=== PATIENT | female | born 1990 | race Caucasian/White ===

== ENCOUNTER 2017-01-12 16:31 | Inpatient (IN) | payer OTHER ==
[~2017-01-12] VITALS: Ht 170.2 cm; Wt 68.9 kg
[~2017-01-12 16:31] MED LIST: AMOXICILLIN875 MG PO; IBUPROFEN600 M1 PO; PERCOCET 325 MG1 TA2 PO
--- NOTE | 2017-01-12 16:31 | NUR ---
DIANALeticia AFTER BEING FOUND ON NEIGHBORS PORCH WITH ALTERED MENTAL STATUS. PT AWAKE, INCOHERENT. CLOTHES WET AND DIRTY, SMELLING OF URINE. SHAKING UNCONTROLLABLY. SKIN PALE, COOL TO TOUCH. EMS ADMINISTERED 1 AMP NARCAN, STARTED IV AND IVF BOLUS. NO IMPROVEMENT IN STATUS WITH NARCAN. UPON ARRIVAL PT INCOHERENT, SHAKING, UNABLE TO COOPARATE OR ANSWER QUESTIONS. DR MEYER TO BEDSIDE.
--- NOTE | 2017-01-12 16:40 | ED AMS/SEIZURE/WEAK/DIZZY ---
History of Present Illness General Chief Complaint: Altered Mental Status Stated Complaint: BIBA WITH ALTERED,MENTAL STATUS , OVER DOSE Source: EMS, MOTHER Exam Limitations: clinical condition, confusion Vital Signs & Intake/Output Vital Signs & Intake/Output Vital Signs Date Time Temp Pulse Resp B/P B/P Pulse O2 O2 Flow FiO2 Mean Ox Delivery Rate 01/23 2250 98.6 91 20 122/60 96 Room Air 01/23 2200 98.6 91 20 122/60 01/23 1620 98.1 64 18 142/86 95 Room Air 01/23 1406 98.1 90 20 138/80 95 Room Air 01/23 0637 99.5 69 20 140/84 90 Room Air 01/23 0400 98.5 65 20 140/90 01/23 0000 98.7 60 20 140/90 ED Intake and Output 01/23 0000 10 1200 Intake Total 7600 3440 Output Total 5200 2900 Balance 2400 540 Intake, IV 6400 3200 Intake, Oral 1200 240 Output, Urine 5200 2900 Allergies Coded Allergies: red dye (Mild, RASH 01/21/17) RED DYE N22 -> RASH Reconcile Medications Buprenorphine HCl/Naloxone HCl (Suboxone 2 MG-0.5 MG Sl Film) 2 MG-0.5 MG FILM 1 STR SL DAILY ADDICTION (Reported) Hydroxyzine Pamoate 25 MG CAPSULE 1 CAP PO TID PRN ANXIETY (Reported) Lurasidone HCl (Latuda) 20 MG TABLET 1 TAB PO DAILY . (Reported) Lurasidone HCl (Latuda) 80 MG TABLET 1 TAB PO QPM . (Reported) Mirtazapine 15 MG TABLET 1 TAB PO QPM SLEEP (Reported) Trazodone HCl 100 MG TABLET 1 TAB PO QPM SLEEP (Reported) Triage Nurses Notes Reviewed? yes Onset: Abrupt Duration: hour(s): (FEW) Injury Environment: home Severity: severe Associated Symptoms: FEVER, CONFUSION, MUSCLE RIGIDITY, NYSTAGMUS HPI: This is a 26-year-old female with known history of mental illness on trazodone, Abilify, Wellbutrin, who presents by EMS for chief complaint of altered mental status. According to EMS she was found rolling down a hill and somebody's lawn. Patient was found to be tachycardic in the field. Heart rate was in the 140s sinus. She is awake and alert, active. She is not oriented. Moving all extremities. Appears very disheveled with multiple abrasions on her extremities. Pupils were pinpoint and she was hypoxic to 90s in the field. They gave her dose of IV Narcan with good response. Past History Travel History Traveled to [place] past 21 day No Medical History Any Pertinent Medical History? see below for history Neurological: NONE EENT: NONE Cardiovascular: NONE Respiratory: NONE Gastrointestinal: NONE Hepatic: NONE Renal: NONE Musculoskeletal: NONE Psychiatric: anxiety, depression, substance abuse, ADHD/ADD Endocrine: diabetes Blood Disorders: NONE Cancer(s): NONE Tetanus Vaccine: 11/30/15 Surgical History Surgical History: non-contributory Psychosocial History What is your primary language Cuban ETOH Use: UNOBTAINABLE Family History Hx Contributory? No Review of Systems Review of Systems Constitutional: Reports: see HPI (UNOBTAINABLE). Physical Exam Physical Exam General Appearance: alert, awake, anxious, severe distress, thin Head: NO TRAUMA, DISSHEVELED Eyes: Bilateral: PERRL (2 MM). Neck: normal inspection, supple, full range of motion Respiratory: normal breath sounds Cardiovascular: tachycardia Peripheral Pulses: 2+ radial (R), 2+ radial (L) Neurologic/Psych: awake, alert Core Measures ACS in differential dx? No CVA/TIA Diagnosis: No Severe Sepsis Present: No Septic Shock Present: No Progress Differential Diagnosis: seizure disorder, COCAINE INTOXICATION, NEUROLEPTIC MALIGNANT SYNDROME, RHABDOMYOLYSIS, NAM, POLYSUBSTANCE ABUSE, MENINGITIS, ENCEPHALITIS, CVA Plan of Care: Orders Procedure Date/time Status PHOSPHORUS 01/24 0600 Active MAGNESIUM 01/24 0600 Active CREATINE PHOSPHOKINASE 01/24 0600 Active BASIC ELECTROLYTES PLUS BUN&CR 01/24 06 Active Continuous Observation Monitor 01/23 1154 Active D-DIMER 01/23 0945 Complete MAGNESIUM 01/23 0719 Complete Lab Add-on Test 01/23 UNK Active Current Medications Sig/Aydin Start time Last Medication Dose Stop Time Status Admin Lorazepam 1 MG TID 01/24 1000 AC (Ativan) Sodium Chloride 1,000 ML Q5H 01/23 1300 AC 01/23 (Normal Saline 0.9%) 2029 Lorazepam 1 MG ONE ONE 01/23 1045 CAN (Ativan) 01/23 1046 Acetaminophen 500 MG Q6P PRN 01/21 1215 AC 01/21 (Tylenol) 1359 Oxycodone HCl 5 MG Q6P PRN 01/21 0845 AC 01/23 (Roxicodone) 1952 Melatonin 10 MG AT BEDTIME 01/17 2200 AC 01/22 (Melatonin) 2128 Docusate Sodium 100 MG BID 01/17 1446 AC 01/20 (Colace) 0809 Polyethylene Glycol 17 GM DAILY PRN 01/16 1545 AC 01/16 (Miralax) 170 Senna/Docusate Sodium 2 TAB DAILY PRN 01/16 1545 AC 01/16 (Senokot S) 1708 Laboratory Tests 01/23/17 1115: D-Dimer High Sensitivty 550 H 01/23/17 0719: Anion Gap 5, Estimated GFR > 60, BUN/Creatinine Ratio 6.7 L, Phosphorus 3.9, Magnesium 1.3 L, Creatine Kinase 84274 H RECTAL TEMP 105.6 (BETSY ALBERTS,KENNY) Diagnostic Imaging: Viewed by Me: Radiology Read. Discussed w/RAD: Radiology Read. Radiology Impression: PATIENT: THERESA BUNDY PRESENT AGE: 26 PATIENT ACCOUNT NO: [id number] : 92 LOCATION: [facility] ORDERING PHYSICIAN: KENNY MEYER MD SERVICE DATE: 01/12/17 EXAM TYPE: CAT - CT ABD & PELVIS W/O IV CONTRAS EXAMINATION: CT ABDOMEN AND PELVIS WITHOUT CONTRAST CLINICAL INFORMATION: Renal failure. Altered mental status. Evaluate for acute process. COMPARISON: Abdominal and pelvic ultrasound 10/01/2011 TECHNIQUE: Multidetector volumetric imaging was performed from the superior aspect of the liver through the pubic symphysis. Sagittal and coronal reformatted images were obtained on the technologist's workstation. Evaluation mildly limited secondary to lack of intravenous contrast and artifact secondary to patient's arms. DLP: 312 mGy-cm FINDINGS: Visualized lung bases are well aerated. There is mild dependent atelectasis. The liver demonstrates normal size , contour and attenuation. The pancreas, spleen and adrenal glands are unremarkable. The kidneys are symmetric in size. No nephrolithiasis or hydronephrosis. Normal caliber loops of small and large bowel. Mild stool burden throughout the colon. Normal appendix. The bladder is mildly distended. Gr catheter is within the bladder. Temperature probe within the rectum. Trace free pelvic fluid, likely physiologic. No acute osseous abnormality. IMPRESSION: No evidence for acute abdominal or pelvic pathology on this noncontrast CT. DICTATED BY: MIGUEL ANGEL OVALLE MD DATE/TIME DICTATED:01/12/172017 RESEARCH PROJECT MANAGER:DOUGLAS DATE/TIME TRANSCRIBED:01/12/172017 CONFIDENTIAL, DO NOT COPY WITHOUT APPROPRIATE AUTHORIZATION. <Electronically signed in Other Vendor System> SIGNED BY: MIGUEL ANGEL OVALLE MD 01/12/172030, PATIENT: THERESA BUNDY PRESENT AGE: 26 PATIENT ACCOUNT NO: [id number] : 92 LOCATION: ER ORDERING PHYSICIAN: KENNY MEYER MD SERVICE DATE: 01/12/17 EXAM TYPE: CAT - CT HEAD WO IV CONTRAST EXAMINATION: CT HEAD WITHOUT CONTRAST CLINICAL INFORMATION: AMS, FOUND ON GROUND, UNKNOWN TRAUMA COMPARISON: None TECHNIQUE: Contiguous axial imaging was performed from the skull base to vertex without intravenous administration of contrast. DLP: 533.7 mGy-cm FINDINGS: There is no evidence of acute intracranial hemorrhage or territorial infarction. No abnormal mass effect or midline shift is seen. Perez to white matter differentiation is well preserved. No extra-axial fluid collections are identified. The ventricles are normal in size. There is no abnormal attenuation within the brain parenchyma. The osseous structures and soft tissues are normal. The mastoid air cells and visualized portions of the paranasal sinuses are well aerated. IMPRESSION: No acute intracranial pathology. DICTATED BY: BALTAZAR LEE MD DATE/TIME DICTATED:01/12/172026 RESEARCH PROJECT MANAGER :DOUGLAS DATE/TIME TRANSCRIBED:01/12/172026 CONFIDENTIAL, DO NOT COPY WITHOUT APPROPRIATE AUTHORIZATION. <Electronically signed in Other Vendor System> SIGNED BY: BALTAZAR LEE MD 01/12/172032 CXR Impression: PATIENT: THERESA BUNDY PRESENT AGE: 26 PATIENT ACCOUNT NO: [id number] : 92 LOCATION: [facility] ORDERING PHYSICIAN: KENNY MEYER MD SERVICE DATE: 01/12/17 EXAM TYPE: RAD - XRY-PORTABLE CHEST XRAY EXAMINATION: XR PORTABLE CHEST CLINICAL INFORMATION: 26-year-old female with hypoxia and acute mental status change. COMPARISON: None TECHNIQUE: Portable AP portable supine view of the chest was obtained. FINDINGS: No significant abnormality is noted involving the heart, lungs, mediastinum, bony thorax or soft tissues. 2 punctate calcifications seen to move with the liver and therefore must represent calcified granulomas in the liver. A single surgical clip is present in the right midline of the upper abdomen. IMPRESSION: No pneumonia. DICTATED BY: AILYN CRISTINA MD DATE/TIME DICTATED:01/12/171815 RESEARCH PROJECT MANAGER:DOUGLAS DATE/TIME TRANSCRIBED:01/12/171815 CONFIDENTIAL, DO NOT COPY WITHOUT APPROPRIATE AUTHORIZATION. <Electronically signed in Other Vendor System> SIGNED BY: AILYN CRISTINA MD 01/12/171821 Initial ED EKG: SINUS TACH @ 147 BPM Prior EKG: unchanged Rhythm Strip: sinus tachycardia Departure Departure Time of Disposition: 2051 Disposition: STILL A PATIENT Condition: Stable Clinical Impression Primary Impression: Altered mental status Secondary Impressions: Cocaine abuse, Renal failure, Rhabdomyolysis Referrals: JENNIFER CR DO (PCP/Family) Departure Forms: Customer Survey General Discharge Information Admission Note Spoke With: EDUARDO RUDD MD Documentation of Exam: Documentation of any treatments & extenuating circumstances including Concerns Regarding Discharge (functional status, medication knowledge or non-compliance, living conditions, etc.) that warrant an admission rather than observation: [ICU MONITOR, FLUID RESUSSCITATION, MONITOR I/O, MONITOR TEMP, REPEAT CK, REPEAT RENAL FUNCTIONS, CRISIS EVALUATION WHEN STABLE, MEDICATION EVLUATION POSSIBLE SSRI] Critical Care Note Critical Care Note Critical Care Time: 75-104 min
--- NOTE | 2017-01-12 16:55 | NUR ---
RECTAL TEMP OBTAINED AND FOUND TO BE 105.6. DR MEYER AWARE. SECOND IV LINE STARTED AND PREPARING FOR COOLING BLANKET
--- NOTE | 2017-01-12 17:00 | NUR ---
UPON ARRIVAL TO ED PT BROUGHT TO ROOM 2. COCO ROGERS COGNOS LEAD AND THIS NURSE AT BEDSIDE. PT INCOHERENT, UNABLE TO PROVIDE HISTORY OR COOPERATE. PT TREMULOUS, PULLING ON IV AND GRABBING STAFF. PT PLACED IN TWO POINT RESTRAINTS PER ORDER DR MEYER.
--- NOTE | 2017-01-12 17:01 | NUR ---
PT UNDRESSED. CLOTHES SOILED WITH DIRT AND URINE. EKG DONE. LABS DRAWN. CRAMER CATHETER PLACED. PT MEDICATED WITH ATIVAN WITH LITTLE EFFECT.
[2017-01-12 17:07] LABS: ABSOLUTE BASOPHIL COUNT 0 /CUMM (0.0-0.2); ABSOLUTE EOSINOPHIL COUNT 0 /CUMM (0.0-0.7); ABSOLUTE GRANULOCYTE CT 16.6 /CUMM (1.4-6.5); ABSOLUTE LYMPH COUNT 4.6 /CUMM (1.2-3.4); ABSOLUTE MONOCYTE COUNT 1.1 /CUMM (0.10-0.60); BASOPHIL % 0.1 % (0.0-2.0); EOSINOPHIL % 0.1 % (0-5); GRANULOCYTE % 74.2 % (42.2-75.2); HEMATOCRIT 45.6 % (37-47); MEAN CORPUSCULAR HGB 30.3 PG (27.0-31.0); MEAN CORPUSCULAR HGB CONC 33.7 G/DL (33.0-37.0); MEAN CORPUSCULAR VOLUME 89.9 FL (81.0-99.0); MEAN PLATELET VOLUME 8.8 FL (7.4-10.4); PLATELET COUNT 266 /CUMM (130-400); RBC DISTRIBUTION WIDTH 12.9 % (11.5-14.5); RED BLOOD CELL CT 5.07 /CUMM (4.20-5.40); WHITE BLOOD CELL COUNT 22.4 /CUMM (4.8-10.8)
--- NOTE | 2017-01-12 17:15 | NUR ---
NO RELIEF OF AGITATION WITH ATIVAN. GIVEN TOTAL OF 2MG VERSED. PT LESS TREMULOUS AFTER VERSED BUT REMAINED AWAKE AFTER MED GIVEN
--- NOTE | 2017-01-12 17:50 | NUR ---
COOLING BLANKET PLACED ON PT. RECTAL THERMOMETER IN PLACE TO MONITOR TEMP
--- NOTE | 2017-01-12 18:22 | RADIOLOGY REPORT ---
EXAMINATION: XR PORTABLE CHEST CLINICAL INFORMATION: 26-year-old female with hypoxia and acute mental status change. COMPARISON: None TECHNIQUE: Portable AP portable supine view of the chest was obtained. FINDINGS: No significant abnormality is noted involving the heart, lungs, mediastinum, bony thorax or soft tissues. 2 punctate calcifications seen to move with the liver and therefore must represent calcified granulomas in the liver. A single surgical clip is present in the right midline of the upper abdomen. IMPRESSION: No pneumonia.
--- NOTE | 2017-01-12 18:36 | NUR ---
MOTHER AT BEDSIDE. STATES PT WAS IN NORMAL STATE OF HEALTH THIS AM. WENT TO A CLINIC APPT THIS AM. MOTHER SPOKE WITH PT AROUND 1PM AND SHE SEEMED FINE. PT REMAINS INCOHERENT, SHAKING AND UNABLE TO PROVIDE ANY HISTORY OF EVENTS LEADING UP TO COMING TO HOSPITAL
--- NOTE | 2017-01-12 18:38 | NUR ---
PT IS CURRENTLY RECIEVING THIRD LITER OF IVF
--- NOTE | 2017-01-12 18:41 | NUR ---
CRITICAL TEST RESULTS [id number] THERESA BUNDY 26 F TESTS AND RESULTS: LACTIC ACID 11.2 Results received and read back by: CROW HERNANDEZ Results received date and time: 01/12/17 1842 The following provider was notified of the results, and read the results back: DR MEYER Notified date and time: 01/12/17 at 1842
--- NOTE | 2017-01-12 18:45 | NUR ---
DR MEYER AT BEDSIDE TO REASSESS PT. SHE IS AWARE OF PANIC LACTIC ACID OF 11.2, TEMP 101.[address] MEYER COOLING BLANKET SHUT OFF. PT CONTINUES TO BE SHAKING AND TREMULOUS. CURRENTLY UNABLE TO LAY STILL FOR CT SCAN. REMAINS INCOHERENT
--- NOTE | 2017-01-12 19:09 | NUR ---
MEDICATED WITH ATIVAN DUE TO CONTINUED TREMORS, AGITATION. 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
--- NOTE | 2017-01-12 20:06 | NUR ---
PT WENT AND RETURNED FROM CT SCAN. REQUIRED .5 VERSED TO RELAX HER ENOUGH TO LAY STILL FOR CT SCAN. PT CONTINUES TO BE CONFUSED AND SAYING INAPPROPRIATE THINGS. PULLING AT IVS AND MEDICAL DEVICES. PT NOT RECEPTIVE TO LIMIT SETTING.
--- NOTE | 2017-01-12 20:08 | NUR ---
PT WAS MEDICATED FOR CT SCAN WITH VERSED. RESTRAINTS REMOVED AT [address] SCAN. PT REMAINED CALM DURING AND AFTER CT SCAN. RESTRAINTS LEFT OFF. DR MEYER AWARE.
--- NOTE | 2017-01-12 20:31 | CT SCAN REPORT ---
EXAMINATION: CT ABDOMEN AND PELVIS WITHOUT CONTRAST CLINICAL INFORMATION: Renal failure. Altered mental status. Evaluate for acute process. COMPARISON: Abdominal and pelvic ultrasound 10/01/2011 TECHNIQUE: Multidetector volumetric imaging was performed from the superior aspect of the liver through the pubic symphysis. Sagittal and coronal reformatted images were obtained on the technologist's workstation. Evaluation mildly limited secondary to lack of intravenous contrast and artifact secondary to patient's arms. DLP: 312 mGy-cm FINDINGS: Visualized lung bases are well aerated. There is mild dependent atelectasis. The liver demonstrates normal size, contour and attenuation. The pancreas, spleen and adrenal glands are unremarkable. The kidneys are symmetric in size. No nephrolithiasis or hydronephrosis. Normal caliber loops of small and large bowel. Mild stool burden throughout the colon. Normal appendix. The bladder is mildly distended. Gr catheter is within the bladder. Temperature probe within the rectum. Trace free pelvic fluid, likely physiologic. No acute osseous abnormality. IMPRESSION: No evidence for acute abdominal or pelvic pathology on this noncontrast CT.
--- NOTE | 2017-01-12 20:33 | CT SCAN REPORT ---
EXAMINATION: CT HEAD WITHOUT CONTRAST CLINICAL INFORMATION: AMS, FOUND ON GROUND, UNKNOWN TRAUMA COMPARISON: None TECHNIQUE: Contiguous axial imaging was performed from the skull base to vertex without intravenous administration of contrast. DLP: 533.7 mGy-cm FINDINGS: There is no evidence of acute intracranial hemorrhage or territorial infarction. No abnormal mass effect or midline shift is seen. Perez to white matter differentiation is well preserved. No extra-axial fluid collections are identified. The ventricles are normal in size. There is no abnormal attenuation within the brain parenchyma. The osseous structures and soft tissues are normal. The mastoid air cells and visualized portions of the paranasal sinuses are well aerated. IMPRESSION: No acute intracranial pathology.
--- NOTE | 2017-01-12 21:00 | NUR ---
PT REMAINS CALM AND COOPERATIVE. NO LONGER WITH JERKY, FIDGETY MOVEMENTS. ALERT AND MOSTLY ORIENTED BUT CONTINUES TO HAVE INAPPROPRIATE CONVERSATIONS
--- NOTE | 2017-01-12 21:12 | NUR ---
FIRST SET OF BLOOD CULTURES DRAWN ALONG WITH MAN, LAV AND SST
--- NOTE | 2017-01-12 21:12 | NUR ---
HOUSE STAFF IN TO SEE PT
--- NOTE | 2017-01-12 21:56 | NUR ---
SECOND SET OF BLOOD CULTURES OBTAINED. EKG DONE.
[2017-01-12] MEDS ORDERED: LATUDA20 M1 PO (22:16)
[2017-01-12] MEDS ORDERED: HYDROXYZINE PAM25 M2 PO (22:16)
[2017-01-12] MEDS ORDERED: LATUDA80 M1 PO (22:16)
[2017-01-12] MEDS ORDERED: SUBOXONE 2 MG-1 EACH SL (22:16)
[2017-01-12] MEDS ORDERED: MIRTAZAPINE15 M2 PO (22:17)
[2017-01-12] MEDS ORDERED: TRAZODONE HCL100 M1 PO (22:17)
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
--- NOTE | 2017-01-12 23:10 | NUR ---
PT IS GOING TO 107-1
--- NOTE | 2017-01-12 23:24 | NUR ---
REPORT CALLED TO SENIOR CASE MANAGER LULI. PT AWAKE, ALERT, ORIENTED TO PERSON, PLACE AND SOMEWHAT TO TIME. REMAINS WITH INAPPROPRIATE CONVERSATION. CONTINUES TO BE UNABLE TO PROVIDE HISTORY OF WHAT HAPPENED TODAY. DID ADMIT TO USING COCAINE BUT OTHER THEN THAT CANNOT PROVIDE HISTORY. PT HAS BEEN CALM AND COOPERATIVE SINCE CT SCAN AT 1999.
--- NOTE | 2017-01-12 23:31 | NUR ---
CRITICAL TEST RESULTS [id number] THERESA BUNDY 26 F TESTS AND RESULTS: TROPONIN 1.04 Results received and read back by: CROW HERNANDEZ Results received date and time: 01/12/17 2332 The following provider was notified of the results, and read the results back: SELINA Notified date and time: 01/12/17 at 2332
[2017-01-13] VITALS (8 sets, daily range): BP systolic 100–120; BP diastolic 69–80
--- NOTE | 2017-01-13 | NUR ---
PATIENT ALERT BUT FALLS READILY OFF TO SLEEP. ANSWERS QUESTIONS APPROPRIATELY. ORIENTED X3.MONITOR SINUS RHYTHM AT RATE OF 110/70.O2 SAT=97% ON ROOM AIR. CRAMER CATHETER DRAINING LUIS ARMANDO URINE.PT HAS SCRATCHES ON LOWER EXTREMITIES.
--- NOTE | 2017-01-13 01:43 | Admission Certification ---
Admission Certification Certification Statement - As attending physician, I certify that at the time of - admission, based on clinical presentation, severity of - symptoms, need for further diagnostic testing and - therapeutic interventions, and risk of adverse outcomes - without in-hospital treatment, in my clinical assessment, - this patient requires an acute hospital stay for a minimum - of two nights or longer. I have also considered psychsocial - factors such as support system, advanced age, financial - issues, cognitive issues, and failed out-patient treatments, - past re-admission history, safety of patient, and lack of - compliance as applicable. Specific rationale supporting this admission is: Cocaine overdose, rhabdomyolysis, acute kidney injury
[2017-01-13 03:29] LABS: ABSOLUTE BASOPHIL COUNT 0.1 /CUMM (0.0-0.2); ABSOLUTE EOSINOPHIL COUNT 0 /CUMM (0.0-0.7); ABSOLUTE GRANULOCYTE CT 9.8 /CUMM (1.4-6.5); ABSOLUTE MONOCYTE COUNT 0.7 /CUMM (0.10-0.60); BASOPHIL % 0.5 % (0.0-2.0); EOSINOPHIL % 0 % (0-5); GRANULOCYTE % 84.5 % (42.2-75.2); MEAN CORPUSCULAR HGB 30.6 PG (27.0-31.0); MEAN CORPUSCULAR HGB CONC 34.2 G/DL (33.0-37.0); MEAN CORPUSCULAR VOLUME 89.7 FL (81.0-99.0); MEAN PLATELET VOLUME 8.9 FL (7.4-10.4); RED BLOOD CELL CT 4.22 /CUMM (4.20-5.40); WHITE BLOOD CELL COUNT 11.6 /CUMM (4.8-10.8)
[2017-01-13 03:39] LABS: PT 16.8 SEC (9.4-12.5)
[2017-01-13 03:41] LABS: HEMATOCRIT 37.8 % (37-47)
[2017-01-13 03:43] LABS: PLATELET COUNT 65 /CUMM (130-400)
[2017-01-13 04:44] LABS: PTT 34 SEC (25-37)
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
--- NOTE | 2017-01-13 08:47 | RADIOLOGY REPORT ---
EXAMINATION: XR PORTABLE CHEST CLINICAL INFORMATION: No aggressive hydration. Rule out effusions. COMPARISON: 01/12/2017 TECHNIQUE: Portable frontal view of the chest was obtained. FINDINGS: Lung volumes are decreased as compared to the prior radiographs, likely related to technique (portable, potentially sitting). No consolidation, pneumothorax, or pleural effusion. Cardiac and mediastinal contours are within normal limits for technique. Pulmonary vasculature is unremarkable. Osseous structures are normal. IMPRESSION: No acute cardiopulmonary findings. No appreciable pleural effusion.
[2017-01-13 08:55] LABS: ABSOLUTE BASOPHIL COUNT 0 /CUMM (0.0-0.2); ABSOLUTE EOSINOPHIL COUNT 0 /CUMM (0.0-0.7); ABSOLUTE MONOCYTE COUNT 0.6 /CUMM (0.10-0.60); BASOPHIL % 0.2 % (0.0-2.0); EOSINOPHIL % 0 % (0-5)
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
[2017-01-13 09:23] LABS: PT 23.4 SEC (9.4-12.5)
[2017-01-13 09:33] LABS: ABSOLUTE GRANULOCYTE CT 7.1 /CUMM (1.4-6.5); ABSOLUTE LYMPH COUNT 1.2 /CUMM (1.2-3.4); GRANULOCYTE % 79.4 % (42.2-75.2); MEAN CORPUSCULAR HGB 30.2 PG (27.0-31.0); MEAN CORPUSCULAR HGB CONC 33.9 G/DL (33.0-37.0); MEAN PLATELET VOLUME 8.5 FL (7.4-10.4); PLATELET COUNT 46 /CUMM (130-400); RBC DISTRIBUTION WIDTH 13.2 % (11.5-14.5); RED BLOOD CELL CT 3.28 /CUMM (4.20-5.40)
[2017-01-13 09:36] LABS: HEMATOCRIT 29.2 % (37-47)
--- NOTE | 2017-01-13 09:51 | PN- CRCU ---
Subjective HPI/Critical Care Issues: More awake and alert this am Complained of pain all over NO other compliants Fatigued Objective Current Medications: Current Medications Sig/Aydin Start time Last Medication Dose Route Stop Time Status Admin Acetaminophen 325 MG Q6P PRN 01/12 214 AC PO Acetaminophen 0 .STK-MED ONE 01/12 1706 DC IV Acetaminophen 1,000 MG ONCE ONE 01/12 1700 DC 01/12 N/A 1 UNIT IV 01/12 1714 1756 Ampicillin Sodium/ 1,500 MG Q6 01/12 2359 AC 01/13 Sulbactam Sodium IV 0640 Sodium Chloride 100 ML Aspirin 81 MG DAILY 01/13 1000 UNVr PO Aspirin 325 MG .STK-MED ONE 01/13 0112 DC PO 01/13 0113 Aspirin 325 MG ONCE ONE 01/12 2245 DC 01/13 PO 01/12 2246 0112 Atorvastatin Calcium 40 MG 1700 01/13 1700 CAN PO Heparin Sodium 5,000 UNIT Q8 01/12 2200 DC 01/13 (Porcine) SC 0130 Lorazepam 1 MG Q2 HRS NEEDED PRN 01/12 2130 AC IV Lorazepam 0 .STK-MED ONE 01/12 1910 DC .ROUTE Lorazepam 2 MG ONE ONE 01/12 1900 DC 01/12 IV 01/12 1901 1909 Lorazepam 1 MG ONCE ONE 01/12 1645 DC 01/12 IV 01/12 1646 1636 Lorazepam 1 MG ONCE ONE 01/12 1645 DC IV 01/12 1646 Lorazepam 0 .STK-MED ONE 01/12 1641 DC .ROUTE Midazolam HCl 2 MG ONCE ONE 01/12 1945 DC 01/12 IV 01/12 1946 1999 Midazolam HCl 1 MG ONCE ONE 01/12 1800 DC 01/12 IV 01/12 1801 1755 Midazolam HCl 2 MG ONCE ONE 01/12 1645 DC 01/12 IV 01/12 1646 1645 Morphine Sulfate 2 MG Q4P PRN 01/12 214 AC IV Nitroglycerin 0.5 GM Q6P PRN 01/12 224 AC TOP Oxycodone HCl 5 MG Q6P PRN 01/12 2145 AC PO Sodium Chloride 1,000 ML BOLUS ONE 01/13 0415 DC 01/13 IV 01/13 0614 0449 Sodium Chloride 1,000 ML Q5H 01/13 0145 AC 01/13 IV 0649 Sodium Chloride 1,000 ML BOLUS ONE 01/12 2130 DC 01/12 IV 01/12 2229 2115 Sodium Chloride 1,000 ML ONCE ONE 01/12 2130 DC 01/12 IV 01/13 0229 2323 Sodium Chloride 1,000 ML BOLUS ONE 01/12 1800 DC 01/12 IV 01/12 1859 1829 Sodium Chloride 1,000 ML BOLUS ONE 01/12 1700 DC 01/12 IV 01/12 1759 1756 Sodium Chloride 1,000 ML BOLUS ONE 01/12 1645 DC 01/12 IV 01/12 1744 1745 Tetanus/Diphtheria 0 .STK-MED ONE 01/12 2210 DC Toxoids Adsorbed IM Tetanus/Diphtheria 0.5 ML ONCE ONE 01/12 1715 DC 01/12 Toxoids Adsorbed IM 01/12 171 2210 Vital Signs & I&O Last 24 Hrs of Vitals and I&O: Vital Signs Date Time Temp Pulse Resp B/P B/P Pulse O2 O2 Flow FiO2 Mean Ox Delivery Rate 01/13 0600 81 20 103/69 01/13 0400 98.5 87 20 104/80 01/13 0400 99 Room Air 01/13 0200 88 20 106/69 01/13 0000 97.7 99 28 110/70 01/13 0000 97.7 99 28 110/70 97 Room Air 01/13 0000 97 Room Air 01/12 2338 100.2 01/125 98.4 102 18 97/69 97 01/127 100.2 105 18 104/62 98 Nasal 2.0L Cannula 01/12 2007 100.6 114 18 107/61 97 Nasal 2.0L Cannula 01/12 1910 101.3 122 18 123/66 98 Nasal 2.0L Cannula 01/12 1821 101.8 131 22 131/91 98 Nasal 2.0L Cannula 01/12 1805 102.8 01/12 1715 Nasal 2.0L Cannula 01/12 1655 105.6 01/12 1640 140 22 131/61 Intake & Output 01/13 1600 01/13 0800 01/13 0000 Intake Total 2749 4000 Output Total 1050 1200 Balance 1699 2800 Intake, IV 1749 4000 Intake, Oral 1000 Output, Urine 1050 1200 Patient 152 lb Weight Weight Estimated Measurement Method Impression/Plan Impression/Plan Impression/Plan: Afebrile Vital signs otherwise stable On 5:15 tidal volume 30% FiO2 5 of PEEP O2 sat 97% Continues to be on Ativan Tolerating tube feeds Did diurese more than 2 L yesterday BUN/creatinine stable anion gap is normal alkaline phosphatase is slightly elevated AST ALT was normalizing white count 12.4 down from 19 yesterday hemoglobin 11.6 ABG from few days ago reviewed cultures so far show Klebsiella chest x-ray opacity in the left base Sputum culture from yesterday was of poor quality before it had grown yeast SIGNIFICANT DATA medications reviewed blood work reviewed BUN/creatinine has improved since yesterday Actiq acid was high yesterday now is improved rapidly calcium is low total bilirubin is elevated at 1.6 REMBERTO LT are elevated AST more than ALT her CPK was more than 32,000 this morning it's pending her urine tox screen was positive for cocaine methadone is 45 which is low white count 11 platelets are significantly lower today at 65,080% segs INR is elevated at 2.25 alkaline phosphatase was normal CT scan of the head did show no acute pathology chest x-ray showed no significant pneumonia CT scan of the abdomen and pelvis without contrast showed no significant intra-abdominal pathology liver appeared normal her Tylenol level was low salicylic acid level was low hCG was negative ammonia level was 93 Impression This is a 26-year-old lady with history of significant drug use with high fever cocaine intoxication with previous history of psychiatric history, polysubstance history who has been on Suboxone, latuda and mirtazapine now with Very high fever severe rhabdomyolysis, paranoid features with altered mental status with acute renal failure which is slowly improving highly suggestive of cocaine overdose causing rhabdo compounded by probable side effects from her medication she is on and combination thereof Severe lactic acidosis due to low flow state which is improving Acute renal failure which is now resolving after aggressive fluid resuscitation Signs and symptoms suggestive of liver dysfunction versus hypoxemic liver injury with high INR low platelets rule out acute liver injury versus failure Significant psychosis probably a combination of multiple drugs she has taken Rule out neuroleptic malignant syndrome as well REC COnt IVF and monitor urineout put regularly 200 cc per hr for now, watch for pulm edema IF she develops fluid overload will give IV lasix 20 mg Check blood work q 4 hrs Check urine ph Replace potassium gently with po potassium (note pt may gointo hyperkalemia due to rhabdo) IV mag for now Po low dose ativan if she is agitated and can use iv prn Recheck calcium and replace po for now, unless she develops symptoms of hypocalcemia NO need for Forced alkaline diuresis due to severe hypocalcemia and normalization of creatinine Ask renal to see the patient aswell Will follow INR and LFts and platelets this pm and am GI eval if she contiues to have high INR and bili REcheck tyleonol level Call poison control Ask psych to see PO vit k
--- NOTE | 2017-01-13 10:11 | RADIOLOGY REPORT ---
EXAMINATION: XR HIP, RIGHT CLINICAL INFORMATION: Hip pain and swelling status post fall. Evaluate for fracture. COMPARISON: None TECHNIQUE: Two views of the right hip. Frontal view of the pelvis. FINDINGS: No acute fracture or dislocation. Both hip joints normally located within the acetabula. No significant degenerative change. No joint calcification. Pubic symphysis and sacroiliac joints bilaterally intact. Phleboliths are seen in the pelvis. Several small rounded densities are seen projected over the iliac crests bilaterally and in the right lower paraspinal region. Without the benefit of a lateral view, localization of these densities is not possible. In reviewing the recent CT scan of the abdomen and pelvis from 01/12/2017, no soft tissue granulomas or other intrapelvic or bone densities are seen. Findings likely represent something extrinsic to the patient/artifact. IMPRESSION: Unremarkable appearance of the hips.
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
--- NOTE | 2017-01-13 12:15 | Cons- Nephrology ---
General Information and HPI Allergies/Medications Allergies: Uncoded Allergies: RED DYE N22 (Mild, RASH 03/21/14) Home Med List: Buprenorphine HCl/Naloxone HCl (Suboxone 2 MG-0.5 MG Sl Film) 2 MG-0.5 MG FILM 1 STR SL DAILY ADDICTION (Reported) Hydroxyzine Pamoate 25 MG CAPSULE 1 CAP PO TID PRN ANXIETY (Reported) Lurasidone HCl (Latuda) 20 MG TABLET 1 TAB PO DAILY . (Reported) Lurasidone HCl (Latuda) 80 MG TABLET 1 TAB PO QPM . (Reported) Mirtazapine 15 MG TABLET 1 TAB PO QPM SLEEP (Reported) Trazodone HCl 100 MG TABLET 1 TAB PO QPM SLEEP (Reported) Past History Travel History Traveled to [place] past 21 day No Medical History Blood Transfusion Hx: No Neurological: NONE EENT: NONE Cardiovascular: NONE Respiratory: NONE Gastrointestinal: NONE Hepatic: NONE Renal: NONE Musculoskeletal: NONE Psychiatric: anxiety, depression, substance abuse, ADHD/ADD Endocrine: diabetes Blood Disorders: NONE Cancer(s): NONE Surgical History Surgical History: non-contributory Psychosocial History Where Do You Live? Home Smoking Status: Former Smoker ETOH Use: UNOBTAINABLE
--- NOTE | 2017-01-13 13:32 | Cons- Nephrology ---
General Information and HPI Consulting Request Date of Consult: 01/13/17 Requested By: EDUARDO RUDD MD Reason for Consult: NAM Source of Information: patient, old records Exam Limitations: not alert/orientated, clinical condition History of Present Illness: The patient is a 26-year-old woman with a past medical history most significant for bipolar disorder, alcohol abuse completed by multiple DUIs, and polysubstance abuse who presents with altered mental status. The patient was brought in yesterday after being found on her neighbor's porch altered. She was given Narcan by EMS with no improvement in her mental status. In the emergency room, she sounds a rectal temp of 105.6. She was put on a cooling blanket. Blood pressure was 131/61 and heart rate was 140. She is found on labs to have renal failure with a creatinine of 2.0 (prior 0.9 in 2013), rhabdo with a CK 8769, evidence of cardiac injury with a troponin 1.04 , albumin 5.3, ammonia 93, AST 140, ALT 52, Plts 266, lactate 11.2. UA with > 300mg/dl protein, 10-15 RBC's, 5-10 WBC's, 15-25 granular casts. Utox positive for cocaine but otherwise notably negative for salicylates, acetaminophen, methanol/ethanol/isopropanol/acetone and negative otherwise. Abd/Pelvis CT without acute pathology (kidneys symmetric in size without nephrolithiasis or hydronephrosis). She was initially treated with IVF (4L on first day and 1749cc so far now - 2250cc UOP) - currently running at 200cc/hr. Also getting a significant amount of benzos. Poison control has been notified and at the moment do not have any other additional recommendations. SCr has downtrended, trop has downtrended, lactate has downtrended, LFT's have uptrended, albumin is down, INR is elevated, Hg is down, and Plts are down to 46 with an elevated LDH of 5324. Of note, the patient is currently on Latuda and Risperdal. She was on trazodone and seroquel in the past. Pt currently denies chest pain or SOB. She does complain of diffuse myalgias. Denies any prior knowledge of kidney disease or proteinuria. Allergies/Medications Allergies: Uncoded Allergies: RED DYE N22 (Mild, RASH 03/21/14) Home Med List: Buprenorphine HCl/Naloxone HCl (Suboxone 2 MG-0.5 MG Sl Film) 2 MG-0.5 MG FILM 1 STR SL DAILY ADDICTION (Reported) Hydroxyzine Pamoate 25 MG CAPSULE 1 CAP PO TID PRN ANXIETY (Reported) Lurasidone HCl (Latuda) 20 MG TABLET 1 TAB PO DAILY . (Reported) Lurasidone HCl (Latuda) 80 MG TABLET 1 TAB PO QPM . (Reported) Mirtazapine 15 MG TABLET 1 TAB PO QPM SLEEP (Reported) Trazodone HCl 100 MG TABLET 1 TAB PO QPM SLEEP (Reported) Current Medications: Current Medications Sig/Aydin Start time Last Medication Dose Route Stop Time Status Admin Acetaminophen 325 MG Q6P PRN 01/12 2145 AC PO Acetaminophen 0 .STK-MED ONE 01/12 1706 DC IV Acetaminophen 1,000 MG ONCE ONE 01/12 1700 DC 01/12 N/A 1 UNIT IV 01/12 1714 1756 Ampicillin Sodium/ 1,500 MG Q6 01/12 2359 AC 01/13 Sulbactam Sodium IV 1241 Sodium Chloride 100 ML Aspirin 81 MG DAILY 01/13 1000 AC 01/13 PO 1240 Aspirin 325 MG .STK-MED ONE 01/13 0112 DC PO 01/13 0113 Aspirin 325 MG ONCE ONE 01/12 2245 DC 01/13 PO 01/12 2246 0112 Atorvastatin Calcium 40 MG 1700 01/13 1700 CAN PO Calcium Carbonate 1,250 MG BID 01/13 1000 AC 01/13 PO 1241 Calcium Gluconate 1 GM ONCE ONE 01/13 0945 CAN Sodium Chloride 100 ML IV 01/13 1044 Heparin Sodium 5,000 UNIT Q8 01/12 2200 DC 01/13 (Porcine) SC 0130 Lorazepam 1 MG Q2 HRS NEEDED PRN 01/12 2130 AC IV Lorazepam 0 .STK-MED ONE 01/12 1910 DC .ROUTE Lorazepam 2 MG ONE ONE 01/12 1900 DC 01/12 IV 01/12 190 1909 Lorazepam 1 MG ONCE ONE 01/12 1645 DC 01/12 IV 01/12 1646 1636 Lorazepam 1 MG ONCE ONE 01/12 1645 DC IV 01/12 1646 Lorazepam 0 .STK-MED ONE 01/12 1641 DC .ROUTE Magnesium Sulfate 1 GM Q2H 01/13 0945 AC 01/13 Dextrose/Water 100 ML IV 01/13 1344 1241 Midazolam HCl 2 MG ONCE ONE 01/12 1945 DC 01/12 IV 01/12 194 2000 Midazolam HCl 1 MG ONCE ONE 01/12 1800 DC 01/12 IV 01/12 1801 1755 Midazolam HCl 2 MG ONCE ONE 01/12 1645 DC 01/12 IV 01/12 1646 1645 Morphine Sulfate 2 MG Q4P PRN 01/12 2145 AC IV Nitroglycerin 0.5 GM Q6P PRN 01/12 2245 AC TOP Oxycodone HCl 5 MG Q6P PRN 01/12 2145 AC PO Phytonadione 5 MG ONCE ONE 01/13 1000 DC 01/13 PO 01/13 1001 1241 Potassium Chloride 60 MEQ ONCE ONE 01/13 1245 DC 01/13 PO 01/13 1246 1241 Potassium Chloride 10 MEQ Q1H 01/13 0945 DC IV 01/13 1046 Potassium Chloride 60 MEQ ONCE ONE 01/13 0945 CAN PO 01/13 0946 Sodium Chloride 1,000 ML BOLUS ONE 01/13 0415 DC 01/13 IV 01/13 0614 0449 Sodium Chloride 1,000 ML Q5H 01/13 0145 AC 01/13 IV 1241 Sodium Chloride 1,000 ML BOLUS ONE 01/12 2130 DC 01/12 IV 01/12 2229 2115 Sodium Chloride 1,000 ML ONCE ONE 01/12 2130 DC 01/12 IV 01/13 0229 2323 Sodium Chloride 1,000 ML BOLUS ONE 01/12 1800 DC 01/12 IV 01/12 1859 1829 Sodium Chloride 1,000 ML BOLUS ONE 01/12 1700 DC 01/12 IV 01/12 1759 1756 Sodium Chloride 1,000 ML BOLUS ONE 01/12 1645 DC 01/12 IV 01/12 1744 1745 Tetanus/Diphtheria 0 .STK-MED ONE 01/12 2210 DC Toxoids Adsorbed IM Tetanus/Diphtheria 0.5 ML ONCE ONE 01/12 1715 DC 01/12 Toxoids Adsorbed IM 01/12 171 2210 Review of Systems Review of Systems: Complete 14 point ROS neg except as per HPI. Limited given patient's recollection of events. Past History Travel History Traveled to [place] past 21 day No Medical History Blood Transfusion Hx: No Neurological: NONE EENT: NONE Cardiovascular: NONE Respiratory: NONE Gastrointestinal: NONE Hepatic: NONE Renal: NONE Musculoskeletal: NONE Psychiatric: anxiety, depression, substance abuse, ADHD/ADD Endocrine: diabetes Blood Disorders: NONE Cancer(s): NONE Surgical History Surgical History: non-contributory Psychosocial History Where Do You Live? Home Smoking Status: Former Smoker ETOH Use: UNOBTAINABLE Exam & Diagnostic Data Vital Signs and I&O Vital Signs Date Time Temp Pulse Resp B/P B/P Pulse O2 O2 Flow FiO2 Mean Ox Delivery Rate 01/13 0600 81 20 103/69 01/13 0400 98.5 87 20 104/80 01/13 0400 99 Room Air 01/13 0200 88 20 106/69 01/13 0000 97.7 99 28 110/70 01/13 0000 97.7 99 28 110/70 97 Room Air 01/13 0000 97 Room Air 01/12 2338 100.2 01/12 2315 98.4 102 18 97/69 97 01/12 2157 100.2 105 18 104/62 98 Nasal 2.0L Cannula 01/12 2007 100.6 114 18 107/61 97 Nasal 2.0L Cannula 01/12 1910 101.3 122 18 123/66 98 Nasal 2.0L Cannula 01/12 1821 101.8 131 22 131/91 98 Nasal 2.0L Cannula 01/12 1805 102.8 01/12 1715 Nasal 2.0L Cannula 01/12 1655 105.6 01/12 1640 140 22 131/61 Intake & Output 01/13 1600 01/13 0400 01/12 1600 01/12 0400 01/11 1600 01/11 0400 Intake Total 2749 4000 Output Total 1050 1200 Balance 1699 2800 Intake, IV 1749 4000 Intake, Oral 1000 Output, Urine 1050 1200 Patient 152 lb Weight Weight Estimated Measurement Method Physical Exam: Gen - OK appearing, somewhat slow speech Head - NCAT Eyes - EOMI, anicteric sclera Neck - supple CV - RRR, no m/r/g Chest - CTAB Abd - soft, nontender Upper ext - no edema Lower ext - no edema, bruising on knees Skin - bruising on knees Neuro - alert and oriented but slow speech, otherwise nonfocal Results Pertinent Lab Results: Laboratory Tests 01/13 01/13 01/13 1222 1217 0840 Chemistry Sodium Pending Potassium Pending Chloride Pending Carbon Dioxide Pending Anion Gap Pending BUN Pending Creatinine Pending Glucose Pending Calcium Pending Phosphorus Pending Magnesium Pending Total Bilirubin Pending AST Pending ALT Pending Creatine Kinase Cancelled Pending Troponin I Cancelled Albumin Pending Toxicology Acetaminophen Pending 01/13 01/13 0840 0314 Chemistry Sodium (137 - 145 mmol/L) 141 Potassium (3.5 - 5.1 mmol/L) 2.8 *L Chloride (98 - 107 mmol/L) 122 H Carbon Dioxide (22 - 30 mmol/L) 14 L Anion Gap (5 - 16) 4 L BUN (7 - 17 mg/dL) 13 Creatinine (0.5 - 1.0 mg/dL) 0.6 Estimated GFR (>60 ml/min) > 60 Glucose (65 - 99 mg/dL) 52 L Calcium (8.4 - 10.2 mg/dL) 4.5 *L Phosphorus (2.5 - 4.5 mg/dL) 2.7 Magnesium (1.6 - 2.3 mg/dL) 1.4 L Total Bilirubin (0.2 - 1.3 mg/dL) 1.3 AST (14 - 36 U/L) 729 H ALT (9 - 52 U/L) 195 H Creatine Kinase (30 - 135 U/L) > 68042 H Troponin I (< 0.11 ng/ml) 0.47 *H 0.81 *H Albumin (3.5 - 5.0 g/dL) 1.7 L Coagulation PT (9.4 - 12.5 SEC) 23.4 H INR (0.90 - 1.19) 2.25 H Hematology CBC w Diff MAN DIFF ORDERED WBC (4.8 - 10.8 /CUMM) 9.0 RBC (4.20 - 5.40 /CUMM) 3.28 L Hgb (12.0 - 16.0 G/DL) 9.9 L Hct (37 - 47 %) 29.2 L MCV (81.0 - 99.0 FL) 89.0 MCH (27.0 - 31.0 PG) 30.2 RDW (11.5 - 14.5 %) 13.2 Plt Count (130 - 400 /CUMM) 46 L MPV (7.4 - 10.4 FL) 8.5 Gran % (42.2 - 75.2 %) 79.4 H Lymphocytes % (20.5 - 51.1 %) 13.6 L Monocytes % (1.7 - 9.3 %) 6.8 Eosinophils % (0 - 5 %) 0 Basophils % (0.0 - 2.0 %) 0.2 Absolute Granulocytes (1.4 - 6.5 /CUMM) 7.1 H Segmented Neutrophils (42.2 - 75.2 %) 83 H Absolute Lymphocytes (1.2 - 3.4 /CUMM) 1.2 Lymphocytes (20.5 - 51.1 %) 13 L Monocytes (1.7 - 9.3 %) 4 Absolute Monocytes (0.10 - 0.60 /CUMM) 0.6 Absolute Eosinophils (0.0 - 0.7 /CUMM) 0 Absolute Basophils (0.0 - 0.2 /CUMM) 0 Platelet Estimate (ADEQUATE) Hypochromic-Microcytic 1+ PUBS MCHC (33.0 - 37.0 G/DL) 33.9 01/13 01/13 01/12 0314 0130 2128 Chemistry Sodium (137 - 145 mmol/L) 142 Potassium (3.5 - 5.1 mmol/L) 3.9 Chloride (98 - 107 mmol/L) 114 H Carbon Dioxide (22 - 30 mmol/L) 19 L Anion Gap (5 - 16) 8 BUN (7 - 17 mg/dL) 19 H Creatinine (0.5 - 1.0 mg/dL) 1.0 Estimated GFR (>60 ml/min) > 60 Glucose (65 - 99 mg/dL) 77 Lactic Acid (0.7 - 2.1 mmol/L) 1.3 Calcium (8.4 - 10.2 mg/dL) 7.1 L Phosphorus (2.5 - 4.5 mg/dL) 3.2 Magnesium (1.6 - 2.3 mg/dL) 2.2 Total Bilirubin (0.2 - 1.3 mg/dL) 1.6 H AST (14 - 36 U/L) 719 H ALT (9 - 52 U/L) 185 H Lactate Dehydrogenase (313 - 618 U/L) 5324 H Creatine Kinase (30 - 135 U/L) > 39589 H Troponin I (< 0.11 ng/ml) 1.04 *H Albumin (3.5 - 5.0 g/dL) 3.5 Coagulation PT (9.4 - 12.5 SEC) 16.8 H INR (0.90 - 1.19) 1.61 H APTT (25 - 37 SEC) 34 D-Dimer (70 - 232 ng/ml) 905 H Hematology CBC w Diff MAN DIFF ORDERED WBC (4.8 - 10.8 /CUMM) 11.6 H RBC (4.20 - 5.40 /CUMM) 4.22 Hgb (12.0 - 16.0 G/DL) 12.9 Hct (37 - 47 %) 37.8 MCV (81.0 - 99.0 FL) 89.7 MCH (27.0 - 31.0 PG) 30.6 RDW (11.5 - 14.5 %) 13.0 Plt Count (130 - 400 /CUMM) 65 L MPV (7.4 - 10.4 FL) 8.9 Gran % (42.2 - 75.2 %) 84.5 H Lymphocytes % (20.5 - 51.1 %) 8.9 L Monocytes % (1.7 - 9.3 %) 6.1 Eosinophils % (0 - 5 %) 0 Basophils % (0.0 - 2.0 %) 0.5 Absolute Granulocytes (1.4 - 6.5 /CUMM) 9.8 H Segmented Neutrophils (42.2 - 75.2 %) 80 H Absolute Lymphocytes (1.2 - 3.4 /CUMM) 1.0 L Lymphocytes (20.5 - 51.1 %) 8 L Monocytes (1.7 - 9.3 %) 12 H Absolute Monocytes (0.10 - 0.60 /CUMM) 0.7 H Absolute Eosinophils (0.0 - 0.7 /CUMM) 0 Absolute Basophils (0.0 - 0.2 /CUMM) 0.1 Platelet Estimate (ADEQUATE) DECREASED Normochromic RBCs VERIFIED Ovalocytes FEW PUBS MCHC (33.0 - 37.0 G/DL) 34.2 Other Body Source Fld Total RBCs Counted (%) 100 01/122 1730 1719 Blood Gas pH (7.35 - 7.45 PH) 7.31 L pCO2 (35 - 45 TORR) 32 L pO2 (80 - 100 TORR) 117 H HCO3 (21 - 28 MEQ/L) 16 L ABG O2 Sat (Measured) (>96.0 %) 97.0 Carboxyhemoglobin (1.5 - 5.0 %) 0 L O2 Concentration % 2L O2 Delivery Method NC Chemistry Lactic Acid (0.7 - 2.1 mmol/L) 2.4 H Miscellaneous Phlebotomy Draw Site RF Toxicology Urine Opiates Screen (>2000 NG/ML) < 100.00 Methadone Screen (>300 NG/ML) 45 Barbiturate Screen (>200 NG/ML) < 60 Ur Phencyclidine Scrn (>25 NG/ML) < 6.00 Amphetamines Screen (>1000 NG/ML) < 100 U Benzodiazepines Scrn (>200 NG/ML) < 85 Urine Cocaine Screen (>300 NG/ML) > 1000 H Urine Cannabis Screen (>50 NG/ML) < 5.00 Urines Urinalysis PACKD H Urine Color (YEL,AMB,STR) PINK H Urine Clarity (CLEAR) CLDY H Urine pH (5.0 - 8.0) 6.0 Ur Specific [place] (1.001 - 1.035) 1.025 Urine Protein (NEG,<30 MG/DL) >=300 H Urine Ketones (NEG) NEG Urine Nitrite (NEG) NEG Urine Bilirubin (NEG) NEG@ICTO Urine Urobilinogen (0.1 - 1.0 EU/dl) 0.2 Ur Leukocyte Esterase (NEG) NEG Ur Microscopic SEDIMENT EXAMINED Urine RBC (0 - 5 /HPF) 10-15 H Urine WBC (0 - 2 /HPF) 5-10 H Ur Epithelial Cells (NONE,FEW) MOD H Urine Bacteria (NEG/NONE) FEW H Hyaline Casts (0/LPF) 3-5 H Granular Casts (NONE /LPF) 15-25 H Urine Mucus (FEW,NONE) FEW Urine Hemoglobin (NEG) LARGE H Urine Glucose (N MG/DL) NEG Urine Test NEGATIVE 01/12 01/12 1652 1652 Chemistry Sodium (137 - 145 mmol/L) 148 H Potassium (3.5 - 5.1 mmol/L) 4.9 Chloride (98 - 107 mmol/L) 108 H Carbon Dioxide (22 - 30 mmol/L) 15 L Anion Gap (5 - 16) 25 H BUN (7 - 17 mg/dL) 20 H Creatinine (0.5 - 1.0 mg/dL) 2.0 H Estimated GFR (>60 ml/min) 31 L BUN/Creatinine Ratio (7 - 25 %) 10.0 Glucose (65 - 99 mg/dL) 90 Lactic Acid (0.7 - 2.1 mmol/L) 11.2 H Calcium (8.4 - 10.2 mg/dL) 9.7 Magnesium (1.6 - 2.3 mg/dL) 3.2 H Total Bilirubin (0.2 - 1.3 mg/dL) 0.8 AST (14 - 36 U/L) 140 H ALT (9 - 52 U/L) 52 Alkaline Phosphatase (<127 U/L) 64 Ammonia (9 - 30 umol/L) 93 H Creatine Kinase (30 - 135 U/L) 8769 H Total Protein (6.3 - 8.2 g/dL) 8.1 Albumin (3.5 - 5.0 g/dL) 5.6 H Globulin (1.9 - 4.2 gm/dL) 2.5 Albumin/Globulin Ratio (1.1 - 2.2 %) 2.2 TSH &T3 &Free T4 Intrp (0.270 - 4.20 uIU/mL) 0.689 Total Beta HCG (NEGATIVE) NEGATIVE Hematology CBC w Diff MAN DIFF ORDERED WBC (4.8 - 10.8 /CUMM) 22.4 H RBC (4.20 - 5.40 /CUMM) 5.07 Hgb (12.0 - 16.0 G/DL) 15.4 Hct (37 - 47 %) 45.6 MCV (81.0 - 99.0 FL) 89.9 MCH (27.0 - 31.0 PG) 30.3 RDW (11.5 - 14.5 %) 12.9 Plt Count (130 - 400 /CUMM) 266 MPV (7.4 - 10.4 FL) 8.8 Gran % (42.2 - 75.2 %) 74.2 Lymphocytes % (20.5 - 51.1 %) 20.5 Monocytes % (1.7 - 9.3 %) 5.1 Eosinophils % (0 - 5 %) 0.1 Basophils % (0.0 - 2.0 %) 0.1 Absolute Granulocytes (1.4 - 6.5 /CUMM) 16.6 H Segmented Neutrophils (42.2 - 75.2 %) 65 Band Neutrophils (0.0 - 5.0 %) 3 Absolute Lymphocytes (1.2 - 3.4 /CUMM) 4.6 H Lymphocytes (20.5 - 51.1 %) 24 Monocytes (1.7 - 9.3 %) 6 Absolute Monocytes (0.10 - 0.60 /CUMM) 1.1 H Absolute Eosinophils (0.0 - 0.7 /CUMM) 0 Basophils (0.0 - 2.0 %) 1 Absolute Basophils (0.0 - 0.2 /CUMM) 0 Metamyelocytes (0.0 - 1.0 %) 1 Platelet Estimate (ADEQUATE) ADEQUATE Normochromic RBCs VERIFIED PUBS MCHC (33.0 - 37.0 G/DL) 33.7 Toxicology Salicylates (0 - 20.0 mg/dL) < 1.0 Acetaminophen (10.0 - 30.0 ug/mL) < 10.0 L Serum Alcohol (<10 MG/DL) < 10.0 Methyl Alcohol, Quant 01/12 1639 Chemistry Magnesium Cancelled Creatine Kinase Cancelled Total Beta HCG Cancelled Imaging/Other Studies: Abd/Pelvis CT reviewed Assessment/Plan Assessment/Recommendations Assessment: NAM - 2/2 rhabdomyolysis and 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 Improving with IVF - no need for bicarb containing fluid in the setting of rhabdo as it can just cause calcium/phosphorus precipitation. TMA - Seems to have laboratory evidence of TMA. Given the clinical setting of cocaine intoxication and the timecourse of the labs progressing since admission, almost certainly secondary cause. No diarrhea to suggest Typical HUS. I don't feel at this time that even sending an [id number] is warranted. Would ask for Hematology consultation to weigh in. No clear indication at this time for PLEX. Liver failure - Rising AST/ALT with dropping albumin, increasing INR, and elevated ammonia. Unclear how her mental status is now compared to baseline - she is conversive but does not remember specifics about presentation. I think it's worth getting GI input now especially if things were to get worse. Hypocalcemia/Hypokalemia - Likely spurious. Lactic acidosis - Resolved. Recommendations: -Recheck BMP -If Ca low, would replete with 1g calcium gluconate -Cont IVF at current rate - no need for bicarb containing fluid -Heme Consult -GI Consult -Blood smear, haptoglobin -Would recheck UA with microscopic analysis -Urine protein, microalbumin, creatinine -Trend LFT's including ammonia and coags -Trend CBC -Trend CK -f/u TTE read -f/u with Poison control with any other recommendations Please call [phone] with ?'s
--- NOTE | 2017-01-13 14:33 | ULTRASOUND REPORT ---
EXAMINATION: US ABDOMEN COMPLETE CLINICAL INFORMATION: Elevated LFTs and bilirubin. Evaluate for biliary obstruction. COMPARISON: CT scan of the abdomen and pelvis dated 01/12/2017. Ultrasound of the abdomen dated 10/01/2011. TECHNIQUE: Real-time imaging of the abdominal viscera. FINDINGS: PANCREAS: Normal. ABDOMINAL AORTA: The proximal segment is normal in caliber. INFERIOR VENA CAVA: Visualized portions are normal. LIVER: Normal. The liver demonstrates normal size, contour and echogenicity. No focal lesion or intrahepatic biliary duct dilatation. GALLBLADDER: The gallbladder is physiologically distended and is diffusely thick walled in appearance with the wall thickness measuring up to 0.5 cm in diameter. With color Doppler imaging, no hyperemia in the gallbladder wall is seen. Trace amount of edema is suggested within the bladder wall. No sonographic Isaac's sign is elicited while scanning over the gallbladder. No defined gallstones or sludge is seen. Findings are nonspecific in the setting of small volume ascites. COMMON BILE DUCT: Normal in caliber measuring 0.2 cm in diameter. RIGHT KIDNEY: Normal. No hydronephrosis. No renal calculi or focal parenchymal lesions. The kidney measures 11.9 cm in maximum dimension. LEFT KIDNEY: Normal. No hydronephrosis. No renal calculi or focal parenchymal lesions. The kidney measures 10.8 cm in maximum dimension. SPLEEN: Borderline enlarged. The spleen measures 13.2 cm in maximum dimension. FREE FLUID: There is a small amount of fluid seen along the liver and right renal margins, not appreciated on prior CT scan. There is also a new trace right-sided pleural effusion. IMPRESSION: 1. Interval development of small volume ascites in the abdomen and small right-sided pleural effusion. 2. Thick-walled appearance of the gallbladder with mild gallbladder wall edema. No defined gallstones or evidence of sonographic Isaac's sign. Findings are nonspecific in the setting of small volume ascites. Close clinical correlation is requested. If clinically warranted, these findings could be further assessed with a HIDA scan to evaluate for cystic duct patency. 3. Borderline splenomegaly. 4. Otherwise unremarkable exam.
--- NOTE | 2017-01-13 15:12 | Cons- Gastroenterology ---
General Information and HPI Consulting Request Date of Consult: 01/13/17 Requested By: EDUARDO RUDD MD Reason for Consult: Increased LFTs Source of Information: patient, old records Exam Limitations: no limitations History of Present Illness: Ms. Sandhu is a 26 year old female with a history of PSA, and bipolar disorder who was admitted to yesterday for alterations in her mental status. Allergies/Medications Allergies: Uncoded Allergies: RED DYE N22 (Mild, RASH 03/21/14) Home Med List: Buprenorphine HCl/Naloxone HCl (Suboxone 2 MG-0.5 MG Sl Film) 2 MG-0.5 MG FILM 1 STR SL DAILY ADDICTION (Reported) Hydroxyzine Pamoate 25 MG CAPSULE 1 CAP PO TID PRN ANXIETY (Reported) Lurasidone HCl (Latuda) 20 MG TABLET 1 TAB PO DAILY . (Reported) Lurasidone HCl (Latuda) 80 MG TABLET 1 TAB PO QPM . (Reported) Mirtazapine 15 MG TABLET 1 TAB PO QPM SLEEP (Reported) Trazodone HCl 100 MG TABLET 1 TAB PO QPM SLEEP (Reported) Current Medications: Current Medications Sig/Aydin Start time Last Medication Dose Route Stop Time Status Admin Acetaminophen 325 MG Q6P PRN 01/12 2145 AC PO Acetaminophen 0 .STK-MED ONE 01/12 1706 DC IV Acetaminophen 1,000 MG ONCE ONE 01/12 1700 DC 01/12 N/A 1 UNIT IV 01/12 1714 1756 Ampicillin Sodium/ 1,500 MG Q6 01/12 2359 AC 01/13 Sulbactam Sodium IV 1241 Sodium Chloride 100 ML Aspirin 81 MG DAILY 01/13 1000 DC 01/13 PO 1240 Aspirin 325 MG .STK-MED ONE 01/13 0112 DC PO 01/13 0113 Aspirin 325 MG ONCE ONE 01/12 2245 DC 01/13 PO 01/12 2246 0112 Atorvastatin Calcium 40 MG 1700 01/13 1700 CAN PO Calcium Carbonate 1,250 MG BID 01/13 1000 AC 01/13 PO 1241 Calcium Gluconate 1 GM ONCE ONE 01/13 0945 CAN Sodium Chloride 100 ML IV 01/13 1044 Heparin Sodium 5,000 UNIT Q8 01/12 2200 DC 01/13 (Porcine) SC 0130 Lorazepam 1 MG Q2 HRS NEEDED PRN 01/12 2130 AC IV Lorazepam 0 .STK-MED ONE 01/12 1910 DC .ROUTE Lorazepam 2 MG ONE ONE 01/12 1900 DC 01/12 IV 01/12 1901 1909 Lorazepam 1 MG ONCE ONE 01/12 1645 DC 01/12 IV 01/12 1646 1636 Lorazepam 1 MG ONCE ONE 01/12 1645 DC IV 01/12 1646 Lorazepam 0 .STK-MED ONE 01/12 1641 DC .ROUTE Magnesium Oxide 400 MG ONE ONE 01/13 1445 DC PO 01/13 1446 Magnesium Sulfate 1 GM Q2H 01/13 0945 DC 01/13 Dextrose/Water 100 ML IV 01/13 1344 1440 Midazolam HCl 2 MG ONCE ONE 01/12 1945 DC 01/12 IV 01/12 194 2000 Midazolam HCl 1 MG ONCE ONE 01/12 1800 DC 01/12 IV 01/12 1801 1755 Midazolam HCl 2 MG ONCE ONE 01/12 1645 DC 01/12 IV 01/12 1646 1645 Morphine Sulfate 2 MG Q4P PRN 01/12 2145 AC IV Nitroglycerin 0.5 GM Q6P PRN 01/12 2245 AC TOP Oxycodone HCl 5 MG Q6P PRN 01/12 2145 AC PO Phytonadione 5 MG ONCE ONE 01/13 1000 DC 06 PO 01/13 1001 1241 Potassium Chloride 20 MEQ ONCE ONE 01/13 1445 DC PO 01/13 1446 Potassium Chloride 60 MEQ ONCE ONE 01/13 1245 DC 06 PO 01/13 1246 1241 Potassium Chloride 10 MEQ Q1H 01/13 0945 DC IV 01/13 1046 Potassium Chloride 60 MEQ ONCE ONE 01/13 0945 CAN PO 01/13 0946 Sodium Chloride 1,000 ML BOLUS ONE 01/13 0415 DC 01/13 IV 01/13 0614 0449 Sodium Chloride 1,000 ML Q5H 01/13 0145 AC 01/13 IV 1241 Sodium Chloride 1,000 ML BOLUS ONE 01/12 2130 DC 01/12 IV 01/12 2229 2115 Sodium Chloride 1,000 ML ONCE ONE 01/12 2130 DC 01/12 IV 01/13 0229 2323 Sodium Chloride 1,000 ML BOLUS ONE 01/12 1800 DC 01/12 IV 01/12 1859 1829 Sodium Chloride 1,000 ML BOLUS ONE 01/12 1700 DC 01/12 IV 01/12 1759 1756 Sodium Chloride 1,000 ML BOLUS ONE 01/12 1645 DC 01/12 IV 01/12 1744 1745 Tetanus/Diphtheria 0 .STK-MED ONE 01/120 DC Toxoids Adsorbed IM Tetanus/Diphtheria 0.5 ML ONCE ONE 01/12 1715 DC 01/12 Toxoids Adsorbed IM 01/12 171 2210 Past History Travel History Traveled to [place] past 21 day No Medical History Blood Transfusion Hx: No Neurological: NONE EENT: NONE Cardiovascular: NONE Respiratory: NONE Gastrointestinal: NONE Hepatic: NONE Renal: NONE Musculoskeletal: NONE Psychiatric: anxiety, depression, substance abuse, ADHD/ADD Endocrine: diabetes Blood Disorders: NONE Cancer(s): NONE Surgical History Surgical History: non-contributory Psychosocial History Where Do You Live? Home Smoking Status: Former Smoker ETOH Use: UNOBTAINABLE Exam & Diagnostic Data Vital Signs and I&O Vital Signs Date Time Temp Pulse Resp B/P B/P Pulse O2 O2 Flow FiO2 Mean Ox Delivery Rate 01/13 0600 81 20 103/69 01/13 0400 98.5 87 20 104/80 01/13 0400 99 Room Air 01/13 0200 88 20 106/69 01/13 0000 97.7 99 28 110/70 01/13 0000 97.7 99 28 110/70 97 Room Air 01/13 0000 97 Room Air 01/12 2338 100.2 01/12 2315 98.4 102 18 97/69 97 01/12 2157 100.2 105 18 104/62 98 Nasal 2.0L Cannula 01/12 2007 100.6 114 18 107/61 97 Nasal 2.0L Cannula 01/12 1910 101.3 122 18 123/66 98 Nasal 2.0L Cannula 01/12 1821 101.8 131 22 131/91 98 Nasal 2.0L Cannula 01/12 1805 102.8 01/12 171 Nasal 2.0L Cannula 01/12 1655 105.6 01/12 1640 140 22 131/61 Intake & Output 01/13 1600 01/13 0400 01/12 1600 01/12 0400 01/11 1600 01/11 0400 Intake Total 2749 4000 Output Total 1050 1200 Balance 1699 2800 Intake, IV 1749 4000 Intake, Oral 1000 Output, Urine 1050 1200 Patient 152 lb Weight Weight Estimated Measurement Method Results Pertinent Lab Results: Laboratory Tests 01/13 01/13 01/13 01/13 1430 1430 1323 1222 Chemistry Lactate Dehydrogenase Pending Creatine Kinase Cancelled Hematology CBC w Diff Pending WBC Pending RBC Pending Hgb Pending Hct Pending MCV Pending MCH Pending RDW Pending Plt Count Pending MPV Pending PUBS MCHC Pending Retic Count Pending Haptoglobin Pending Other Body Source Fluid LDH Cancelled 01/13 01/13 1217 0840 Chemistry Sodium (137 - 145 mmol/L) 142 Potassium (3.5 - 5.1 mmol/L) 2.7 *L Chloride (98 - 107 mmol/L) 121 H Carbon Dioxide (22 - 30 mmol/L) 15 L Anion Gap (5 - 16) 6 BUN (7 - 17 mg/dL) 12 Creatinine (0.5 - 1.0 mg/dL) 0.6 Estimated GFR (>60 ml/min) > 60 Glucose (65 - 99 mg/dL) 63 L Calcium (8.4 - 10.2 mg/dL) 4.8 *L Phosphorus (2.5 - 4.5 mg/dL) 2.8 Magnesium (1.6 - 2.3 mg/dL) 1.6 Total Bilirubin (0.2 - 1.3 mg/dL) 1.5 H AST (14 - 36 U/L) 975 H ALT (9 - 52 U/L) 254 H Creatine Kinase (30 - 135 U/L) > 03849.0 H Troponin I Cancelled Albumin (3.5 - 5.0 g/dL) 1.9 L Toxicology Acetaminophen (10.0 - 30.0 ug/mL) < 10.0 L 01/13 01/13 0840 0314 Chemistry Sodium (137 - 145 mmol/L) 141 Potassium (3.5 - 5.1 mmol/L) 2.8 *L Chloride (98 - 107 mmol/L) 122 H Carbon Dioxide (22 - 30 mmol/L) 14 L Anion Gap (5 - 16) 4 L BUN (7 - 17 mg/dL) 13 Creatinine (0.5 - 1.0 mg/dL) 0.6 Estimated GFR (>60 ml/min) > 60 Glucose (65 - 99 mg/dL) 52 L Calcium (8.4 - 10.2 mg/dL) 4.5 *L Phosphorus (2.5 - 4.5 mg/dL) 2.7 Magnesium (1.6 - 2.3 mg/dL) 1.4 L Total Bilirubin (0.2 - 1.3 mg/dL) 1.3 AST (14 - 36 U/L) 729 H ALT (9 - 52 U/L) 195 H Creatine Kinase (30 - 135 U/L) > 21939 H Troponin I (< 0.11 ng/ml) 0.47 *H 0.81 *H Albumin (3.5 - 5.0 g/dL) 1.7 L Coagulation PT (9.4 - 12.5 SEC) 23.4 H INR (0.90 - 1.19) 2.25 H Fibrinogen Activity (200 - 393 MG/DL) Pending Hematology CBC w Diff MAN DIFF ORDERED WBC (4.8 - 10.8 /CUMM) 9.0 RBC (4.20 - 5.40 /CUMM) 3.28 L Hgb (12.0 - 16.0 G/DL) 9.9 L Hct (37 - 47 %) 29.2 L MCV (81.0 - 99.0 FL) 89.0 MCH (27.0 - 31.0 PG) 30.2 RDW (11.5 - 14.5 %) 13.2 Plt Count (130 - 400 /CUMM) 46 L MPV (7.4 - 10.4 FL) 8.5 Gran % (42.2 - 75.2 %) 79.4 H Lymphocytes % (20.5 - 51.1 %) 13.6 L Monocytes % (1.7 - 9.3 %) 6.8 Eosinophils % (0 - 5 %) 0 Basophils % (0.0 - 2.0 %) 0.2 Absolute Granulocytes (1.4 - 6.5 /CUMM) 7.1 H Segmented Neutrophils (42.2 - 75.2 %) 83 H Absolute Lymphocytes (1.2 - 3.4 /CUMM) 1.2 Lymphocytes (20.5 - 51.1 %) 13 L Monocytes (1.7 - 9.3 %) 4 Absolute Monocytes (0.10 - 0.60 /CUMM) 0.6 Absolute Eosinophils (0.0 - 0.7 /CUMM) 0 Absolute Basophils (0.0 - 0.2 /CUMM) 0 Platelet Estimate (ADEQUATE) Hypochromic-Microcytic 1+ PUBS MCHC (33.0 - 37.0 G/DL) 33.9 01/13 01/13 01/12 0314 0130 2128 Chemistry Sodium (137 - 145 mmol/L) 142 Potassium (3.5 - 5.1 mmol/L) 3.9 Chloride (98 - 107 mmol/L) 114 H Carbon Dioxide (22 - 30 mmol/L) 19 L Anion Gap (5 - 16) 8 BUN (7 - 17 mg/dL) 19 H Creatinine (0.5 - 1.0 mg/dL) 1.0 Estimated GFR (>60 ml/min) > 60 Glucose (65 - 99 mg/dL) 77 Lactic Acid (0.7 - 2.1 mmol/L) 1.3 Calcium (8.4 - 10.2 mg/dL) 7.1 L Phosphorus (2.5 - 4.5 mg/dL) 3.2 Magnesium (1.6 - 2.3 mg/dL) 2.2 Total Bilirubin (0.2 - 1.3 mg/dL) 1.6 H AST (14 - 36 U/L) 719 H ALT (9 - 52 U/L) 185 H Lactate Dehydrogenase (313 - 618 U/L) 5324 H Creatine Kinase (30 - 135 U/L) > 22733 H Troponin I (< 0.11 ng/ml) 1.04 *H Albumin (3.5 - 5.0 g/dL) 3.5 Coagulation PT (9.4 - 12.5 SEC) 16.8 H INR (0.90 - 1.19) 1.61 H APTT (25 - 37 SEC) 34 D-Dimer (70 - 232 ng/ml) 905 H Hematology CBC w Diff MAN DIFF ORDERED WBC (4.8 - 10.8 /CUMM) 11.6 H RBC (4.20 - 5.40 /CUMM) 4.22 Hgb (12.0 - 16.0 G/DL) 12.9 Hct (37 - 47 %) 37.8 MCV (81.0 - 99.0 FL) 89.7 MCH (27.0 - 31.0 PG) 30.6 RDW (11.5 - 14.5 %) 13.0 Plt Count (130 - 400 /CUMM) 65 L MPV (7.4 - 10.4 FL) 8.9 Gran % (42.2 - 75.2 %) 84.5 H Lymphocytes % (20.5 - 51.1 %) 8.9 L Monocytes % (1.7 - 9.3 %) 6.1 Eosinophils % (0 - 5 %) 0 Basophils % (0.0 - 2.0 %) 0.5 Absolute Granulocytes (1.4 - 6.5 /CUMM) 9.8 H Segmented Neutrophils (42.2 - 75.2 %) 80 H Absolute Lymphocytes (1.2 - 3.4 /CUMM) 1.0 L Lymphocytes (20.5 - 51.1 %) 8 L Monocytes (1.7 - 9.3 %) 12 H Absolute Monocytes (0.10 - 0.60 /CUMM) 0.7 H Absolute Eosinophils (0.0 - 0.7 /CUMM) 0 Absolute Basophils (0.0 - 0.2 /CUMM) 0.1 Platelet Estimate (ADEQUATE) DECREASED Normochromic RBCs VERIFIED Ovalocytes FEW PUBS MCHC (33.0 - 37.0 G/DL) 34.2 Other Body Source Fld Total RBCs Counted (%) 100 01/12 01/12 01/12 4360 1730 1719 Blood Gas pH (7.35 - 7.45 PH) 7.31 L pCO2 (35 - 45 TORR) 32 L pO2 (80 - 100 TORR) 117 H HCO3 (21 - 28 MEQ/L) 16 L ABG O2 Sat (Measured) (>96.0 %) 97.0 Carboxyhemoglobin (1.5 - 5.0 %) 0 L O2 Concentration % 2L O2 Delivery Method NC Chemistry Lactic Acid (0.7 - 2.1 mmol/L) 2.4 H Miscellaneous Phlebotomy Draw Site RF Toxicology Urine Opiates Screen (>2000 NG/ML) < 100.00 Methadone Screen (>300 NG/ML) 45 Barbiturate Screen (>200 NG/ML) < 60 Ur Phencyclidine Scrn (>25 NG/ML) < 6.00 Amphetamines Screen (>1000 NG/ML) < 100 U Benzodiazepines Scrn (>200 NG/ML) < 85 Urine Cocaine Screen (>300 NG/ML) > 1000 H Urine Cannabis Screen (>50 NG/ML) < 5.00 Urines Urinalysis PACKD H Urine Color (YEL,AMB,STR) PINK H Urine Clarity (CLEAR) CLDY H Urine pH (5.0 - 8.0) 6.0 Ur Specific [place] (1.001 - 1.035) 1.025 Urine Protein (NEG,<30 MG/DL) >=300 H Urine Ketones (NEG) NEG Urine Nitrite (NEG) NEG Urine Bilirubin (NEG) NEG@ICTO Urine Urobilinogen (0.1 - 1.0 EU/dl) 0.2 Ur Leukocyte Esterase (NEG) NEG Ur Microscopic SEDIMENT EXAMINED Urine RBC (0 - 5 /HPF) 10-15 H Urine WBC (0 - 2 /HPF) 5-10 H Ur Epithelial Cells (NONE,FEW) MOD H Urine Bacteria (NEG/NONE) FEW H Hyaline Casts (0/LPF) 3-5 H Granular Casts (NONE /LPF) 15-25 H Urine Mucus (FEW,NONE) FEW Urine Hemoglobin (NEG) LARGE H Urine Glucose (N MG/DL) NEG Urine Test NEGATIVE 01/12 01/12 1652 1652 Chemistry Sodium (137 - 145 mmol/L) 148 H Potassium (3.5 - 5.1 mmol/L) 4.9 Chloride (98 - 107 mmol/L) 108 H Carbon Dioxide (22 - 30 mmol/L) 15 L Anion Gap (5 - 16) 25 H BUN (7 - 17 mg/dL) 20 H Creatinine (0.5 - 1.0 mg/dL) 2.0 H Estimated GFR (>60 ml/min) 31 L BUN/Creatinine Ratio (7 - 25 %) 10.0 Glucose (65 - 99 mg/dL) 90 Lactic Acid (0.7 - 2.1 mmol/L) 11.2 H Calcium (8.4 - 10.2 mg/dL) 9.7 Magnesium (1.6 - 2.3 mg/dL) 3.2 H Total Bilirubin (0.2 - 1.3 mg/dL) 0.8 AST (14 - 36 U/L) 140 H ALT (9 - 52 U/L) 52 Alkaline Phosphatase (<127 U/L) 64 Ammonia (9 - 30 umol/L) 93 H Creatine Kinase (30 - 135 U/L) 8769 H Total Protein (6.3 - 8.2 g/dL) 8.1 Albumin (3.5 - 5.0 g/dL) 5.6 H Globulin (1.9 - 4.2 gm/dL) 2.5 Albumin/Globulin Ratio (1.1 - 2.2 %) 2.2 TSH &T3 &Free T4 Intrp (0.270 - 4.20 uIU/mL) 0.689 Total Beta HCG (NEGATIVE) NEGATIVE Hematology CBC w Diff MAN DIFF ORDERED WBC (4.8 - 10.8 /CUMM) 22.4 H RBC (4.20 - 5.40 /CUMM) 5.07 Hgb (12.0 - 16.0 G/DL) 15.4 Hct (37 - 47 %) 45.6 MCV (81.0 - 99.0 FL) 89.9 MCH (27.0 - 31.0 PG) 30.3 RDW (11.5 - 14.5 %) 12.9 Plt Count (130 - 400 /CUMM) 266 MPV (7.4 - 10.4 FL) 8.8 Gran % (42.2 - 75.2 %) 74.2 Lymphocytes % (20.5 - 51.1 %) 20.5 Monocytes % (1.7 - 9.3 %) 5.1 Eosinophils % (0 - 5 %) 0.1 Basophils % (0.0 - 2.0 %) 0.1 Absolute Granulocytes (1.4 - 6.5 /CUMM) 16.6 H Segmented Neutrophils (42.2 - 75.2 %) 65 Band Neutrophils (0.0 - 5.0 %) 3 Absolute Lymphocytes (1.2 - 3.4 /CUMM) 4.6 H Lymphocytes (20.5 - 51.1 %) 24 Monocytes (1.7 - 9.3 %) 6 Absolute Monocytes (0.10 - 0.60 /CUMM) 1.1 H Absolute Eosinophils (0.0 - 0.7 /CUMM) 0 Basophils (0.0 - 2.0 %) 1 Absolute Basophils (0.0 - 0.2 /CUMM) 0 Metamyelocytes (0.0 - 1.0 %) 1 Platelet Estimate (ADEQUATE) ADEQUATE Normochromic RBCs VERIFIED PUBS MCHC (33.0 - 37.0 G/DL) 33.7 Toxicology Salicylates (0 - 20.0 mg/dL) < 1.0 Acetaminophen (10.0 - 30.0 ug/mL) < 10.0 L Serum Alcohol (<10 MG/DL) < 10.0 Methyl Alcohol, Quant 01/12 1639 Chemistry Magnesium Cancelled Creatine Kinase Cancelled Total Beta HCG Cancelled Imaging/Other Studies: SERVICE DATE: 01/12/17-1925 EXAM TYPE: CAT - CT ABD & PELVIS W/O IV CONTRAS EXAMINATION: CT ABDOMEN AND PELVIS WITHOUT CONTRAST CLINICAL INFORMATION: Renal failure. Altered mental status. Evaluate for acute process. COMPARISON: Abdominal and pelvic ultrasound 10/01/2011 TECHNIQUE: Multidetector volumetric imaging was performed from the superior aspect of the liver through the pubic symphysis. Sagittal and coronal reformatted images were obtained on the technologist's workstation. Evaluation mildly limited secondary to lack of intravenous contrast and artifact secondary to patient's arms. DLP: 312 mGy-cm FINDINGS: Visualized lung bases are well aerated. There is mild dependent atelectasis. The liver demonstrates normal size, contour and attenuation. The pancreas, spleen and adrenal glands are unremarkable. The kidneys are symmetric in size. No nephrolithiasis or hydronephrosis. Normal caliber loops of small and large bowel. Mild stool burden throughout the colon. Normal appendix. The bladder is mildly distended. Gr catheter is within the bladder. Temperature probe within the rectum. Trace free pelvic fluid, likely physiologic. No acute osseous abnormality. IMPRESSION: No evidence for acute abdominal or pelvic pathology on this noncontrast CT. SERVICE DATE: 01/13/17- EXAM TYPE: US - US-COMPLETE ABDOMEN EXAMINATION: US ABDOMEN COMPLETE CLINICAL INFORMATION: Elevated LFTs and bilirubin. Evaluate for biliary obstruction. COMPARISON: CT scan of the abdomen and pelvis dated 01/12/2017. Ultrasound of the abdomen dated 10/01/2011. TECHNIQUE: Real-time imaging of the abdominal viscera. FINDINGS: PANCREAS: Normal. ABDOMINAL AORTA: The proximal segment is normal in caliber. INFERIOR VENA CAVA: Visualized portions are normal. LIVER: Normal. The liver demonstrates normal size, contour and echogenicity. No focal lesion or intrahepatic biliary duct dilatation. GALLBLADDER: The gallbladder is physiologically distended and is diffusely thick walled in appearance with the wall thickness measuring up to 0.5 cm in diameter. With color Doppler imaging, no hyperemia in the gallbladder wall is seen. Trace amount of edema is suggested within the bladder wall. No sonographic Isaac's sign is elicited while scanning over the gallbladder. No defined gallstones or sludge is seen. Findings are nonspecific in the setting of small volume ascites. COMMON BILE DUCT: Normal in caliber measuring 0.2 cm in diameter. RIGHT KIDNEY: Normal. No hydronephrosis. No renal calculi or focal parenchymal lesions. The kidney measures 11.9 cm in maximum dimension. LEFT KIDNEY: Normal. No hydronephrosis. No renal calculi or focal parenchymal lesions. The kidney measures 10.8 cm in maximum dimension. SPLEEN: Borderline enlarged. The spleen measures 13.2 cm in maximum dimension. FREE FLUID: There is a small amount of fluid seen along the liver and right renal margins, not appreciated on prior CT scan. There is also a new trace right-sided pleural effusion. IMPRESSION: 1. Interval development of small volume ascites in the abdomen and small right-sided pleural effusion. 2. Thick-walled appearance of the gallbladder with mild gallbladder wall edema. No defined gallstones or evidence of sonographic Isaac's sign. Findings are nonspecific in the setting of small volume ascites. Close clinical correlation is requested. If clinically warranted, these findings could be further assessed with a HIDA scan to evaluate for cystic duct patency. 3. Borderline splenomegaly. 4. Otherwise unremarkable exam. Assessment/Plan Problem List: 1. Rhabdomyolysis Consult Acknowledgment - Thank you for your consult request.
[2017-01-13 15:53] LABS: ABSOLUTE BASOPHIL COUNT 0 /CUMM (0.0-0.2); ABSOLUTE EOSINOPHIL COUNT 0 /CUMM (0.0-0.7); ABSOLUTE GRANULOCYTE CT 10.6 /CUMM (1.4-6.5); ABSOLUTE LYMPH COUNT 2.5 /CUMM (1.2-3.4); ABSOLUTE MONOCYTE COUNT 0.5 /CUMM (0.10-0.60); BASOPHIL % 0.2 % (0.0-2.0); EOSINOPHIL % 0 % (0-5); GRANULOCYTE % 77.6 % (42.2-75.2); MEAN CORPUSCULAR HGB 30.4 PG (27.0-31.0); MEAN CORPUSCULAR HGB CONC 33.6 G/DL (33.0-37.0); MEAN CORPUSCULAR VOLUME 90.4 FL (81.0-99.0); MEAN PLATELET VOLUME 9.1 FL (7.4-10.4); PLATELET COUNT 61 /CUMM (130-400); RBC DISTRIBUTION WIDTH 13.4 % (11.5-14.5)
[2017-01-13 16:04] LABS: HEMATOCRIT 39.8 % (37-47); WHITE BLOOD CELL COUNT 13.7 /CUMM (4.8-10.8)
--- NOTE | 2017-01-13 17:20 | Event Note ---
Event Note Event Note: Level of CK quantified by the lab: 1st CK: 82,936 2nd CK: 104,060 3rd CK: 155,210
[2017-01-13 17:23] LABS: ABSOLUTE BASOPHIL COUNT 0 /CUMM (0.0-0.2); ABSOLUTE EOSINOPHIL COUNT 0 /CUMM (0.0-0.7); ABSOLUTE LYMPH COUNT 2.9 /CUMM (1.2-3.4); ABSOLUTE MONOCYTE COUNT 0.7 /CUMM (0.10-0.60); BASOPHIL % 0.2 % (0.0-2.0); EOSINOPHIL % 0 % (0-5); GRANULOCYTE % 71.5 % (42.2-75.2); MEAN CORPUSCULAR HGB 30.2 PG (27.0-31.0); MEAN CORPUSCULAR HGB CONC 33.6 G/DL (33.0-37.0); MEAN PLATELET VOLUME 8.8 FL (7.4-10.4); PLATELET COUNT 67 /CUMM (130-400); RBC DISTRIBUTION WIDTH 13.4 % (11.5-14.5); RED BLOOD CELL CT 4.44 /CUMM (4.20-5.40); WHITE BLOOD CELL COUNT 12.6 /CUMM (4.8-10.8)
[2017-01-13 17:38] LABS: PT 16.4 SEC (9.4-12.5)
--- NOTE | 2017-01-13 18:23 | Cons- Hematology ---
General Information and HPI Consulting Request Date of Consult: 01/13/17 Requested By: EDUARDO RUDD MD Reason for Consult: thrombocytopenia Source of Information: patient, old records Exam Limitations: poor historian History of Present Illness: Ms. Sandhu is a 26-year-old female with history of polysubstance abuse and bipolar disorder who presented to the hospital with altered mental status. She reports she came to the hospital because she fell in her neighbor's porch. She reports to have been in the neighbor's house prior and was felling well. According the the EMR records, she was found to be confused and altered. She was given Narcan without improvement. She was found to be febrile with rectal temperature of 105.6F. In the ED, she was noted to have creatinine of 2.0, troponin of 1.0, ammonia of 93, AST of 140, ALT 52, platelet count of 266, lactate of 11.2, and positive toxicology screen for cocaine. She was given 4L of fluid and continued on IV fluid. Her CK level was elevated along with LDH. Her INR is also elevated up to 2.25. Cardiology and nephrology have been following the patient. Patient states she is taking sleeping medication (trazodone), Suboxone, mirtazapine, and some other medications. She reports using cocaine. She states she last used it 1 year ago. Per the EMR, she has been noted to report using it that morning. She denies any symptoms at the moment. Allergies/Medications Allergies: Uncoded Allergies: RED DYE N22 (Mild, RASH 03/21/14) Home Med List: Buprenorphine HCl/Naloxone HCl (Suboxone 2 MG-0.5 MG Sl Film) 2 MG-0.5 MG FILM 1 STR SL DAILY ADDICTION (Reported) Hydroxyzine Pamoate 25 MG CAPSULE 1 CAP PO TID PRN ANXIETY (Reported) Lurasidone HCl (Latuda) 20 MG TABLET 1 TAB PO DAILY . (Reported) Lurasidone HCl (Latuda) 80 MG TABLET 1 TAB PO QPM . (Reported) Mirtazapine 15 MG TABLET 1 TAB PO QPM SLEEP (Reported) Trazodone HCl 100 MG TABLET 1 TAB PO QPM SLEEP (Reported) Current Medications: Current Medications Sig/Aydin Start time Last Medication Dose Route Stop Time Status Admin Acetaminophen 325 MG Q6P PRN 01/12 2145 DC PO Ampicillin Sodium/ 1,500 MG Q6 01/12 2359 AC 01/13 Sulbactam Sodium IV 1241 Sodium Chloride 100 ML Aspirin 81 MG DAILY 01/13 1000 DC 01/13 PO 1240 Aspirin 325 MG .STK-MED ONE 01/13 0112 DC PO 01/13 0113 Aspirin 325 MG ONCE ONE 01/12 2245 DC 01/13 PO 01/12 2246 0112 Atorvastatin Calcium 40 MG 1700 01/13 1700 CAN PO Calcium Carbonate 1,250 MG BID 01/13 1000 AC 01/13 PO 1241 Calcium Gluconate 1 GM ONCE ONE 01/13 0945 CAN Sodium Chloride 100 ML IV 01/13 1044 Heparin Sodium 5,000 UNIT Q8 01/12 2200 DC 01/13 (Porcine) SC 0130 Lorazepam 1 MG Q2 HRS NEEDED PRN 01/12 2130 AC IV Lorazepam 0 .STK-MED ONE 01/12 1910 DC .ROUTE Lorazepam 2 MG ONE ONE 01/12 1900 DC 01/12 IV 01/12 1901 1909 Magnesium Oxide 400 MG ONE ONE 01/13 1445 DC 01/13 PO 01/13 1446 1445 Magnesium Sulfate 1 GM Q2H 01/13 0945 DC 01/13 Dextrose/Water 100 ML IV 01/13 1344 1440 Midazolam HCl 2 MG ONCE ONE 01/12 1945 DC 01/12 IV 01/12 1941999 Midazolam HCl 1 MG ONCE ONE 01/12 1800 DC 01/12 IV 01/12 1801 1755 Morphine Sulfate 2 MG Q4P PRN 01/12 2145 AC IV Nitroglycerin 0.5 GM Q6P PRN 01/12 2245 AC TOP Oxycodone HCl 5 MG Q6P PRN 01/12 2145 AC PO Phytonadione 5 MG ONCE ONE 01/13 1000 DC 01/13 PO 01/13 1001 1241 Potassium Chloride 20 MEQ ONCE ONE 01/13 1445 DC 01/13 PO 01/13 1446 1445 Potassium Chloride 60 MEQ ONCE ONE 01/13 1245 DC 01/13 PO 01/13 1246 1241 Potassium Chloride 10 MEQ Q1H 01/13 0945 DC IV 01/13 1046 Potassium Chloride 60 MEQ ONCE ONE 01/13 0945 CAN PO 01/13 0946 Sodium Chloride 1,000 ML BOLUS ONE 01/13 0415 DC 01/13 IV 01/13 0614 0449 Sodium Chloride 1,000 ML Q5H 01/13 0145 AC 01/13 IV 1556 Sodium Chloride 1,000 ML BOLUS ONE 01/12 2130 DC 01/12 IV 01/12 2229 2115 Sodium Chloride 1,000 ML ONCE ONE 01/12 2130 DC 01/12 IV 01/13 0229 2323 Sodium Chloride 1,000 ML BOLUS ONE 01/12 1800 DC 01/12 IV 01/12 1859 1829 Sodium Chloride 1,000 ML BOLUS ONE 01/12 1700 DC 01/12 IV 01/12 1759 1756 Sodium Chloride 1,000 ML BOLUS ONE 01/12 1645 DC 01/12 IV 01/12 1744 1745 Tetanus/Diphtheria 0 .STK-MED ONE 01/12 2210 DC Toxoids Adsorbed IM Review of Systems Review of Systems Constitutional: Denies: chills, fever. EENTM: Denies: blurred vision. Cardiovascular: Denies: chest pain. Respiratory: Denies: short of breath. GI: Denies: abdominal pain, bloating, constipation, diarrhea. Genitourinary: Denies: dysuria. Skin: Denies: rash. Neurological/Psychological: Reports: depressed, emotional problems. Hematologic/Endocrine: Denies: bleeding. Immunologic/Allergic: Denies: lymphadenopathy. All Other Systems: Reviewed and Negative Past History Travel History Traveled to [place] past 21 day No Medical History Blood Transfusion Hx: No Neurological: NONE EENT: NONE Cardiovascular: NONE Respiratory: NONE Gastrointestinal: NONE Hepatic: NONE Renal: NONE Musculoskeletal: NONE Psychiatric: anxiety, depression, substance abuse, ADHD/ADD Endocrine: diabetes Blood Disorders: NONE Cancer(s): NONE Surgical History Surgical History: non-contributory Psychosocial History Where Do You Live? Home Smoking Status: Former Smoker ETOH Use: UNOBTAINABLE Exam & Diagnostic Data Vital Signs and I&O Vital Signs Date Time Temp Pulse Resp B/P B/P Pulse O2 O2 Flow FiO2 Mean Ox Delivery Rate 01/13 0600 81 20 103/69 01/13 0400 98.5 87 20 104/80 01/13 0400 99 Room Air 01/13 0200 88 20 106/69 01/13 0000 97.7 99 28 110/70 06 0000 97.7 99 28 110/70 97 Room Air 01/13 0000 97 Room Air 01/12 2338 100.2 01/12 2315 98.4 102 18 97/69 97 01/12 2157 100.2 105 18 104/62 98 Nasal 2.0L Cannula 01/12 2007 100.6 114 18 107/61 97 Nasal 2.0L Cannula 01/12 1910 101.3 122 18 123/66 98 Nasal 2.0L Cannula 01/12 1821 101.8 131 22 131/91 98 Nasal 2.0L Cannula 01/12 1805 102.8 Intake & Output 01/13 1600 06/ 0800 06 0000 Intake Total 2749 4000 Output Total 1050 1200 Balance 1699 2800 Intake, IV 1749 4000 Intake, Oral 1000 Output, Urine 1050 1200 Patient 68.946 kg Weight Weight Estimated Measurement Method Physical Exam General Appearance: well developed/nourished, no apparent distress, alert, awake , comfortable Head: atraumatic Eyes: Bilateral: PERRL, EOMI. Ears, Nose, Throat: normal pharynx Respiratory: normal breath sounds, chest non-tender, no respiratory distress Cardiovascular: regular rate/rhythm Gastrointestinal: normal bowel sounds, soft, non-tender, no organomegaly Extremities: normal inspection, normal capillary refill, no edema Neurologic/Psych: no motor/sensory deficits, awake, alert, oriented x 3 Skin: intact, yellowing of the skin (spray simon) Lymphatic: no anterior cervical julianna Assessment/Plan Assessment: Ms. Sandhu is a 26-year-old female with bipolar disorder and polysubstance abuse who presented to the hospital after found to have AMS at her neighbor's porch. She was positive for cocaine in her urine. There are concerns for overdose of other medications she is also taking. She was noted to be febrile at that time. Blood work demonstrated elevate CK, LDH, troponin, LFT, creatinine, and lactic acide, and ammonia. Her platelet count decreased from 266,000 on 12/25/2016 to 65,000 01/13/2017. Peripheral smear was reviewed and was unrevealing. She has rare giant platelets. There was no schistocytes. Her renal function has improved with fluid but CK and LDH are still elevated. Etiology for her thrombocytopenia is unclear. TTP is less likely with the coagulopathy, improving renal function, improving mental status, and improving platelet counts. DIC is a possibility with the presentation. DIC demonstrated high normal fibrinogen at 122. Atypical HUS may also be in the differential but less likely without symptoms including illness and diarrhea. Drug-induced thrombocytopenia is also a possiblity. She would need to stop her medicaitons and continue to monitor. The drugs are likely the reported overdose medications she took prior to coming to the hospital. Cocaine may also have acute toxic effect to platelet counts and vasocontriction which may cause some TMA symptoms. Rhabdomyolysis may also result in DIC which may cause her thrombocytopenia. She should just be monitored for now. Recommendations: 1. Trend DIC values: PT/INR/PTT/Fibrinogen 2. Transfuse with cyro if fibrinogen <100 3. Transfuse with platelet if <10,000 or with bleeding 4. If thrombocytopenia worsens with bleeding, may consider glucocorticoid and IVIG 5. Follow up HIV and hepatitis panel Problem List: 1. Cocaine abuse 2. Rhabdomyolysis 3. Renal failure 4. Altered mental status 5. Thrombocytopenia Other Findings/Comments: Please call [phone] with any questions or concerns Consult Acknowledgment - Thank you for your consult request.
[2017-01-13 22:02] LABS: PT 15.5 SEC (9.4-12.5); PTT 33 SEC (25-37)
[2017-01-14] VITALS (12 sets, daily range): BP systolic 110–124; BP diastolic 60–81
--- NOTE | 2017-01-14 00:50 | NUR ---
PATIENT ALERT AND ORIENTED. MONITOR SINUS RHYTHM AT RATE OF 74.ZP=699/78. IVF AT 200 ML/HR.URINE OUTPUT IN [facility] [place] VIA [employer] CATHETER.
[2017-01-14 05:05] LABS: ABSOLUTE BASOPHIL COUNT 0 /CUMM (0.0-0.2); ABSOLUTE EOSINOPHIL COUNT 0 /CUMM (0.0-0.7); ABSOLUTE GRANULOCYTE CT 8.2 /CUMM (1.4-6.5); ABSOLUTE LYMPH COUNT 2.4 /CUMM (1.2-3.4); ABSOLUTE MONOCYTE COUNT 0.5 /CUMM (0.10-0.60); BASOPHIL % 0.3 % (0.0-2.0); EOSINOPHIL % 0 % (0-5); HEMATOCRIT 36.9 % (37-47); MEAN CORPUSCULAR HGB 30.4 PG (27.0-31.0); MEAN CORPUSCULAR HGB CONC 33.3 G/DL (33.0-37.0); MEAN CORPUSCULAR VOLUME 91.4 FL (81.0-99.0); MEAN PLATELET VOLUME 8.7 FL (7.4-10.4); PLATELET COUNT 55 /CUMM (130-400); RBC DISTRIBUTION WIDTH 13.4 % (11.5-14.5); RED BLOOD CELL CT 4.04 /CUMM (4.20-5.40); WHITE BLOOD CELL COUNT 11.1 /CUMM (4.8-10.8)
--- NOTE | 2017-01-14 07:10 | PN- Resident CRCU ---
Subjective HPI/CRCU Issues: Follow up for: * Altered mental status due to cocaine overdose * Rhabdomyolysis * Bipolar disorder, possible drug overdose * Transaminitis * Thrombocytopenia * Acute onset of anemia * Coagulopathy * Hyperthermia--resolved * Severe sepsis(white count and bandemia, hyperthermia, tachycardia, lactic acidosis, questionable aspiration)--- resolved * Elevated troponins rule out ACS--- trended down * Anion gap metabolic acidosis/lactic acidosis * Atypical Chest pain * Acute kidney injury * Psychosis/agitation Patient was seen and examined this morning, alert and oriented 3, denied chest pain, shortness of breath however reported that she feels she has more shallow breathing than normal, denied any pain or difficulty taking deep breathes. Denied abdominal pain, nausea or vomiting. Reported fatigue and generalized muscle pain, pain of right knee with movement. No overnight events for agitation, tremors or any withdrawal symptoms 24 Hour Events: Temperature 97.2, MAXIMUM TEMPERATURE 99 Pulse lowest 68, highest 80 Blood pressure lowest 108/76, highest 119/79 Respiratory rate 15 saturating 97% Intake 6141, output 4300 IV fluid normal saline running at 200 mL per hour Objective Vital Signs & I&O Last 8 Hrs of Vitals and I&O: Intake & Output 01/14 1600 Intake Total Output Total Balance Patient 68.946 kg Weight Exam General Appearance: no apparent distress, alert, awake Head: atraumatic, normal appearance Ears, Nose, Throat: normal pharynx, normal ENT inspection Neck: normal inspection, supple, full range of motion Respiratory: normal breath sounds, chest non-tender, no respiratory distress Cardiovascular: regular rate/rhythm Gastrointestinal: normal bowel sounds, soft, non-tender Extremities: normal inspection, normal capillary refill, normal range of motion, no edema Cranial Nerves: normal hearing, normal speech, PERRL Current Medications: Current Medications Sig/Aydin Start time Last Medication Dose Route Stop Time Status Admin Ampicillin Sodium/ 1,500 MG Q6 01/12 2359 DC 01/14 Sulbactam Sodium IV 0615 Sodium Chloride 100 ML Calcium Carbonate 1,250 MG DAILY 01/14 1000 AC 01/14 PO 0845 Calcium Carbonate 1,250 MG BID 01/13 1000 DC 01/13 PO 2230 Lorazepam 1 MG Q2 HRS NEEDED PRN 01/12 2130 AC IV Morphine Sulfate 2 MG Q4P PRN 01/12 214 AC IV Nitroglycerin 0.5 GM Q6P PRN 01/12 2245 AC TOP Oxycodone HCl 5 MG Q6P PRN 01/12 2145 AC PO Patient Medication 1 ED .STK-MED ONE 01/14 1435 DC Teaching ED 01/14 1436 Phosphate 250 MG PC AND AT BEDTIME 01/14 0600 DC 01/14 PO 0845 Potassium Chloride 40 MEQ ONCE ONE 01/13 1800 DC 01/13 PO 01/13 1801 1811 Sodium Chloride 1,000 ML Q5H 01/13 0145 AC 01/14 IV 0844 Sodium Phosphate 15 mMol ONE ONE 01/14 0900 DC 01/14 Dextrose/Water 250 ML IV 01/14 1303 1138 Tramadol HCl 50 MG ONCE PRN 01/14 0145 DC 01/14 PO 01/14 0146 0150 Impression/Plan Impression/Problem List Impression: Patient is a 26-year-old female with past medical history of bipolar was brought in the ER today by EMS for altered mental status due to cocaine and multidrug drug overdose. Patint received IV Narcan in field with no response. Vitals in ED: Temperature 105.6, pulse 140, respiration 22, blood pressure 131/ 61,, saturating 98% on 2 L nasal cannula. Pertinent labs showed white count of 22.4 with 3 bands, H&H of 15.4/45.6, sodium 148,Anion gap of 25, BUN 20, creatinine 2, lactic acid of 11.2, magnesium 3.2, AST 140, ALT 52, ammonia 93, creatinine kinase 8769, troponin pending, normal TFTs, beta-hCG negative. U tox positive for cocaine. Urine was pink, cloudy, more than 300 protein, large hemoglobin, 15-25 casts, nitrite negative, leukocyte esterase negative, 5-10 WBC, moderate epithelial cells. Urine test was negative. EKG shows sinus tachycardia, 1 47 bpm, NM interval 116, QTC 401, no significant ST-T wave changes and no QRS widening ABG 7.32/32/117/16 Patient received 4 mg of IV Ativan and 4 mg of IV Versed and 4 L of fluid in the ED with some improvement in clinical conditions. She was also put on a cooling blanket with temperatures improving 100.2. Problem list Altered mental status due to cocaine overdose Trauma Rhabdomyolysis Bipolar disorder, possible drug overdose Transaminitis Thrombocytopenia Acute onset of anemia Coagulopathy Hyperthermia--resolved Severe sepsis (white count and bandemia, hyperthermia, tachycardia, lactic acidosis, questionable aspiration)--- resolved Elevated troponins rule out ACS--- trended down Anion gap metabolic acidosis/lactic acidosis Atypical Chest pain Acute kidney injury Psychosis/agitation Plan: Respiratory -Patient saturating well on room air -Denied shortness of breath, cough -Spirometry was ordered as patient reported shallow breathing Cardiology -Patient has blood pressure at the low side 100s over 80, heart rate 80 to 90s -Denied lightheadedness, visual changes, significant chest pain, palpitation -Continue IV fluid 200 mL/h given elevated CK -Cardiology consultation was obtained for elevated troponin -We trended troponin down last reading is 0.47, no acute EKG changes -Echocardiogram pending ID -Possible aspiration pneumonia -Chest x-ray clear -Discontinue Unasyn 1500 every 6 Day#2 -Leukocytosis resolved, patient is afebrile -HIV and hepatitis panel negative Hematology -New onset of anemia,thrombocytopenia -Peripheral smear didn't show any signs of schistocytes -Hematology consultation was obtained, thanks for recommendation -Haptoglobin pending, absolute reticulocyte count 3 elevated, LDH elevated -DIC panel: INR initially was prolonged 2.25, received vitamin K oral, INR today 1.48. Fibrinogen initially was 122, suggest DIC that's improving, fibrinogen today is 181 -Continue monitor CBC and ICU bundle Q8 today and Q12 today Metabolic -Hypo-kalemia ---improved -Severe hypocalcemia 4.5, corrected calcium 6.3---improved -Hypomagnesemia--improved -CK > 32.000, quantitative level was obtained----improving 82,936<104,060<155,210<114,464 -Continue normal saline 200 mL/h -Non-anion gap metabolic acidosis -Acute kidney injury-- resolved -Nephro consultation was obtained, thanks for recommendation -Nephrology recommendation to recheck UA with microscopic analysis as well as repeat UProt/Cr and urine microalbumin/creatinine prior to discharge - if abnormal, patient should f/u with Nephrology as an outpatient GI -Transaminitis -Abdomen ultrasound revealed small amount of ascites and mild splenomegaly -We'll obtain GI consultation -Continue trend liver function test Toxicology -Urine toxicology positive for cocaine -Medication was confirmed by CT EDUCATION TECHNICIAN -Poison Control Center was contacted, recommendation for supportive treatment and to obtain hematology and GI consultation for further evaluation Psych -History of bipolar -Psych consultation was obtained, thanks for recommendation Musculoskeletal - reported fall on right hip -Right hip x-ray didn't reveal any abnormality -Right knee x-ray didn't reveal any abnormality Consultation GI, nephrology, psych, hematology Diet regular Code full Patient does not want her clinical status discussed with her mother at this time. Problem List: 1. Thrombocytopenia 2. Cocaine abuse 3. Rhabdomyolysis 4. Renal failure 5. Altered mental status Pain Ratin Pain Location: Right knee Tomorrow's Labs & Rationales: ICU bundle, CPK, CBC Plan DVT/Prophylaxis: mechanical
--- NOTE | 2017-01-14 08:39 | PN- Hematology ---
Subjective Subjective: She feels about the same. She has no fever or chills. She has more pain in the right knee this morning. She denies any other painful area. Review of Systems Constitutional: Denies: chills, fever. Cardiovascular: Denies: chest pain, palpitations. Respiratory: Denies: short of breath. Gastrointestinal: Denies: abdominal pain, nausea, vomiting. Musculoskeletal: Reports: see HPI. Hematologic/Endocrine: Reports: bruising. Denies: bleeding. All Other Systems: Reviewed and Negative Objective Vital Signs and I&Os Vital Signs Date Time Temp Pulse Resp B/P B/P Pulse O2 O2 Flow FiO2 Mean Ox Delivery Rate / 0600 69 18 110/70 06/ 0400 97.2 73 20 124/80 / 0400 96 Room Air 06/ 0000 99.0 74 20 118/78 06/02 0000 99.0 74 20 118/78 96 Room Air 06/ 0000 96 Room Air / 2200 80 18 120/74 01/13 2000 97.0 72 18 109/74 01/13 2000 99 Room Air 06/ 1600 98 Room Air 06/ 1600 97.9 76 20 108/70 97 Room Air Intake & Output / 1600 06/02 0800 06/02 0000 06/01 1600 06/ 0800 06/ 0000 Intake Total 1581 1970 2590 2749 4000 Output Total 1550 1280 1500 1050 1200 Balance 31 690 1090 1699 2800 Intake, IV 1481 1700 2110 1749 4000 Intake, Oral 100 034 256 1483 Number 0 Bowel Movements Output, Urine 1550 1280 1500 1050 1200 Patient 68.946 kg Weight Weight Estimated Measurement Method Physical Exam: General Appearance: well developed/nourished, no apparent distress, alert, awake , comfortable Respiratory: normal breath sounds, chest non-tender, no respiratory distress Cardiovascular: regular rate/rhythm Gastrointestinal: normal bowel sounds, soft, non-tender, no organomegaly Extremities: normal inspection, normal capillary refill, no edema; suprapatellar tenderness. Neurologic/Psych: no motor/sensory deficits, awake, alert, oriented x 3 Skin: intact, yellowing of the skin (spray simon) Lymphatic: no anterior cervical julianna Current Medications: Current Medications Sig/Aydin Start time Last Medication Dose Route Stop Time Status Admin Acetaminophen 325 MG Q6P PRN 01/12 2145 DC PO Ampicillin Sodium/ 1,500 MG Q6 01/12 2359 AC 01/14 Sulbactam Sodium IV 0615 Sodium Chloride 100 ML Aspirin 81 MG DAILY 01/13 1000 DC 01/13 PO 1240 Calcium Carbonate 1,250 MG DAILY 01/14 1000 AC PO Calcium Carbonate 1,250 MG BID 01/13 1000 DC 01/13 PO 2230 Calcium Gluconate 1 GM ONCE ONE 01/13 0945 CAN Sodium Chloride 100 ML IV 01/13 1044 Lorazepam 1 MG Q2 HRS NEEDED PRN 01/12 2130 AC IV Magnesium Oxide 400 MG ONE ONE 01/13 1445 DC 01/13 PO 01/13 1446 1445 Magnesium Sulfate 1 GM Q2H 01/13 0945 DC 01/13 Dextrose/Water 100 ML IV 01/13 1344 1440 Morphine Sulfate 2 MG Q4P PRN 01/12 2145 AC IV Nitroglycerin 0.5 GM Q6P PRN 01/12 2245 AC TOP Oxycodone HCl 5 MG Q6P PRN 01/12 2145 AC PO Phosphate 250 MG PC AND AT BEDTIME 01/14 0600 AC PO Phytonadione 5 MG ONCE ONE 01/13 1000 DC 01/13 PO 01/13 1001 1241 Potassium Chloride 40 MEQ ONCE ONE 01/13 1800 DC 01/13 PO 01/13 1801 1811 Potassium Chloride 20 MEQ ONCE ONE 01/13 1445 DC 01/13 PO 01/13 1446 1445 Potassium Chloride 60 MEQ ONCE ONE 01/13 1245 DC 01/13 PO 01/13 1246 1241 Potassium Chloride 10 MEQ Q1H 01/13 0945 DC IV 01/13 1046 Potassium Chloride 60 MEQ ONCE ONE 01/13 0945 CAN PO 01/13 0946 Sodium Chloride 1,000 ML Q5H 01/13 0145 AC 01/14 IV 0315 Tramadol HCl 50 MG ONCE PRN 01/14 0145 DC 01/14 PO 01/14 0146 0150 Results Last 24 Hours of Lab Results: Laboratory Tests 01/14 0430 Chemistry Sodium (137 - 145 mmol/L) 140 Potassium (3.5 - 5.1 mmol/L) 4.9 Chloride (98 - 107 mmol/L) 114 H Carbon Dioxide (22 - 30 mmol/L) 20 L Anion Gap (5 - 16) 6 BUN (7 - 17 mg/dL) 9 Creatinine (0.5 - 1.0 mg/dL) 0.7 Estimated GFR (>60 ml/min) > 60 Glucose (65 - 99 mg/dL) 101 H Calcium (8.4 - 10.2 mg/dL) 6.9 L Phosphorus (2.5 - 4.5 mg/dL) 1.9 L Magnesium (1.6 - 2.3 mg/dL) 2.1 Total Bilirubin (0.2 - 1.3 mg/dL) 2.3 H Direct Bilirubin (< 0.4 mg/dL) 0.2 AST (14 - 36 U/L) 1314 H ALT (9 - 52 U/L) 521 H Alkaline Phosphatase (<127 U/L) 51 Creatine Kinase (30 - 135 U/L) Pending Total Protein (6.3 - 8.2 g/dL) 4.3 L Albumin (3.5 - 5.0 g/dL) 2.6 L Coagulation Fibrinogen Activity (200 - 393 MG/DL) 181 L Fibrin Degrad Products (< 10 ug/ml) >10 but < 40 ug/ml H Hematology CBC w Diff NO MAN DIFF REQ WBC (4.8 - 10.8 /CUMM) 11.1 H RBC (4.20 - 5.40 /CUMM) 4.04 L Hgb (12.0 - 16.0 G/DL) 12.3 Hct (37 - 47 %) 36.9 L MCV (81.0 - 99.0 FL) 91.4 MCH (27.0 - 31.0 PG) 30.4 RDW (11.5 - 14.5 %) 13.4 Plt Count (130 - 400 /CUMM) 55 L MPV (7.4 - 10.4 FL) 8.7 Gran % (42.2 - 75.2 %) 74.0 Lymphocytes % (20.5 - 51.1 %) 21.5 Monocytes % (1.7 - 9.3 %) 4.2 Eosinophils % (0 - 5 %) 0 Basophils % (0.0 - 2.0 %) 0.3 Absolute Granulocytes (1.4 - 6.5 /CUMM) 8.2 H Absolute Lymphocytes (1.2 - 3.4 /CUMM) 2.4 Absolute Monocytes (0.10 - 0.60 /CUMM) 0.5 Absolute Eosinophils (0.0 - 0.7 /CUMM) 0 Absolute Basophils (0.0 - 0.2 /CUMM) 0 PUBS MCHC (33.0 - 37.0 G/DL) 33.3 01/13 2115 Chemistry Sodium (137 - 145 mmol/L) 139 Potassium (3.5 - 5.1 mmol/L) 4.2 Chloride (98 - 107 mmol/L) 112 H Carbon Dioxide (22 - 30 mmol/L) 21 L Anion Gap (5 - 16) 5 BUN (7 - 17 mg/dL) 13 Creatinine (0.5 - 1.0 mg/dL) 0.7 Estimated GFR (>60 ml/min) > 60 Glucose (65 - 99 mg/dL) 83 Calcium (8.4 - 10.2 mg/dL) 7.0 L Phosphorus (2.5 - 4.5 mg/dL) 2.8 Magnesium (1.6 - 2.3 mg/dL) 2.5 H Total Bilirubin (0.2 - 1.3 mg/dL) 2.2 H AST (14 - 36 U/L) 1478 H ALT (9 - 52 U/L) 460 H Albumin (3.5 - 5.0 g/dL) 2.7 L Coagulation PT (9.4 - 12.5 SEC) 15.5 H INR (0.90 - 1.19) 1.48 H APTT (25 - 37 SEC) 33 Fibrinogen Activity (200 - 393 MG/DL) 166 L Fibrin Degrad Products (< 10 ug/ml) >10 but < 40 ug/ml H 01/13 01/13 1705 1705 Urines Urinalysis LIGHT H Urine Color (YEL,AMB,STR) PINK H Urine Clarity (CLEAR) HAZY H Urine pH (5.0 - 8.0) 6.0 Ur Specific [place] (1.001 - 1.035) 1.020 Urine Protein (NEG,<30 MG/DL) 100 H Urine Ketones (NEG) NEG Urine Nitrite (NEG) NEG Urine Bilirubin (NEG) NEG Urine Urobilinogen (0.1 - 1.0 EU/dl) 0.2 Ur Leukocyte Esterase (NEG) NEG Ur Microscopic SEDIMENT EXAMINED Urine RBC (0 - 5 /HPF) >75 H Urine WBC (0 - 2 /HPF) 1-3 H Ur Epithelial Cells (NONE,FEW) RARE Urine Bacteria (NEG/NONE) FEW H Urine Mucus (FEW,NONE) FEW Urine Hemoglobin (NEG) LARGE H Ur Random Creatinine (mg/dL) 39.5 Ur Random Microalbumin (<1.7 mg/dl) 13.9 H Ur Random Sodium (30 - 90 mmol/L) 107 H Ur Random Potassium (mmol/L) 11.1 Fraction Sodium Excret (<1% %) 1.5 H Urine Glucose (N MG/DL) NEG U Cystine/Creat Ratio (mcg/mg) 351.89 01/13 01/13 1644 1430 Chemistry Sodium (137 - 145 mmol/L) 140 Potassium (3.5 - 5.1 mmol/L) 3.9 Chloride (98 - 107 mmol/L) 112 H Carbon Dioxide (22 - 30 mmol/L) 21 L Anion Gap (5 - 16) 8 BUN (7 - 17 mg/dL) 14 Creatinine (0.5 - 1.0 mg/dL) 0.8 Estimated GFR (>60 ml/min) > 60 Glucose (65 - 99 mg/dL) 77 Calcium (8.4 - 10.2 mg/dL) 7.2 L Phosphorus (2.5 - 4.5 mg/dL) 3.3 Magnesium (1.6 - 2.3 mg/dL) 3.1 H Total Bilirubin (0.2 - 1.3 mg/dL) 2.2 H Direct Bilirubin (< 0.4 mg/dL) 0.2 AST (14 - 36 U/L) 1551 H ALT (9 - 52 U/L) 442 H Alkaline Phosphatase (<127 U/L) 48 Ammonia (9 - 30 umol/L) < 9 L Total Protein (6.3 - 8.2 g/dL) 5.1 L Albumin (3.5 - 5.0 g/dL) 3.2 L Coagulation PT (9.4 - 12.5 SEC) 16.4 H INR (0.90 - 1.19) 1.57 H Hematology CBC w Diff NO MAN DIFF REQ WBC (4.8 - 10.8 /CUMM) 12.6 H RBC (4.20 - 5.40 /CUMM) 4.44 Hgb (12.0 - 16.0 G/DL) 13.4 Hct (37 - 47 %) 40.0 MCV (81.0 - 99.0 FL) 90.0 MCH (27.0 - 31.0 PG) 30.2 RDW (11.5 - 14.5 %) 13.4 Plt Count (130 - 400 /CUMM) 67 L MPV (7.4 - 10.4 FL) 8.8 Gran % (42.2 - 75.2 %) 71.5 Lymphocytes % (20.5 - 51.1 %) 23.1 Monocytes % (1.7 - 9.3 %) 5.2 Eosinophils % (0 - 5 %) 0 Basophils % (0.0 - 2.0 %) 0.2 Absolute Granulocytes (1.4 - 6.5 /CUMM) 9.0 H Absolute Lymphocytes (1.2 - 3.4 /CUMM) 2.9 Absolute Monocytes (0.10 - 0.60 /CUMM) 0.7 H Absolute Eosinophils (0.0 - 0.7 /CUMM) 0 Absolute Basophils (0.0 - 0.2 /CUMM) 0 PUBS MCHC (33.0 - 37.0 G/DL) 33.6 Haptoglobin Pending Serology Hepatitis A IgM Ab (NONREACTIVE) Pending Hep Bs Antigen (NONREACTIVE) NONREACTIVE Hep B Core IgM Ab Conf (NONREACTIVE) Pending Hepatitis C Antibody (NONREACTIVE) Pending HIV 1&2 Ab Western Blot (NONREACTIVE) NONREACTIVE 01/13 01/13 01/13 1430 1323 1222 Chemistry Lactate Dehydrogenase (313 - 618 U/L) 61811 H Creatine Kinase Cancelled Hematology CBC w Diff NO MAN DIFF REQ WBC (4.8 - 10.8 /CUMM) 13.7 H RBC (4.20 - 5.40 /CUMM) 4.40 Hgb (12.0 - 16.0 G/DL) 13.4 Hct (37 - 47 %) 39.8 MCV (81.0 - 99.0 FL) 90.4 MCH (27.0 - 31.0 PG) 30.4 RDW (11.5 - 14.5 %) 13.4 Plt Count (130 - 400 /CUMM) 61 L MPV (7.4 - 10.4 FL) 9.1 Gran % (42.2 - 75.2 %) 77.6 H Lymphocytes % (20.5 - 51.1 %) 18.2 L Monocytes % (1.7 - 9.3 %) 4.0 Eosinophils % (0 - 5 %) 0 Basophils % (0.0 - 2.0 %) 0.2 Absolute Granulocytes (1.4 - 6.5 /CUMM) 10.6 H Absolute Lymphocytes (1.2 - 3.4 /CUMM) 2.5 Absolute Monocytes (0.10 - 0.60 /CUMM) 0.5 Absolute Eosinophils (0.0 - 0.7 /CUMM) 0 Absolute Basophils (0.0 - 0.2 /CUMM) 0 PUBS MCHC (33.0 - 37.0 G/DL) 33.6 Retic Count (0.5 - 2.0 %) 3.45 H Other Body Source Fluid LDH Cancelled 01/13 01/13 01/13 1217 UNK 0840 Chemistry Sodium (137 - 145 mmol/L) 142 Potassium (3.5 - 5.1 mmol/L) 2.7 *L Chloride (98 - 107 mmol/L) 121 H Carbon Dioxide (22 - 30 mmol/L) 15 L Anion Gap (5 - 16) 6 BUN (7 - 17 mg/dL) 12 Creatinine (0.5 - 1.0 mg/dL) 0.6 Estimated GFR (>60 ml/min) > 60 Glucose (65 - 99 mg/dL) 63 L Calcium (8.4 - 10.2 mg/dL) 4.8 *L Phosphorus (2.5 - 4.5 mg/dL) 2.8 Magnesium (1.6 - 2.3 mg/dL) 1.6 Total Bilirubin (0.2 - 1.3 mg/dL) 1.5 H AST (14 - 36 U/L) 975 H ALT (9 - 52 U/L) 254 H Ammonia Cancelled Creatine Kinase (30 - 135 U/L) > 40687.0 H Troponin I Cancelled Albumin (3.5 - 5.0 g/dL) 1.9 L Toxicology Acetaminophen (10.0 - 30.0 ug/mL) < 10.0 L 01/13 0840 Chemistry Sodium (137 - 145 mmol/L) 141 Potassium (3.5 - 5.1 mmol/L) 2.8 *L Chloride (98 - 107 mmol/L) 122 H Carbon Dioxide (22 - 30 mmol/L) 14 L Anion Gap (5 - 16) 4 L BUN (7 - 17 mg/dL) 13 Creatinine (0.5 - 1.0 mg/dL) 0.6 Estimated GFR (>60 ml/min) > 60 Glucose (65 - 99 mg/dL) 52 L Calcium (8.4 - 10.2 mg/dL) 4.5 *L Phosphorus (2.5 - 4.5 mg/dL) 2.7 Magnesium (1.6 - 2.3 mg/dL) 1.4 L Total Bilirubin (0.2 - 1.3 mg/dL) 1.3 AST (14 - 36 U/L) 729 H ALT (9 - 52 U/L) 195 H Creatine Kinase (30 - 135 U/L) > 85482 H Troponin I (< 0.11 ng/ml) 0.47 *H Albumin (3.5 - 5.0 g/dL) 1.7 L Coagulation PT (9.4 - 12.5 SEC) 23.4 H INR (0.90 - 1.19) 2.25 H Fibrinogen Activity (200 - 393 MG/DL) 122 L Hematology CBC w Diff MAN DIFF ORDERED WBC (4.8 - 10.8 /CUMM) 9.0 RBC (4.20 - 5.40 /CUMM) 3.28 L Hgb (12.0 - 16.0 G/DL) 9.9 L Hct (37 - 47 %) 29.2 L MCV (81.0 - 99.0 FL) 89.0 MCH (27.0 - 31.0 PG) 30.2 RDW (11.5 - 14.5 %) 13.2 Plt Count (130 - 400 /CUMM) 46 L MPV (7.4 - 10.4 FL) 8.5 Gran % (42.2 - 75.2 %) 79.4 H Lymphocytes % (20.5 - 51.1 %) 13.6 L Monocytes % (1.7 - 9.3 %) 6.8 Eosinophils % (0 - 5 %) 0 Basophils % (0.0 - 2.0 %) 0.2 Absolute Granulocytes (1.4 - 6.5 /CUMM) 7.1 H Segmented Neutrophils (42.2 - 75.2 %) 83 H Absolute Lymphocytes (1.2 - 3.4 /CUMM) 1.2 Lymphocytes (20.5 - 51.1 %) 13 L Monocytes (1.7 - 9.3 %) 4 Absolute Monocytes (0.10 - 0.60 /CUMM) 0.6 Absolute Eosinophils (0.0 - 0.7 /CUMM) 0 Absolute Basophils (0.0 - 0.2 /CUMM) 0 Platelet Estimate (ADEQUATE) Hypochromic-Microcytic 1+ PUBS MCHC (33.0 - 37.0 G/DL) 33.9 Assessment/Plan Assessment/Recommendations: Ms. Sandhu is a 26-year-old female with bipolar disorder and polysubstance abuse who presented to the hospital after found to have AMS at her neighbor house. She was tested positive for cocaine in her urine. There are concerns for overdose of other medications she is also taking. She presented with fever, elevated LDH, elevated CK, elevated creatinine, and elevated LFT. Her platelet also dropped from 266,000 from 01/12 to 65,000 on 01/13. This significant drop may be from previous hemoconcentration as all her count significantly decreased. Her WBC and hemoglobin is improved but platelet remains about the same. Her peripheral smear is unremarkable except for decreased platelet. Review of her records demonstrated that her normal platelet count runds from the 160-190,000. DIC panel was positive with decrease in her fibrinogen. This has been trending upward. She may be showing signs of recovery. Toxicity from medication and cocaine is another likely explanation. Drug-induced thrombocytopenia is also another potential etiology. Rhabdomyolysis may also cause her symptoms. For now, she can be monitored without intervention. Platelet count is 55,000 today. DIC should be monitored daily. CBC may be monitored BID to TID. Recommendations: 1. Trend DIC daily: PT/INR/PTT/Fibrinogen 2. Transfuse with cyro if fibrinogen <100 3. Transfuse with platelet if <10,000 or with bleeding 4. If thrombocytopenia worsens and bleeding, may consider steroid and IVIG Please call [phone] with any questions or concerns. Problem List: 1. Thrombocytopenia 2. Cocaine abuse 3. Rhabdomyolysis 4. Altered mental status
--- NOTE | 2017-01-14 10:03 | PN- Nephrology ---
Assessment/Plan Assessment: Ms. Sandhu is a 26-year-old female with bipolar disorder and polysubstance abuse who presented to the hospital after found to have AMS at her neighbor house. She was tested positive for cocaine in her urine. There are concerns for overdose of other medications she is also taking. She presented with fever, elevated LDH, elevated CK, elevated creatinine, and elevated LFT. Her platelet also dropped from 266,000 from 01/12 to 65,000 on 01/13.She is found on labs to have renal failure with a creatinine of 2.0 (prior 0.9 in 2013), rhabdo with a CK 8769, evidence of cardiac injury with a troponin 1.04 , albumin 5.3, ammonia 93, AST 140, ALT 52, Plts 266, lactate 11.2. UA with > 300mg/dl protein, 10-15 RBC's, 5-10 WBC's, 15-25 granular casts. Utox positive for cocaine but otherwise notably negative for salicylates, acetaminophen, methanol/ethanol/isopropanol/acetone and negative otherwise. Patient was visited and examined today, she denies any N/V/D, shortness of breath, chest pain, palpitation and muscle pain. VS: remained stable over night. Fluid balance: +1700 ml. todays labs were reviewed: Cr: 0.7, BUN 9, corrected Ca according to albumin: 7.8 mg/dl, K: 4.9, Mg 2.9, Phosphorous 1.9, AST 1314 and ALT 521, CK is pending, Trop is trended down to 0.47 PH/EX: was unremarkable. Assessment: 26 years old was admitted to ICU with after overdosing with coccaine with ( coccaine indusced-rhabdo and NAM as the result and also was found to be in DIC. List of probelms 1) Thrombocytopenia: secindary to DIC ( low fibrinogen)and possible contributory role of coccaine and othre possible drugs abuse. The possibility of primary HIV and hepaptitis is also presents. Trend daily DIC panel, transfuse if plt <16272 and ore severe bleeding at any lvl, cryo if fibrinogen <100. 2)NAM- Secondary to Rhabdo 2/2 to coccaine overdose; NAM resolved with continous hydration; CK for today is pending; continu current hydraion with Nl/saline. reapeat BEP and CK in the am. 3) Liver Failure- elevated LFT;Could be secondary to polysubstance abuse, or coccaine-induced, Hepatitis is another possible scenario with hepatitis pannel is still pending. Trend LFT. 4) Hypophosphatemia-repleted 5) Elevated troponin - ACS vs coccaine-induced cardiomyopathy. Troponin trended down.ACS was R/O. Suggestion: discussed in assessment Problem List: 1. Thrombocytopenia 2. Cocaine abuse 3. Rhabdomyolysis 4. Renal failure 5. Altered mental status Subjective Subjective: discuussed in assessment Review of Systems Constitutional: Reports: see HPI. EENTM: Reports: see HPI. Cardiovascular: Reports: no symptoms, see HPI. Respiratory: Reports: no symptoms. Genitourinary: Reports: no symptoms. Musculoskeletal: Reports: no symptoms. Skin: Reports: no symptoms. All Other Systems: Reviewed and Negative Objective Vital Signs and I&Os Vital Signs Date Time Temp Pulse Resp B/P B/P Pulse O2 O2 Flow FiO2 Mean Ox Delivery Rate / 1000 70 22 117/73 06/02 0800 98.4 74 24 118/80 06/02 0800 98.4 74 24 118/80 98 Room Air 06/02 0600 69 18 110/70 06/02 0400 97.2 73 20 124/80 06/02 0400 96 Room Air 06/02 0000 99.0 74 20 118/78 06/02 0000 99.0 74 20 118/78 96 Room Air 06/02 0000 96 Room Air 06/01 2200 80 18 120/74 06/01 2000 97.0 72 18 109/74 06/01 2000 99 Room Air 06/01 1600 98 Room Air 06/01 1600 97.9 76 20 108/70 97 Room Air Intake & Output / 1600 06/02 0400 / 1600 06/ 0400 01/12 1600 01/12 0400 Intake Total 1581 1970 5339 4000 Output Total 1550 1280 2550 1200 Balance 31 690 2789 2800 Intake, IV 1481 1700 3859 4000 Intake, Oral 547 137 7816 Number 0 Bowel Movements Output, Urine 1550 1280 2550 1200 Patient 152 lb 152 lb Weight Weight Estimated Measurement Method Physical Exam General Appearance: alert, awake, anxious, comfortable Head: atraumatic Ears, Nose, Throat: normal pharynx Neck: normal inspection Cardiovascular: regular rate/rhythm Extremities: normal inspection Skin: intact, normal color Current Medications: Current Medications Sig/Aydin Start time Last Medication Dose Route Stop Time Status Admin Acetaminophen 325 MG Q6P PRN 01/12 214 DC PO Ampicillin Sodium/ 1,500 MG Q6 01/12 2359 DC 01/14 Sulbactam Sodium IV 0615 Sodium Chloride 100 ML Aspirin 81 MG DAILY 01/13 1000 DC 01/13 PO 1240 Calcium Carbonate 1,250 MG DAILY 01/14 1000 AC 01/14 PO 0845 Calcium Carbonate 1,250 MG BID 01/13 1000 DC 01/13 PO 2230 Lorazepam 1 MG Q2 HRS NEEDED PRN 01/12 2130 AC IV Magnesium Oxide 400 MG ONE ONE 01/13 1445 DC 01/13 PO 01/13 1446 1445 Magnesium Sulfate 1 GM Q2H 01/13 0945 DC 01/13 Dextrose/Water 100 ML IV 01/13 1344 1440 Morphine Sulfate 2 MG Q4P PRN 01/12 214 AC IV Nitroglycerin 0.5 GM Q6P PRN 01/12 2245 AC TOP Oxycodone HCl 5 MG Q6P PRN 01/12 2145 AC PO Phosphate 250 MG PC AND AT BEDTIME 01/14 0600 DC 01/14 PO 0845 Potassium Chloride 40 MEQ ONCE ONE 01/13 1800 DC 01/13 PO 01/13 1801 1811 Potassium Chloride 20 MEQ ONCE ONE 01/13 1445 DC 01/13 PO 01/13 1446 1445 Potassium Chloride 60 MEQ ONCE ONE 01/13 1245 DC 01/13 PO 01/13 1246 1241 Potassium Chloride 10 MEQ Q1H 01/13 0945 DC IV 01/13 1046 Potassium Chloride 60 MEQ ONCE ONE 01/13 0945 CAN PO 01/13 0946 Sodium Chloride 1,000 ML Q5H 01/13 0145 AC 01/14 IV 0844 Sodium Phosphate 15 mMol ONE ONE 01/14 0900 AC Dextrose/Water 250 ML IV 01/14 1303 Tramadol HCl 50 MG ONCE PRN 01/14 0145 DC 01/14 PO 01/14 0146 0150 Results Pertinent Lab Results: Laboratory Tests 01/14 0430 Chemistry Sodium (137 - 145 mmol/L) 140 Potassium (3.5 - 5.1 mmol/L) 4.9 Chloride (98 - 107 mmol/L) 114 H Carbon Dioxide (22 - 30 mmol/L) 20 L Anion Gap (5 - 16) 6 BUN (7 - 17 mg/dL) 9 Creatinine (0.5 - 1.0 mg/dL) 0.7 Estimated GFR (>60 ml/min) > 60 Glucose (65 - 99 mg/dL) 101 H Calcium (8.4 - 10.2 mg/dL) 6.9 L Phosphorus (2.5 - 4.5 mg/dL) 1.9 L Magnesium (1.6 - 2.3 mg/dL) 2.1 Total Bilirubin (0.2 - 1.3 mg/dL) 2.3 H Direct Bilirubin (< 0.4 mg/dL) 0.2 AST (14 - 36 U/L) 1314 H ALT (9 - 52 U/L) 521 H Alkaline Phosphatase (<127 U/L) 51 Creatine Kinase (30 - 135 U/L) > 33282 H Total Protein (6.3 - 8.2 g/dL) 4.3 L Albumin (3.5 - 5.0 g/dL) 2.6 L Coagulation Fibrinogen Activity (200 - 393 MG/DL) 181 L Fibrin Degrad Products (< 10 ug/ml) >10 but < 40 ug/ml H Hematology CBC w Diff NO MAN DIFF REQ WBC (4.8 - 10.8 /CUMM) 11.1 H RBC (4.20 - 5.40 /CUMM) 4.04 L Hgb (12.0 - 16.0 G/DL) 12.3 Hct (37 - 47 %) 36.9 L MCV (81.0 - 99.0 FL) 91.4 MCH (27.0 - 31.0 PG) 30.4 RDW (11.5 - 14.5 %) 13.4 Plt Count (130 - 400 /CUMM) 55 L MPV (7.4 - 10.4 FL) 8.7 Gran % (42.2 - 75.2 %) 74.0 Lymphocytes % (20.5 - 51.1 %) 21.5 Monocytes % (1.7 - 9.3 %) 4.2 Eosinophils % (0 - 5 %) 0 Basophils % (0.0 - 2.0 %) 0.3 Absolute Granulocytes (1.4 - 6.5 /CUMM) 8.2 H Absolute Lymphocytes (1.2 - 3.4 /CUMM) 2.4 Absolute Monocytes (0.10 - 0.60 /CUMM) 0.5 Absolute Eosinophils (0.0 - 0.7 /CUMM) 0 Absolute Basophils (0.0 - 0.2 /CUMM) 0 PUBS MCHC (33.0 - 37.0 G/DL) 33.3 01/135 Chemistry Sodium (137 - 145 mmol/L) 139 Potassium (3.5 - 5.1 mmol/L) 4.2 Chloride (98 - 107 mmol/L) 112 H Carbon Dioxide (22 - 30 mmol/L) 21 L Anion Gap (5 - 16) 5 BUN (7 - 17 mg/dL) 13 Creatinine (0.5 - 1.0 mg/dL) 0.7 Estimated GFR (>60 ml/min) > 60 Glucose (65 - 99 mg/dL) 83 Calcium (8.4 - 10.2 mg/dL) 7.0 L Phosphorus (2.5 - 4.5 mg/dL) 2.8 Magnesium (1.6 - 2.3 mg/dL) 2.5 H Total Bilirubin (0.2 - 1.3 mg/dL) 2.2 H AST (14 - 36 U/L) 1478 H ALT (9 - 52 U/L) 460 H Albumin (3.5 - 5.0 g/dL) 2.7 L Coagulation PT (9.4 - 12.5 SEC) 15.5 H INR (0.90 - 1.19) 1.48 H APTT (25 - 37 SEC) 33 Fibrinogen Activity (200 - 393 MG/DL) 166 L Fibrin Degrad Products (< 10 ug/ml) >10 but < 40 ug/ml H 01/13 01/13 1705 1705 Urines Urinalysis LIGHT H Urine Color (YEL,AMB,STR) PINK H Urine Clarity (CLEAR) HAZY H Urine pH (5.0 - 8.0) 6.0 Ur Specific [place] (1.001 - 1.035) 1.020 Urine Protein (NEG,<30 MG/DL) 100 H Urine Ketones (NEG) NEG Urine Nitrite (NEG) NEG Urine Bilirubin (NEG) NEG Urine Urobilinogen (0.1 - 1.0 EU/dl) 0.2 Ur Leukocyte Esterase (NEG) NEG Ur Microscopic SEDIMENT EXAMINED Urine RBC (0 - 5 /HPF) >75 H Urine WBC (0 - 2 /HPF) 1-3 H Ur Epithelial Cells (NONE,FEW) RARE Urine Bacteria (NEG/NONE) FEW H Urine Mucus (FEW,NONE) FEW Urine Hemoglobin (NEG) LARGE H Ur Random Creatinine (mg/dL) 39.5 Ur Random Microalbumin (<1.7 mg/dl) 13.9 H Ur Random Sodium (30 - 90 mmol/L) 107 H Ur Random Potassium (mmol/L) 11.1 Fraction Sodium Excret (<1% %) 1.5 H Urine Glucose (N MG/DL) NEG U Cystine/Creat Ratio (mcg/mg) 351.89 01/13 01/13 1644 1430 Chemistry Sodium (137 - 145 mmol/L) 140 Potassium (3.5 - 5.1 mmol/L) 3.9 Chloride (98 - 107 mmol/L) 112 H Carbon Dioxide (22 - 30 mmol/L) 21 L Anion Gap (5 - 16) 8 BUN (7 - 17 mg/dL) 14 Creatinine (0.5 - 1.0 mg/dL) 0.8 Estimated GFR (>60 ml/min) > 60 Glucose (65 - 99 mg/dL) 77 Calcium (8.4 - 10.2 mg/dL) 7.2 L Phosphorus (2.5 - 4.5 mg/dL) 3.3 Magnesium (1.6 - 2.3 mg/dL) 3.1 H Total Bilirubin (0.2 - 1.3 mg/dL) 2.2 H Direct Bilirubin (< 0.4 mg/dL) 0.2 AST (14 - 36 U/L) 1551 H ALT (9 - 52 U/L) 442 H Alkaline Phosphatase (<127 U/L) 48 Ammonia (9 - 30 umol/L) < 9 L Total Protein (6.3 - 8.2 g/dL) 5.1 L Albumin (3.5 - 5.0 g/dL) 3.2 L Coagulation PT (9.4 - 12.5 SEC) 16.4 H INR (0.90 - 1.19) 1.57 H Hematology CBC w Diff NO MAN DIFF REQ WBC (4.8 - 10.8 /CUMM) 12.6 H RBC (4.20 - 5.40 /CUMM) 4.44 Hgb (12.0 - 16.0 G/DL) 13.4 Hct (37 - 47 %) 40.0 MCV (81.0 - 99.0 FL) 90.0 MCH (27.0 - 31.0 PG) 30.2 RDW (11.5 - 14.5 %) 13.4 Plt Count (130 - 400 /CUMM) 67 L MPV (7.4 - 10.4 FL) 8.8 Gran % (42.2 - 75.2 %) 71.5 Lymphocytes % (20.5 - 51.1 %) 23.1 Monocytes % (1.7 - 9.3 %) 5.2 Eosinophils % (0 - 5 %) 0 Basophils % (0.0 - 2.0 %) 0.2 Absolute Granulocytes (1.4 - 6.5 /CUMM) 9.0 H Absolute Lymphocytes (1.2 - 3.4 /CUMM) 2.9 Absolute Monocytes (0.10 - 0.60 /CUMM) 0.7 H Absolute Eosinophils (0.0 - 0.7 /CUMM) 0 Absolute Basophils (0.0 - 0.2 /CUMM) 0 PUBS MCHC (33.0 - 37.0 G/DL) 33.6 Haptoglobin Pending Serology Hepatitis A IgM Ab (NONREACTIVE) NONREACTIVE Hep Bs Antigen (NONREACTIVE) NONREACTIVE Hep B Core IgM Ab Conf (NONREACTIVE) NONREACTIVE Hepatitis C Antibody (NONREACTIVE) NONREACTIVE HIV 1&2 Ab Western Blot (NONREACTIVE) NONREACTIVE 01/13 01/13 01/13 1430 1323 1222 Chemistry Lactate Dehydrogenase (313 - 618 U/L) 99831 H Creatine Kinase Cancelled Hematology CBC w Diff NO MAN DIFF REQ WBC (4.8 - 10.8 /CUMM) 13.7 H RBC (4.20 - 5.40 /CUMM) 4.40 Hgb (12.0 - 16.0 G/DL) 13.4 Hct (37 - 47 %) 39.8 MCV (81.0 - 99.0 FL) 90.4 MCH (27.0 - 31.0 PG) 30.4 RDW (11.5 - 14.5 %) 13.4 Plt Count (130 - 400 /CUMM) 61 L MPV (7.4 - 10.4 FL) 9.1 Gran % (42.2 - 75.2 %) 77.6 H Lymphocytes % (20.5 - 51.1 %) 18.2 L Monocytes % (1.7 - 9.3 %) 4.0 Eosinophils % (0 - 5 %) 0 Basophils % (0.0 - 2.0 %) 0.2 Absolute Granulocytes (1.4 - 6.5 /CUMM) 10.6 H Absolute Lymphocytes (1.2 - 3.4 /CUMM) 2.5 Absolute Monocytes (0.10 - 0.60 /CUMM) 0.5 Absolute Eosinophils (0.0 - 0.7 /CUMM) 0 Absolute Basophils (0.0 - 0.2 /CUMM) 0 PUBS MCHC (33.0 - 37.0 G/DL) 33.6 Retic Count (0.5 - 2.0 %) 3.45 H Other Body Source Fluid LDH Cancelled 01/13 01/13 01/13 1217 UNK 0840 Chemistry Sodium (137 - 145 mmol/L) 142 Potassium (3.5 - 5.1 mmol/L) 2.7 *L Chloride (98 - 107 mmol/L) 121 H Carbon Dioxide (22 - 30 mmol/L) 15 L Anion Gap (5 - 16) 6 BUN (7 - 17 mg/dL) 12 Creatinine (0.5 - 1.0 mg/dL) 0.6 Estimated GFR (>60 ml/min) > 60 Glucose (65 - 99 mg/dL) 63 L Calcium (8.4 - 10.2 mg/dL) 4.8 *L Phosphorus (2.5 - 4.5 mg/dL) 2.8 Magnesium (1.6 - 2.3 mg/dL) 1.6 Total Bilirubin (0.2 - 1.3 mg/dL) 1.5 H AST (14 - 36 U/L) 975 H ALT (9 - 52 U/L) 254 H Ammonia Cancelled Creatine Kinase (30 - 135 U/L) > 61465.0 H Troponin I Cancelled Albumin (3.5 - 5.0 g/dL) 1.9 L Toxicology Acetaminophen (10.0 - 30.0 ug/mL) < 10.0 L 01/13 01/13 0840 0314 Chemistry Sodium (137 - 145 mmol/L) 141 Potassium (3.5 - 5.1 mmol/L) 2.8 *L Chloride (98 - 107 mmol/L) 122 H Carbon Dioxide (22 - 30 mmol/L) 14 L Anion Gap (5 - 16) 4 L BUN (7 - 17 mg/dL) 13 Creatinine (0.5 - 1.0 mg/dL) 0.6 Estimated GFR (>60 ml/min) > 60 Glucose (65 - 99 mg/dL) 52 L Calcium (8.4 - 10.2 mg/dL) 4.5 *L Phosphorus (2.5 - 4.5 mg/dL) 2.7 Magnesium (1.6 - 2.3 mg/dL) 1.4 L Total Bilirubin (0.2 - 1.3 mg/dL) 1.3 AST (14 - 36 U/L) 729 H ALT (9 - 52 U/L) 195 H Creatine Kinase (30 - 135 U/L) > 54727 H Troponin I (< 0.11 ng/ml) 0.47 *H 0.81 *H Albumin (3.5 - 5.0 g/dL) 1.7 L Coagulation PT (9.4 - 12.5 SEC) 23.4 H INR (0.90 - 1.19) 2.25 H Fibrinogen Activity (200 - 393 MG/DL) 122 L Hematology CBC w Diff MAN DIFF ORDERED WBC (4.8 - 10.8 /CUMM) 9.0 RBC (4.20 - 5.40 /CUMM) 3.28 L Hgb (12.0 - 16.0 G/DL) 9.9 L Hct (37 - 47 %) 29.2 L MCV (81.0 - 99.0 FL) 89.0 MCH (27.0 - 31.0 PG) 30.2 RDW (11.5 - 14.5 %) 13.2 Plt Count (130 - 400 /CUMM) 46 L MPV (7.4 - 10.4 FL) 8.5 Gran % (42.2 - 75.2 %) 79.4 H Lymphocytes % (20.5 - 51.1 %) 13.6 L Monocytes % (1.7 - 9.3 %) 6.8 Eosinophils % (0 - 5 %) 0 Basophils % (0.0 - 2.0 %) 0.2 Absolute Granulocytes (1.4 - 6.5 /CUMM) 7.1 H Segmented Neutrophils (42.2 - 75.2 %) 83 H Absolute Lymphocytes (1.2 - 3.4 /CUMM) 1.2 Lymphocytes (20.5 - 51.1 %) 13 L Monocytes (1.7 - 9.3 %) 4 Absolute Monocytes (0.10 - 0.60 /CUMM) 0.6 Absolute Eosinophils (0.0 - 0.7 /CUMM) 0 Absolute Basophils (0.0 - 0.2 /CUMM) 0 Platelet Estimate (ADEQUATE) Hypochromic-Microcytic 1+ PUBS MCHC (33.0 - 37.0 G/DL) 33.9 01/13 01/13 01/12 0314 0130 2128 Chemistry Sodium (137 - 145 mmol/L) 142 Potassium (3.5 - 5.1 mmol/L) 3.9 Chloride (98 - 107 mmol/L) 114 H Carbon Dioxide (22 - 30 mmol/L) 19 L Anion Gap (5 - 16) 8 BUN (7 - 17 mg/dL) 19 H Creatinine (0.5 - 1.0 mg/dL) 1.0 Estimated GFR (>60 ml/min) > 60 Glucose (65 - 99 mg/dL) 77 Lactic Acid (0.7 - 2.1 mmol/L) 1.3 Calcium (8.4 - 10.2 mg/dL) 7.1 L Phosphorus (2.5 - 4.5 mg/dL) 3.2 Magnesium (1.6 - 2.3 mg/dL) 2.2 Total Bilirubin (0.2 - 1.3 mg/dL) 1.6 H AST (14 - 36 U/L) 719 H ALT (9 - 52 U/L) 185 H Lactate Dehydrogenase (313 - 618 U/L) 5324 H Creatine Kinase (30 - 135 U/L) > 61688 H Troponin I (< 0.11 ng/ml) 1.04 *H Albumin (3.5 - 5.0 g/dL) 3.5 Coagulation PT (9.4 - 12.5 SEC) 16.8 H INR (0.90 - 1.19) 1.61 H APTT (25 - 37 SEC) 34 D-Dimer (70 - 232 ng/ml) 905 H Hematology CBC w Diff MAN DIFF ORDERED WBC (4.8 - 10.8 /CUMM) 11.6 H RBC (4.20 - 5.40 /CUMM) 4.22 Hgb (12.0 - 16.0 G/DL) 12.9 Hct (37 - 47 %) 37.8 MCV (81.0 - 99.0 FL) 89.7 MCH (27.0 - 31.0 PG) 30.6 RDW (11.5 - 14.5 %) 13.0 Plt Count (130 - 400 /CUMM) 65 L MPV (7.4 - 10.4 FL) 8.9 Gran % (42.2 - 75.2 %) 84.5 H Lymphocytes % (20.5 - 51.1 %) 8.9 L Monocytes % (1.7 - 9.3 %) 6.1 Eosinophils % (0 - 5 %) 0 Basophils % (0.0 - 2.0 %) 0.5 Absolute Granulocytes (1.4 - 6.5 /CUMM) 9.8 H Segmented Neutrophils (42.2 - 75.2 %) 80 H Absolute Lymphocytes (1.2 - 3.4 /CUMM) 1.0 L Lymphocytes (20.5 - 51.1 %) 8 L Monocytes (1.7 - 9.3 %) 12 H Absolute Monocytes (0.10 - 0.60 /CUMM) 0.7 H Absolute Eosinophils (0.0 - 0.7 /CUMM) 0 Absolute Basophils (0.0 - 0.2 /CUMM) 0.1 Platelet Estimate (ADEQUATE) DECREASED Normochromic RBCs VERIFIED Ovalocytes FEW PUBS MCHC (33.0 - 37.0 G/DL) 34.2 Other Body Source Fld Total RBCs Counted (%) 100 01/12 01/12 01/12 3666 2160 8461 Blood Gas pH (7.35 - 7.45 PH) 7.31 L pCO2 (35 - 45 TORR) 32 L pO2 (80 - 100 TORR) 117 H HCO3 (21 - 28 MEQ/L) 16 L ABG O2 Sat (Measured) (>96.0 %) 97.0 Carboxyhemoglobin (1.5 - 5.0 %) 0 L O2 Concentration % 2L O2 Delivery Method NC Chemistry Lactic Acid (0.7 - 2.1 mmol/L) 2.4 H Miscellaneous Phlebotomy Draw Site RF Toxicology Urine Opiates Screen (>2000 NG/ML) < 100.00 Methadone Screen (>300 NG/ML) 45 Barbiturate Screen (>200 NG/ML) < 60 Ur Phencyclidine Scrn (>25 NG/ML) < 6.00 Amphetamines Screen (>1000 NG/ML) < 100 U Benzodiazepines Scrn (>200 NG/ML) < 85 Urine Cocaine Screen (>300 NG/ML) > 1000 H Urine Cannabis Screen (>50 NG/ML) < 5.00 Urines Urinalysis PACKD H Urine Color (YEL,AMB,STR) PINK H Urine Clarity (CLEAR) CLDY H Urine pH (5.0 - 8.0) 6.0 Ur Specific [place] (1.001 - 1.035) 1.025 Urine Protein (NEG,<30 MG/DL) >=300 H Urine Ketones (NEG) NEG Urine Nitrite (NEG) NEG Urine Bilirubin (NEG) NEG@ICTO Urine Urobilinogen (0.1 - 1.0 EU/dl) 0.2 Ur Leukocyte Esterase (NEG) NEG Ur Microscopic SEDIMENT EXAMINED Urine RBC (0 - 5 /HPF) 10-15 H Urine WBC (0 - 2 /HPF) 5-10 H Ur Epithelial Cells (NONE,FEW) MOD H Urine Bacteria (NEG/NONE) FEW H Hyaline Casts (0/LPF) 3-5 H Granular Casts (NONE /LPF) 15-25 H Urine Mucus (FEW,NONE) FEW Urine Hemoglobin (NEG) LARGE H Urine Glucose (N MG/DL) NEG Urine Test NEGATIVE 01/12 01/12 1652 1652 Chemistry Sodium (137 - 145 mmol/L) 148 H Potassium (3.5 - 5.1 mmol/L) 4.9 Chloride (98 - 107 mmol/L) 108 H Carbon Dioxide (22 - 30 mmol/L) 15 L Anion Gap (5 - 16) 25 H BUN (7 - 17 mg/dL) 20 H Creatinine (0.5 - 1.0 mg/dL) 2.0 H Estimated GFR (>60 ml/min) 31 L BUN/Creatinine Ratio (7 - 25 %) 10.0 Glucose (65 - 99 mg/dL) 90 Lactic Acid (0.7 - 2.1 mmol/L) 11.2 H Calcium (8.4 - 10.2 mg/dL) 9.7 Magnesium (1.6 - 2.3 mg/dL) 3.2 H Total Bilirubin (0.2 - 1.3 mg/dL) 0.8 AST (14 - 36 U/L) 140 H ALT (9 - 52 U/L) 52 Alkaline Phosphatase (<127 U/L) 64 Ammonia (9 - 30 umol/L) 93 H Creatine Kinase (30 - 135 U/L) 8769 H Total Protein (6.3 - 8.2 g/dL) 8.1 Albumin (3.5 - 5.0 g/dL) 5.6 H Globulin (1.9 - 4.2 gm/dL) 2.5 Albumin/Globulin Ratio (1.1 - 2.2 %) 2.2 TSH &T3 &Free T4 Intrp (0.270 - 4.20 uIU/mL) 0.689 Total Beta HCG (NEGATIVE) NEGATIVE Hematology CBC w Diff MAN DIFF ORDERED WBC (4.8 - 10.8 /CUMM) 22.4 H RBC (4.20 - 5.40 /CUMM) 5.07 Hgb (12.0 - 16.0 G/DL) 15.4 Hct (37 - 47 %) 45.6 MCV (81.0 - 99.0 FL) 89.9 MCH (27.0 - 31.0 PG) 30.3 RDW (11.5 - 14.5 %) 12.9 Plt Count (130 - 400 /CUMM) 266 MPV (7.4 - 10.4 FL) 8.8 Gran % (42.2 - 75.2 %) 74.2 Lymphocytes % (20.5 - 51.1 %) 20.5 Monocytes % (1.7 - 9.3 %) 5.1 Eosinophils % (0 - 5 %) 0.1 Basophils % (0.0 - 2.0 %) 0.1 Absolute Granulocytes (1.4 - 6.5 /CUMM) 16.6 H Segmented Neutrophils (42.2 - 75.2 %) 65 Band Neutrophils (0.0 - 5.0 %) 3 Absolute Lymphocytes (1.2 - 3.4 /CUMM) 4.6 H Lymphocytes (20.5 - 51.1 %) 24 Monocytes (1.7 - 9.3 %) 6 Absolute Monocytes (0.10 - 0.60 /CUMM) 1.1 H Absolute Eosinophils (0.0 - 0.7 /CUMM) 0 Basophils (0.0 - 2.0 %) 1 Absolute Basophils (0.0 - 0.2 /CUMM) 0 Metamyelocytes (0.0 - 1.0 %) 1 Platelet Estimate (ADEQUATE) ADEQUATE Normochromic RBCs VERIFIED PUBS MCHC (33.0 - 37.0 G/DL) 33.7 Toxicology Salicylates (0 - 20.0 mg/dL) < 1.0 Acetaminophen (10.0 - 30.0 ug/mL) < 10.0 L Serum Alcohol (<10 MG/DL) < 10.0 Methyl Alcohol, Quant 01/12 1639 Chemistry Magnesium Cancelled Creatine Kinase Cancelled Total Beta HCG Cancelled
--- NOTE | 2017-01-14 10:17 | PN- Pulmonary ---
Subjective HPI/Critical Care Issues: DOing better Still in sig pain afebrile labs reviewed Ultrasound of abd showed gb abnormality but no clinical ladarius Laboratory Tests 01/14 0430 Chemistry Sodium (137 - 145 mmol/L) 140 Potassium (3.5 - 5.1 mmol/L) 4.9 Chloride (98 - 107 mmol/L) 114 H Carbon Dioxide (22 - 30 mmol/L) 20 L Anion Gap (5 - 16) 6 BUN (7 - 17 mg/dL) 9 Creatinine (0.5 - 1.0 mg/dL) 0.7 Estimated GFR (>60 ml/min) > 60 Glucose (65 - 99 mg/dL) 101 H Calcium (8.4 - 10.2 mg/dL) 6.9 L Phosphorus (2.5 - 4.5 mg/dL) 1.9 L Magnesium (1.6 - 2.3 mg/dL) 2.1 Total Bilirubin (0.2 - 1.3 mg/dL) 2.3 H Direct Bilirubin (< 0.4 mg/dL) 0.2 AST (14 - 36 U/L) 1314 H ALT (9 - 52 U/L) 521 H Alkaline Phosphatase (<127 U/L) 51 Creatine Kinase (30 - 135 U/L) Pending Total Protein (6.3 - 8.2 g/dL) 4.3 L Albumin (3.5 - 5.0 g/dL) 2.6 L Coagulation Fibrinogen Activity (200 - 393 MG/DL) 181 L Fibrin Degrad Products (< 10 ug/ml) >10 but < 40 ug/ml H Hematology CBC w Diff NO MAN DIFF REQ WBC (4.8 - 10.8 /CUMM) 11.1 H RBC (4.20 - 5.40 /CUMM) 4.04 L Hgb (12.0 - 16.0 G/DL) 12.3 Hct (37 - 47 %) 36.9 L MCV (81.0 - 99.0 FL) 91.4 MCH (27.0 - 31.0 PG) 30.4 RDW (11.5 - 14.5 %) 13.4 Plt Count (130 - 400 /CUMM) 55 L MPV (7.4 - 10.4 FL) 8.7 Gran % (42.2 - 75.2 %) 74.0 Lymphocytes % (20.5 - 51.1 %) 21.5 Monocytes % (1.7 - 9.3 %) 4.2 Eosinophils % (0 - 5 %) 0 Basophils % (0.0 - 2.0 %) 0.3 Absolute Granulocytes (1.4 - 6.5 /CUMM) 8.2 H Absolute Lymphocytes (1.2 - 3.4 /CUMM) 2.4 Absolute Monocytes (0.10 - 0.60 /CUMM) 0.5 Absolute Eosinophils (0.0 - 0.7 /CUMM) 0 Absolute Basophils (0.0 - 0.2 /CUMM) 0 PUBS MCHC (33.0 - 37.0 G/DL) 33.3 01/135 Chemistry Sodium (137 - 145 mmol/L) 139 Potassium (3.5 - 5.1 mmol/L) 4.2 Chloride (98 - 107 mmol/L) 112 H Carbon Dioxide (22 - 30 mmol/L) 21 L Anion Gap (5 - 16) 5 BUN (7 - 17 mg/dL) 13 Creatinine (0.5 - 1.0 mg/dL) 0.7 Estimated GFR (>60 ml/min) > 60 Glucose (65 - 99 mg/dL) 83 Calcium (8.4 - 10.2 mg/dL) 7.0 L Phosphorus (2.5 - 4.5 mg/dL) 2.8 Magnesium (1.6 - 2.3 mg/dL) 2.5 H Total Bilirubin (0.2 - 1.3 mg/dL) 2.2 H AST (14 - 36 U/L) 1478 H ALT (9 - 52 U/L) 460 H Albumin (3.5 - 5.0 g/dL) 2.7 L Coagulation PT (9.4 - 12.5 SEC) 15.5 H INR (0.90 - 1.19) 1.48 H APTT (25 - 37 SEC) 33 Fibrinogen Activity (200 - 393 MG/DL) 166 L Fibrin Degrad Products (< 10 ug/ml) >10 but < 40 ug/ml H 01/13 01/13 1705 1705 Urines Urinalysis LIGHT H Urine Color (YEL,AMB,STR) PINK H Urine Clarity (CLEAR) HAZY H Urine pH (5.0 - 8.0) 6.0 Ur Specific [place] (1.001 - 1.035) 1.020 Urine Protein (NEG,<30 MG/DL) 100 H Urine Ketones (NEG) NEG Urine Nitrite (NEG) NEG Urine Bilirubin (NEG) NEG Urine Urobilinogen (0.1 - 1.0 EU/dl) 0.2 Ur Leukocyte Esterase (NEG) NEG Ur Microscopic SEDIMENT EXAMINED Urine RBC (0 - 5 /HPF) >75 H Urine WBC (0 - 2 /HPF) 1-3 H Ur Epithelial Cells (NONE,FEW) RARE Urine Bacteria (NEG/NONE) FEW H Urine Mucus (FEW,NONE) FEW Urine Hemoglobin (NEG) LARGE H Ur Random Creatinine (mg/dL) 39.5 Ur Random Microalbumin (<1.7 mg/dl) 13.9 H Ur Random Sodium (30 - 90 mmol/L) 107 H Ur Random Potassium (mmol/L) 11.1 Fraction Sodium Excret (<1% %) 1.5 H Urine Glucose (N MG/DL) NEG U Cystine/Creat Ratio (mcg/mg) 351.89 01/13 01/13 1644 1430 Chemistry Sodium (137 - 145 mmol/L) 140 Potassium (3.5 - 5.1 mmol/L) 3.9 Chloride (98 - 107 mmol/L) 112 H Carbon Dioxide (22 - 30 mmol/L) 21 L Anion Gap (5 - 16) 8 BUN (7 - 17 mg/dL) 14 Creatinine (0.5 - 1.0 mg/dL) 0.8 Estimated GFR (>60 ml/min) > 60 Glucose (65 - 99 mg/dL) 77 Calcium (8.4 - 10.2 mg/dL) 7.2 L Phosphorus (2.5 - 4.5 mg/dL) 3.3 Magnesium (1.6 - 2.3 mg/dL) 3.1 H Total Bilirubin (0.2 - 1.3 mg/dL) 2.2 H Direct Bilirubin (< 0.4 mg/dL) 0.2 AST (14 - 36 U/L) 1551 H ALT (9 - 52 U/L) 442 H Alkaline Phosphatase (<127 U/L) 48 Ammonia (9 - 30 umol/L) < 9 L Total Protein (6.3 - 8.2 g/dL) 5.1 L Albumin (3.5 - 5.0 g/dL) 3.2 L Coagulation PT (9.4 - 12.5 SEC) 16.4 H INR (0.90 - 1.19) 1.57 H Hematology CBC w Diff NO MAN DIFF REQ WBC (4.8 - 10.8 /CUMM) 12.6 H RBC (4.20 - 5.40 /CUMM) 4.44 Hgb (12.0 - 16.0 G/DL) 13.4 Hct (37 - 47 %) 40.0 MCV (81.0 - 99.0 FL) 90.0 MCH (27.0 - 31.0 PG) 30.2 RDW (11.5 - 14.5 %) 13.4 Plt Count (130 - 400 /CUMM) 67 L MPV (7.4 - 10.4 FL) 8.8 Gran % (42.2 - 75.2 %) 71.5 Lymphocytes % (20.5 - 51.1 %) 23.1 Monocytes % (1.7 - 9.3 %) 5.2 Eosinophils % (0 - 5 %) 0 Basophils % (0.0 - 2.0 %) 0.2 Absolute Granulocytes (1.4 - 6.5 /CUMM) 9.0 H Absolute Lymphocytes (1.2 - 3.4 /CUMM) 2.9 Absolute Monocytes (0.10 - 0.60 /CUMM) 0.7 H Absolute Eosinophils (0.0 - 0.7 /CUMM) 0 Absolute Basophils (0.0 - 0.2 /CUMM) 0 PUBS MCHC (33.0 - 37.0 G/DL) 33.6 Haptoglobin Pending Serology Hepatitis A IgM Ab (NONREACTIVE) NONREACTIVE Hep Bs Antigen (NONREACTIVE) NONREACTIVE Hep B Core IgM Ab Conf (NONREACTIVE) NONREACTIVE Hepatitis C Antibody (NONREACTIVE) NONREACTIVE HIV 1&2 Ab Western Blot (NONREACTIVE) NONREACTIVE 01/13 01/13 06 1430 1323 1222 Chemistry Lactate Dehydrogenase (313 - 618 U/L) 25071 H Creatine Kinase Cancelled Hematology CBC w Diff NO MAN DIFF REQ WBC (4.8 - 10.8 /CUMM) 13.7 H RBC (4.20 - 5.40 /CUMM) 4.40 Hgb (12.0 - 16.0 G/DL) 13.4 Hct (37 - 47 %) 39.8 MCV (81.0 - 99.0 FL) 90.4 MCH (27.0 - 31.0 PG) 30.4 RDW (11.5 - 14.5 %) 13.4 Plt Count (130 - 400 /CUMM) 61 L MPV (7.4 - 10.4 FL) 9.1 Gran % (42.2 - 75.2 %) 77.6 H Lymphocytes % (20.5 - 51.1 %) 18.2 L Monocytes % (1.7 - 9.3 %) 4.0 Eosinophils % (0 - 5 %) 0 Basophils % (0.0 - 2.0 %) 0.2 Absolute Granulocytes (1.4 - 6.5 /CUMM) 10.6 H Absolute Lymphocytes (1.2 - 3.4 /CUMM) 2.5 Absolute Monocytes (0.10 - 0.60 /CUMM) 0.5 Absolute Eosinophils (0.0 - 0.7 /CUMM) 0 Absolute Basophils (0.0 - 0.2 /CUMM) 0 PUBS MCHC (33.0 - 37.0 G/DL) 33.6 Retic Count (0.5 - 2.0 %) 3.45 H Other Body Source Fluid LDH Cancelled 01/13 01/13 06 1217 UNK 0840 Chemistry Sodium (137 - 145 mmol/L) 142 Potassium (3.5 - 5.1 mmol/L) 2.7 *L Chloride (98 - 107 mmol/L) 121 H Carbon Dioxide (22 - 30 mmol/L) 15 L Anion Gap (5 - 16) 6 BUN (7 - 17 mg/dL) 12 Creatinine (0.5 - 1.0 mg/dL) 0.6 Estimated GFR (>60 ml/min) > 60 Glucose (65 - 99 mg/dL) 63 L Calcium (8.4 - 10.2 mg/dL) 4.8 *L Phosphorus (2.5 - 4.5 mg/dL) 2.8 Magnesium (1.6 - 2.3 mg/dL) 1.6 Total Bilirubin (0.2 - 1.3 mg/dL) 1.5 H AST (14 - 36 U/L) 975 H ALT (9 - 52 U/L) 254 H Ammonia Cancelled Creatine Kinase (30 - 135 U/L) > 21486.0 H Troponin I Cancelled Albumin (3.5 - 5.0 g/dL) 1.9 L Toxicology Acetaminophen (10.0 - 30.0 ug/mL) < 10.0 L 01/13 01/13 0840 0314 Chemistry Sodium (137 - 145 mmol/L) 141 Potassium (3.5 - 5.1 mmol/L) 2.8 *L Chloride (98 - 107 mmol/L) 122 H Carbon Dioxide (22 - 30 mmol/L) 14 L Anion Gap (5 - 16) 4 L BUN (7 - 17 mg/dL) 13 Creatinine (0.5 - 1.0 mg/dL) 0.6 Estimated GFR (>60 ml/min) > 60 Glucose (65 - 99 mg/dL) 52 L Calcium (8.4 - 10.2 mg/dL) 4.5 *L Phosphorus (2.5 - 4.5 mg/dL) 2.7 Magnesium (1.6 - 2.3 mg/dL) 1.4 L Total Bilirubin (0.2 - 1.3 mg/dL) 1.3 AST (14 - 36 U/L) 729 H ALT (9 - 52 U/L) 195 H Creatine Kinase (30 - 135 U/L) > 82743 H Troponin I (< 0.11 ng/ml) 0.47 *H 0.81 *H Albumin (3.5 - 5.0 g/dL) 1.7 L Coagulation PT (9.4 - 12.5 SEC) 23.4 H INR (0.90 - 1.19) 2.25 H Fibrinogen Activity (200 - 393 MG/DL) 122 L Hematology CBC w Diff MAN DIFF ORDERED WBC (4.8 - 10.8 /CUMM) 9.0 RBC (4.20 - 5.40 /CUMM) 3.28 L Hgb (12.0 - 16.0 G/DL) 9.9 L Hct (37 - 47 %) 29.2 L MCV (81.0 - 99.0 FL) 89.0 MCH (27.0 - 31.0 PG) 30.2 RDW (11.5 - 14.5 %) 13.2 Plt Count (130 - 400 /CUMM) 46 L MPV (7.4 - 10.4 FL) 8.5 Gran % (42.2 - 75.2 %) 79.4 H Lymphocytes % (20.5 - 51.1 %) 13.6 L Monocytes % (1.7 - 9.3 %) 6.8 Eosinophils % (0 - 5 %) 0 Basophils % (0.0 - 2.0 %) 0.2 Absolute Granulocytes (1.4 - 6.5 /CUMM) 7.1 H Segmented Neutrophils (42.2 - 75.2 %) 83 H Absolute Lymphocytes (1.2 - 3.4 /CUMM) 1.2 Lymphocytes (20.5 - 51.1 %) 13 L Monocytes (1.7 - 9.3 %) 4 Absolute Monocytes (0.10 - 0.60 /CUMM) 0.6 Absolute Eosinophils (0.0 - 0.7 /CUMM) 0 Absolute Basophils (0.0 - 0.2 /CUMM) 0 Platelet Estimate (ADEQUATE) Hypochromic-Microcytic 1+ PUBS MCHC (33.0 - 37.0 G/DL) 33.9 01/13 01/13 01/12 0314 0130 2128 Chemistry Sodium (137 - 145 mmol/L) 142 Potassium (3.5 - 5.1 mmol/L) 3.9 Chloride (98 - 107 mmol/L) 114 H Carbon Dioxide (22 - 30 mmol/L) 19 L Anion Gap (5 - 16) 8 BUN (7 - 17 mg/dL) 19 H Creatinine (0.5 - 1.0 mg/dL) 1.0 Estimated GFR (>60 ml/min) > 60 Glucose (65 - 99 mg/dL) 77 Lactic Acid (0.7 - 2.1 mmol/L) 1.3 Calcium (8.4 - 10.2 mg/dL) 7.1 L Phosphorus (2.5 - 4.5 mg/dL) 3.2 Magnesium (1.6 - 2.3 mg/dL) 2.2 Total Bilirubin (0.2 - 1.3 mg/dL) 1.6 H AST (14 - 36 U/L) 719 H ALT (9 - 52 U/L) 185 H Lactate Dehydrogenase (313 - 618 U/L) 5324 H Creatine Kinase (30 - 135 U/L) > 55210 H Troponin I (< 0.11 ng/ml) 1.04 *H Albumin (3.5 - 5.0 g/dL) 3.5 Coagulation PT (9.4 - 12.5 SEC) 16.8 H INR (0.90 - 1.19) 1.61 H APTT (25 - 37 SEC) 34 D-Dimer (70 - 232 ng/ml) 905 H Hematology CBC w Diff MAN DIFF ORDERED WBC (4.8 - 10.8 /CUMM) 11.6 H RBC (4.20 - 5.40 /CUMM) 4.22 Hgb (12.0 - 16.0 G/DL) 12.9 Hct (37 - 47 %) 37.8 MCV (81.0 - 99.0 FL) 89.7 MCH (27.0 - 31.0 PG) 30.6 RDW (11.5 - 14.5 %) 13.0 Plt Count (130 - 400 /CUMM) 65 L MPV (7.4 - 10.4 FL) 8.9 Gran % (42.2 - 75.2 %) 84.5 H Lymphocytes % (20.5 - 51.1 %) 8.9 L Monocytes % (1.7 - 9.3 %) 6.1 Eosinophils % (0 - 5 %) 0 Basophils % (0.0 - 2.0 %) 0.5 Absolute Granulocytes (1.4 - 6.5 /CUMM) 9.8 H Segmented Neutrophils (42.2 - 75.2 %) 80 H Absolute Lymphocytes (1.2 - 3.4 /CUMM) 1.0 L Lymphocytes (20.5 - 51.1 %) 8 L Monocytes (1.7 - 9.3 %) 12 H Absolute Monocytes (0.10 - 0.60 /CUMM) 0.7 H Absolute Eosinophils (0.0 - 0.7 /CUMM) 0 Absolute Basophils (0.0 - 0.2 /CUMM) 0.1 Platelet Estimate (ADEQUATE) DECREASED Normochromic RBCs VERIFIED Ovalocytes FEW PUBS MCHC (33.0 - 37.0 G/DL) 34.2 Other Body Source Fld Total RBCs Counted (%) 100 01/12 01/12 01/12 2657 1730 1719 Blood Gas pH (7.35 - 7.45 PH) 7.31 L pCO2 (35 - 45 TORR) 32 L pO2 (80 - 100 TORR) 117 H HCO3 (21 - 28 MEQ/L) 16 L ABG O2 Sat (Measured) (>96.0 %) 97.0 Carboxyhemoglobin (1.5 - 5.0 %) 0 L O2 Concentration % 2L O2 Delivery Method NC Chemistry Lactic Acid (0.7 - 2.1 mmol/L) 2.4 H Miscellaneous Phlebotomy Draw Site RF Toxicology Urine Opiates Screen (>2000 NG/ML) < 100.00 Methadone Screen (>300 NG/ML) 45 Barbiturate Screen (>200 NG/ML) < 60 Ur Phencyclidine Scrn (>25 NG/ML) < 6.00 Amphetamines Screen (>1000 NG/ML) < 100 U Benzodiazepines Scrn (>200 NG/ML) < 85 Urine Cocaine Screen (>300 NG/ML) > 1000 H Urine Cannabis Screen (>50 NG/ML) < 5.00 Urines Urinalysis PACKD H Urine Color (YEL,AMB,STR) PINK H Urine Clarity (CLEAR) CLDY H Urine pH (5.0 - 8.0) 6.0 Ur Specific [place] (1.001 - 1.035) 1.025 Urine Protein (NEG,<30 MG/DL) >=300 H Urine Ketones (NEG) NEG Urine Nitrite (NEG) NEG Urine Bilirubin (NEG) NEG@ICTO Urine Urobilinogen (0.1 - 1.0 EU/dl) 0.2 Ur Leukocyte Esterase (NEG) NEG Ur Microscopic SEDIMENT EXAMINED Urine RBC (0 - 5 /HPF) 10-15 H Urine WBC (0 - 2 /HPF) 5-10 H Ur Epithelial Cells (NONE,FEW) MOD H Urine Bacteria (NEG/NONE) FEW H Hyaline Casts (0/LPF) 3-5 H Granular Casts (NONE /LPF) 15-25 H Urine Mucus (FEW,NONE) FEW Urine Hemoglobin (NEG) LARGE H Urine Glucose (N MG/DL) NEG Urine Test NEGATIVE 01/12 01/12 1652 1652 Chemistry Sodium (137 - 145 mmol/L) 148 H Potassium (3.5 - 5.1 mmol/L) 4.9 Chloride (98 - 107 mmol/L) 108 H Carbon Dioxide (22 - 30 mmol/L) 15 L Anion Gap (5 - 16) 25 H BUN (7 - 17 mg/dL) 20 H Creatinine (0.5 - 1.0 mg/dL) 2.0 H Estimated GFR (>60 ml/min) 31 L BUN/Creatinine Ratio (7 - 25 %) 10.0 Glucose (65 - 99 mg/dL) 90 Lactic Acid (0.7 - 2.1 mmol/L) 11.2 H Calcium (8.4 - 10.2 mg/dL) 9.7 Magnesium (1.6 - 2.3 mg/dL) 3.2 H Total Bilirubin (0.2 - 1.3 mg/dL) 0.8 AST (14 - 36 U/L) 140 H ALT (9 - 52 U/L) 52 Alkaline Phosphatase (<127 U/L) 64 Ammonia (9 - 30 umol/L) 93 H Creatine Kinase (30 - 135 U/L) 8769 H Total Protein (6.3 - 8.2 g/dL) 8.1 Albumin (3.5 - 5.0 g/dL) 5.6 H Globulin (1.9 - 4.2 gm/dL) 2.5 Albumin/Globulin Ratio (1.1 - 2.2 %) 2.2 TSH &T3 &Free T4 Intrp (0.270 - 4.20 uIU/mL) 0.689 Total Beta HCG (NEGATIVE) NEGATIVE Hematology CBC w Diff MAN DIFF ORDERED WBC (4.8 - 10.8 /CUMM) 22.4 H RBC (4.20 - 5.40 /CUMM) 5.07 Hgb (12.0 - 16.0 G/DL) 15.4 Hct (37 - 47 %) 45.6 MCV (81.0 - 99.0 FL) 89.9 MCH (27.0 - 31.0 PG) 30.3 RDW (11.5 - 14.5 %) 12.9 Plt Count (130 - 400 /CUMM) 266 MPV (7.4 - 10.4 FL) 8.8 Gran % (42.2 - 75.2 %) 74.2 Lymphocytes % (20.5 - 51.1 %) 20.5 Monocytes % (1.7 - 9.3 %) 5.1 Eosinophils % (0 - 5 %) 0.1 Basophils % (0.0 - 2.0 %) 0.1 Absolute Granulocytes (1.4 - 6.5 /CUMM) 16.6 H Segmented Neutrophils (42.2 - 75.2 %) 65 Band Neutrophils (0.0 - 5.0 %) 3 Absolute Lymphocytes (1.2 - 3.4 /CUMM) 4.6 H Lymphocytes (20.5 - 51.1 %) 24 Monocytes (1.7 - 9.3 %) 6 Absolute Monocytes (0.10 - 0.60 /CUMM) 1.1 H Absolute Eosinophils (0.0 - 0.7 /CUMM) 0 Basophils (0.0 - 2.0 %) 1 Absolute Basophils (0.0 - 0.2 /CUMM) 0 Metamyelocytes (0.0 - 1.0 %) 1 Platelet Estimate (ADEQUATE) ADEQUATE Normochromic RBCs VERIFIED PUBS MCHC (33.0 - 37.0 G/DL) 33.7 Toxicology Salicylates (0 - 20.0 mg/dL) < 1.0 Acetaminophen (10.0 - 30.0 ug/mL) < 10.0 L Serum Alcohol (<10 MG/DL) < 10.0 Methyl Alcohol, Quant 01/12 1639 Chemistry Magnesium Cancelled Creatine Kinase Cancelled Total Beta HCG Cancelled Microbiology Date/Time Procedure - Status Source Growth 01/13 0000 Surveillance Culture - COMP UPPER RESP 01/13 0000 Surveillance Culture - COMP GI 01/128 Blood Culture - RES BLOOD 01/12 2105 Blood Culture - RES BLOOD 01/12 1730 Urine Culture - COMP URINE ROUT Objective Current Medications: Current Medications Sig/Aydin Start time Last Medication Dose Route Stop Time Status Admin Acetaminophen 325 MG Q6P PRN 01/12 2145 DC PO Ampicillin Sodium/ 1,500 MG Q6 01/12 2359 AC 01/14 Sulbactam Sodium IV 0615 Sodium Chloride 100 ML Aspirin 81 MG DAILY 01/13 1000 DC 01/13 PO 1240 Calcium Carbonate 1,250 MG DAILY 01/14 1000 AC 01/14 PO 0845 Calcium Carbonate 1,250 MG BID 01/13 1000 DC 01/13 PO 2230 Lorazepam 1 MG Q2 HRS NEEDED PRN 01/12 2130 AC IV Magnesium Oxide 400 MG ONE ONE 01/13 1445 DC 01/13 PO 01/13 1446 1445 Magnesium Sulfate 1 GM Q2H 01/13 0945 DC 01/13 Dextrose/Water 100 ML IV 01/13 1344 1440 Morphine Sulfate 2 MG Q4P PRN 01/12 214 AC IV Nitroglycerin 0.5 GM Q6P PRN 01/12 2245 AC TOP Oxycodone HCl 5 MG Q6P PRN 01/12 214 AC PO Phosphate 250 MG PC AND AT BEDTIME 01/14 0600 DC 01/14 PO 0845 Potassium Chloride 40 MEQ ONCE ONE 01/13 1800 DC / PO 01/13 1801 1811 Potassium Chloride 20 MEQ ONCE ONE 01/13 1445 DC / PO 01/13 1446 1445 Potassium Chloride 60 MEQ ONCE ONE 01/13 1245 DC 01/13 PO 01/13 1246 1241 Potassium Chloride 10 MEQ Q1H 01/13 0945 DC IV 01/13 1046 Potassium Chloride 60 MEQ ONCE ONE 01/13 0945 CAN PO 01/13 0946 Sodium Chloride 1,000 ML Q5H 01/13 0145 AC /02 IV 0844 Sodium Phosphate 15 mMol ONE ONE 01/14 0900 AC Dextrose/Water 250 ML IV 01/14 1303 Tramadol HCl 50 MG ONCE PRN 01/14 0145 DC 01/14 PO 01/14 0146 0150 Vital Signs & I&O Last 24 Hrs of Vitals and I&O: Vital Signs Date Time Temp Pulse Resp B/P B/P Pulse O2 O2 Flow FiO2 Mean Ox Delivery Rate 01/14 1000 70 22 117/73 / 0800 98.4 74 24 118/80 06/ 0800 98.4 74 24 118/80 98 Room Air 06/02 0600 69 18 110/70 06/ 0400 97.2 73 20 124/80 06/ 0400 96 Room Air 06/02 0000 99.0 74 20 118/78 06/ 0000 99.0 74 20 118/78 96 Room Air 06/02 0000 96 Room Air / 2200 80 18 120/74 01/14 2000 97.0 72 18 109/74 01/14 2000 99 Room Air 01/13 1600 98 Room Air / 1600 97.9 76 20 108/70 97 Room Air Intake & Output 01/14 1600 06/02 0800 06/ 0000 Intake Total 1581 1970 Output Total 1550 1280 Balance 31 690 Intake, IV 1481 1700 Intake, Oral 100 270 Output, Urine 1550 1280 Patient 152 lb Weight Impression/Plan Impression/Plan Impression/Plan: Physical Exam: General Appearance: well developed/nourished, no apparent distress, alert, awake , comfortable Respiratory: normal breath sounds, chest non-tender, no respiratory distress Cardiovascular: regular rate/rhythm Gastrointestinal: normal bowel sounds, soft, non-tender, no organomegaly Extremities: normal inspection, normal capillary refill, no edema; suprapatellar tenderness. Neurologic/Psych: no motor/sensory deficits, awake, alert, oriented x 3 Skin: intact, yellowing of the skin (spray simon) Lymphatic: no anterior cervical julianna Impression This is a 26-year-old lady with history of significant drug use with high fever cocaine intoxication with previous history of psychiatric history, polysubstance history who has been on Suboxone, latuda and mirtazapine now with Very high fever severe rhabdomyolysis, paranoid features with altered mental status with acute renal failure which is slowly improving highly suggestive of cocaine overdose causing rhabdo compounded by probable side effects from her medication she is on and combination thereof REsolved Severe lactic acidosis due to low flow state Severe Rhabdo with resoving acute renal failure Signs and symptoms suggestive of liver dysfunction versus hypoxemic liver injury with high INR low platelets rule out acute liver injury versus failure Low platelets with no sig microangiopathic features - now with evidence of combination of drug induced, Rhadoinduced, liver injury induced thrombocytopenia. High inr with low grade DIC with liver injury History of Significant psychosis probably a combination of multiple drugs she has taken Rule out neuroleptic malignant syndrome as well, unlikely REC COnt IVF and monitor urineout put regularly 200 cc per hr for now, watch for pulm edema IF she develops fluid overload will give IV lasix 20 mg Check blood work q8 and then q12 Replace potassium gently with po potassium (note pt may gointo hyperkalemia due to rhabdo) Po low dose ativan if she is agitated and can use iv prn Recheck calcium and replace po for now Will follow INR and LFts and platelets qd GI eval pending DC abx Use prn oxycodone for pain to avoid withdrawal and lorazepam po aswell prn Ask psych to see PO vit k
--- NOTE | 2017-01-14 11:30 | Event Note ---
Event Note Event Note: CK added on to labs drawn on 01/14/17 at 4:30 AM- 114,464 Yesterday peaked at- 155,210
--- NOTE | 2017-01-14 12:58 | PN- Cardiology ---
Subjective Subjective: The patient seems to be doing okay today. She remains stable from a cardiovascular standpoint. No cardiac symptoms noted. No evidence of any arrhythmias. Objective Vital Signs and I&Os Vital Signs Date Time Temp Pulse Resp B/P B/P Pulse O2 O2 Flow FiO2 Mean Ox Delivery Rate 01/14 1000 70 22 117/73 06/ 0800 98.4 74 24 118/80 06/02 0800 98.4 74 24 118/80 98 Room Air 06/ 0600 69 18 110/70 06/ 0400 97.2 73 20 124/80 06/02 0400 96 Room Air 06/ 0000 99.0 74 20 118/78 06/ 0000 99.0 74 20 118/78 96 Room Air 06/ 0000 96 Room Air 01/13 2200 80 18 120/74 01/13 2000 97.0 72 18 109/74 01/13 2000 99 Room Air 01/13 1600 98 Room Air 01/13 1600 97.9 76 20 108/70 97 Room Air Intake & Output 01/14 1600 / 0800 / 0000 01/13 1600 / 0800 01/13 0000 Intake Total 1581 1970 2590 2749 4000 Output Total 1550 1280 1500 1050 1200 Balance 31 690 1090 1699 2800 Intake, IV 1481 1700 2110 1749 4000 Intake, Oral 100 199 532 4994 Number 0 Bowel Movements Output, Urine 1550 1280 1500 1050 1200 Patient 152 lb 152 lb Weight Weight Estimated Measurement Method Physical Exam: General Appearance Oriented X3, Mild Distress, awake, oriented Skin erythema and cut cifuentes on both legs below the knee HEENT Atraumatic, EOMI, very dry mucous membranes, pupils sluggish but reactive to light Cardiovascular Normal S1, Normal S2, mildly tachycardia; no audible murmur Lungs Clear to Auscultation and percussion bilaterally Abdomen Normal Bowel Sounds, Soft, No Tenderness Neurological Sensation Intact, Cranial Nerves 3-12 NL, Reflexes 2+, power 3/5 in all 4 extremities, hypertonic Vascular Normal Pulses Current Medications: Current Medications Sig/Aydin Start time Last Medication Dose Route Stop Time Status Admin Acetaminophen 325 MG Q6P PRN 01/12 2145 DC PO Ampicillin Sodium/ 1,500 MG Q6 01/12 2359 DC 01/14 Sulbactam Sodium IV 0615 Sodium Chloride 100 ML Aspirin 81 MG DAILY 01/13 1000 DC 01/13 PO 1240 Calcium Carbonate 1,250 MG DAILY 01/14 1000 AC 01/14 PO 0845 Calcium Carbonate 1,250 MG BID 01/13 1000 DC 01/13 PO 2230 Lorazepam 1 MG Q2 HRS NEEDED PRN 01/12 2130 AC IV Magnesium Oxide 400 MG ONE ONE 01/13 1445 DC 01/13 PO 01/13 1446 1445 Magnesium Sulfate 1 GM Q2H 01/13 0945 DC 01/13 Dextrose/Water 100 ML IV 01/13 1344 1440 Morphine Sulfate 2 MG Q4P PRN 01/12 2145 AC IV Nitroglycerin 0.5 GM Q6P PRN 01/12 2245 AC TOP Oxycodone HCl 5 MG Q6P PRN 01/12 2145 AC PO Phosphate 250 MG PC AND AT BEDTIME 01/14 0600 DC 01/14 PO 0845 Potassium Chloride 40 MEQ ONCE ONE 01/13 1800 DC 01/13 PO 01/13 1801 1811 Potassium Chloride 20 MEQ ONCE ONE 01/13 1445 DC 01/13 PO 01/13 1446 1445 Sodium Chloride 1,000 ML Q5H 01/13 0145 AC 01/14 IV 0844 Sodium Phosphate 15 mMol ONE ONE 01/14 0900 AC 01/14 Dextrose/Water 250 ML IV 01/14 1303 1138 Tramadol HCl 50 MG ONCE PRN 01/14 0145 DC 01/14 PO 01/14 0146 0150 Results Last 48 Hrs of Labs/Mics: Laboratory Tests 01/14/17 0430: Anion Gap 6, Estimated GFR > 60, Glucose 101 H, Calcium 6.9 L, Phosphorus 1.9 L, Magnesium 2.1, Total Bilirubin 2.3 H, Direct Bilirubin 0.2, AST 1314 H, ALT 521 H, Alkaline Phosphatase 51, Creatine Kinase > 08324 H, Total Protein 4.3 L, Albumin 2.6 L, Fibrinogen Activity 181 L, Fibrin Degrad Products >10 but < 40 ug/ml H, CBC w Diff NO MAN DIFF REQ, RBC 4.04 L, MCV 91.4, MCH 30.4, RDW 13.4, MPV 8.7, Gran % 74.0, Lymphocytes % 21.5, Monocytes % 4.2, Eosinophils % 0 , Basophils % 0.3, Absolute Granulocytes 8.2 H, Absolute Lymphocytes 2.4, Absolute Monocytes 0.5, Absolute Eosinophils 0, Absolute Basophils 0, PUBS MCHC 33.3 01/13/17 2115: Anion Gap 5, Estimated GFR > 60, Glucose 83, Calcium 7.0 L, Phosphorus 2.8, Magnesium 2.5 H, Total Bilirubin 2.2 H, AST 1478 H, ALT 460 H, Albumin 2.7 L, PT 15.5 H, INR 1.48 H, APTT 33, Fibrinogen Activity 166 L, Fibrin Degrad Products >10 but < 40 ug/ml H 01/13/17 1705: Urinalysis LIGHT H, Urine Color PINK H, Urine Clarity HAZY H, Urine pH 6.0, Ur Specific [place] 1.020, Urine Protein 100 H, Urine Ketones NEG, Urine Nitrite NEG, Urine Bilirubin NEG, Urine Urobilinogen 0.2, Ur Leukocyte Esterase NEG, Ur Microscopic SEDIMENT EXAMINED, Urine RBC >75 H, Urine WBC 1-3 H, Ur Epithelial Cells RARE, Urine Bacteria FEW H, Urine Mucus FEW, Urine Hemoglobin LARGE H, Urine Glucose NEG 01/13/17 1705: Ur Random Creatinine 39.5, Ur Random Microalbumin 13.9 H, Ur Random Sodium 107 H, Ur Random Potassium 11.1, Fraction Sodium Excret 1.5 H, U Cystine/Creat Ratio 351.89 01/13/17 1644: Anion Gap 8, Estimated GFR > 60, Glucose 77, Calcium 7.2 L, Phosphorus 3.3, Magnesium 3.1 H, Total Bilirubin 2.2 H, Direct Bilirubin 0.2, AST 1551 H, ALT 442 H, Alkaline Phosphatase 48, Ammonia < 9 L, Total Protein 5.1 L, Albumin 3.2 L, PT 16.4 H, INR 1.57 H, CBC w Diff NO MAN DIFF REQ, RBC 4.44, MCV 90.0, MCH 30.2, RDW 13.4, MPV 8.8, Gran % 71.5, Lymphocytes % 23.1, Monocytes % 5.2, Eosinophils % 0, Basophils % 0.2, Absolute Granulocytes 9.0 H, Absolute Lymphocytes 2.9, Absolute Monocytes 0.7 H, Absolute Eosinophils 0, Absolute Basophils 0, PUBS MCHC 33.6, Hepatitis A IgM Ab NONREACTIVE, Hep Bs Antigen NONREACTIVE, Hep B Core IgM Ab Conf NONREACTIVE, Hepatitis C Antibody NONREACTIVE, HIV 1&2 Ab Western Blot NONREACTIVE 01/13/17 1430: Haptoglobin Pending 01/13/17 1430: Lactate Dehydrogenase 18721 H, CBC w Diff NO MAN DIFF REQ, RBC 4.40, MCV 90.4, MCH 30.4, RDW 13.4, MPV 9.1, Gran % 77.6 H, Lymphocytes % 18.2 L, Monocytes % 4.0, Eosinophils % 0, Basophils % 0.2, Absolute Granulocytes 10.6 H, Absolute Lymphocytes 2.5, Absolute Monocytes 0.5, Absolute Eosinophils 0, Absolute Basophils 0, PUBS MCHC 33.6, Retic Count 3.45 H 01/13/17 1323: Fluid LDH Cancelled 01/13/17 1222: Creatine Kinase Cancelled 01/13/17 1217: Anion Gap 6, Estimated GFR > 60, Glucose 63 L, Calcium 4.8 *L, Phosphorus 2.8, Magnesium 1.6, Total Bilirubin 1.5 H, AST 975 H, ALT 254 H, Creatine Kinase > 90080.0 H, Albumin 1.9 L, Acetaminophen < 10.0 L 01/13/17 1000: Ammonia Cancelled 01/13/17 0840: Troponin I Cancelled 01/13/17 0840: Anion Gap 4 L, Estimated GFR > 60, Glucose 52 L, Calcium 4.5 *L, Phosphorus 2.7, Magnesium 1.4 L, Total Bilirubin 1.3, AST 729 H, ALT 195 H, Creatine Kinase > 76325 H, Troponin I 0.47 *H, Albumin 1.7 L, PT 23.4 H, INR 2.25 H, Fibrinogen Activity 122 L, CBC w Diff MAN DIFF ORDERED, RBC 3.28 L, MCV 89.0, MCH 30.2, RDW 13.2, MPV 8.5, Gran % 79.4 H, Lymphocytes % 13.6 L, Monocytes % 6.8, Eosinophils % 0, Basophils % 0.2, Absolute Granulocytes 7.1 H, Segmented Neutrophils 83 H, Absolute Lymphocytes 1.2, Lymphocytes 13 L, Monocytes 4, Absolute Monocytes 0.6, Absolute Eosinophils 0, Absolute Basophils 0, Platelet Estimate , Hypochromic-Microcytic 1+, PUBS MCHC 33.9 01/13/17 0314: Troponin I 0.81 *H 01/13/17 0314: Anion Gap 8, Estimated GFR > 60, Glucose 77, Calcium 7.1 L, Phosphorus 3.2, Magnesium 2.2, Total Bilirubin 1.6 H, AST 719 H, ALT 185 H, Lactate Dehydrogenase 5324 H, Creatine Kinase > 18619 H, Albumin 3.5, PT 16.8 H, INR 1.61 H, APTT 34, D-Dimer 905 H, CBC w Diff MAN DIFF ORDERED, RBC 4.22, MCV 89.7, MCH 30.6, RDW 13.0, MPV 8.9, Gran % 84.5 H, Lymphocytes % 8.9 L, Monocytes % 6.1, Eosinophils % 0, Basophils % 0.5, Absolute Granulocytes 9.8 H, Segmented Neutrophils 80 H, Absolute Lymphocytes 1.0 L, Lymphocytes 8 L, Monocytes 12 H, Absolute Monocytes 0.7 H, Absolute Eosinophils 0, Absolute Basophils 0.1, Platelet Estimate DECREASED, Normochromic RBCs VERIFIED, Ovalocytes FEW, PUBS MCHC 34.2, Fld Total RBCs Counted 100 01/13/17 0130: Lactic Acid 1.3 01/12/172127: Troponin I 1.04 *H 01/12/172127: Lactic Acid 2.4 H 01/12/17 1730: Urine Opiates Screen < 100.00, Methadone Screen 45, Barbiturate Screen < 60, Ur Phencyclidine Scrn < 6.00, Amphetamines Screen < 100, U Benzodiazepines Scrn < 85, Urine Cocaine Screen > 1000 H, Urine Cannabis Screen < 5.00, Urinalysis PACKD H, Urine Color PINK H, Urine Clarity CLDY H, Urine pH 6.0, Ur Specific [place] 1.025, Urine Protein >=300 H, Urine Ketones NEG, Urine Nitrite NEG, Urine Bilirubin NEG@ICTO, Urine Urobilinogen 0.2, Ur Leukocyte Esterase NEG, Ur Microscopic SEDIMENT EXAMINED, Urine RBC 10-15 H, Urine WBC 5-10 H, Ur Epithelial Cells MOD H, Urine Bacteria FEW H, Hyaline Casts 3-5 H, Granular Casts 15-25 H, Urine Mucus FEW, Urine Hemoglobin LARGE H, Urine Glucose NEG, Urine Test NEGATIVE 01/12/17 1719: pH 7.31 L, pCO2 32 L, pO2 117 H, HCO3 16 L, ABG O2 Sat (Measured) 97.0, Carboxyhemoglobin 0 L, O2 Concentration % 2L, O2 Delivery Method NC, Phlebotomy Draw Site RF 01/12/17 1652: Methyl Alcohol, Quant 01/12/17 1652: Anion Gap 25 H, Estimated GFR 31 L, BUN/Creatinine Ratio 10.0, Glucose 90, Lactic Acid 11.2 H, Calcium 9.7, Magnesium 3.2 H, Total Bilirubin 0.8, AST 140 H, ALT 52, Alkaline Phosphatase 64, Ammonia 93 H, Creatine Kinase 8769 H, Total Protein 8.1, Albumin 5.6 H, Globulin 2.5, Albumin/Globulin Ratio 2.2, TSH &T3 &Free T4 Intrp 0.689, Total Beta HCG NEGATIVE, CBC w Diff MAN DIFF ORDERED, RBC 5.07, MCV 89.9, MCH 30.3, RDW 12.9, MPV 8.8, Gran % 74.2, Lymphocytes % 20.5 , Monocytes % 5.1, Eosinophils % 0.1, Basophils % 0.1, Absolute Granulocytes 16.6 H, Segmented Neutrophils 65, Band Neutrophils 3, Absolute Lymphocytes 4.6 H, Lymphocytes 24, Monocytes 6, Absolute Monocytes 1.1 H, Absolute Eosinophils 0, Basophils 1, Absolute Basophils 0, Metamyelocytes 1, Platelet Estimate ADEQUATE, Normochromic RBCs VERIFIED, PUBS MCHC 33.7, Salicylates < 1.0, Acetaminophen < 10.0 L, Serum Alcohol < 10.0 01/12/17 1639: Magnesium Cancelled, Creatine Kinase Cancelled, Total Beta HCG Cancelled Microbiology 01/13 0000 UPPER RESP: Surveillance Culture - COMP 01/13 0000 GI: Surveillance Culture - COMP 01/12 1730 URINE ROUT: Urine Culture - COMP Assessment/Plan Assessment/Plan Assessment: 1. Elevated troponin with atypical chest discomfort 2. Rhabdomyolysis with markedly elevated CPK 3. Acute renal insufficiency-improved 4. Altered mental status due to Cocaine overdose Vs Serotonin syndrome/ No mypclonus or hyperreflexia 5. Transient hypothermia 6. Leukocytosis/rule out sepsis 7. Anion gap metabolic acidosis with lactic acidosis 8. History of psychiatric illness. 9. Hypocalcemia-improved Recommendations: -At the moment, the patient appears to be stable from a cardiovascular standpoint. There has been no other issues since admission. No evidence of any arrhythmias. No new symptoms. -The patient's echocardiogram shows no significant abnormalities. -From a cardiac standpoint, the patient appears to be stable. Continue as per the medical/ICU team. -Continue IV fluids as outlined for treatment of rhabdomyolysis. Continue telemetry? Yes
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
--- NOTE | 2017-01-14 13:43 | PN- Nephrology ---
Assessment/Plan Assessment: NAM - 2/2 rhabdomyolysis - improved. 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 Some proteinuria on UA likely reflects the latter. Has hematuria in the setting of having a beal catheter and the aforementioned injury. With improved renal function to now normal, I don't feel like a serologic work-up or other invasive diagnostic testing is warranted. Thrombocytopenia - Pt has been seen by hematology. No schistocytes seen on smear so from that standpoint, TMA seems less likely. The spleen was noted to be borderline enlarged from the Abd U/S yesterday in the setting of her liver injury - not clear if this could have caused sequestration of platelets. Liver failure - Stabilizing numbers. Appears to have been cocaine induced injury as well. Hypocalcemia - Improved. Hypokalemia - Improved. Lactic acidosis - Resolved. Suggestion: -Cont NS at 200cc/hr - may need to go down on rate in next 24-48hrs -Cont to trend CK -Appreciate Heme consult -f/u additional GI recs -f/u haptoglobin -Should recheck UA with microscopic analysis as well as repeat UProt/Cr and urine microalbumin/creatinine prior to discharge - if abnormal, patient should f /u with Nephrology as an outpatient -f/u TTE Will see PRN. Please call [phone] with ?'s Subjective Subjective: Pt without specific complaints Renal function stable at 0.7; UA down to 100mg/dl protein, >75 RBC's, and 1-3 WBC's; MALB/Cr 352mcg/mg - has beal CK downtrending Remains on NS IVF at 200cc/hr No SOB or chest pain Corrected calcium 7.9 Still some muscle weakness AST downtrending to 1314 and ALT up to 521; T bili stable at 2.3; ammonia <9; INR improving - now 1.48 Plts slightly lower to 55 - evaluated by heme - no schistocytes on smear - thought to have DIC with fibrinogen 181 Hg 12.3 (from 13.4); no haptoglobin Abd U/S with borderline splenomegaly (noted to be unremarkable on previous day's CT scan) Objective Vital Signs and I&Os Vital Signs Date Time Temp Pulse Resp B/P B/P Pulse O2 O2 Flow FiO2 Mean Ox Delivery Rate 01/14 1000 70 22 117/73 01/14 0800 98.4 74 24 118/80 06/02 0800 98.4 74 24 118/80 98 Room Air 06/02 0600 69 18 110/70 06/ 0400 97.2 73 20 124/80 06/02 0400 96 Room Air 06/02 0000 99.0 74 20 118/78 06/02 0000 99.0 74 20 118/78 96 Room Air 06/02 0000 96 Room Air 06/ 2200 80 18 120/74 01/13 2000 97.0 72 18 109/74 01/13 2000 99 Room Air / 1600 98 Room Air / 1600 97.9 76 20 108/70 97 Room Air Intake & Output 01/14 1600 01/14 0400 01/13 1600 01/13 0400 01/12 1600 01/12 0400 Intake Total 1581 1970 5339 4000 Output Total 1550 1280 2550 1200 Balance 31 690 2789 2800 Intake, IV 1481 1700 3859 4000 Intake, Oral 682 226 3410 Number 0 Bowel Movements Output, Urine 1550 1280 2550 1200 Patient 152 lb 152 lb Weight Weight Estimated Measurement Method Physical Exam: Gen - improved appearance HEENT - supple CV - RRR, no m/r/g Chest - CTAB Abd - soft, nontender Ext - no edema, bruising on knees Skin - bruising on knees Neuro - alert and oriented - better appearing than yesterday Current Medications: Current Medications Sig/Aydin Start time Last Medication Dose Route Stop Time Status Admin Acetaminophen 325 MG Q6P PRN 01/125 DC PO Ampicillin Sodium/ 1,500 MG Q6 01/12 2359 DC 01/14 Sulbactam Sodium IV 0615 Sodium Chloride 100 ML Aspirin 81 MG DAILY 01/13 1000 DC 01/13 PO 1240 Calcium Carbonate 1,250 MG DAILY 01/14 1000 AC 01/14 PO 0845 Calcium Carbonate 1,250 MG BID 01/13 1000 DC 01/13 PO 2230 Lorazepam 1 MG Q2 HRS NEEDED PRN 01/12 2130 AC IV Magnesium Oxide 400 MG ONE ONE 01/13 1445 DC 01/13 PO 01/13 1446 1445 Magnesium Sulfate 1 GM Q2H 01/13 0945 DC 01/13 Dextrose/Water 100 ML IV 01/13 1344 1440 Morphine Sulfate 2 MG Q4P PRN 01/12 2145 IV Nitroglycerin 0.5 GM Q6P PRN 01/12 2245 AC TOP Oxycodone HCl 5 MG Q6P PRN 01/12 2145 AC PO Phosphate 250 MG PC AND AT BEDTIME 01/14 0600 DC 01/14 PO 0845 Potassium Chloride 40 MEQ ONCE ONE 01/13 1800 DC 01/13 PO 01/13 1801 1811 Potassium Chloride 20 MEQ ONCE ONE 01/13 1445 DC 01/13 PO 01/13 1446 1445 Sodium Chloride 1,000 ML Q5H 01/13 0145 AC 01/14 IV 0844 Sodium Phosphate 15 mMol ONE ONE 01/14 0900 DC 01/14 Dextrose/Water 250 ML IV 01/14 1303 1138 Tramadol HCl 50 MG ONCE PRN 01/14 0145 DC 01/14 PO 01/14 0146 0150 Results Pertinent Lab Results: Laboratory Tests 01/14 0430 Chemistry Sodium (137 - 145 mmol/L) 140 Potassium (3.5 - 5.1 mmol/L) 4.9 Chloride (98 - 107 mmol/L) 114 H Carbon Dioxide (22 - 30 mmol/L) 20 L Anion Gap (5 - 16) 6 BUN (7 - 17 mg/dL) 9 Creatinine (0.5 - 1.0 mg/dL) 0.7 Estimated GFR (>60 ml/min) > 60 Glucose (65 - 99 mg/dL) 101 H Calcium (8.4 - 10.2 mg/dL) 6.9 L Phosphorus (2.5 - 4.5 mg/dL) 1.9 L Magnesium (1.6 - 2.3 mg/dL) 2.1 Total Bilirubin (0.2 - 1.3 mg/dL) 2.3 H Direct Bilirubin (< 0.4 mg/dL) 0.2 AST (14 - 36 U/L) 1314 H ALT (9 - 52 U/L) 521 H Alkaline Phosphatase (<127 U/L) 51 Creatine Kinase (30 - 135 U/L) > 26356 H Total Protein (6.3 - 8.2 g/dL) 4.3 L Albumin (3.5 - 5.0 g/dL) 2.6 L Coagulation Fibrinogen Activity (200 - 393 MG/DL) 181 L Fibrin Degrad Products (< 10 ug/ml) >10 but < 40 ug/ml H Hematology CBC w Diff NO MAN DIFF REQ WBC (4.8 - 10.8 /CUMM) 11.1 H RBC (4.20 - 5.40 /CUMM) 4.04 L Hgb (12.0 - 16.0 G/DL) 12.3 Hct (37 - 47 %) 36.9 L MCV (81.0 - 99.0 FL) 91.4 MCH (27.0 - 31.0 PG) 30.4 RDW (11.5 - 14.5 %) 13.4 Plt Count (130 - 400 /CUMM) 55 L MPV (7.4 - 10.4 FL) 8.7 Gran % (42.2 - 75.2 %) 74.0 Lymphocytes % (20.5 - 51.1 %) 21.5 Monocytes % (1.7 - 9.3 %) 4.2 Eosinophils % (0 - 5 %) 0 Basophils % (0.0 - 2.0 %) 0.3 Absolute Granulocytes (1.4 - 6.5 /CUMM) 8.2 H Absolute Lymphocytes (1.2 - 3.4 /CUMM) 2.4 Absolute Monocytes (0.10 - 0.60 /CUMM) 0.5 Absolute Eosinophils (0.0 - 0.7 /CUMM) 0 Absolute Basophils (0.0 - 0.2 /CUMM) 0 PUBS MCHC (33.0 - 37.0 G/DL) 33.3 01/13 2115 Chemistry Sodium (137 - 145 mmol/L) 139 Potassium (3.5 - 5.1 mmol/L) 4.2 Chloride (98 - 107 mmol/L) 112 H Carbon Dioxide (22 - 30 mmol/L) 21 L Anion Gap (5 - 16) 5 BUN (7 - 17 mg/dL) 13 Creatinine (0.5 - 1.0 mg/dL) 0.7 Estimated GFR (>60 ml/min) > 60 Glucose (65 - 99 mg/dL) 83 Calcium (8.4 - 10.2 mg/dL) 7.0 L Phosphorus (2.5 - 4.5 mg/dL) 2.8 Magnesium (1.6 - 2.3 mg/dL) 2.5 H Total Bilirubin (0.2 - 1.3 mg/dL) 2.2 H AST (14 - 36 U/L) 1478 H ALT (9 - 52 U/L) 460 H Albumin (3.5 - 5.0 g/dL) 2.7 L Coagulation PT (9.4 - 12.5 SEC) 15.5 H INR (0.90 - 1.19) 1.48 H APTT (25 - 37 SEC) 33 Fibrinogen Activity (200 - 393 MG/DL) 166 L Fibrin Degrad Products (< 10 ug/ml) >10 but < 40 ug/ml H 01/13 01/13 1705 1705 Urines Urinalysis LIGHT H Urine Color (YEL,AMB,STR) PINK H Urine Clarity (CLEAR) HAZY H Urine pH (5.0 - 8.0) 6.0 Ur Specific [place] (1.001 - 1.035) 1.020 Urine Protein (NEG,<30 MG/DL) 100 H Urine Ketones (NEG) NEG Urine Nitrite (NEG) NEG Urine Bilirubin (NEG) NEG Urine Urobilinogen (0.1 - 1.0 EU/dl) 0.2 Ur Leukocyte Esterase (NEG) NEG Ur Microscopic SEDIMENT EXAMINED Urine RBC (0 - 5 /HPF) >75 H Urine WBC (0 - 2 /HPF) 1-3 H Ur Epithelial Cells (NONE,FEW) RARE Urine Bacteria (NEG/NONE) FEW H Urine Mucus (FEW,NONE) FEW Urine Hemoglobin (NEG) LARGE H Ur Random Creatinine (mg/dL) 39.5 Ur Random Microalbumin (<1.7 mg/dl) 13.9 H Ur Random Sodium (30 - 90 mmol/L) 107 H Ur Random Potassium (mmol/L) 11.1 Fraction Sodium Excret (<1% %) 1.5 H Urine Glucose (N MG/DL) NEG U Cystine/Creat Ratio (mcg/mg) 351.89 01/13 01/13 1644 1430 Chemistry Sodium (137 - 145 mmol/L) 140 Potassium (3.5 - 5.1 mmol/L) 3.9 Chloride (98 - 107 mmol/L) 112 H Carbon Dioxide (22 - 30 mmol/L) 21 L Anion Gap (5 - 16) 8 BUN (7 - 17 mg/dL) 14 Creatinine (0.5 - 1.0 mg/dL) 0.8 Estimated GFR (>60 ml/min) > 60 Glucose (65 - 99 mg/dL) 77 Calcium (8.4 - 10.2 mg/dL) 7.2 L Phosphorus (2.5 - 4.5 mg/dL) 3.3 Magnesium (1.6 - 2.3 mg/dL) 3.1 H Total Bilirubin (0.2 - 1.3 mg/dL) 2.2 H Direct Bilirubin (< 0.4 mg/dL) 0.2 AST (14 - 36 U/L) 1551 H ALT (9 - 52 U/L) 442 H Alkaline Phosphatase (<127 U/L) 48 Ammonia (9 - 30 umol/L) < 9 L Total Protein (6.3 - 8.2 g/dL) 5.1 L Albumin (3.5 - 5.0 g/dL) 3.2 L Coagulation PT (9.4 - 12.5 SEC) 16.4 H INR (0.90 - 1.19) 1.57 H Hematology CBC w Diff NO MAN DIFF REQ WBC (4.8 - 10.8 /CUMM) 12.6 H RBC (4.20 - 5.40 /CUMM) 4.44 Hgb (12.0 - 16.0 G/DL) 13.4 Hct (37 - 47 %) 40.0 MCV (81.0 - 99.0 FL) 90.0 MCH (27.0 - 31.0 PG) 30.2 RDW (11.5 - 14.5 %) 13.4 Plt Count (130 - 400 /CUMM) 67 L MPV (7.4 - 10.4 FL) 8.8 Gran % (42.2 - 75.2 %) 71.5 Lymphocytes % (20.5 - 51.1 %) 23.1 Monocytes % (1.7 - 9.3 %) 5.2 Eosinophils % (0 - 5 %) 0 Basophils % (0.0 - 2.0 %) 0.2 Absolute Granulocytes (1.4 - 6.5 /CUMM) 9.0 H Absolute Lymphocytes (1.2 - 3.4 /CUMM) 2.9 Absolute Monocytes (0.10 - 0.60 /CUMM) 0.7 H Absolute Eosinophils (0.0 - 0.7 /CUMM) 0 Absolute Basophils (0.0 - 0.2 /CUMM) 0 PUBS MCHC (33.0 - 37.0 G/DL) 33.6 Haptoglobin Pending Serology Hepatitis A IgM Ab (NONREACTIVE) NONREACTIVE Hep Bs Antigen (NONREACTIVE) NONREACTIVE Hep B Core IgM Ab Conf (NONREACTIVE) NONREACTIVE Hepatitis C Antibody (NONREACTIVE) NONREACTIVE HIV 1&2 Ab Western Blot (NONREACTIVE) NONREACTIVE 01/13 01/13 01/13 1430 1323 1222 Chemistry Lactate Dehydrogenase (313 - 618 U/L) 08520 H Creatine Kinase Cancelled Hematology CBC w Diff NO MAN DIFF REQ WBC (4.8 - 10.8 /CUMM) 13.7 H RBC (4.20 - 5.40 /CUMM) 4.40 Hgb (12.0 - 16.0 G/DL) 13.4 Hct (37 - 47 %) 39.8 MCV (81.0 - 99.0 FL) 90.4 MCH (27.0 - 31.0 PG) 30.4 RDW (11.5 - 14.5 %) 13.4 Plt Count (130 - 400 /CUMM) 61 L MPV (7.4 - 10.4 FL) 9.1 Gran % (42.2 - 75.2 %) 77.6 H Lymphocytes % (20.5 - 51.1 %) 18.2 L Monocytes % (1.7 - 9.3 %) 4.0 Eosinophils % (0 - 5 %) 0 Basophils % (0.0 - 2.0 %) 0.2 Absolute Granulocytes (1.4 - 6.5 /CUMM) 10.6 H Absolute Lymphocytes (1.2 - 3.4 /CUMM) 2.5 Absolute Monocytes (0.10 - 0.60 /CUMM) 0.5 Absolute Eosinophils (0.0 - 0.7 /CUMM) 0 Absolute Basophils (0.0 - 0.2 /CUMM) 0 PUBS MCHC (33.0 - 37.0 G/DL) 33.6 Retic Count (0.5 - 2.0 %) 3.45 H Other Body Source Fluid LDH Cancelled 01/13 01/13 01/13 1217 UNK 0840 Chemistry Sodium (137 - 145 mmol/L) 142 Potassium (3.5 - 5.1 mmol/L) 2.7 *L Chloride (98 - 107 mmol/L) 121 H Carbon Dioxide (22 - 30 mmol/L) 15 L Anion Gap (5 - 16) 6 BUN (7 - 17 mg/dL) 12 Creatinine (0.5 - 1.0 mg/dL) 0.6 Estimated GFR (>60 ml/min) > 60 Glucose (65 - 99 mg/dL) 63 L Calcium (8.4 - 10.2 mg/dL) 4.8 *L Phosphorus (2.5 - 4.5 mg/dL) 2.8 Magnesium (1.6 - 2.3 mg/dL) 1.6 Total Bilirubin (0.2 - 1.3 mg/dL) 1.5 H AST (14 - 36 U/L) 975 H ALT (9 - 52 U/L) 254 H Ammonia Cancelled Creatine Kinase (30 - 135 U/L) > 28245.0 H Troponin I Cancelled Albumin (3.5 - 5.0 g/dL) 1.9 L Toxicology Acetaminophen (10.0 - 30.0 ug/mL) < 10.0 L 01/13 01/13 0840 0314 Chemistry Sodium (137 - 145 mmol/L) 141 Potassium (3.5 - 5.1 mmol/L) 2.8 *L Chloride (98 - 107 mmol/L) 122 H Carbon Dioxide (22 - 30 mmol/L) 14 L Anion Gap (5 - 16) 4 L BUN (7 - 17 mg/dL) 13 Creatinine (0.5 - 1.0 mg/dL) 0.6 Estimated GFR (>60 ml/min) > 60 Glucose (65 - 99 mg/dL) 52 L Calcium (8.4 - 10.2 mg/dL) 4.5 *L Phosphorus (2.5 - 4.5 mg/dL) 2.7 Magnesium (1.6 - 2.3 mg/dL) 1.4 L Total Bilirubin (0.2 - 1.3 mg/dL) 1.3 AST (14 - 36 U/L) 729 H ALT (9 - 52 U/L) 195 H Creatine Kinase (30 - 135 U/L) > 99686 H Troponin I (< 0.11 ng/ml) 0.47 *H 0.81 *H Albumin (3.5 - 5.0 g/dL) 1.7 L Coagulation PT (9.4 - 12.5 SEC) 23.4 H INR (0.90 - 1.19) 2.25 H Fibrinogen Activity (200 - 393 MG/DL) 122 L Hematology CBC w Diff MAN DIFF ORDERED WBC (4.8 - 10.8 /CUMM) 9.0 RBC (4.20 - 5.40 /CUMM) 3.28 L Hgb (12.0 - 16.0 G/DL) 9.9 L Hct (37 - 47 %) 29.2 L MCV (81.0 - 99.0 FL) 89.0 MCH (27.0 - 31.0 PG) 30.2 RDW (11.5 - 14.5 %) 13.2 Plt Count (130 - 400 /CUMM) 46 L MPV (7.4 - 10.4 FL) 8.5 Gran % (42.2 - 75.2 %) 79.4 H Lymphocytes % (20.5 - 51.1 %) 13.6 L Monocytes % (1.7 - 9.3 %) 6.8 Eosinophils % (0 - 5 %) 0 Basophils % (0.0 - 2.0 %) 0.2 Absolute Granulocytes (1.4 - 6.5 /CUMM) 7.1 H Segmented Neutrophils (42.2 - 75.2 %) 83 H Absolute Lymphocytes (1.2 - 3.4 /CUMM) 1.2 Lymphocytes (20.5 - 51.1 %) 13 L Monocytes (1.7 - 9.3 %) 4 Absolute Monocytes (0.10 - 0.60 /CUMM) 0.6 Absolute Eosinophils (0.0 - 0.7 /CUMM) 0 Absolute Basophils (0.0 - 0.2 /CUMM) 0 Platelet Estimate (ADEQUATE) Hypochromic-Microcytic 1+ PUBS MCHC (33.0 - 37.0 G/DL) 33.9 01/13 01/13 01/12 0314 0130 2128 Chemistry Sodium (137 - 145 mmol/L) 142 Potassium (3.5 - 5.1 mmol/L) 3.9 Chloride (98 - 107 mmol/L) 114 H Carbon Dioxide (22 - 30 mmol/L) 19 L Anion Gap (5 - 16) 8 BUN (7 - 17 mg/dL) 19 H Creatinine (0.5 - 1.0 mg/dL) 1.0 Estimated GFR (>60 ml/min) > 60 Glucose (65 - 99 mg/dL) 77 Lactic Acid (0.7 - 2.1 mmol/L) 1.3 Calcium (8.4 - 10.2 mg/dL) 7.1 L Phosphorus (2.5 - 4.5 mg/dL) 3.2 Magnesium (1.6 - 2.3 mg/dL) 2.2 Total Bilirubin (0.2 - 1.3 mg/dL) 1.6 H AST (14 - 36 U/L) 719 H ALT (9 - 52 U/L) 185 H Lactate Dehydrogenase (313 - 618 U/L) 5324 H Creatine Kinase (30 - 135 U/L) > 78052 H Troponin I (< 0.11 ng/ml) 1.04 *H Albumin (3.5 - 5.0 g/dL) 3.5 Coagulation PT (9.4 - 12.5 SEC) 16.8 H INR (0.90 - 1.19) 1.61 H APTT (25 - 37 SEC) 34 D-Dimer (70 - 232 ng/ml) 905 H Hematology CBC w Diff MAN DIFF ORDERED WBC (4.8 - 10.8 /CUMM) 11.6 H RBC (4.20 - 5.40 /CUMM) 4.22 Hgb (12.0 - 16.0 G/DL) 12.9 Hct (37 - 47 %) 37.8 MCV (81.0 - 99.0 FL) 89.7 MCH (27.0 - 31.0 PG) 30.6 RDW (11.5 - 14.5 %) 13.0 Plt Count (130 - 400 /CUMM) 65 L MPV (7.4 - 10.4 FL) 8.9 Gran % (42.2 - 75.2 %) 84.5 H Lymphocytes % (20.5 - 51.1 %) 8.9 L Monocytes % (1.7 - 9.3 %) 6.1 Eosinophils % (0 - 5 %) 0 Basophils % (0.0 - 2.0 %) 0.5 Absolute Granulocytes (1.4 - 6.5 /CUMM) 9.8 H Segmented Neutrophils (42.2 - 75.2 %) 80 H Absolute Lymphocytes (1.2 - 3.4 /CUMM) 1.0 L Lymphocytes (20.5 - 51.1 %) 8 L Monocytes (1.7 - 9.3 %) 12 H Absolute Monocytes (0.10 - 0.60 /CUMM) 0.7 H Absolute Eosinophils (0.0 - 0.7 /CUMM) 0 Absolute Basophils (0.0 - 0.2 /CUMM) 0.1 Platelet Estimate (ADEQUATE) DECREASED Normochromic RBCs VERIFIED Ovalocytes FEW PUBS MCHC (33.0 - 37.0 G/DL) 34.2 Other Body Source Fld Total RBCs Counted (%) 100 01/12 1730 1719 Blood Gas pH (7.35 - 7.45 PH) 7.31 L pCO2 (35 - 45 TORR) 32 L pO2 (80 - 100 TORR) 117 H HCO3 (21 - 28 MEQ/L) 16 L ABG O2 Sat (Measured) (>96.0 %) 97.0 Carboxyhemoglobin (1.5 - 5.0 %) 0 L O2 Concentration % 2L O2 Delivery Method NC Chemistry Lactic Acid (0.7 - 2.1 mmol/L) 2.4 H Miscellaneous Phlebotomy Draw Site RF Toxicology Urine Opiates Screen (>2000 NG/ML) < 100.00 Methadone Screen (>300 NG/ML) 45 Barbiturate Screen (>200 NG/ML) < 60 Ur Phencyclidine Scrn (>25 NG/ML) < 6.00 Amphetamines Screen (>1000 NG/ML) < 100 U Benzodiazepines Scrn (>200 NG/ML) < 85 Urine Cocaine Screen (>300 NG/ML) > 1000 H Urine Cannabis Screen (>50 NG/ML) < 5.00 Urines Urinalysis PACKD H Urine Color (YEL,AMB,STR) PINK H Urine Clarity (CLEAR) CLDY H Urine pH (5.0 - 8.0) 6.0 Ur Specific [place] (1.001 - 1.035) 1.025 Urine Protein (NEG,<30 MG/DL) >=300 H Urine Ketones (NEG) NEG Urine Nitrite (NEG) NEG Urine Bilirubin (NEG) NEG@ICTO Urine Urobilinogen (0.1 - 1.0 EU/dl) 0.2 Ur Leukocyte Esterase (NEG) NEG Ur Microscopic SEDIMENT EXAMINED Urine RBC (0 - 5 /HPF) 10-15 H Urine WBC (0 - 2 /HPF) 5-10 H Ur Epithelial Cells (NONE,FEW) MOD H Urine Bacteria (NEG/NONE) FEW H Hyaline Casts (0/LPF) 3-5 H Granular Casts (NONE /LPF) 15-25 H Urine Mucus (FEW,NONE) FEW Urine Hemoglobin (NEG) LARGE H Urine Glucose (N MG/DL) NEG Urine Test NEGATIVE 01/12 01/12 1652 1652 Chemistry Sodium (137 - 145 mmol/L) 148 H Potassium (3.5 - 5.1 mmol/L) 4.9 Chloride (98 - 107 mmol/L) 108 H Carbon Dioxide (22 - 30 mmol/L) 15 L Anion Gap (5 - 16) 25 H BUN (7 - 17 mg/dL) 20 H Creatinine (0.5 - 1.0 mg/dL) 2.0 H Estimated GFR (>60 ml/min) 31 L BUN/Creatinine Ratio (7 - 25 %) 10.0 Glucose (65 - 99 mg/dL) 90 Lactic Acid (0.7 - 2.1 mmol/L) 11.2 H Calcium (8.4 - 10.2 mg/dL) 9.7 Magnesium (1.6 - 2.3 mg/dL) 3.2 H Total Bilirubin (0.2 - 1.3 mg/dL) 0.8 AST (14 - 36 U/L) 140 H ALT (9 - 52 U/L) 52 Alkaline Phosphatase (<127 U/L) 64 Ammonia (9 - 30 umol/L) 93 H Creatine Kinase (30 - 135 U/L) 8769 H Total Protein (6.3 - 8.2 g/dL) 8.1 Albumin (3.5 - 5.0 g/dL) 5.6 H Globulin (1.9 - 4.2 gm/dL) 2.5 Albumin/Globulin Ratio (1.1 - 2.2 %) 2.2 TSH &T3 &Free T4 Intrp (0.270 - 4.20 uIU/mL) 0.689 Total Beta HCG (NEGATIVE) NEGATIVE Hematology CBC w Diff MAN DIFF ORDERED WBC (4.8 - 10.8 /CUMM) 22.4 H RBC (4.20 - 5.40 /CUMM) 5.07 Hgb (12.0 - 16.0 G/DL) 15.4 Hct (37 - 47 %) 45.6 MCV (81.0 - 99.0 FL) 89.9 MCH (27.0 - 31.0 PG) 30.3 RDW (11.5 - 14.5 %) 12.9 Plt Count (130 - 400 /CUMM) 266 MPV (7.4 - 10.4 FL) 8.8 Gran % (42.2 - 75.2 %) 74.2 Lymphocytes % (20.5 - 51.1 %) 20.5 Monocytes % (1.7 - 9.3 %) 5.1 Eosinophils % (0 - 5 %) 0.1 Basophils % (0.0 - 2.0 %) 0.1 Absolute Granulocytes (1.4 - 6.5 /CUMM) 16.6 H Segmented Neutrophils (42.2 - 75.2 %) 65 Band Neutrophils (0.0 - 5.0 %) 3 Absolute Lymphocytes (1.2 - 3.4 /CUMM) 4.6 H Lymphocytes (20.5 - 51.1 %) 24 Monocytes (1.7 - 9.3 %) 6 Absolute Monocytes (0.10 - 0.60 /CUMM) 1.1 H Absolute Eosinophils (0.0 - 0.7 /CUMM) 0 Basophils (0.0 - 2.0 %) 1 Absolute Basophils (0.0 - 0.2 /CUMM) 0 Metamyelocytes (0.0 - 1.0 %) 1 Platelet Estimate (ADEQUATE) ADEQUATE Normochromic RBCs VERIFIED PUBS MCHC (33.0 - 37.0 G/DL) 33.7 Toxicology Salicylates (0 - 20.0 mg/dL) < 1.0 Acetaminophen (10.0 - 30.0 ug/mL) < 10.0 L Serum Alcohol (<10 MG/DL) < 10.0 Methyl Alcohol, Quant 01/12 1639 Chemistry Magnesium Cancelled Creatine Kinase Cancelled Total Beta HCG Cancelled Imaging/Other Studies: EXAM TYPE: US - US-COMPLETE ABDOMEN EXAMINATION: US ABDOMEN COMPLETE CLINICAL INFORMATION: Elevated LFTs and bilirubin. Evaluate for biliary obstruction. COMPARISON: CT scan of the abdomen and pelvis dated 01/12/2017. Ultrasound of the abdomen dated 10/01/2011. TECHNIQUE: Real-time imaging of the abdominal viscera. FINDINGS: PANCREAS: Normal. ABDOMINAL AORTA: The proximal segment is normal in caliber. INFERIOR VENA CAVA: Visualized portions are normal. LIVER: Normal. The liver demonstrates normal size, contour and echogenicity. No focal lesion or intrahepatic biliary duct dilatation. GALLBLADDER: The gallbladder is physiologically distended and is diffusely thick walled in appearance with the wall thickness measuring up to 0.5 cm in diameter. With color Doppler imaging, no hyperemia in the gallbladder wall is seen. Trace amount of edema is suggested within the bladder wall. No sonographic Isaac's sign is elicited while scanning over the gallbladder. No defined gallstones or sludge is seen. Findings are nonspecific in the setting of small volume ascites. COMMON BILE DUCT: Normal in caliber measuring 0.2 cm in diameter. RIGHT KIDNEY: Normal. No hydronephrosis. No renal calculi or focal parenchymal lesions. The kidney measures 11.9 cm in maximum dimension. LEFT KIDNEY: Normal. No hydronephrosis. No renal calculi or focal parenchymal lesions. The kidney measures 10.8 cm in maximum dimension. SPLEEN: Borderline enlarged. The spleen measures 13.2 cm in maximum dimension. FREE FLUID: There is a small amount of fluid seen along the liver and right renal margins, not appreciated on prior CT scan. There is also a new trace right-sided pleural effusion. IMPRESSION: 1. Interval development of small volume ascites in the abdomen and small right-sided pleural effusion. 2. Thick-walled appearance of the gallbladder with mild gallbladder wall edema. No defined gallstones or evidence of sonographic Isaac's sign. Findings are nonspecific in the setting of small volume ascites. Close clinical correlation is requested. If clinically warranted, these findings could be further assessed with a HIDA scan to evaluate for cystic duct patency. 3. Borderline splenomegaly. 4. Otherwise unremarkable exam.
--- NOTE | 2017-01-14 14:00 | RADIOLOGY REPORT ---
EXAMINATION: XR KNEE, RIGHT CLINICAL INFORMATION: Status post fall. Evaluate for fracture. COMPARISON: None TECHNIQUE: Four views of the right knee. FINDINGS: Bones and soft tissues are normal. No fracture or significant joint effusion. Alignment is anatomic. Joint spaces are well maintained. No abnormal soft tissue calcification. IMPRESSION: Normal right knee.
--- NOTE | 2017-01-14 14:06 | ECHOCARDIOGRAM REPORT ---
THERESA BUNDY Age: 26 : 1990 Gender: F Exam Date: 01/13/2017 14:25 Exam Location: [facility] Ht (in): 67 Wt (lb): 151 BSA: 1.81 BP: 103 / 69 Ordering Physician: ANAYELI BOYD, Referring Physician: Dolores Cassidy MD Technologist: Leatha Vuong RONALD Room Number: 107 Indications: CHEST PAIN Rhythm: Sinus Technical Quality: Good FINDINGS Left Ventricle Normal global left ventricular size, wall thickness, systolic function with no obvious regional wall motion abnormalities. Normal left ventricular ejection fraction estimated at 60-65%. Right Ventricle Normal right ventricular size and function. Right Atrium Normal right atrial size. Left Atrium Normal left atrial size. Mitral Valve Structurally normal mitral valve. Aortic Valve Structurally normal trileaflet aortic valve. No aortic stenosis. No aortic regurgitation. Tricuspid Valve Structurally normal tricuspid valve. Trace to mild tricuspid regurgitation. Pulmonic Valve Structurally normal pulmonic valve. Trace to mild pulmonic regurgitation. Pericardium Minimal pericardial effusion (normal variant). Great Vessels Normal size aortic root and proximal ascending aorta. CONCLUSIONS 1. The aortic valve is trileaflet and normal. 2. The mitral valve is anatomically normal with minimal to mild mitral insufficiency noted. 3. A physiologic pericardial effusion is present. 4. The left ventricualr chamber size and systolic function are normal wtih no resting wall motion abnormalities. 5. Minimal to mild tricuspid and pulmonic insufficiency are present with no evidence of pulmonary hypertension. Dolores Cassidy M.D. (Electronically Signed) Final Date: 14 January 2017 14:05 MEASUREMENTS (Male / Female) Normal Values 2D ECHO LV Diastolic Diameter PLAX 3.9 cm 4.2 - 5.9 / 3.9 - 5.3 cm LV Systolic Diameter PLAX 2.6 cm 2.1 - 4.0 cm LV Fractional Shortening PLAX 33.3 % 25 - 46 % LV Ejection Fraction 2D Teich 62.7 % IVS Diastolic Thickness 0.9 cm LVPW Diastolic Thickness 0.9 cm LV Relative Wall Thickness 0.5 RV Internal Dim ED PLAX 2.8 cm 1.9 - 3.8 cm LVOT Diameter 1.9 cm Aortic Root Diameter 2.8 cm LA Systolic Diameter LX 3.0 cm 3.0 - 4.0 / 2.7 - 3.8 cm LA Volume 36.0 cm 18 - 58 / 22 - 52 cm Ascending Aorta Diameter 2.5 cm DOPPLER AV Peak Velocity 119.0 cm/s AV Peak Gradient 5.7 mmHg AV Mean Velocity 80.7 cm/s AV Mean Gradient 3.0 mmHg AV Velocity Time Integral 24.5 cm LVOT Peak Velocity 85.7 cm/s LVOT Peak Gradient 2.9 mmHg LVOT Mean Velocity 59.1 cm/s LVOT Mean Gradient 2.0 mmHg LVOT Velocity Time Integral 19.6 cm LVOT Stroke Volume 55.6 cm AV Area Cont Eq vti 2.3 cm AV Area Cont Eq pk 2.0 cm MV Peak Velocity 97.1 cm/s MV Peak Gradient 3.8 mmHg MV Mean Velocity 55.6 cm/s MV Mean Gradient 1.0 mmHg Mitral E Point Velocity 85.4 cm/s Mitral A Point Velocity 47.4 cm/s Mitral E to A Ratio 1.8 MV PHT Velocity 101.0 cm/s MV Deceleration Trigg 326.0 cm/s MV Pressure Half Time 92.9 ms MV Area PHT 2.4 cm MV Deceleration Time 243.0 ms TR Peak Velocity 201.0 cm/s TR Peak Gradient 16.2 mmHg Right Atrial Pressure 5.0 mmHg Pulmonary Artery Systolic Pressu 21.2 mmHg Right Ventricular Systolic Press 21.2 mmHg PV Peak Velocity 64.0 cm/s PV Peak Gradient 1.6 mmHg PV Mean Velocity 51.3 cm/s PV Mean Gradient 1.0 mmHg PV Velocity Time Integral 17.3 cm LV E' Lateral Velocity 16.7 cm/s Mitral E to LV E' Lateral Ratio 5.1 LV E' Septal Velocity 11.9 cm/s Mitral E to LV E' Septal Ratio 7.2
[2017-01-14 16:56] LABS: ABSOLUTE BASOPHIL COUNT 0 /CUMM (0.0-0.2); ABSOLUTE EOSINOPHIL COUNT 0 /CUMM (0.0-0.7); ABSOLUTE GRANULOCYTE CT 6.9 /CUMM (1.4-6.5); ABSOLUTE LYMPH COUNT 1.7 /CUMM (1.2-3.4); ABSOLUTE MONOCYTE COUNT 0.4 /CUMM (0.10-0.60); BASOPHIL % 0.3 % (0.0-2.0); EOSINOPHIL % 0.4 % (0-5); GRANULOCYTE % 76.1 % (42.2-75.2); HEMATOCRIT 38.1 % (37-47); MEAN CORPUSCULAR HGB 30.5 PG (27.0-31.0); MEAN CORPUSCULAR HGB CONC 33.7 G/DL (33.0-37.0); MEAN CORPUSCULAR VOLUME 90.6 FL (81.0-99.0); MEAN PLATELET VOLUME 9.1 FL (7.4-10.4); RBC DISTRIBUTION WIDTH 13.6 % (11.5-14.5); RED BLOOD CELL CT 4.21 /CUMM (4.20-5.40); WHITE BLOOD CELL COUNT 9.1 /CUMM (4.8-10.8)
[2017-01-14 17:14] LABS: PLATELET COUNT 55 /CUMM (130-400)
[2017-01-15] VITALS (14 sets, daily range): BP systolic 106–126; BP diastolic 60–76
[2017-01-15 02:48] LABS: ABSOLUTE BASOPHIL COUNT 0 /CUMM (0.0-0.2); ABSOLUTE EOSINOPHIL COUNT 0 /CUMM (0.0-0.7); ABSOLUTE LYMPH COUNT 2.3 /CUMM (1.2-3.4); ABSOLUTE MONOCYTE COUNT 0.4 /CUMM (0.10-0.60); BASOPHIL % 0.4 % (0.0-2.0); EOSINOPHIL % 0.2 % (0-5); GRANULOCYTE % 68.5 % (42.2-75.2); HEMATOCRIT 37.3 % (37-47); MEAN CORPUSCULAR HGB 30.9 PG (27.0-31.0); MEAN CORPUSCULAR HGB CONC 34.4 G/DL (33.0-37.0); MEAN CORPUSCULAR VOLUME 89.7 FL (81.0-99.0); MEAN PLATELET VOLUME 8.7 FL (7.4-10.4); PLATELET COUNT 62 /CUMM (130-400); RBC DISTRIBUTION WIDTH 13.5 % (11.5-14.5); RED BLOOD CELL CT 4.16 /CUMM (4.20-5.40); WHITE BLOOD CELL COUNT 8.8 /CUMM (4.8-10.8)
[2017-01-15 05:59] LABS: ABSOLUTE BASOPHIL COUNT 0 /CUMM (0.0-0.2); ABSOLUTE EOSINOPHIL COUNT 0 /CUMM (0.0-0.7); ABSOLUTE GRANULOCYTE CT 5.8 /CUMM (1.4-6.5); ABSOLUTE LYMPH COUNT 1.9 /CUMM (1.2-3.4); ABSOLUTE MONOCYTE COUNT 0.4 /CUMM (0.10-0.60); BASOPHIL % 0.3 % (0.0-2.0); EOSINOPHIL % 0 % (0-5); GRANULOCYTE % 71.8 % (42.2-75.2); HEMATOCRIT 35.6 % (37-47); MEAN CORPUSCULAR HGB 30.9 PG (27.0-31.0); MEAN CORPUSCULAR HGB CONC 34.1 G/DL (33.0-37.0); MEAN CORPUSCULAR VOLUME 90.4 FL (81.0-99.0); MEAN PLATELET VOLUME 8.6 FL (7.4-10.4); PLATELET COUNT 61 /CUMM (130-400); RBC DISTRIBUTION WIDTH 13.2 % (11.5-14.5); RED BLOOD CELL CT 3.93 /CUMM (4.20-5.40); WHITE BLOOD CELL COUNT 8.1 /CUMM (4.8-10.8)
[2017-01-15 06:52] LABS: PT 12.7 SEC (9.4-12.5); PTT 33 SEC (25-37)
--- NOTE | 2017-01-15 08:07 | PN- Resident [facility] ---
Impression/Plan Plan DVT/Prophylaxis: mechanical
--- NOTE | 2017-01-15 08:20 | Event Note ---
Event Note Event Note: CK quantified from this morning labs- 52,119 Yesterday it was 114,[phone]
--- NOTE | 2017-01-15 10:22 | PN- Pulmonary ---
Subjective HPI/Critical Care Issues: Doing much better Adequate urine output Continues to be on 200 mL normal saline Urine output improving Vital signs stable Less pain Complaints of upper extremity pain and edema Significant data BUN is 4 creatinine is 0.7 Was 4 potassium is 4 phosphorous is 2.8 calcium is now normal total bilirubin is still elevated AST ALT high LDH was high last CPK still more than 305[address] Hepatitis panel unremarkable white count 8.1 hemoglobin 12.1 platelets have stabilized at 61 INR now down to 1.21 cultures are unremarkable previous x-ray showed normal knee Abdominal ultrasound showed small volume ascites slight gallbladder thickening Objective Current Medications: Current Medications Sig/Aydin Start time Last Medication Dose Route Stop Time Status Admin Ampicillin Sodium/ 1,500 MG Q6 01/12 2359 DC 01/14 Sulbactam Sodium IV 0615 Sodium Chloride 100 ML Calcium Carbonate 1,250 MG DAILY 01/14 1000 AC 01/15 PO 01/15 1100 0802 Lorazepam 1 MG Q2 HRS NEEDED PRN 01/12 2130 AC IV Magnesium Sulfate 1 GM ONCE ONE 01/15 0800 AC 01/15 Dextrose/Water 100 ML IV 01/15 1159 0802 Magnesium Sulfate 1 GM ONCE ONE 01/15 0645 DC 01/15 Dextrose/Water 100 ML IV 01/15 0744 0648 Morphine Sulfate 2 MG Q4P PRN 01/12 2145 DC IV Nitroglycerin 0.5 GM Q6P PRN 01/12 2245 DC TOP Oxycodone HCl 5 MG .STK-MED ONE 01/14 2049 DC PO 01/14 2050 Oxycodone HCl 5 MG Q6P PRN 01/12 2145 DC 01/14 PO 2049 Patient Medication 1 ED .STK-MED ONE 01/14 1435 DC Teaching ED 01/14 1436 Potassium Chloride 40 MEQ ONCE ONE 01/15 0815 DC 01/15 PO 01/15 0816 0807 Sodium Chloride 1,000 ML Q5H 01/13 0145 AC 01/15 IV 0505 Sodium Phosphate 15 mMol ONE ONE 01/14 0900 DC 01/14 Dextrose/Water 250 ML IV 01/14 1303 1138 Vital Signs & I&O Last 24 Hrs of Vitals and I&O: Vital Signs Date Time Temp Pulse Resp B/P B/P Pulse O2 O2 Flow FiO2 Mean Ox Delivery Rate 01/15 07 98.1 74 15 106/61 97 Room Air 06/03 0600 98.9 66 24 118/66 06/03 0400 98.9 68 23 113/67 06/03 0400 96 Room Air 06/03 0000 98.5 72 24 119/72 06/03 0000 98 Room Air 06/02 2300 98.5 76 25 110/70 95 Room Air 06/02 2200 98.3 76 10 110/70 06/02 2148 Room Air Room Air /1999 98.1 79 29 110/60 06/ 2000 99 Room Air / 1800 97.1 83 22 121/80 06/02 1600 97.1 94 24 124/76 06/02 1600 97.1 74 20 124/76 100 Room Air 06/02 1400 80 20 124/81 06/02 1200 97.9 70 20 120/80 Intake & Output 01/15 1600 01/15 0800 01/15 0000 Intake Total 2029 2009 Output Total 1840 2480 Balance 190 -470 Intake, IV 1480 1460 Intake, Oral 550 550 Output, Urine 1840 2480 Impression/Plan Impression/Plan Impression/Plan: Physical Exam: General Appearance: well developed/nourished, no apparent distress, alert, awake , comfortable Respiratory: normal breath sounds, chest non-tender, no respiratory distress Cardiovascular: regular rate/rhythm Gastrointestinal: normal bowel sounds, soft, non-tender, no organomegaly Extremities: normal inspection, normal capillary refill, no edema; suprapatellar tenderness. Neurologic/Psych: no motor/sensory deficits, awake, alert, oriented x 3 Skin: intact, yellowing of the skin (spray simon) Lymphatic: no anterior cervical julianna Impression This is a 26-year-old lady with history of significant drug use with high fever cocaine intoxication with previous history of psychiatric history, polysubstance history who has been on Suboxone, latuda and mirtazapine now with Very high fever severe rhabdomyolysis, paranoid features with altered mental status with acute renal failure which is slowly improving highly suggestive of cocaine overdose causing rhabdo compounded by probable side effects from her medication she is on and combination thereof * REsolved Severe lactic acidosis due to low flow state * Severe Rhabdo with resoving acute renal failure * Signs and symptoms suggestive of liver dysfunction versus hypoxemic liver injury with high INR low platelets now improving * Low platelets with no sig microangiopathic features - now with evidence of combination of drug induced, Rhadoinduced, liver injury induced thrombocytopenia. High inr with low grade DIC with liver injury * History of Significant psychosis probably a combination of multiple drugs she has taken REC COnt IVF and monitor urineoutput regularly One dose of po lasix 40 and give potassium 40 po Can check labs daily from today See Heme note and renal note Use prn oxycodone for pain to avoid withdrawal and lorazepam po aswell prn see psych note Ok to the floor later today under hospitalist bernice
--- NOTE | 2017-01-15 11:02 | PN- Resident CRCU ---
Subjective HPI/CRCU Issues: No overnight events, offers no complaints. Objective Vital Signs & I&O Last 8 Hrs of Vitals and I&O: Per EMR Exam General Appearance: well developed/nourished, no apparent distress, alert, awake Head: atraumatic Respiratory: normal breath sounds, chest non-tender, no respiratory distress Cardiovascular: regular rate/rhythm Gastrointestinal: normal bowel sounds, soft, non-tender Current Medications: Current Medications Sig/Aydin Start time Last Medication Dose Route Stop Time Status Admin Calcium Carbonate 1,250 MG DAILY 01/14 1000 DC 01/15 PO 01/15 1100 0802 Lorazepam 1 MG Q2 HRS NEEDED PRN 01/12 2130 AC IV Magnesium Sulfate 1 GM ONCE ONE 01/15 0800 AC 01/15 Dextrose/Water 100 ML IV 01/15 1159 0802 Magnesium Sulfate 1 GM ONCE ONE 01/15 0645 DC 01/15 Dextrose/Water 100 ML IV 01/15 0744 0648 Morphine Sulfate 2 MG Q4P PRN 01/12 2145 DC IV Nitroglycerin 0.5 GM Q6P PRN 01/12 2245 DC TOP Oxycodone HCl 5 MG .STK-MED ONE 01/14 2049 DC PO 01/14 2050 Oxycodone HCl 5 MG Q6P PRN 01/12 2145 DC 01/14 PO 2049 Patient Medication 1 ED .STK-MED ONE 01/14 1435 DC Teaching ED 01/14 1436 Potassium Chloride 40 MEQ ONCE ONE 01/15 0815 DC 01/15 PO 01/15 0816 0807 Sodium Chloride 1,000 ML Q5H / 0145 AC 01/15 IV 0505 Sodium Phosphate 15 mMol ONE ONE 01/14 0900 DC 01/14 Dextrose/Water 250 ML IV 01/14 1303 1138 Impression/Plan Impression/Problem List Impression: Assessment - 1. Altered mental status due to cocaine overdose, resolved 2. Rhabdomyolysis, resolving 3. Transaminitis 4. Severe sepsis, resolved 5. Positive troponin, likely secondary to demand ischemia 6. Bipolar disorder 7. Thrombocytopenia 8. Acute kidney injury, resolved Plan- Continue IV fluids normal saline at 200 mL/h Creatinine kinase today is improving to 52,000, continue daily quantification through the lab Psych recommendations appreciated NAM resolved however will continue IV fluids for rhabdomyolysis Replete electrolytes 1 dose of by mouth Lasix 40 mg Downgraded to general med Problem List: 1. Cocaine abuse 2. Rhabdomyolysis Pain Ratin Tomorrow's Labs & Rationales: Per EMR Plan DVT/Prophylaxis: mechanical
[2017-01-16] VITALS (10 sets, daily range): BP systolic 110–120; BP diastolic 60–80
--- NOTE | 2017-01-16 12:53 | PN- Att Addend ---
Attending Addendum Attending Brief Note 26-year-old female with history of polysubstance abuse and bipolar disorder came with altered mental status secondary to cocaine intoxication, acute renal failure because of severe rhabdomyolysis, was initially treated in ICU, transferred to the floors after being stabilized. Her kidney function has improved and her CK levels have been trending down. Currently patient is feeling better. Is complaining of pain/burning in her tongue, and is not able to eat because of the same. Otherwise does not offer any complaints. Vital Signs Date Time Temp Pulse Resp B/P B/P Pulse O2 O2 Flow FiO2 Mean Ox Delivery Rate 01/16 0800 Room Air / 0701 98.8 67 18 112/60 99 Room Air / 0600 99.0 67 18 112/68 /04 0400 99.0 67 18 112/68 / 0208 99.0 67 18 112/68 96 Room Air / 0200 99.0 67 18 112/68 /03 2322 100.0 70 20 120/62 06/03 2219 100.0 70 20 120/62 97 Room Air /03 2200 99.1 73 20 124/76 06/03 2000 99.1 73 20 124/76 06/03 1942 99.1 73 20 124/76 97 Room Air 06/03 1800 97.0 78 22 126/71 06/03 1600 97.0 76 20 126/71 06/03 1600 97.0 76 20 126/71 96 Room Air Intake & Output / 1600 /04 0800 /04 0000 Intake Total 200 850 Output Total 1300 1050 Balance -1100 -200 Intake, IV 600 Intake, Oral 200 250 Output, Urine 1300 1050 Physical exam Alert, awake, oriented, no distress Oral thrush present Lungs-clear, no wheeze, rales Heart- S1-S2 heard, normal, regular rate and rhythm, no murmur Abdomen- ND,NT,BS + Extremities-no edema Laboratory Tests 01/16 0735 Chemistry Sodium (137 - 145 mmol/L) 139 Potassium (3.5 - 5.1 mmol/L) 3.7 Chloride (98 - 107 mmol/L) 103 Carbon Dioxide (22 - 30 mmol/L) 31 H Anion Gap (5 - 16) 5 BUN (7 - 17 mg/dL) 5 L Creatinine (0.5 - 1.0 mg/dL) 0.8 Estimated GFR (>60 ml/min) > 60 BUN/Creatinine Ratio (7 - 25 %) 6.3 L Magnesium (1.6 - 2.3 mg/dL) 1.4 L Creatine Kinase (30 - 135 U/L) 04638 H Recommendations: 1. Continue IV fluids normal saline, monitor urine output. Watch for fluid overload, use Lasix if needed. 2. Start nystatin suspension for oral thrush 3. Recheck creatinine kinase for tomorrow's lab. 4. Follow-up psych 5. Replete electrolytes as needed
[2017-01-17] VITALS (7 sets, daily range): BP systolic 100–116; BP diastolic 58–70
--- NOTE | 2017-01-17 07:58 | PN- Housestaff ---
TITI ALBERTS,JOVITA 01/17/17 0758: Subjective Follow-up For: Cocaine overdose, a care secondary to rhabdomyolysis, bipolar disorder, thrush, hypokalemia, hypomagnesemia Complaints: thrush Subjective: I followed up and examined the patient today. She is resting comfortably in bed , is not in distress, has mother by the bedside, and allowed to be interviewed in front of her mother. She does not have any new complaints, other than difficulty swallowing, thus drinking. Of note, IV fluids running at 200 mL per hour. She mentioned that maybe psychiatric consultation could help her mental condition. Review of Systems Constitutional: Reports: see HPI. Objective Last 24 Hrs of Vital Signs/I&O Vital Signs Date Time Temp Pulse Resp B/P B/P Pulse O2 O2 Flow FiO2 Mean Ox Delivery Rate 01/17 1410 99.0 66 20 112/70 97 / 1013 98.2 68 18 106/70 97 Room Air 06/ 0800 99.7 72 20 110/58 06/05 0649 99.7 72 20 110/58 94 Room Air / 0202 99.0 72 20 116/66 96 Room Air 06/04 2205 99.2 69 20 110/60 95 Room Air 06/04 2000 99.2 81 16 118/64 Intake & Output 01/17 1600 / 0800 01/17 0000 Intake Total 2150 1600 3100 Output Total 456 555 5961 Balance 1375 1100 1600 Intake, IV 1600 1600 1600 Intake, Oral 550 1500 Output, Urine 892 984 2874 Physical Exam General Appearance: Alert, Oriented X3, Cooperative, No Acute Distress Other Physical Findings: Well-built, otherwise healthy-appearing 26-year-old female with normal physical examination. She denies suicidal or homicidal ideation. And does not have signs and symptoms of fluid overload. Of note, IV fluids running at 200 mL per hour. Current Medications: Current Medications Sig/Aydin Start time Last Medication Dose Route Stop Time Status Admin Docusate Sodium 100 MG BID 01/17 1446 AC 01/17 PO 1638 Fluconazole 100 MG ONCE ONE 01/17 1430 CAN PO 01/17 1431 Fluconazole 100 MG DAILY 01/17 1027 AC 01/17 PO 1358 Ibuprofen 600 MG .STK-MED ONE 01/17 0610 DC PO 01/17 0611 Lorazepam 1 MG BID PRN 01/15 1115 AC PO Magnesium Sulfate 1 GM ONCE ONE 01/16 1800 DC 01/16 Dextrose/Water 100 ML IV 01/16 2159 1947 Melatonin 10 MG AT BEDTIME 01/17 220 AC PO Nystatin 5 ML 4 TIMES/DAY 01/16 1126 AC 01/17 PO 1638 Oxycodone HCl 5 MG .STK-MED ONE 01/17 0622 DC PO 01/17 0623 Oxycodone HCl 5 MG .STK-MED ONE 01/16 2319 DC PO 01/16 2320 Oxycodone HCl 5 MG Q6P PRN 01/15 1115 AC 01/17 PO 1221 Polyethylene Glycol 17 GM DAILY PRN 01/16 1545 AC 01/16 PO 1709 Senna/Docusate Sodium 2 TAB DAILY PRN 01/16 1545 AC 01/16 PO 1708 Sodium Chloride 1,000 ML Q5H 01/13 0145 AC 01/17 IV 1638 Last 24 Hrs of Lab/Anup Results Last 24 Hrs of Labs/Mics: Laboratory Tests 01/17/17 0710: Anion Gap 3 L, Estimated GFR > 60, BUN/Creatinine Ratio 7.1, Magnesium 1.7, Creatine Kinase 84729 H, CBC w Diff NO MAN DIFF REQ, RBC 4.11 L, MCV 90.5, MCH 30.5, RDW 12.7, MPV 8.9, Gran % 77.0 H, Lymphocytes % 18.0 L, Monocytes % 3.8, Eosinophils % 0.8, Basophils % 0.4, Absolute Granulocytes 6.7 H, Absolute Lymphocytes 1.6, Absolute Monocytes 0.3, Absolute Eosinophils 0.1, Absolute Basophils 0, PUBS MCHC 33.7 Assessment/Plan Assessment: 26-year-old female with past medical history of polysubstance abuse, bipolar disorder, who presented to the emergency department with altered mental status, was initially placed in the ICU for cocaine intoxication, acute renal failure secondary to rhabdomyolysis, and other medical conditions. She is currently being managed in the general medical floor for the following issues: #Acute kidney injury, secondary to rhabdomyolysis Patient has high trekking kinase, creatinine is decreasing though, and is admitted to rhabdomyolysis. * We will continue of fluids running at 200 mL per hour, encourage her oral intake as much as possible. * Strict I/O charting * Creatine kinase on admission was greater than 32,000, which is the lab limit, yesterday was 20,161, and today's creatinine kinase is 22,474. If this trend continues, she can be discharged to [facility] when creatinine kinase level is just around 10,000. #Cocaine overdose, symptoms seemed to have resolved #Bipolar disorder, psychiatric service following, who suggested ordering melatonin 10 mg at bedtime, followed. #Altered mental status, improved Sepsis, improved #Thrush With clinical picture, patient seems to have a white coated layer of oral thrush , but because the pain is upon swollowing as well, consider esophageal candidiasis. Fluconazole ordered today. #Patient cannot leave AMA, if needed a PEC has to be signed by the attending physician. #Diet: Regular diet #DVT ppx: Code status: Full code Problem List: 1. Cocaine abuse 2. Thrombocytopenia 3. Rhabdomyolysis 4. Renal failure Pain Ratin Pain Location: - Pain Goal: Pain 4 or less Pain Plan: prn Tomorrow's Labs & Rationales: CBC, BEP, CK, Mg JASON GUERRERO MD 01/17/17 1753: Attending MD Review Statement Attending Statement Attending MD Statement: examined this patient, discuss w/resident/PA/EDUCATION REP, agreed w/resident/PA/EDUCATION REP, reviewed EMR data (avail) Attending Assessment/Plan: 26F PMH polysubstance abuse admitted intially to ICU with cocaine overdose and rhabdomyolysis, now downgraded to general medicine floor, course complicated by oral thrush. Patient feels well today. Denies myalgia, chest pain, palpitations. Reports odynophagia and mouth pain. On exam, tongue and pharyngeal white plaques are noted. CK is >20,000, renal function normal. 1. Rhabdomyolysis 2. Cocaine overdose 3. Candidal esophagitis 4. Polysubstance abuse Plan - Continue on general medicine - Continue normal saline 200mL/hr - Monitor renal function and CPK level - Start Fluconazole - Continue Nystatin swish and swallow - Follow psychiatry recommendations - DVT PPx
[2017-01-17 08:18] LABS: ABSOLUTE BASOPHIL COUNT 0 /CUMM (0.0-0.2); ABSOLUTE EOSINOPHIL COUNT 0.1 /CUMM (0.0-0.7); MEAN PLATELET VOLUME 8.9 FL (7.4-10.4); RBC DISTRIBUTION WIDTH 12.7 % (11.5-14.5); WHITE BLOOD CELL COUNT 8.7 /CUMM (4.8-10.8)
[2017-01-17 08:40] LABS: ABSOLUTE GRANULOCYTE CT 6.7 /CUMM (1.4-6.5); ABSOLUTE LYMPH COUNT 1.6 /CUMM (1.2-3.4); ABSOLUTE MONOCYTE COUNT 0.3 /CUMM (0.10-0.60); BASOPHIL % 0.4 % (0.0-2.0); EOSINOPHIL % 0.8 % (0-5); HEMATOCRIT 37.2 % (37-47); MEAN CORPUSCULAR HGB 30.5 PG (27.0-31.0); MEAN CORPUSCULAR HGB CONC 33.7 G/DL (33.0-37.0); MEAN CORPUSCULAR VOLUME 90.5 FL (81.0-99.0); RED BLOOD CELL CT 4.11 /CUMM (4.20-5.40)
[2017-01-17 08:44] LABS: PLATELET COUNT 120 /CUMM (130-400)
--- NOTE | 2017-01-17 09:56 | PN- Psychiatry ---
Assessment/Plan Impression: Identifying Info: 26-year-old single female brought in by ambulance on 01/12/2017 for altered mental status, she has a h/o Bipolar d/o. Admitted to the critical care unit with probable overdose on cocaine and psychotropic medications. Consult requested for OD, paranoia, and hallucinations. SUBJECTIVE Patient reports she is feeling "better I guess," endorses anxiety and depression. Continued paranoia but states it has improved some. Feels safe here in hospital but fears it would worsen at home. Endorses poor sleep and requesting medication. Reports she has not gotten her suboxone due to having pain meds. Denies any symptoms of withdrawl. Continue to be agreeable for inpatient psych. Brief ROS Gait:Ambulated to chair 1x Sleep: Poor Appetite: Adequate OBJECTIVE Mental Status Exam Presentation/Appearance: Calm, cooperative with evaluation. Hospital garb. Less unkempt. Orientation: x4 Sensorium: Awake and alert Eye contact: Appropriate Affect: Somewhat blunted/restricted Mood: "Better" Depression: Endorses Anxiety: Endorses Thought Content: - Endorses paranoid ideation - Denies SI/HI, AH/VH. States and also believes they will not kill themselves. - Denies Hopeless/Helpless Thoughts Thought Process: More linear Associations: Appropriate Speech: Normal tone and rate Judgment: Poor Insight: Poor Cognition: Memory: Recent deficits Attention/Concentration: Grossly intact Fund of Knowledge: Did not assess Abstractions:Did not assess MMSE: Did not assess House staff report the patient continues to improve and her lab numbers are trending well. Hope to have medical clearance within the next 2 days. ASSESSMENT Patient presents with altered mental status in the context of probable crack cocaine intoxication as well as reported overdose on psychotropic medications. Altered mental status on admission is resolving but paranoia continues. At present her current paranoia as well as recent unitentional overdose warrant inpatient psychiatric hospitalization post medical clearance. Diagnosis Delirium due to multiple etiologies, resolving Unspecified bipolar disorder Rule out substance induced psychotic disorder Rule out Schizoaffective disorder Rule out unspecified trauma or stressor related disorder A total of 30 minutes was spent with the patient with more than 50% of the time spent in counseling and/or coordination of care. Suggestion: 1. Patient may not leave AMA without psychiatry clearance. If she does attempt to leave AMA plan to place her on the PEC and start sitter, however would prefer to encourage patient to sign in voluntarily for psychiatric admission. 2. No sitter required at present but continue to evaluate need. Patient is not imminent threat to self but if she becomes elopement risk a sitter will be required. 3. Continue PRN Ativan for anxiety. 4. Please start melatonin 10mg PO daily at bedtime. Thank you for including psychiatry in this case we'll continue to follow. Subjective Subjective: as above Objective Last 24 Hrs of Vital Signs/I&O Current Medications Sig/Aydin Start time Last Medication Dose Route Stop Time Status Admin Lorazepam 1 MG BID PRN 01/15 1115 AC PO Magnesium Sulfate 1 GM ONCE ONE 01/16 1800 DC 01/16 Dextrose/Water 100 ML IV 01/16 2159 1947 Nystatin 5 ML 4 TIMES/DAY 01/16 1126 AC 01/17 PO 0816 Oxycodone HCl 5 MG .STK-MED ONE 01/16 2319 DC PO 01/16 2320 Oxycodone HCl 5 MG .STK-MED ONE 01/16 1708 DC PO 01/16 1709 Oxycodone HCl 5 MG .STK-MED ONE 01/16 1115 DC PO 01/16 1116 Oxycodone HCl 5 MG Q6P PRN 01/15 1115 AC 01/17 PO 0621 Polyethylene Glycol 17 GM DAILY PRN 01/16 1545 AC 01/16 PO 1709 Senna/Docusate Sodium 2 TAB DAILY PRN 01/16 1545 AC 01/16 PO 1708 Sodium Chloride 1,000 ML Q5H 01/13 0145 01/17 IV 0623 Laboratory Tests 01/17/17 0710: Anion Gap 3 L, Estimated GFR > 60, BUN/Creatinine Ratio 7.1, Magnesium 1.7, Creatine Kinase 09559 H, CBC w Diff NO MAN DIFF REQ, RBC 4.11 L, MCV 90.5, MCH 30.5, RDW 12.7, MPV 8.9, Gran % 77.0 H, Lymphocytes % 18.0 L, Monocytes % 3.8, Eosinophils % 0.8, Basophils % 0.4, Absolute Granulocytes 6.7 H, Absolute Lymphocytes 1.6, Absolute Monocytes 0.3, Absolute Eosinophils 0.1, Absolute Basophils 0, PUBS MCHC 33.7 Vital Signs Date Time Temp Pulse Resp B/P B/P Pulse O2 O2 Flow FiO2 Mean Ox Delivery Rate 01/17 0800 99.7 72 20 110/58 06/05 0649 99.7 72 20 110/58 94 Room Air 06/ 0202 99.0 72 20 116/66 96 Room Air 06/ 2205 99.2 69 20 110/60 95 Room Air 06/ 2000 99.2 81 16 118/64 06/04 1816 99.3 80 20 120/70 97 Room Air 06/ 1600 97.8 74 16 120/78 06/04 1406 98.0 67 20 120/80 97 Intake & Output / 1600 06/05 0800 06/ 0000 Intake Total 1600 3100 Output Total 500 1500 Balance 1100 1600 Intake, IV 1600 1600 Intake, Oral 1500 Output, Urine 500 1500
--- NOTE | 2017-01-17 12:14 | PN- Hematology ---
Subjective Subjective: She denies any new symptoms. She has no new pain. She denies any bleeding. She has not had any fever or chills. Review of Systems: Constitutional: Denies: chills, fever. Cardiovascular: Denies: chest pain, palpitations. Respiratory: Denies: short of breath. Gastrointestinal: Denies: abdominal pain, nausea, vomiting. Musculoskeletal: Reports: see HPI. Hematologic/Endocrine: Reports: bruising. Denies: bleeding. All Other Systems: Reviewed and Negative Objective Vital Signs and I&Os Vital Signs Date Time Temp Pulse Resp B/P B/P Pulse O2 O2 Flow FiO2 Mean Ox Delivery Rate 01/17 1013 98.2 68 18 106/70 97 Room Air /05 0800 99.7 72 20 110/58 06/05 0649 99.7 72 20 110/58 94 Room Air 06/05 0202 99.0 72 20 116/66 96 Room Air / 2205 99.2 69 20 110/60 95 Room Air /04 2000 99.2 81 16 118/64 0604 1816 99.3 80 20 120/70 97 Room Air 06/04 1600 97.8 74 16 120/78 06/04 1406 98.0 67 20 120/80 97 Intake & Output / 1600 /05 0800 /05 0000 /04 1600 /04 0800 /04 0000 Intake Total 1600 3100 2200 200 850 Output Total 500 4580 274 8631 1050 Balance 1100 1600 1500 -1100 -200 Intake, IV 1600 1600 1600 600 Intake, Oral 1500 600 200 250 Output, Urine 500 4220 231 4196 1050 Physical Exam: General Appearance: well developed/nourished, no apparent distress, alert, awake , comfortable Respiratory: normal breath sounds, chest non-tender, no respiratory distress Cardiovascular: regular rate/rhythm Gastrointestinal: normal bowel sounds, soft, non-tender, no organomegaly Extremities: normal inspection, normal capillary refill, no edema; suprapatellar tenderness. Neurologic/Psych: no motor/sensory deficits, awake, alert, oriented x 3 Skin: intact Lymphatic: no anterior cervical julianna Current Medications: Current Medications Sig/Aydin Start time Last Medication Dose Route Stop Time Status Admin Fluconazole 100 MG DAILY 01/17 1027 AC PO Lorazepam 1 MG BID PRN 01/15 1115 AC PO Magnesium Sulfate 1 GM ONCE ONE 01/16 1800 DC 01/16 Dextrose/Water 100 ML IV 01/16 2159 1947 Melatonin 10 MG AT BEDTIME 01/17 2200 AC PO Nystatin 5 ML 4 TIMES/DAY 01/16 1126 AC 01/17 PO 0816 Oxycodone HCl 5 MG .STK-MED ONE 01/16 2319 DC PO 01/16 2320 Oxycodone HCl 5 MG .STK-MED ONE 01/16 1708 DC PO 01/16 1709 Oxycodone HCl 5 MG Q6P PRN 01/15 1115 AC 01/17 PO 0621 Polyethylene Glycol 17 GM DAILY PRN 01/16 1545 AC 01/16 PO 1709 Senna/Docusate Sodium 2 TAB DAILY PRN 01/16 1545 AC 01/16 PO 1708 Sodium Chloride 1,000 ML Q5H 01/13 0145 AC 01/17 IV 1130 Results Last 24 Hours of Lab Results: Laboratory Tests 01/17 0710 Chemistry Sodium (137 - 145 mmol/L) 136 L Potassium (3.5 - 5.1 mmol/L) 4.0 Chloride (98 - 107 mmol/L) 105 Carbon Dioxide (22 - 30 mmol/L) 28 Anion Gap (5 - 16) 3 L BUN (7 - 17 mg/dL) 5 L Creatinine (0.5 - 1.0 mg/dL) 0.7 Estimated GFR (>60 ml/min) > 60 BUN/Creatinine Ratio (7 - 25 %) 7.1 Magnesium (1.6 - 2.3 mg/dL) 1.7 Creatine Kinase (30 - 135 U/L) 60551 H Hematology CBC w Diff NO MAN DIFF REQ WBC (4.8 - 10.8 /CUMM) 8.7 RBC (4.20 - 5.40 /CUMM) 4.11 L Hgb (12.0 - 16.0 G/DL) 12.5 Hct (37 - 47 %) 37.2 MCV (81.0 - 99.0 FL) 90.5 MCH (27.0 - 31.0 PG) 30.5 RDW (11.5 - 14.5 %) 12.7 Plt Count (130 - 400 /CUMM) 120 L MPV (7.4 - 10.4 FL) 8.9 Gran % (42.2 - 75.2 %) 77.0 H Lymphocytes % (20.5 - 51.1 %) 18.0 L Monocytes % (1.7 - 9.3 %) 3.8 Eosinophils % (0 - 5 %) 0.8 Basophils % (0.0 - 2.0 %) 0.4 Absolute Granulocytes (1.4 - 6.5 /CUMM) 6.7 H Absolute Lymphocytes (1.2 - 3.4 /CUMM) 1.6 Absolute Monocytes (0.10 - 0.60 /CUMM) 0.3 Absolute Eosinophils (0.0 - 0.7 /CUMM) 0.1 Absolute Basophils (0.0 - 0.2 /CUMM) 0 PUBS MCHC (33.0 - 37.0 G/DL) 33.7 Assessment/Plan Assessment/Recommendations: Ms. Sandhu is a 26-year-old female with bipolar disorder and polysubstance abuse who presented to the hospital after found to have AMS at her neighbor house. She was tested positive for cocaine in her urine. There are concerns for overdose of other medications she is also taking. She presented with fever, elevated LDH, elevated CK, elevated creatinine, and elevated LFT. Her platelet also dropped from 266,000 from 01/12 to 65,000 on 01/13. Thrombocytopenia is likely related to medications versus rhabdomyolysis/DIC. This is improving now to 120,000. DIC evaluation has been demonstrating improvement. Her CBC can be monitored daily. Recommendations: 1. Monitor CBC daily Please call [phone] with any questions or concerns. Problem List: 1. Thrombocytopenia 2. Cocaine abuse 3. Rhabdomyolysis 4. Renal failure
[2017-01-17 20:56] LABS: PT 11.8 SEC (9.4-12.5); PTT 33 SEC (25-37)
--- NOTE | 2017-01-17 22:20 | NUR ---
SHIFT NOTE- PT A/O X 3, ON RA, C/O BURNING SENSATION/ PAIN TO TIP OF TONGUE. WHITE COATING NOTED TO TONGUE. ON NYSTATIN SWISH AND SWALLOW- GIVEN ORDERED. SKIN INTACT. CRAMER DRAINING YELLOW URINE. ON NS @ 200 ML/HR. C/O GENERAL ACHES TO LEFT SHOULDER AND ARM. PRN OXYCODONE GIVEN. RICE SOCK APPLIED PRN. CALM, COOPERATIVE. CIWAS 0 THROUGHOUT SHIFT. CALL RECEIVED FROM [facility] TO CHECK ON PT. SUGGESTED TO DRAW AST/ALT AND INR LEVELS. CALL PLACED TO BOILERMAKER WELDER TO MAKE AWARE. PT HAD ONE VISITOR- MOM, DURING SHIFT. WILL CONTINUE TO MONITOR
[2017-01-18 02:00] VITALS: BP 110/72
[2017-01-18 02:18] VITALS: BP 110/72
[2017-01-18 06:00] VITALS: BP 96/62
--- NOTE | 2017-01-18 06:08 | PN- Housestaff ---
See Addendum Subjective Follow-up For: Cocaine overdose Rhabdomyolysis Suicidal ideation Subjective: Patient seen and examined this morning. Resting comfortably in bed with no acute complaints. Reports a significant improvement in muscle cramps. Denies any fever , chills, chest discomfort, palpitations, abdominal pain, nausea, vomiting, headache. No events reported overnight. Review of Systems Constitutional: Reports: see HPI. Objective Last 24 Hrs of Vital Signs/I&O Vital Signs Date Time Temp Pulse Resp B/P B/P Pulse O2 O2 Flow FiO2 Mean Ox Delivery Rate 01/18 0600 98.0 68 16 96/62 96 Room Air 01/18 0218 97.9 74 16 110/72 98 Room Air 01/18 0200 97.9 74 16 110/72 01/17 2222 98.6 74 20 100/70 97 Room Air 01/17 1857 98.5 71 20 102/62 99 Room Air 01/17 1410 99.0 66 20 112/70 97 /05 1013 98.2 68 18 106/70 97 Room Air Intake & Output 01/18 1600 01/18 0800 01/18 0000 Intake Total 1600 1600 Output Total 850 2400 Balance 750 -800 Intake, IV 1600 1600 Output, Urine 850 2400 Physical Exam General Appearance: Alert, Oriented X3, Cooperative, No Acute Distress Other Physical Findings: Skin erythema and cut cifuentes on both legs below the knee Skin Temp/Moisture Exam: Warm/Dry Sepsis Skin Exam (color): Normal for Ethnicity HEENT Atraumatic, EOMI, very dry mucous membranes, pupils sluggish but reactive to light Cardiovascular Normal S1, Normal S2, tachycardia Lungs Clear to Auscultation, Normal Air Movement Abdomen Normal Bowel Sounds, Soft, No Tenderness Neurological Sensation Intact, Cranial Nerves 3-12 NL, Reflexes 2+, power 4/5 in all 4 extremities Vascular Normal Pulses Current Medications: Current Medications Sig/Aydin Start time Last Medication Dose Route Stop Time Status Admin Docusate Sodium 100 MG BID 01/17 1446 AC 01/17 PO 1638 Fluconazole 100 MG ONCE ONE 01/17 1430 CAN PO 01/17 1431 Fluconazole 100 MG DAILY 01/17 1027 AC 01/17 PO 1358 Lorazepam 1 MG BID PRN 01/15 1115 AC PO Melatonin 10 MG AT BEDTIME 01/17 2200 AC 01/17 PO 2244 Nystatin 5 ML 4 TIMES/DAY 01/16 1126 AC 01/17 PO 2033 Oxycodone HCl 5 MG .STK-MED ONE 01/17 203 DC PO 01/17 203 Oxycodone HCl 5 MG .STK-MED ONE 01/17 1221 DC PO 01/17 1222 Oxycodone HCl 5 MG Q6P PRN 01/15 1115 AC 01/18 PO 0741 Polyethylene Glycol 17 GM DAILY PRN 01/16 1545 AC 01/16 PO 1709 Senna/Docusate Sodium 2 TAB DAILY PRN 01/16 1545 AC 01/16 PO 1708 Sodium Chloride 1,000 ML Q5H 01/13 0145 AC 01/18 IV 0734 Last 24 Hrs of Lab/Anup Results Last 24 Hrs of Labs/Mics: Laboratory Tests 01/18/17 0710: Anion Gap 4 L, Estimated GFR > 60, BUN/Creatinine Ratio 8.6, Magnesium 1.6, Creatine Kinase Pending, CBC w Diff Pending, WBC Pending, RBC Pending, Hgb Pending, Hct Pending, MCV Pending, MCH Pending, RDW Pending, Plt Count Pending, MPV Pending, PUBS MCHC Pending 01/17/172014: Total Bilirubin 1.2, Direct Bilirubin 0.2, AST 536 H, ALT 452 H, Alkaline Phosphatase 40, Total Protein 4.9 L, Albumin 2.8 L, PT 11.8, INR 1.13, APTT 33 Assessment/Plan Assessment: 26-year-old female with past medical history of polysubstance abuse, bipolar disorder, who presented to the emergency department with altered mental status, was initially placed in the ICU for cocaine intoxication, acute renal failure secondary to rhabdomyolysis, and other medical conditions. # Rhabdomyolysis Creatine kinase on admission > 32,000, trending down since then. Goal for discharge is below 10,000. * Adequate IV hydration with NS at 200 cc/hr * Trend CPK until it reaches 10,000 * Strict I/Os # NAM Most likely 2/2 rhabdo. * Monitor BEP daily, trend renal fx * IV hydration as above # Cocaine overdose in the setting of Bipolar d/o & SI Currently remains HDS and alert & oreinted x 3. * Psych following, appreciate resc * Cont melatonin 10mg qHS * PRN Ativan for anxiety * Patient to be tras[facility]ferred to [facility] upon discharge * Patient not to leave AMA without psychiatry clearance. * Trend LFTs, platelets and creatinine - improving # Thrombocytopenia - improving Her platelet also dropped from 266,000 from 01/12 to 65,000 on 01/13. Thrombocytopenia most likely 2/2 rhabdomyolysis/DIC. * Cont to monitor CBC daily, trend platelet # Thrush With clinical picture, patient seems to have a white coated layer of oral thrush , but because the pain is upon swollowing as well, consider esophageal candidiasis. * Cont fluconazole *Patient cannot leave AMA, if needed a PEC has to be signed by the attending physician.* #Diet: Regular diet #DVT ppx: Code status: Full code Problem List: 1. Cocaine abuse 2. Rhabdomyolysis 3. Thrombocytopenia 4. Renal failure 5. Depression Pain Ratin Pain Location: LUE - musc cramp Pain Goal: Remain pain free Pain Plan: Mild pathway Tomorrow's Labs & Rationales: CBC BEP LFTs CPK
[2017-01-18 08:49] LABS: ABSOLUTE BASOPHIL COUNT 0 /CUMM (0.0-0.2); ABSOLUTE EOSINOPHIL COUNT 0.1 /CUMM (0.0-0.7); ABSOLUTE GRANULOCYTE CT 5.3 /CUMM (1.4-6.5); ABSOLUTE LYMPH COUNT 1.6 /CUMM (1.2-3.4); ABSOLUTE MONOCYTE COUNT 0.2 /CUMM (0.10-0.60); BASOPHIL % 0.4 % (0.0-2.0); EOSINOPHIL % 0.7 % (0-5); GRANULOCYTE % 73.3 % (42.2-75.2); HEMATOCRIT 35.3 % (37-47); MEAN CORPUSCULAR HGB 30.3 PG (27.0-31.0); MEAN CORPUSCULAR HGB CONC 33.7 G/DL (33.0-37.0); MEAN PLATELET VOLUME 8.7 FL (7.4-10.4); PLATELET COUNT 153 /CUMM (130-400); RBC DISTRIBUTION WIDTH 12.6 % (11.5-14.5); RED BLOOD CELL CT 3.93 /CUMM (4.20-5.40); WHITE BLOOD CELL COUNT 7.2 /CUMM (4.8-10.8)
--- NOTE | 2017-01-18 09:38 | PN- Psychiatry ---
Assessment/Plan Impression: Identifying Info: 26-year-old single female brought in by ambulance on 01/12/2017 for altered mental status, she has a h/o Bipolar d/o. Admitted to the critical care unit with probable overdose on cocaine and psychotropic medications. Consult requested for OD, paranoia, and hallucinations. SUBJECTIVE Intrerview patient with mother present with her permission. Continued high anxiety. Today reports mood lability, often finding herself beinging tearful with minimal precipitating incident. Pt today reports she would like to go home. Explained medical clearance and need for PEC due to mood, paranoia and recent overdose. Educated on PEC and need for sitter. Pt tearful r/t want to go home. Offered Probable cause but declines. States she feels she has no control over any part of her life. Anxious r/t legal situation, afraid of going to nursing home. Offered but declines PRN medication. Brief ROS Gait: Unobserved Sleep: Fair Appetite: Adequate OBJECTIVE Mental Status Exam Presentation/Appearance: Cooperative with evaluation. Hospital garb. Somewhat labile Orientation: x4 Sensorium: Awake and alert Eye contact: Fair Affect: Somewhat blunted, frequently tearful Mood: "Scared" Depression: Endorses Anxiety: Endorses Thought Content: - Endorses paranoid ideation - Denies SI/HI, AH/VH. States and also believes they will not kill themselves. - Denies Hopeless/Helpless Thoughts Thought Process: More linear Associations: Appropriate Speech: Normal tone and rate Judgment: Poor Insight: Poor Cognition: Memory: Recent deficits Attention/Concentration: Grossly intact Fund of Knowledge: Did not assess Abstractions:Did not assess MMSE: Did not assess Per House staff CK has gotten worse and medical clearance may be delayed. ASSESSMENT Patient presents with altered mental status in the context of probable crack cocaine intoxication as well as reported overdose on psychotropic medications. Altered mental status on admission is resolving but paranoia continues. At present her current paranoia as well as recent unitentional overdose warrant inpatient psychiatric hospitalization post medical clearance. Diagnosis Delirium due to multiple etiologies, resolving Unspecified bipolar disorder Rule out substance induced psychotic disorder Rule out Schizoaffective disorder Rule out unspecified trauma or stressor related disorder A total of 45 minutes was spent with the patient with more than 50% of the time spent in counseling and/or coordination of care. Suggestion: 1. Patient may not leave AMA without psychiatry clearance. PEC written and played on chart for attending signature. 2. Please start sitter. 3. Continue PRN Ativan for anxiety. Thank you for including psychiatry in this case we'll continue to follow. Subjective Subjective: as above Objective Last 24 Hrs of Vital Signs/I&O Current Medications Sig/Aydin Start time Last Medication Dose Route Stop Time Status Admin Docusate Sodium 100 MG BID 01/17 1446 AC 01/18 PO 0929 Fluconazole 100 MG ONCE ONE 01/17 1430 CAN PO 01/17 1431 Fluconazole 100 MG DAILY 01/17 1027 AC 01/18 PO 0928 Lorazepam 1 MG BID PRN 01/15 1115 AC PO Melatonin 10 MG AT BEDTIME 01/17 2200 AC 01/17 PO 2244 Nystatin 5 ML 4 TIMES/DAY 01/16 1126 AC 01/18 PO 0928 Oxycodone HCl 5 MG .STK-MED ONE 01/18 2032 DC PO 01/17 203 Oxycodone HCl 5 MG .STK-MED ONE 01/17 1221 DC PO 01/17 1222 Oxycodone HCl 5 MG Q6P PRN 01/15 1115 AC 01/18 PO 0741 Polyethylene Glycol 17 GM DAILY PRN 01/16 1545 AC 01/16 PO 1709 Senna/Docusate Sodium 2 TAB DAILY PRN 01/16 1545 AC 01/16 PO 1708 Sodium Chloride 1,000 ML Q5H 01/13 0145 AC 01/18 IV 0734 Laboratory Tests 01/18/17 0710: Anion Gap 4 L, Estimated GFR > 60, BUN/Creatinine Ratio 8.6, Magnesium 1.6, Creatine Kinase 81278.0 H, CBC w Diff NO MAN DIFF REQ, RBC 3.93 L, MCV 90.0, MCH 30.3, RDW 12.6, MPV 8.7, Gran % 73.3, Lymphocytes % 22.2, Monocytes % 3.4, Eosinophils % 0.7, Basophils % 0.4, Absolute Granulocytes 5.3, Absolute Lymphocytes 1.6, Absolute Monocytes 0.2, Absolute Eosinophils 0.1, Absolute Basophils 0, PUBS MCHC 33.7 01/17/172014: Total Bilirubin 1.2, Direct Bilirubin 0.2, AST 536 H, ALT 452 H, Alkaline Phosphatase 40, Total Protein 4.9 L, Albumin 2.8 L, PT 11.8, INR 1.13, APTT 33 Vital Signs Date Time Temp Pulse Resp B/P B/P Pulse O2 O2 Flow FiO2 Mean Ox Delivery Rate 01/18 0600 98.0 68 16 96/62 96 Room Air 01/18 0218 97.9 74 16 110/72 98 Room Air 01/18 0200 97.9 74 16 110/72 01/17 2222 98.6 74 20 100/70 97 Room Air 01/17 1857 98.5 71 20 102/62 99 Room Air 01/17 1410 99.0 66 20 112/70 97 /05 1013 98.2 68 18 106/70 97 Room Air Intake & Output 01/18 1600 01/18 0800 06 0000 Intake Total 1600 1600 Output Total 850 2400 Balance 750 -800 Intake, IV 1600 1600 Output, Urine 850 2400
[2017-01-18 10:01] VITALS: BP 100/66
--- NOTE | 2017-01-18 11:32 | NUR ---
RECEIVED CALL FROM ENRIQUE AT [facility] REGARDING PATIENT'S STATUS. REPORT GIVEN TO ENRIQUE. WILL CALL BACK TOMORROW FOR UPDATE ON PATIENT.
--- NOTE | 2017-01-18 11:49 | PN- Hematology ---
Subjective Subjective: She is stressed about having to go to inpatient psychiatry. She feels well otherwise. Review of Systems: Constitutional: Denies: chills, fever. Cardiovascular: Denies: chest pain, palpitations. Respiratory: Denies: short of breath. Gastrointestinal: Denies: abdominal pain, nausea, vomiting. Hematologic/Endocrine: Denies: bleeding. All Other Systems: Reviewed and Negative Objective Vital Signs and I&Os Vital Signs Date Time Temp Pulse Resp B/P B/P Pulse O2 O2 Flow FiO2 Mean Ox Delivery Rate 01/18 1001 97.7 58 20 100/66 96 / 0600 98.0 68 16 96/62 96 Room Air / 0218 97.9 74 16 110/72 98 Room Air / 0200 97.9 74 16 110/72 06/05 2222 98.6 74 20 100/70 97 Room Air 06/05 1857 98.5 71 20 102/62 99 Room Air 06/05 1410 99.0 66 20 112/70 97 Intake & Output 01/18 1600 01/18 0800 /06 0000 / 1600 01/17 0800 / 0000 Intake Total 1600 1600 2150 1600 3100 Output Total 850 2400 767 063 3323 Balance 750 -800 1375 1100 1600 Intake, IV 1600 1600 1600 1600 1600 Intake, Oral 550 1500 Output, Urine 850 2400 142 306 2068 Physical Exam: General Appearance: no apparent distress, alert, awake, comfortable Respiratory: normal breath sounds, chest non-tender, no respiratory distress Cardiovascular: regular rate/rhythm Gastrointestinal: normal bowel sounds, soft, non-tender Extremities: normal inspection Neurologic/Psych: awake, alert, oriented x 3 Skin: scattered scratches and bruising Current Medications: Current Medications Sig/Aydin Start time Last Medication Dose Route Stop Time Status Admin Docusate Sodium 100 MG BID 01/17 1446 AC 01/18 PO 0929 Fluconazole 100 MG ONCE ONE 01/17 1430 CAN PO 01/17 1431 Fluconazole 100 MG DAILY 01/17 1027 AC 01/18 PO 0928 Lorazepam 1 MG BID PRN 01/15 1115 AC PO Melatonin 10 MG AT BEDTIME 01/17 2200 AC 01/17 PO 2244 Nystatin 5 ML 4 TIMES/DAY 01/16 1126 AC 01/18 PO 0928 Oxycodone HCl 5 MG .STK-MED ONE 01/18 2032 DC PO 01/17 2033 Oxycodone HCl 5 MG .STK-MED ONE 01/17 1221 DC PO 01/17 1222 Oxycodone HCl 5 MG Q6P PRN 01/15 1115 AC 01/18 PO 0741 Polyethylene Glycol 17 GM DAILY PRN 01/16 1545 AC 01/16 PO 1709 Senna/Docusate Sodium 2 TAB DAILY PRN 01/16 1545 AC 01/16 PO 1708 Sodium Chloride 1,000 ML Q5H 01/13 0145 AC 01/18 IV 1139 Results Last 24 Hours of Lab Results: Laboratory Tests 01/18 Chemistry Sodium (137 - 145 mmol/L) 139 Potassium (3.5 - 5.1 mmol/L) 4.0 Chloride (98 - 107 mmol/L) 106 Carbon Dioxide (22 - 30 mmol/L) 29 Anion Gap (5 - 16) 4 L BUN (7 - 17 mg/dL) 6 L Creatinine (0.5 - 1.0 mg/dL) 0.7 Estimated GFR (>60 ml/min) > 60 BUN/Creatinine Ratio (7 - 25 %) 8.6 Magnesium (1.6 - 2.3 mg/dL) 1.6 Total Bilirubin (0.2 - 1.3 mg/dL) 1.2 Direct Bilirubin (< 0.4 mg/dL) 0.2 AST (14 - 36 U/L) 536 H ALT (9 - 52 U/L) 452 H Alkaline Phosphatase (<127 U/L) 40 Creatine Kinase (30 - 135 U/L) 40162.0 H Total Protein (6.3 - 8.2 g/dL) 4.9 L Albumin (3.5 - 5.0 g/dL) 2.8 L Coagulation PT (9.4 - 12.5 SEC) 11.8 INR (0.90 - 1.19) 1.13 APTT (25 - 37 SEC) 33 Hematology CBC w Diff NO MAN DIFF REQ WBC (4.8 - 10.8 /CUMM) 7.2 RBC (4.20 - 5.40 /CUMM) 3.93 L Hgb (12.0 - 16.0 G/DL) 11.9 L Hct (37 - 47 %) 35.3 L MCV (81.0 - 99.0 FL) 90.0 MCH (27.0 - 31.0 PG) 30.3 RDW (11.5 - 14.5 %) 12.6 Plt Count (130 - 400 /CUMM) 153 MPV (7.4 - 10.4 FL) 8.7 Gran % (42.2 - 75.2 %) 73.3 Lymphocytes % (20.5 - 51.1 %) 22.2 Monocytes % (1.7 - 9.3 %) 3.4 Eosinophils % (0 - 5 %) 0.7 Basophils % (0.0 - 2.0 %) 0.4 Absolute Granulocytes (1.4 - 6.5 /CUMM) 5.3 Absolute Lymphocytes (1.2 - 3.4 /CUMM) 1.6 Absolute Monocytes (0.10 - 0.60 /CUMM) 0.2 Absolute Eosinophils (0.0 - 0.7 /CUMM) 0.1 Absolute Basophils (0.0 - 0.2 /CUMM) 0 PUBS MCHC (33.0 - 37.0 G/DL) 33.7 Assessment/Plan Assessment/Recommendations: Ms. Sandhu is a 26-year-old female with bipolar disorder and polysubstance abuse who presented to the hospital after found to have AMS at her neighbor house. She was tested positive for cocaine in her urine. There are concerns for overdose of other medications she is also taking. She presented with fever, elevated LDH, elevated CK, elevated creatinine, and elevated LFT. Her platelet also dropped from 266,000 from 01/12 to 65,000 on 01/13. Thrombocytopenia is likely related to medications versus rhabdomyolysis/DIC. Her platelet has normalized. She can be monitored with daily CBC. Recommendations: 1. Monitor CBC daily Please call [phone] if any new issue arises. Problem List: 1. Thrombocytopenia 2. Rhabdomyolysis 3. Altered mental status 4. Cocaine abuse
[2017-01-18 14:15] VITALS: BP 120/70
--- NOTE | 2017-01-18 14:28 | NUR ---
PATIENT ALERT AND ORIENTED X 3. CRAMER DISCONTINUED AT 1330. CONTINUOUS OBSERVATION MONITOR IN PLACE. WILL CONTINUE TO MONITOR.
--- NOTE | 2017-01-18 17:39 | Transfer of Care Summary ---
Hospital Course Course Hospital Course: Ms. Sandhu is 26-year-old female with past medical history significant for bipolar disorder who BIBA altered mental status. Patient was found tachycardic, tachypneic, tremulous with pale skin, hyperthermic with pin point pupils. EMS administered 1 amp of Narcan in the field with no improvement in her mental status. Upon arrival to the ER, she was still incoherent, tremulous and unable to answer questions. Vitals in ED: Temperature 105.6, pulse 140, respiration 22, blood pressure 131/ 61,, saturating 98% on 2 L nasal cannula. Pertinent labs showed white count of 22.4 with 3 bands, H&H of 15.4/45.6, sodium 148,Anion gap of 25, BUN 20, creatinine 2, lactic acid of 11.2, magnesium 3.2, AST 140, ALT 52, ammonia 93, creatinine kinase 8769, troponin pending, normal TFTs, beta-hCG negative. U tox positive for cocaine. Urine was pink, cloudy, more than 300 protein, large hemoglobin, 15-25 casts, nitrite negative, leukocyte esterase negative, 5-10 WBC, moderate epithelial cells. Urine test was negative. EKG shows sinus tachycardia, 1 47 bpm, TN interval 116, QTC 401, no significant ST-T wave changes and no QRS widening ABG 7.32/32/117/16 Patient received 4 mg of IV Ativan and 4 mg of IV Versed and 4 L of fluid in the ED with some improvement in clinical conditions. She was also put on a cooling blanket with temperatures improving 100.2. Patient was admitted to ICU for close monitoring total of 3 days: Problem list Altered mental status due to cocaine overdose Right hip and knee pain status post trauma Rhabdomyolysis Bipolar disorder, possible drug overdose Transaminitis Thrombocytopenia Acute onset of anemia Coagulopathy Hyperthermia--resolved Severe sepsis (white count and bandemia, hyperthermia, tachycardia, lactic acidosis, questionable aspiration)--- resolved Elevated troponins rule out ACS--- trended down Anion gap metabolic acidosis/lactic acidosis Atypical Chest pain Acute kidney injury Psychosis/agitation #Severe sepsis -Patient had blood pressure at the low side 100s over 80, heart rate 80 to 90s, denied lightheadedness, visual changes, significant chest pain, palpitation, IV fluid 200 mL/h given elevated CK, cardiology consultation was obtained for elevated troponin, last reading is 0.47 with no acute EKG changes, Echocardiogram 01/13/17 revealed normal aortic valve, mitral valve is anatomically normal with minimal to mild mitral insufficiency noted, a physiologic pericardial effusion is present, the left ventricualr chamber size and systolic function are normal wtih no resting wall motion abnormalities, minimal to mild tricuspid and pulmonic insufficiency are present with no evidence of pulmonary hypertension. #Possible aspiration pneumonia -Chest x-ray clear, patient recevied 2 days of Unasyn 1500 every 6, was discontinued because absence of signs of infection as her leukocytosis resolved and patient was afebrile. -HIV and hepatitis panel negative #New onset of anemia,thrombocytopenia -Peripheral smear didn't show any signs of schistocytes, Hematology consultation was obtained, recommendation to obtain haptoglobin negative, absolute reticulocyte count 3 elevated, LDH elevated, DIC panel: INR initially was prolonged 2.25, received vitamin K oral, Fibrinogen initially was 122, suggest DIC that's improving. #Metabolic abnormality -Hypo-kalemia ---improved -Severe hypocalcemia 4.5, corrected calcium 6.3---improved -Hypomagnesemia--improved -CK > 32.000, quantitative level was obtained----improving 82,936<104,060<155,210<114,464 -Continue normal saline 200 mL/h -Non-anion gap metabolic acidosis--resolved -Acute kidney injury-- resolved -Nephro consultation was obtained, thanks for recommendation -Nephrology recommendation to recheck UA with microscopic analysis as well as repeat UProt/Cr and urine microalbumin/creatinine prior to discharge - if abnormal, patient should f/u with Nephrology as an outpatient #Transaminitis -Abdomen ultrasound revealed small amount of ascites and mild splenomegaly, GI consultation was obtained, no recommendation for any GI intervention #Toxicology -Urine toxicology positive for cocaine, medication was confirmed by [facility] [employer]OP[employer] CONSULTANT, Poison Control Center was contacted, recommendation for supportive treatment and to obtain hematology and GI consultation for further evaluation #Psych -History of bipolar, Psych consultation was obtained, condition to hold all of psych medication until patient is clinically stable #Right hip and knee pain status post trauma -Patient reported fall on right hip, right hip x-ray didn't reveal any abnormality, right knee x-ray didn't reveal any abnormality Consultation GI, nephrology, psych, hematology Diet regular Code full Patient does not want her clinical status discussed with her mother at this time. Complications: Please see above Assessment/Plan: Please see above
[2017-01-18 22:32] VITALS: BP 130/64
[2017-01-19] VITALS: BP 130/64
[2017-01-19 02:00] VITALS: BP 130/64
--- NOTE | 2017-01-19 05:58 | PN- Housestaff ---
LIANE ALBERTS,BROOK 01/19/17 0558: Subjective Follow-up For: Cocaine overdose Rhabdomyolysis Suicidal ideation Subjective: Patient seen and examined this morning. Resting comfortably in bed with no acute complaints. Muscle cramps resolved. Moved bowels this morning after 10 days of constipation. Reports improvement with swallowing and sore throat. Denies any fever, chills, chest discomfort, palpitations, abdominal pain, nausea, vomiting, headache. No events reported overnight. No events reported overnight. Review of Systems Constitutional: Reports: see HPI. Objective Last 24 Hrs of Vital Signs/I&O Vital Signs Date Time Temp Pulse Resp B/P B/P Pulse O2 O2 Flow FiO2 Mean Ox Delivery Rate 01/19 0617 98.4 72 20 94/60 97 Room Air 01/19 0200 97.9 72 20 130/64 /07 0000 97.9 72 20 130/64 06 2232 97.9 72 20 130/64 100 Room Air 01/18 1415 97.2 91 20 120/70 97 Intake & Output 01/19 1600 01/19 0800 01/19 0000 Intake Total 2200 2700 Output Total 1300 2050 Balance -9003 841 4848 Intake, IV 1999 1999 Intake, Oral 200 700 Output, Urine 1300 2050 Physical Exam General Appearance: Alert, Oriented X3, Cooperative, No Acute Distress Other Physical Findings: Skin erythema and cut cifuentes on both legs below the knee Skin Temp/Moisture Exam: Warm/Dry Sepsis Skin Exam (color): Normal for Ethnicity HEENT Atraumatic, EOMI, very dry mucous membranes, pupils sluggish but reactive to light Cardiovascular Normal S1, Normal S2, tachycardia Lungs Clear to Auscultation, Normal Air Movement Abdomen Normal Bowel Sounds, Soft, No Tenderness Neurological Sensation Intact, Cranial Nerves 3-12 NL, Reflexes 2+, power 4/5 in all 4 extremities Vascular Normal Pulses Current Medications: Current Medications Sig/Aydin Start time Last Medication Dose Route Stop Time Status Admin Docusate Sodium 100 MG BID 01/17 1446 AC 01/18 PO 09 Fluconazole 100 MG DAILY 01/17 1027 AC 01/19 PO 0908 Lorazepam 1 MG BID PRN 01/15 1115 AC PO Magnesium Chloride 64 MG BID 01/18 1209 DC 01/18 PO 01/18 2201 2123 Melatonin 10 MG AT BEDTIME 01/17 2200 AC 01/17 PO 2244 Nystatin 5 ML 4 TIMES/DAY 01/16 1126 AC 01/19 PO 0908 Oxycodone HCl 5 MG .STK-MED ONE 01/19 2008 DC PO 01/18 2009 Oxycodone HCl 5 MG .STK-MED ONE 01/18 1330 DC PO 01/18 1331 Oxycodone HCl 5 MG Q6P PRN 01/15 1115 AC 01/19 PO 0908 Polyethylene Glycol 17 GM DAILY PRN 01/16 1545 AC 01/16 PO 1709 Senna/Docusate Sodium 2 TAB DAILY PRN 01/16 1545 AC 01/16 PO 1708 Sodium Chloride 1,000 ML BOLUS ONE 01/18 1900 DC 01/18 IV 01/18 2059 1857 Sodium Chloride 1,000 ML Q5H 01/13 0145 AC 01/19 IV 0955 Trazodone HCl 12.5 MG ONCE ONE 01/18 2200 DC 01/18 PO 01/18 2201 2224 Last 24 Hrs of Lab/Anup Results Last 24 Hrs of Labs/Mics: Laboratory Tests 01/19/17 0914: Sodium Pending, Potassium Pending, Chloride Pending, Carbon Dioxide Pending, Anion Gap Pending, BUN Pending, Creatinine Pending, BUN/Creatinine Ratio Pending , Magnesium Pending, Creatine Kinase Pending 01/18/17 1545: Creatine Kinase 48914 H Assessment/Plan Assessment: 26-year-old female with past medical history of polysubstance abuse, bipolar disorder, who presented to the emergency department with altered mental status, was initially placed in the ICU for cocaine intoxication, acute renal failure secondary to rhabdomyolysis, and other medical conditions. # Rhabdomyolysis Creatine kinase on admission > 32,000, trending down since then. Goal for discharge is below 10,000. * Trend CPK until it reaches 10,000 - currently trending up * Adequate IV hydration - increase NS infusion rate to 400 cc/hr * Recheck CPK later today and adjust IVF * Strict I/Os # NAM - resolved Most likely 2/2 rhabdo. * Monitor BEP daily, trend renal fx * IV hydration as above # Cocaine overdose in the setting of Bipolar d/o & SI Currently remains HDS and alert & oreinted x 3. * Psych following, appreciate resc * Cont melatonin 10mg qHS * PRN Ativan for anxiety * Patient to be trasnferred to [facility] upon discharge * Patient not to leave AMA without psychiatry clearance. * Cont sitter # Thrombocytopenia - improving Her platelet also dropped from 266,000 from 01/12 to 65,000 on 01/13. Thrombocytopenia most likely 2/2 rhabdomyolysis/DIC. * Cont to monitor CBC daily, trend platelet # Thrush - improving Pt has a white coated layer which appears to be an oral thrush with a possibility of esophageal candidiasis. * Cont fluconazole and Nystatin oral suspension *Patient cannot leave AMA, if needed a PEC has to be signed by the attending physician.* #Diet: Regular diet #DVT ppx: Code status: Full code Problem List: 1. Thrombocytopenia 2. Cocaine abuse 3. Rhabdomyolysis 4. Depression Pain Ratin Pain Location: 0 Pain Goal: Remain pain free Pain Plan: Mild Tomorrow's Labs & Rationales: BEP, CPK - caesar GUERRERO MD,[facility] 01/19/17 1227: Attending MD Review Statement Attending Statement Attending MD Statement: examined this patient, discuss w/resident/PA/[employer], agreed w/resident/PA/[employer], reviewed EMR data (avail) Attending Assessment/Plan: 26F PMH polysubstance abuse admitted intially to ICU with cocaine overdose and rhabdomyolysis, now downgraded to general medicine floor, course complicated by oral thrush. Patient feels well today. Denies myalgia, chest pain, palpitations. Reports odynophagia and mouth pain. On exam, tongue and pharyngeal white plaques are noted. CK rising, renal function normal. 1. Rhabdomyolysis 2. Cocaine overdose 3. Candidal esophagitis 4. Polysubstance abuse Plan - Continue on general medicine - Increase rate of normal saline - Monitor renal function and CPK level - Start Fluconazole - Continue Nystatin swish and swallow - Follow psychiatry recommendations - DVT PPx
[2017-01-19 06:17] VITALS: BP 94/60
[2017-01-19 08:00] VITALS: BP 100/64
--- NOTE | 2017-01-19 13:57 | PN- Psychiatry ---
Assessment/Plan Impression: Identifying Info: 26-year-old single female brought in by ambulance on 01/12/2017 for altered mental status, she has a h/o Bipolar d/o. Admitted to the critical care unit with probable overdose on cocaine and psychotropic medications. Consult requested for OD, paranoia, and hallucinations. SUBJECTIVE Pt reports improvement in mood lability today with only one crying episode. She is agreeable to mood stabilizing medication once medically better. Would like to Go to 30-day rehab after discharge from psychiatry, think [facility] in [place] would be a good program for her as they are associated with her outpatient treaters. Reports high anxiety surrounding blood draws. Endorses refusing then later agreeing to draw this AM. Would be agreeable to premedication with ativan prior to future draws. Brief ROS Gait: Unobserved Sleep: Adequate Appetite: Adequate OBJECTIVE Mental Status Exam Presentation/Appearance: Cooperative with evaluation. Hospital garb. Calm. Orientation: x4 Sensorium: Awake and alert Eye contact: Fair Affect: Somewhat blunted, congruent, more stable than yesterday Mood: "Okay" Depression: Endorses Anxiety: Endorses Thought Content: - Endorses decreased paranoid ideation - Denies SI/HI, AH/VH. States and also believes they will not kill themselves. - Denies Hopeless/Helpless Thoughts Thought Process: More linear Associations: Appropriate Speech: Normal tone and rate Judgment: Poor Insight: Poor Cognition: Memory: Recent deficits Attention/Concentration: Grossly intact Fund of Knowledge: Did not assess Abstractions:Did not assess MMSE: Did not assess ASSESSMENT Patient presents with altered mental status in the context of probable crack cocaine intoxication as well as reported overdose on psychotropic medications. Altered mental status on admission is resolving but paranoia continues. At present her current paranoia as well as recent unitentional overdose warrant inpatient psychiatric hospitalization post medical clearance. Diagnosis Delirium due to multiple etiologies, resolved Unspecified bipolar disorder Rule out substance induced psychotic disorder Rule out Schizoaffective disorder Rule out unspecified trauma or stressor related disorder A total of 45 minutes was spent with the patient with more than 50% of the time spent in counseling and/or coordination of care. Suggestion: 1. Patient may not leave AMA without psychiatry clearance. PEC written and played on chart for attending signature. 2. Please start sitter. 3. Continue PRN Ativan for anxiety. Please premedicate patient at least 30 minutes prior to any blood draws. Thank you for including psychiatry in this case we'll continue to follow. Subjective Subjective: as above Objective Last 24 Hrs of Vital Signs/I&O Current Medications Sig/Aydin Start time Last Medication Dose Route Stop Time Status Admin Docusate Sodium 100 MG BID 01/17 1446 AC 01/18 PO 0929 Fluconazole 100 MG DAILY 01/17 1027 AC 01/19 PO 0908 Lorazepam 1 MG BID PRN 01/15 1115 AC PO Magnesium Chloride 64 MG BID 01/19 1120 AC 01/19 PO 01/19 2201 1258 Magnesium Chloride 64 MG BID 01/18 1209 DC 01/18 PO 01/18 2201 2123 Melatonin 10 MG AT BEDTIME 01/17 2200 01/17 PO 2244 Nystatin 5 ML 4 TIMES/DAY 01/16 1126 AC 01/19 PO 1258 Oxycodone HCl 5 MG .STK-MED ONE 01/19 2008 DC PO 01/18 2009 Oxycodone HCl 5 MG Q6P PRN 01/15 1115 01/19 PO 0908 Patient Medication 1 ED .STK-MED ONE 01/19 1349 DC Teaching ED 01/19 1350 Polyethylene Glycol 17 GM DAILY PRN 01/16 1545 AC 01/16 PO 1709 Potassium Chloride 20 MEQ ONCE ONE 01/19 1130 DC 01/19 PO 01/19 1131 1258 Senna/Docusate Sodium 2 TAB DAILY PRN 01/16 1545 01/16 PO 1708 Sodium Chloride 1,000 ML BOLUS ONE 01/18 1900 DC 01/18 IV 01/18 2059 1857 Sodium Chloride 1,000 ML Q5H 01/13 0145 01/19 IV 1233 Trazodone HCl 12.5 MG ONCE ONE 01/18 2200 DC 01/18 PO 01/18 2201 2224 Laboratory Tests 01/19/17 0914: Anion Gap 4 L, Estimated GFR > 60, BUN/Creatinine Ratio 7.1, Magnesium 1.6, Creatine Kinase > 18424 H 01/18/17 1545: Creatine Kinase 12124 H Vital Signs Date Time Temp Pulse Resp B/P B/P Pulse O2 O2 Flow FiO2 Mean Ox Delivery Rate 01/19 08 100.4 90 18 100/64 01/19 617 98.4 72 20 94/60 97 Room Air 01/19 0200 97.9 72 20 130/64 06/07 0000 97.9 72 20 130/64 /06 2232 97.9 72 20 130/64 100 Room Air 01/18 1415 97.2 91 20 120/70 97 Intake & Output 01/19 1600 01/19 0800 01/19 0000 Intake Total 2200 2700 Output Total 1300 205 Balance -8481 665 9808 Intake, IV 1999 1999 Intake, Oral 200 700 Output, Urine 1300 2049
[2017-01-19 14:53] VITALS: BP 120/70
--- NOTE | 2017-01-19 16:29 | NUR ---
SHIFT NOTE: UNEVENTFUL SHIFT. PATIENT REAMINED STABLE. OFFERED NO CONCERNS. CK CONTINUES TO TREND DOWN. FLUIDS CONTINUE AT 400ML/HR PER MEDICAL TEAM REQUEST. REPORT GIVEN TO EVAN POLO.
--- NOTE | 2017-01-19 19:31 | Event Note ---
Event Note Event Note: CPK level quantified by lab 01/18 mornin 01/19 afternoon: [id number] 01/20 mornin 01/21 mornin
[2017-01-19 21:46] VITALS: BP 120/70
[2017-01-20] VITALS (7 sets, daily range): BP systolic 110–128; BP diastolic 64–80
--- NOTE | 2017-01-20 06:01 | PN- Housestaff ---
See Addendum Subjective Follow-up For: Rhabdomyolysis Cocaine overdose Suicidal ideation Subjective: Patient seen and examined this morning. Resting comfortably in bed with no acute complaints. Swallowing and throat pain continue to improve. Denies any fever, chills, chest discomfort, palpitations, dyspnea, swelling, abdominal pain, nausea, vomiting, headache. No events reported overnight. Review of Systems Constitutional: Reports: see HPI. Objective Last 24 Hrs of Vital Signs/I&O Vital Signs Date Time Temp Pulse Resp B/P B/P Pulse O2 O2 Flow FiO2 Mean Ox Delivery Rate 01/20 0647 98.2 73 20 110/70 95 Room Air 01/19 2146 99.1 87 20 120/70 95 06/07 1453 98.2 80 20 120/70 98 /07 0800 100.4 90 18 100/64 Intake & Output 01/20 0800 01/20 0000 01/19 1600 Intake Total 3200 3280 1500 Output Total 1000 2200 1969 Balance 2200 1080 -470 Intake, IV 3200 2800 Intake, Oral 480 1500 Output, Urine 1000 2200 1969 Physical Exam General Appearance: Alert, Oriented X3, Cooperative, No Acute Distress Other Physical Findings: Skin erythema and cut cifuentes on both legs below the knee Skin Temp/Moisture Exam: Warm/Dry Sepsis Skin Exam (color): Normal for Ethnicity HEENT Atraumatic, EOMI, very dry mucous membranes, pupils reactive to light, white coated layer on tongue Cardiovascular Normal S1, Normal S2, tachycardia Lungs Clear to Auscultation, Normal Air Movement Abdomen Normal Bowel Sounds, Soft, No Tenderness Neurological Sensation Intact, Cranial Nerves 3-12 NL, Reflexes 2+, power 4/5 in all 4 extremities Vascular Normal Pulses Current Medications: Current Medications Sig/Aydin Start time Last Medication Dose Route Stop Time Status Admin Docusate Sodium 100 MG BID 01/17 1446 AC 01/18 PO 0929 Fluconazole 100 MG DAILY 01/17 1027 AC 01/19 PO 0908 Lorazepam 1 MG BID PRN 01/15 1115 AC 01/19 PO 1545 Magnesium Chloride 64 MG BID 01/19 112 DC 01/19 PO 01/19 2201 220 Melatonin 10 MG AT BEDTIME 01/17 2200 AC 01/17 PO 224 Nystatin 5 ML 4 TIMES/DAY 01/16 1126 AC 01/19 PO 220 Oxycodone HCl 5 MG .STK-MED ONE 01/19 2158 DC PO 01/19 2159 Oxycodone HCl 5 MG .STK-MED ONE 01/19 1548 DC PO 01/19 1549 Oxycodone HCl 5 MG .STK-MED ONE 01/19 0908 DC PO 01/19 0909 Oxycodone HCl 5 MG Q6P PRN 01/15 1115 AC 01/19 PO 2202 Patient Medication 1 ED .STK-MED ONE 01/19 1349 DC Teaching ED 01/19 1350 Polyethylene Glycol 17 GM DAILY PRN 01/16 1545 AC 01/16 PO 1709 Potassium Chloride 20 MEQ ONCE ONE 01/19 1130 DC 01/19 PO 01/19 1131 1258 Senna/Docusate Sodium 2 TAB DAILY PRN 01/16 1545 AC 01/16 PO 1708 Sodium Chloride 1,000 ML Q5H 01/13 0145 r 01/20 IV 0656 Trazodone HCl 12.5 MG ONCE ONE 01/19 2230 DC 01/19 PO 01/19 2231 2258 Last 24 Hrs of Lab/Anup Results Last 24 Hrs of Labs/Mics: Laboratory Tests 01/19/17 1550: Creatine Kinase > 83084 H 01/19/17 0914: Anion Gap 4 L, Estimated GFR > 60, BUN/Creatinine Ratio 7.1, Magnesium 1.6, Creatine Kinase > 76557 H Assessment/Plan Assessment: 26-year-old female with past medical history of polysubstance abuse, bipolar disorder, who presented to the emergency department with altered mental status, was initially placed in the ICU for cocaine intoxication, acute renal failure secondary to rhabdomyolysis, and other medical conditions. # Rhabdomyolysis Creatine kinase on admission > 32,000. Goal for discharge is below 10,000. * Trend CPK until it reaches 10,000 - currently trending down * Adequate IV hydration - decrease NS infusion rate to 300 cc/hr (goal UOP ~ 200 cc/hr) * Strict I/Os # NAM - resolved Most likely 2/2 rhabdo. * Monitor BEP daily, trend renal fx * IV hydration as above # Cocaine overdose in the setting of Bipolar d/o & SI Currently remains HDS and alert & oreinted x 3. * Psych following, appreciate resc * Cont melatonin 10mg qHS * PRN Ativan for anxiety * Patient to be trasnferred to [facility] upon discharge * Patient not to leave AMA without psychiatry clearance. * Cont sitter # Thrombocytopenia - improving Her platelet also dropped from 266,000 from 01/12 to 65,000 on 01/13. Thrombocytopenia most likely 2/2 rhabdomyolysis/DIC. * Cont to monitor CBC daily, trend platelet # Thrush - improving Pt has a white coated layer which appears to be an oral thrush with a possibility of esophageal candidiasis. * Cont fluconazole and Nystatin oral suspension *Patient cannot leave AMA, if needed a PEC has to be signed by the attending physician.* #Diet: Regular diet #DVT ppx: Code status: Full code Problem List: 1. Cocaine abuse 2. Rhabdomyolysis 3. Depression Pain Ratin Pain Location: 0 Pain Goal: Remain pain free Pain Plan: Mild path Tomorrow's Labs & Rationales: BEP, CPK - rhabdo
--- NOTE | 2017-01-20 08:56 | PN- Psychiatry ---
Assessment/Plan Impression: Identifying Info: 26-year-old single female brought in by ambulance on 01/12/2017 for altered mental status, she has a h/o Bipolar d/o. Admitted to the critical care unit with probable overdose on cocaine and psychotropic medications. Consult requested for OD, paranoia, and hallucinations. SUBJECTIVE Pt states "I'm frustrated, I just want to get going." Endorses being demoralized r/t remaining on medicine because it is delaying her transfer to inpatient psychiatry and subsequent d/c to rehab. Continued anxiety r/t lab draws. Some paranoia r/t sitters reported. Brief ROS Gait: Unobserved, reported steady Sleep: Adequate Appetite: Adequate OBJECTIVE Mental Status Exam Presentation/Appearance: Cooperative with evaluation. Hospital garb. Calm. Orientation: x4 Sensorium: Awake and alert Eye contact: Fair Affect: Somewhat blunted, congruent, more stable than yesterday Mood: "Frustrated" Depression: Endorses Anxiety: Endorses Thought Content: - PI present - Denies SI/HI, AH/VH. States and also believes they will not kill themselves. - Denies Hopeless/Helpless Thoughts Thought Process: More linear Associations: Appropriate Speech: Normal tone and rate Judgment: Poor Insight: Poor Cognition: Memory: Recent deficits Attention/Concentration: Grossly intact Fund of Knowledge: Did not assess Abstractions:Did not assess MMSE: Did not assess Per nursing report, the patient has been saying she does not want sitter in room. Irritible at times. Discussed posibility of increasing ativan freqency, will contact psych if pt has poor response and requires more often dosing. ASSESSMENT Patient presents with altered mental status in the context of probable crack cocaine intoxication as well as reported overdose on psychotropic medications. Altered mental status on admission is resolving but paranoia continues. At present her current paranoia as well as recent unitentional overdose warrant inpatient psychiatric hospitalization post medical clearance. Diagnosis Delirium due to multiple etiologies, resolved Unspecified bipolar disorder Rule out substance induced psychotic disorder Rule out Schizoaffective disorder Rule out unspecified trauma or stressor related disorder A total of 30 minutes was spent with the patient with more than 50% of the time spent in counseling and/or coordination of care. Suggestion: 1. Patient may not leave AMA without psychiatry clearance. PEC written and played on chart for attending signature. 2. Please start sitter. 3. Continue PRN Ativan for anxiety. Please premedicate patient at least 30 minutes prior to any blood draws. We will consider increasing frequency of dosing if needed. 4. We will consider second genration antipsychotic for paranoia and mood stabilization if labs improve. Thank you for including psychiatry in this case we'll continue to follow. Subjective Subjective: as above Objective Last 24 Hrs of Vital Signs/I&O Current Medications Sig/Aydin Start time Last Medication Dose Route Stop Time Status Admin Docusate Sodium 100 MG BID 01/17 1446 01/20 PO 0809 Fluconazole 100 MG DAILY 01/17 1027 01/20 PO 0809 Lorazepam 1 MG BID PRN 01/15 1115 01/20 PO 0809 Magnesium Chloride 64 MG BID 01/19 1120 UT 01/19 PO 01/19 220 2203 Melatonin 10 MG AT BEDTIME 01/17 220 01/17 PO 2244 Nystatin 5 ML 4 TIMES/DAY 01/16 1126 01/20 PO 0809 Oxycodone HCl 5 MG .STK-MED ONE 01/19 2158 DC PO 01/19 2159 Oxycodone HCl 5 MG .STK-MED ONE 01/19 1548 DC PO 01/19 1549 Oxycodone HCl 5 MG .STK-MED ONE 01/19 0908 UT PO 01/19 0909 Oxycodone HCl 5 MG Q6P PRN 01/15 1115 01/19 PO 2202 Patient Medication 1 ED .STK-MED ONE 01/19 1349 DC Teaching ED 01/19 1350 Polyethylene Glycol 17 GM DAILY PRN 01/16 1545 01/16 PO 1709 Potassium Chloride 20 MEQ ONCE ONE 01/19 1130 DC 01/19 PO 01/19 1131 1258 Senna/Docusate Sodium 2 TAB DAILY PRN 01/16 1545 01/16 PO 1708 Sodium Chloride 1,000 ML Q5H 01/13 0145 01/20 IV 0656 Trazodone HCl 12.5 MG ONCE ONE 01/19 2230 DC 01/19 PO 01/19 2231 2258 Laboratory Tests 01/20/17 0710: Anion Gap 5, Estimated GFR > 60, BUN/Creatinine Ratio 5.0 L, Magnesium 1.4 L, Creatine Kinase Pending 01/19/17 1550: Creatine Kinase > 00498 H 01/19/17 0914: Anion Gap 4 L, Estimated GFR > 60, BUN/Creatinine Ratio 7.1, Magnesium 1.6, Creatine Kinase > 50454 H Vital Signs Date Time Temp Pulse Resp B/P B/P Pulse O2 O2 Flow FiO2 Mean Ox Delivery Rate 01/20 0647 98.2 73 20 110/70 95 Room Air 01/19 2146 99.1 87 20 120/70 95 01/19 1453 98.2 80 20 120/70 98 Intake & Output 01/20 1600 01/20 0800 01/20 0000 Intake Total 3200 3280 Output Total 1000 2200 Balance 2200 1080 Intake, IV 3200 2800 Intake, Oral 480 Output, Urine 1000 2200
[2017-01-21] VITALS (8 sets, daily range): BP systolic 120–142; BP diastolic 70–82
--- NOTE | 2017-01-21 05:46 | PN- Housestaff ---
LIANE ALBERTS,BROOK 01/21/17 0545: Subjective Follow-up For: Rhabdomyolysis Cocaine overdose Suicidal ideation Subjective: Patient seen and examined this morning. Resting comfortably in bed with no acute complaints. Swallowing and throat pain continue to improve. Denies any fever, chills, chest discomfort, palpitations, dyspnea, swelling, abdominal pain, nausea, vomiting, headache. No events reported overnight. Review of Systems Constitutional: Reports: see HPI. Objective Last 24 Hrs of Vital Signs/I&O Vital Signs Date Time Temp Pulse Resp B/P B/P Pulse O2 O2 Flow FiO2 Mean Ox Delivery Rate 01/21 600 97.9 58 16 122/82 01/21 0400 97.9 58 16 122/82 / 0235 97.9 58 16 122/82 92 Room Air 01/21 0200 98.8 86 20 128/80 06/08 2338 98.8 86 20 128/80 /08 2225 98.8 86 20 128/80 96 Room Air / 2200 98.2 88 20 120/80 /08 2000 98.2 88 20 120/80 /08 1457 98.2 88 20 120/80 96 /08 0800 98.6 74 18 110/64 Intake & Output 01/21 0800 06/ 0000 08 1600 Intake Total 2600 1350 1900 Output Total 2400 400 900 Balance 109 475 3001 Intake, IV 2400 1000 Intake, Oral 914 861 9878 Output, Urine 2400 400 900 Physical Exam General Appearance: Alert, Oriented X3, Cooperative, No Acute Distress Other Physical Findings: Skin erythema and cut cifuentes on both legs below the knee Skin Temp/Moisture Exam: Warm/Dry Sepsis Skin Exam (color): Normal for Ethnicity HEENT Atraumatic, EOMI, very dry mucous membranes, pupils reactive to light, white coated layer on tongue Cardiovascular Normal S1, Normal S2, tachycardia Lungs Clear to Auscultation, Normal Air Movement Abdomen Normal Bowel Sounds, Soft, No Tenderness Neurological Sensation Intact, Cranial Nerves 3-12 NL, Reflexes 2+, power 4/5 in all 4 extremities Vascular Normal Pulses Current Medications: Current Medications Sig/Aydin Start time Last Medication Dose Route Stop Time Status Admin Docusate Sodium 100 MG BID 01/17 1446 AC 01/20 PO 808 Fluconazole 100 MG DAILY 01/17 1027 AC 01/20 PO 0809 Lorazepam 1 MG BID PRN 01/15 1115 AC 01/21 PO 0613 Magnesium Chloride 64 MG BID 01/20 1000 DC 01/20 PO 01/20 2201 2112 Magnesium Sulfate 1 GM ONCE ONE 01/20 0930 DC 01/20 Dextrose/Water 100 ML IV 01/20 1329 1205 Melatonin 10 MG AT BEDTIME 01/17 2200 AC 01/17 PO 2244 Nystatin 5 ML 4 TIMES/DAY 01/16 1126 DC 01/20 PO 0809 Oxycodone HCl 5 MG .STK-MED ONE 01/20 1806 DC PO 01/20 1807 Oxycodone HCl 5 MG .STK-MED ONE 01/20 1110 DC PO 01/20 1111 Oxycodone HCl 5 MG Q6P PRN 01/15 1115 AC 01/20 PO 1806 Polyethylene Glycol 17 GM DAILY PRN 01/16 1545 AC 01/16 PO 1709 Potassium Chloride 20 MEQ ONCE ONE 01/20 1415 DC 01/20 PO 01/20 1416 1506 Senna/Docusate Sodium 2 TAB DAILY PRN 01/16 1545 AC 01/16 PO 1708 Sodium Chloride 1,000 ML Q5H 01/13 0145 AC 01/21 IV 0644 Trazodone HCl 12.5 MG ONCE ONE 01/20 2145 DC 01/20 PO 01/20 2146 2148 Assessment/Plan Assessment: 26-year-old female with past medical history of polysubstance abuse, bipolar disorder, who presented to the emergency department with altered mental status, was initially placed in the ICU for cocaine intoxication, acute renal failure secondary to rhabdomyolysis. Currently managed on GM for rhabdomyolisis with significantly elevated CPK. # Rhabdomyolysis Creatine kinase on admission > 32,000. Goal for discharge is below 10,000. * Trend CPK until it reaches 10,000 - trending down slightly * Adequate IV hydration - NS infusion rate at 400 cc/hr (goal UOP ~ 200 cc/hr) * Monitor BEP and phosphorus daily * Strict I/Os # NAM - resolved Most likely 2/2 rhabdo. * Monitor BEP daily, trend renal fx * IV hydration as above # Cocaine overdose in the setting of Bipolar d/o & SI Currently remains HDS and alert & oreinted x 3. * Psych following, appreciate resc * Cont melatonin 10mg and trazodone 12.5mg qHS * PRN Ativan for anxiety * Patient to be trasnferred to [facility] upon discharge * Patient not to leave AMA without psychiatry clearance. * Cont sitter # Thrombocytopenia - resolved Her platelet also dropped from 266,000 from 01/12 to 65,000 on 01/13. Thrombocytopenia most likely 2/2 rhabdomyolysis/DIC. # Thrush - improving Pt has a white coated layer which appears to be an oral thrush with a possibility of esophageal candidiasis. * Cont fluconazole and Nystatin oral suspension *Patient cannot leave AMA, if needed a PEC has to be signed by the attending physician.* #Diet: Regular diet #DVT ppx: Code status: Full code Problem List: 1. Cocaine abuse 2. Rhabdomyolysis Pain Ratin Pain Location: 0 Pain Goal: Remain pain free Pain Plan: Mild Tomorrow's Labs & Rationales: BEP, CPK for caesar GUERRERO MD,[facility] 01/21/17 1030: Attending MD Review Statement Attending Statement Attending MD Statement: examined this patient, discuss w/resident/PA/SANDWICH MACHINE OPERATOR, agreed w/resident/PA/SANDWICH MACHINE OPERATOR, reviewed EMR data (avail) Attending Assessment/Plan: 26F PMH polysubstance abuse admitted intially to ICU with cocaine overdose and rhabdomyolysis, now downgraded to general medicine floor, course complicated by oral thrush. Oral pain and odynophagia have resolved. CPK remains 37,000. Patient has no complaints. She does report that when she was a child she would have muscle pains and would require IV fluids during "growth spurts". An underlying metabolic disorder is a possibility at this point, and her baseline CK may be chronically elevated. 1. Rhabdomyolysis 2. Cocaine overdose 3. Candidal esophagitis 4. Polysubstance abuse Plan - Continue on general medicine - Would re-consult nephrology - Continue normal saline - Monitor renal function and CPK level - Continue Fluconazole - Follow psychiatry recommendations - DVT PPx - If no improvement in CPK, will consider stopping IV fluids and monitoring renal function
--- NOTE | 2017-01-21 11:02 | PN- Student ---
Subjective Subjective: Subjective: 26 yo female with history of polysubstance abuse and bipolar disorder was admitted on 01/12/17 for AMS secondary to possible cocaine overdose. Patient reports an episode of chills last night. States that she currently has 3/10 pain all over body but mostly in her hamstrings and upper back bilaterally. She reports that she has had this muscle pain throughout her life. Past episodes of muscle pain would include increasing weakness of muscles and occasional episode of fainting. Past providers thought muscle pain was secondary to dehydration. Denies nausea, vomiting, fever, dyspnea, and abdominal pain. Current Medications Sig/Aydin Start time Last Medication Dose Route Stop Time Status Admin Docusate Sodium 100 MG BID 01/17 1446 AC 01/20 PO 0809 Fluconazole 100 MG DAILY 01/17 1027 DC 01/21 PO 0940 Lorazepam 1 MG BID PRN 01/15 1115 AC 01/21 PO 1019 Magnesium Chloride 64 MG BID 01/21 1000 AC PO 01/21 2201 Magnesium Chloride 64 MG BID 01/20 1000 DC 01/20 PO 01/20 2201 2112 Magnesium Sulfate 1 GM ONCE ONE 01/21 0945 CAN Dextrose/Water 100 ML IV 01/21 1344 Magnesium Sulfate 1 GM ONCE ONE 01/20 0930 DC 01/20 Dextrose/Water 100 ML IV 01/20 1329 1205 Melatonin 10 MG AT BEDTIME 01/17 2200 AC 01/17 PO 2244 Nystatin 5 ML 4 TIMES/DAY 01/16 1126 DC 01/20 PO 0809 Oxycodone HCl 5 MG Q6P PRN 01/21 0845 01/21 PO 0841 Oxycodone HCl 5 MG .STK-MED ONE 01/20 1806 DC PO 01/20 1807 Oxycodone HCl 5 MG Q6P PRN 01/15 1115 DC 01/20 PO 1806 Polyethylene Glycol 17 GM DAILY PRN 01/16 1545 AC 01/16 PO 1709 Potassium Chloride 20 MEQ ONCE ONE 01/20 1415 DC 01/20 PO 01/20 1416 1506 Senna/Docusate Sodium 2 TAB DAILY PRN 01/16 1545 01/16 PO 1708 Sodium Chloride 1,000 ML Q5H 01/13 0145 AC 01/21 IV 1001 Trazodone HCl 12.5 MG ONCE ONE 01/20 2145 DC 01/20 PO 01/206 2148 Objective Objective: Physical exam: General: alert and oriented x3. no acute distress Skin: no pallor or jaundice Cardiac: regular rate and rhythm. no murmurs Pulm: clear to ausculation. no wheezing, rales, rhonchi Abdomen: normoactive bowel sounds Vital Signs Date Time Temp Pulse Resp B/P B/P Pulse O2 O2 Flow FiO2 Mean Ox Delivery Rate 01/21 600 97.9 58 16 122/82 01/21 0400 97.9 58 16 122/82 01/21 0235 97.9 58 16 122/82 92 Room Air 01/21 0200 98.8 86 20 128/80 /08 2338 98.8 86 20 128/80 /08 2225 98.8 86 20 128/80 96 Room Air 01/20 2200 98.2 88 20 120/80 06/08 2000 98.2 88 20 120/80 /08 1457 98.2 88 20 120/80 96 Intake & Output 01/21 1600 01/21 0800 01/21 0000 Intake Total 2600 1350 Output Total 2400 400 Balance 200 950 Intake, IV 2400 1000 Intake, Oral 200 350 Output, Urine 2400 400 Results Results: Laboratory Tests 01/21/17 1030: ESR Westergren Pending 01/21/17 1015: Urine Color YEL, Urine Clarity CLEAR, Urine pH 7.0, Ur Specific [place] 1.010, Urine Protein NEG, Urine Ketones NEG, Urine Nitrite NEG, Urine Bilirubin NEG, Urine Urobilinogen 0.2, Ur Leukocyte Esterase NEG, Ur Microscopic SEDIMENT EXAMINED, Urine RBC 1-3, Ur Epithelial Cells FEW, Urine Hemoglobin SMALL H, Urine Glucose NEG 01/21/17 1015: Ur Random Creatinine Pending, Ur Random Microalbumin Pending, Ur Random Sodium Pending, Ur Random Potassium Pending, Fraction Sodium Excret Pending, U Cystine/ Creat Ratio Pending 01/21/17 0721: Anion Gap 5, Estimated GFR > 60, BUN/Creatinine Ratio 5.0 L, Phosphorus 3.7, Magnesium 1.7, Creatine Kinase > 62366.0 H, C-Reactive Prot, Quant 0.6 01/21/17 0600: ERLIN Titer Pending, Anti-Nuclear Antibody Pending 01/20/17 0710: Anion Gap 5, Estimated GFR > 60, BUN/Creatinine Ratio 5.0 L, Magnesium 1.4 L, Creatine Kinase > 84725 H 01/19/17 1550: Creatine Kinase > 96716 H 01/19/17 0914: Anion Gap 4 L, Estimated GFR > 60, BUN/Creatinine Ratio 7.1, Magnesium 1.6, Creatine Kinase > 50025 H 01/18/17 1545: Creatine Kinase 40692 H Assessment/Plan Assessment: 26 yo female with history of polysubstance abuse and bipolar disorder was admitted on 01/12/17 for AMS secondary to possible cocaine overdose. PE shows no significantly abnormal findings. Labs show continued high level of creatine kinase (>32,000) that is starting to decrease. She has a low BUN and BUN/ creatinine level and is normotensive and afebrile. 1. Persistent CK elevation * Differential includes acute kidney injury secondary to rhabdomyolysis, metabolic myopathy, direct myotoxicity secondary to polysubstance abuse, muscular dystrophies (carrier of Duchenne muscular dystrophy, Sebastián ALBERTS, Limb jose martin ALBERTS), endocrine disorder (hypothyroidism), and inflammtory myopathies. 2. Polysubstance abuse Plan: 1. Persistent CK elevation * Consult nephrology for possible underlying cause. * Consult business process specialist to determine possible underlying congenital cause. * Monitor I&Os and CK level. Trend renal function to evaluate for NAM * IV hydration with isotonic NaCl at 300-400 ml/hr to maintain urine output of 200 ml/hr. Can consider addition of mannitol or bicarbonate infusion. Other causes: * Muscular dystrophies: carrier of dystrophy with mild symptoms of muscle weakness and high CK level. DNA testing of dystrophin gene to differentiate between DMD, Limb jose martin ALBERTS, and Sebastián ALBERTS. R/o with electromyography (EMG) and/ or muscle biopsy. * Endocrine: hypothyroidism can have symptoms of myalgias and weakness with high CK level. R/o with TSH and free T4 levels * Inflammatory myopathies: Polymyositis and dermatomyositis have symptoms of muscle weakness but no signs of rashes, such as heliotrope. R/o with ERLIN and anti nuclear antibody labs. Muscle biopsy for confirmation testing and definitive diagnosis. * Cardiac: Initially presented with high troponin level and cardiomyopathy can reveal high CK level. Troponin decreased and no acute changes on EKG. Echocardiogram from 01/13/17 reveals minimal to mild mitral regurgitation. Cardiology consult revealed no concern of cardiac origin. * Metabolic myopathy: Mitochondrial myopathies can be tested with muscle biopsies and muscle mtDNA testing (cyt b gene or complex I). Glycogen storage diseases, such as Pompe's and Ryan disease, have consistent CK elevations and can be diagnosed with muscle biopsy. 2. Polysubstance abuse * Psych evaluation
--- NOTE | 2017-01-21 11:36 | PN- Psychiatry ---
Assessment/Plan Impression: Identifying Info: 26-year-old single female brought in by ambulance on 01/12/2017 for altered mental status, she has a h/o Bipolar d/o. Admitted to the critical care unit with probable overdose on cocaine and psychotropic medications. Consult requested for OD, paranoia, and hallucinations. SUBJECTIVE Pt reports continued frustration and increased anxiety related to continued medical hospitalization. She is very upset that the the cause of her abnormal lab values has not been found. She states "I just want to go to the psych so I can get things moving and finally get back home." She denies any other complaints today. Brief ROS Gait: Unobserved, reported steady Sleep: Adequate Appetite: Adequate OBJECTIVE Mental Status Exam Presentation/Appearance: Cooperative with evaluation. Hospital garb. Calm. Orientation: x4 Sensorium: Awake and alert Eye contact: Fair Affect: Delgado range, somewhat blunted Mood: "Okay" Depression: Denies Anxiety: 9/10 Thought Content: - Mild PI continues - Denies SI/HI, AH/VH. States and also believes they will not kill themselves. - Denies Hopeless/Helpless Thoughts Thought Process: More linear Associations: Appropriate Speech: Normal tone and rate Judgment: Poor Insight: Fair Cognition: Memory: Recent deficits Attention/Concentration: Grossly intact Fund of Knowledge: Did not assess Abstractions:Did not assess MMSE: Did not assess ASSESSMENT Patient presents with altered mental status in the context of probable crack cocaine intoxication as well as reported overdose on psychotropic medications. Altered mental status on admission is resolving but paranoia continues. At present her current paranoia as well as recent unitentional overdose warrant inpatient psychiatric hospitalization post medical clearance. Diagnosis Delirium due to multiple etiologies, resolved Unspecified bipolar disorder Rule out substance induced psychotic disorder Rule out Schizoaffective disorder Rule out unspecified trauma or stressor related disorder A total of 30 minutes was spent with the patient with more than 50% of the time spent in counseling and/or coordination of care. Suggestion: 1. Patient may not leave AMA without psychiatry clearance. PEC written and played on chart for attending signature. 2. Please continue sitter. 3. Please increase frequency of Ativan dosing to 1 mg 3 times a day. 4. We will consider second genration antipsychotic for paranoia and mood stabilization if labs improve. Thank you for including psychiatry in this case we'll continue to follow. Subjective Subjective: as above Objective Last 24 Hrs of Vital Signs/I&O Current Medications Sig/Aydin Start time Last Medication Dose Route Stop Time Status Admin Docusate Sodium 100 MG BID 01/17 1446 01/20 PO 0809 Fluconazole 100 MG DAILY 01/17 1027 NC 01/21 PO 0940 Lorazepam 1 MG BID PRN 01/15 1115 01/21 PO 1019 Magnesium Chloride 64 MG BID 01/21 1000 AC PO 01/21 2201 Magnesium Chloride 64 MG BID 01/20 1000 DC 01/20 PO 01/20 2201 2112 Magnesium Sulfate 1 GM ONCE ONE 01/21 0945 CAN Dextrose/Water 100 ML IV 01/21 1344 Magnesium Sulfate 1 GM ONCE ONE 01/20 0930 DC 01/20 Dextrose/Water 100 ML IV 01/20 1329 1205 Melatonin 10 MG AT BEDTIME 01/17 2200 AC 01/17 PO 2244 Oxycodone HCl 5 MG Q6P PRN 01/21 0845 01/21 PO 0841 Oxycodone HCl 5 MG .STK-MED ONE 01/20 1806 DC PO 01/20 1807 Oxycodone HCl 5 MG Q6P PRN 01/15 1115 NC 01/20 PO 1806 Polyethylene Glycol 17 GM DAILY PRN 01/16 1545 01/16 PO 1709 Potassium Chloride 20 MEQ ONCE ONE 01/20 1415 DC 01/20 PO 01/20 1416 1506 Senna/Docusate Sodium 2 TAB DAILY PRN 01/16 1545 01/16 PO 1708 Sodium Chloride 1,000 ML Q5H 01/13 0145 01/21 IV 1001 Trazodone HCl 12.5 MG ONCE ONE 01/20 2145 NC 01/20 PO 01/20 2146 2148 Laboratory Tests 01/21/17 1030: ESR Westergren Pending 01/21/17 1015: Urine Color YEL, Urine Clarity CLEAR, Urine pH 7.0, Ur Specific [place] 1.010, Urine Protein NEG, Urine Ketones NEG, Urine Nitrite NEG, Urine Bilirubin NEG, Urine Urobilinogen 0.2, Ur Leukocyte Esterase NEG, Ur Microscopic SEDIMENT EXAMINED, Urine RBC 1-3, Ur Epithelial Cells FEW, Urine Hemoglobin SMALL H, Urine Glucose NEG 01/21/17 1015: Ur Random Creatinine Pending, Ur Random Microalbumin Pending, Ur Random Sodium Pending, Ur Random Potassium Pending, Fraction Sodium Excret Pending, U Cystine/ Creat Ratio Pending 01/21/17 0721: Anion Gap 5, Estimated GFR > 60, BUN/Creatinine Ratio 5.0 L, Phosphorus 3.7, Magnesium 1.7, Creatine Kinase > 91507.0 H, C-Reactive Prot, Quant 0.6 01/21/17 0600: ERLIN Titer Pending, Anti-Nuclear Antibody Pending Vital Signs Date Time Temp Pulse Resp B/P B/P Pulse O2 O2 Flow FiO2 Mean Ox Delivery Rate 01/21 600 97.9 58 16 122/82 01/21 0400 97.9 58 16 122/82 01/21 0235 97.9 58 16 122/82 92 Room Air 01/21 0200 98.8 86 20 128/80 01/20 2338 98.8 86 20 128/80 01/20 2225 98.8 86 20 128/80 96 Room Air 01/20 2200 98.2 88 20 120/80 01/20 2000 98.2 88 20 120/80 01/20 1457 98.2 88 20 120/80 96 Intake & Output 01/21 1600 01/21 0800 01/21 0000 Intake Total 2600 1350 Output Total 2400 400 Balance 200 950 Intake, IV 2400 1000 Intake, Oral 200 350 Output, Urine 2400 400
--- NOTE | 2017-01-21 14:50 | NUR ---
SHIFT NOTE: PT A/V/OX3. GAIT STEADY. CK 37,570. FLUIDS AT 400 ML/HR. LUNGS CTA. VOIDING WELL. LILIAN FROM POISON CONTROL CALLED AND UPDATE GIVEN. DR. ROB NOTIFIED OF PT C/O PAIN 12/22 TO ABDOMEN AND BACK. PT MEDICATED WITH PRN TRAM AND LATER TYLENOL WITH + PAIN RELIEF. TOLERATING DIET WELL.
--- NOTE | 2017-01-21 16:21 | PN- Nephrology ---
Assessment/Plan Assessment: Rhabdomyolysis. As discussed with you phos was checked and is normal. In the setting of malnutritions (she is not) hypophosphatemia can contribute to continuing rhabdomyolysis. Is suspect her rhabdo is still a result of her initial cocaine. She will require copious fluids (current rate is okay) until CK < 10k. She is not on a statin or other medications associated with rhabdo. Please continue to follow labs and ck daily and ask the lab to fractionate ck. Jimenez Hodge MD Suggestion: . Subjective Subjective: Asked to resee patient for persistent rhabdomyolysis. CK 43K (verbal report from Dr Weeks) Please see Dr. Hernandez's note for prior details. Pt feels well and is still a bit achy but much better now. She is on IVF at 300 cc/hr Objective Vital Signs and I&Os F NAD 140/80 64 97.4 Lungs clear Cor RRR Abd soft N/T Ext neg edema Results Pertinent Lab Results: Laboratory Tests 01/21 01/21 01/21 1030 1015 1015 Hematology ESR Westergren (0 - 20 MM) 10 Urines Urine Color (YEL,AMB,STR) YEL Urine Clarity (CLEAR) CLEAR Urine pH (5.0 - 8.0) 7.0 Ur Specific [place] (1.001 - 1.035) 1.010 Urine Protein (NEG,<30 MG/DL) NEG Urine Ketones (NEG) NEG Urine Nitrite (NEG) NEG Urine Bilirubin (NEG) NEG Urine Urobilinogen (0.1 - 1.0 EU/dl) 0.2 Ur Leukocyte Esterase (NEG) NEG Ur Microscopic SEDIMENT EXAMINED Urine RBC (0 - 5 /HPF) 1-3 Ur Epithelial Cells (NONE,FEW) FEW Urine Hemoglobin (NEG) SMALL H Ur Random Creatinine (mg/dL) 10.3 Ur Random Microalbumin (<1.7 mg/dl) < 0.6 Ur Random Sodium (30 - 90 mmol/L) 131 H Ur Random Potassium (mmol/L) 7.7 Fraction Sodium Excret (<1% %) 5.5 H Urine Glucose (N MG/DL) NEG U Cystine/Creat Ratio (mcg/mg) 01/21 01/21 01/20 0721 0600 0710 Chemistry Sodium (137 - 145 mmol/L) 140 141 Potassium (3.5 - 5.1 mmol/L) 4.1 3.8 Chloride (98 - 107 mmol/L) 108 H 109 H Carbon Dioxide (22 - 30 mmol/L) 28 27 Anion Gap (5 - 16) 5 5 BUN (7 - 17 mg/dL) 3 L 3 L Creatinine (0.5 - 1.0 mg/dL) 0.6 0.6 Estimated GFR (>60 ml/min) > 60 > 60 BUN/Creatinine Ratio (7 - 25 %) 5.0 L 5.0 L Phosphorus (2.5 - 4.5 mg/dL) 3.7 Magnesium (1.6 - 2.3 mg/dL) 1.7 1.4 L Creatine Kinase (30 - 135 U/L) > 99696.0 H > 86473 H C-Reactive Prot, Quant (<1.0 mg/dL) 0.6 Immunology ERLIN Titer Pending Anti-Nuclear Antibody Pending Miscellaneous Ref Lab Test Result Pending 01/19 01/19 1550 0914 Chemistry Sodium (137 - 145 mmol/L) 142 Potassium (3.5 - 5.1 mmol/L) 3.8 Chloride (98 - 107 mmol/L) 108 H Carbon Dioxide (22 - 30 mmol/L) 30 Anion Gap (5 - 16) 4 L BUN (7 - 17 mg/dL) 5 L Creatinine (0.5 - 1.0 mg/dL) 0.7 Estimated GFR (>60 ml/min) > 60 BUN/Creatinine Ratio (7 - 25 %) 7.1 Magnesium (1.6 - 2.3 mg/dL) 1.6 Creatine Kinase (30 - 135 U/L) > 44608 H > 27183 H
[2017-01-22] VITALS (8 sets, daily range): BP systolic 120–140; BP diastolic 70–100
--- NOTE | 2017-01-22 07:34 | PN- Housestaff ---
See Addendum Subjective Follow-up For: Rhabdomyolysis Cocaine overdose Suicidal ideation Subjective: Ms. Sandhu was seen and examined morning. She is resting comfortably on the chair beside her bed basking in the sun. She endorses no issues overnight. Reports mild back pain. Rated a 2 out of 10 severity. Described as dull States this is chronic. Denies any fever, chills, nausea, vomiting. She has been tolerating by mouth intake well. Review of Systems Constitutional: Reports: see HPI. Objective Last 24 Hrs of Vital Signs/I&O Vital Signs Date Time Temp Pulse Resp B/P B/P Pulse O2 O2 Flow FiO2 Mean Ox Delivery Rate 01/22 06 98.1 80 20 140/100 01/22 0400 98.0 69 20 120/72 01/22 0000 98.0 65 20 120/70 01/21 2241 98.0 65 20 120/70 96 Room Air 01/21 2200 97.6 69 20 142/82 01/21 2000 97.4 64 18 140/80 01/21 1439 97.4 64 18 140/80 97 Room Air Intake & Output 01/22 0800 01/22 0000 01/21 1600 Intake Total 3440 1960 3700 Output Total 2900 3900 2900 Balance 540 -1940 800 Intake, IV 3200 1600 3200 Intake, Oral 240 360 500 Output, Urine 2900 3900 2900 Physical Exam General Appearance: Alert, Oriented X3 Cardiovascular: Regular Rate, Normal S1, Normal S2 Lungs: Clear to Auscultation Abdomen: Normal Bowel Sounds, Soft, No Tenderness Neurological: Normal Gait, Normal Speech, Strength at 5/5 X4 Ext Extremities: No Clubbing, No Edema Current Medications: Current Medications Sig/Aydin Start time Last Medication Dose Route Stop Time Status Admin Acetaminophen 500 MG Q6P PRN 01/21 1215 AC 01/21 PO 1359 Docusate Sodium 100 MG BID 01/17 1446 AC 01/20 PO 0809 Fluconazole 100 MG DAILY 01/17 1027 DC 01/21 PO 0940 Lorazepam 1 MG TID 01/21 2200 AC 01/22 PO 0601 Lorazepam 1 MG BID PRN 01/15 1115 DC 01/21 PO 1019 Magnesium Chloride 64 MG BID 01/21 1000 DC 01/21 PO 01/21 Melatonin 10 MG AT BEDTIME 01/17 2200 AC 01/21 PO 2057 Oxycodone HCl 5 MG Q6P PRN 01/21 0845 01/22 PO 0601 Patient Medication 1 ED .STK-MED ONE 01/21 1433 NV Teaching ED 01/21 1434 Polyethylene Glycol 17 GM DAILY PRN 01/16 1545 01/16 PO 1709 Senna/Docusate Sodium 2 TAB DAILY PRN 01/16 1545 01/16 PO 1708 Sodium Chloride 1,000 ML Q3H 01/21 1830 01/22 IV 0740 Sodium Chloride 1,000 ML Q5H 01/13 0145 DC 01/21 IV 1259 Trazodone HCl 12.5 MG ONCE PRN 01/21 2100 01/21 PO 2150 Last 24 Hrs of Lab/Anup Results Last 24 Hrs of Labs/Mics: Laboratory Tests 01/22/17 0630: Anion Gap 7, Estimated GFR > 60, BUN/Creatinine Ratio 5.0 L, Phosphorus 3.7, Magnesium 1.5 L, Creatine Kinase 76963 H 01/22/17 0600: Ref Lab Test Result Pending 01/21/17 1030: ESR Westergren 10 01/21/17 1015: Urine Color YEL, Urine Clarity CLEAR, Urine pH 7.0, Ur Specific [place] 1.010, Urine Protein NEG, Urine Ketones NEG, Urine Nitrite NEG, Urine Bilirubin NEG, Urine Urobilinogen 0.2, Ur Leukocyte Esterase NEG, Ur Microscopic SEDIMENT EXAMINED, Urine RBC 1-3, Ur Epithelial Cells FEW, Urine Hemoglobin SMALL H, Urine Glucose NEG 01/21/17 1015: Urine Opiates Screen < 100.00, Methadone Screen < 40, Barbiturate Screen < 60, Ur Phencyclidine Scrn < 6.00, Amphetamines Screen < 100, U Benzodiazepines Scrn < 85, Urine Cocaine Screen < 50, Urine Cannabis Screen < 5.00, Ur Random Creatinine 10.3, Ur Random Microalbumin < 0.6, Ur Random Sodium 131 H, Ur Random Potassium 7.7, Fraction Sodium Excret 5.5 H, U Cystine/Creat Ratio Assessment/Plan Assessment: 26-year-old female with past medical history of polysubstance abuse, bipolar disorder, who presented to the emergency department with altered mental status, was initially placed in the ICU for cocaine intoxication, acute renal failure secondary to rhabdomyolysis. Currently managed on GM for rhabdomyolisis with significantly elevated CPK. # Rhabdomyolysis Creatine kinase on admission > 32,000. Goal for discharge is below 10,000. * Trend CPK until it reaches 10,000 - trending down slightly * Adequate IV hydration - NS infusion rate at 400 cc/hr (goal UOP ~ 200 cc/hr). * CPK this AM: 74210. * Monitor BEP and phosphorus daily, 3.7. * Strict I/Os # NAM - resolved Most likely 2/2 rhabdo. * Monitor BEP daily, trend renal fx * IV hydration as above # Cocaine overdose in the setting of Bipolar d/o & SI Currently remains HDS and alert & oreinted x 3. * Psych following, appreciate resc * Cont melatonin 10mg and trazodone 12.5mg qHS * PRN Ativan for anxiety * Patient to be tras[facility]ferred to [facility] upon discharge * Patient not to leave AMA without psychiatry clearance. * Cont sitter # Thrombocytopenia - resolved Her platelet also dropped from 266,000 from 01/12 to 65,000 on 01/13. Thrombocytopenia most likely 2/2 rhabdomyolysis/DIC. Repeat CBC on 01/24/2017. # Thrush - improving Pt has a white coated layer which appears to be an oral thrush with a possibility of esophageal candidiasis. * Cont fluconazole and Nystatin oral suspension *Patient cannot leave AMA, if needed a PEC has to be signed by the attending physician.* #Diet: Regular diet #DVT ppx: Code status: Full code Problem List: 1. Cocaine abuse 2. Rhabdomyolysis 3. Renal failure Pain Ratin Pain Location: Back Pain Goal: Remain pain free Pain Plan: Oxycodone and tylenol Tomorrow's Labs & Rationales: BEp CPK for rhabdo
--- NOTE | 2017-01-22 18:17 | PN- Nephrology ---
Assessment/Plan Assessment: Rhabdomyolysis. Continue IVF daily CK/Phos/Vandana Hodge MD Suggestion: . Subjective Subjective: Feels well. CK down to 25 K Objective Vital Signs and I&Os VSS Lungs clear COr RRR Abd soft Ext negedema Results Pertinent Lab Results: CK 25K
[2017-01-23] VITALS (7 sets, daily range): BP systolic 122–142; BP diastolic 60–90
--- NOTE | 2017-01-23 08:22 | PN- Housestaff ---
LIANE ALBERTS,BROOK 01/23/17 0822: Subjective Follow-up For: Rhabdomyolysis Cocaine overdose Suicidal ideation Subjective: Patient seen and examined this morning. She is complaining of shortness of breath with intermitten chest pain that is only induced by lying down. Symptoms started last night. No chest pain at rest. Denies any fever, chills, palpitations, dyspnea, swelling, abdominal pain, nausea, vomiting, headache. No events reported overnight. Review of Systems Constitutional: Reports: see HPI. Objective Last 24 Hrs of Vital Signs/I&O Vital Signs Date Time Temp Pulse Resp B/P B/P Pulse O2 O2 Flow FiO2 Mean Ox Delivery Rate 01/23 0637 99.5 69 20 140/84 90 Room Air 01/23 0400 98.5 65 20 140/90 01/23 0000 98.7 60 20 140/90 01/22 2207 98.7 60 20 140/90 97 01/22 2200 98.7 60 20 140/90 01/22 2000 98.7 91 20 125/82 01/22 1402 98.7 91 20 125/82 96 Intake & Output 01/23 1600 01/23 0800 01/23 0000 Intake Total 3680 3800 Output Total 2700 2200 Balance 980 1600 Intake, IV 3200 3200 Intake, Oral 480 600 Output, Urine 2700 2200 Physical Exam General Appearance: Alert, Oriented X3, Cooperative, No Acute Distress Other Physical Findings: Skin erythema and cut cifuentes on both legs below the knee Skin Temp/Moisture Exam: Warm/Dry Sepsis Skin Exam (color): Normal for Ethnicity HEENT Atraumatic, EOMI, very dry mucous membranes, pupils reactive to light, white coated layer on tongue Cardiovascular Normal S1, Normal S2, tachycardia Lungs Clear to Auscultation, Normal Air Movement Abdomen Normal Bowel Sounds, Soft, No Tenderness Neurological Sensation Intact, Cranial Nerves 3-12 NL, Reflexes 2+, power 4/5 in all 4 extremities Vascular Normal Pulses Current Medications: Current Medications Sig/Aydin Start time Last Medication Dose Route Stop Time Status Admin Acetaminophen 500 MG Q6P PRN 01/21 1215 AC 01/21 PO 1359 Docusate Sodium 100 MG BID 01/17 1446 AC 01/20 PO 0809 Lorazepam 1 MG ONE ONE 01/22 1230 DC 01/22 PO 01/22 1231 1231 Lorazepam 1 MG TID 01/21 2200 AC 01/23 PO 0756 Magnesium Oxide 400 MG ONE ONE 01/22 1030 DC 01/22 PO 01/22 1031 1155 Melatonin 10 MG AT BEDTIME 01/17 2200 AC 01/22 PO 2129 Oxycodone HCl 5 MG Q6P PRN 01/21 0845 AC 01/23 PO 0313 Polyethylene Glycol 17 GM DAILY PRN 01/16 1545 AC 01/16 PO 1709 Senna/Docusate Sodium 2 TAB DAILY PRN 01/16 1545 AC 01/16 PO 1708 Sodium Chloride 1,000 ML Q3H 01/21 1830 AC 01/23 IV 0712 Trazodone HCl 12.5 MG ONCE PRN 01/21 2100 AC 01/21 PO 2150 Last 24 Hrs of Lab/Anup Results Last 24 Hrs of Labs/Mics: Laboratory Tests 01/23/17 0719: Sodium Pending, Potassium Pending, Chloride Pending, Carbon Dioxide Pending, Anion Gap Pending, BUN Pending, Creatinine Pending, BUN/Creatinine Ratio Pending , Phosphorus Pending, Creatine Kinase Pending Assessment/Plan Assessment: 26-year-old female with past medical history of polysubstance abuse, bipolar disorder, who presented to the emergency department with altered mental status, was initially placed in the ICU for cocaine intoxication, acute renal failure secondary to rhabdomyolysis. Currently managed on GM for rhabdomyolisis with significantly elevated CPK. # Rhabdomyolysis Creatine kinase on admission > 32,000. Goal for discharge is below 10,000. * [place] 10[place] [address] today * Cont IV hydration - Decrease NS infusion rate at 300 cc/hr (goal UOP ~ 200 cc/ hr). * Monitor BEP and phosphorus daily * Strict I/Os # Dyspnea with chets pain Complaining of shortness of breath with intermitten chest pain that is only induced by lying down. Symptoms started last night. * CXR to check for effusion * D-dimer in concern for PE * Consider CTA to r/o PE as d-dimer was already elevated on admission # NAM - resolved Most likely 2/2 rhabdo. * Monitor BEP daily, trend renal fx * IV hydration as above # Cocaine overdose in the setting of Bipolar d/o & SI Currently remains HDS and alert & oreinted x 3. * Psych following, appreciate resc * Cont melatonin 10mg and trazodone 12.5mg qHS * PRN Ativan for anxiety * Patient to be tras[facility]ferred to [facility] upon discharge * Patient not to leave AMA without psychiatry clearance. * Cont sitter # Thrombocytopenia - resolved Her platelet also dropped from 266,000 from 01/12 to 65,000 on 01/13. Thrombocytopenia most likely 2/2 rhabdomyolysis/DIC. Repeat CBC on 01/24/2017. # Thrush - improving Pt has a white coated layer which appears to be an oral thrush with a possibility of esophageal candidiasis. * Cont fluconazole and Nystatin oral suspension *Patient cannot leave AMA, if needed a PEC has to be signed by the attending physician.* #Diet: Regular diet #DVT ppx: Code status: Full code Problem List: 1. Cocaine abuse 2. Rhabdomyolysis Pain Ratin Pain Location: 0 Pain Goal: Remain pain free Pain Plan: Mild pathway Tomorrow's Labs & Rationales: BEP, CPK, Ph - caesar GUERRERO MD,JASON 01/23/17 1103: Attending MD Review Statement Attending Statement Attending MD Statement: examined this patient, discuss w/resident/PA/ELECTRIC FURNACE OPERATOR, agreed w/resident/PA/ELECTRIC FURNACE OPERATOR, reviewed EMR data (avail) Attending Assessment/Plan: 26F PMH polysubstance abuse admitted intially to ICU with cocaine overdose and rhabdomyolysis, now downgraded to general medicine floor, course complicated by oral thrush. Oral pain and odynophagia have resolved. She does report that when she was a child she would have muscle pains and would require IV fluids during "growth spurts". Patient complains of pleuritic chest pain when lying down and shortness of breath. Her lung exam is normal. SHe is not tachycardic. Her CPK is improved to 17,000. Her renal function remains normal. ERLIN and anti-Jael antibodies have been sent. 1. Rhabdomyolysis 2. Cocaine overdose 3. Candidal esophagitis 4. Polysubstance abuse Plan - Continue on general medicine - Follow nephrology recommendations - Check D-dimer, if positive obtain CTA chest to rule out PE, as patient has been essentially immobile since admission (she does not like to walk very much) and is at increased risk for VTE - Continue normal saline - Monitor renal function and CPK level - Continue Fluconazole - Follow psychiatry recommendations - DVT PPx
--- NOTE | 2017-01-23 10:15 | PN- Student ---
Subjective Subjective: 26 yo female with history of polysubstance abuse and bipolar disorder was admitted on 01/12/17 for AMS secondary to possible cocaine overdose. Patient had difficulty sleeping last night. She states that "her lungs hurt." She rates the pain as a 3/10. Laying flat and taking a deep breath makes it worse and sitting up helps to relieve the pain. She also states lower back pain with no radiation and rates it as a 3/10. Denies nausea, vomiting, chills, palpitations, difficulty urinating. Current Medications Sig/Aydin Start time Last Medication Dose Route Stop Time Status Admin Acetaminophen 500 MG Q6P PRN 01/21 1215 AC 01/21 PO 1359 Docusate Sodium 100 MG BID 01/17 1446 AC 01/20 PO 0809 Lorazepam 1 MG ONE ONE 01/22 1230 DC 01/22 PO 01/22 1231 1231 Lorazepam 1 MG TID 01/21 2200 AC 01/23 PO 0756 Magnesium Oxide 400 MG ONE ONE 01/22 1030 DC 01/22 PO 01/22 1031 1155 Melatonin 10 MG AT BEDTIME 01/17 2200 AC 01/22 PO 2129 Oxycodone HCl 5 MG Q6P PRN 01/21 0845 AC 01/23 PO 0313 Polyethylene Glycol 17 GM DAILY PRN 01/16 1545 AC 01/16 PO 1709 Potassium Chloride 40 MEQ ONCE ONE 01/23 1015 UNVr PO 01/23 1016 Senna/Docusate Sodium 2 TAB DAILY PRN 01/16 1545 AC 01/16 PO 1708 Sodium Chloride 1,000 ML Q3H 01/21 1830 AC 01/23 IV 0712 Trazodone HCl 12.5 MG ONCE PRN 01/21 2100 AC 01/21 PO 2150 Objective Objective: Physical exam: General: alert and oriented x3. no acute distress Head: NC/AT Mouth/throat: no erythema, no evidence of thrush Heart: regular rate and rhythm Lungs: clear to ausculation. Resonance with no dullness upon percussion. Vascular: no edema, erythema in LE Vital Signs Date Time Temp Pulse Resp B/P B/P Pulse O2 O2 Flow FiO2 Mean Ox Delivery Rate 01/23 0637 99.5 69 20 140/84 90 Room Air 01/23 0400 98.5 65 20 140/90 01/23 0000 98.7 60 20 140/90 06/10 2207 98.7 60 20 140/90 97 01/22 2200 98.7 60 20 140/90 01/22 2000 98.7 91 20 125/82 01/22 1402 98.7 91 20 96 Intake & Output 01/23 1600 01/23 0800 01/23 0000 Intake Total 3680 3800 Output Total 2700 2200 Balance 980 1600 Intake, IV 3200 3200 Intake, Oral 480 600 Output, Urine 2700 2200 Results Results: Laboratory Tests 01/23/17 0719: Anion Gap 5, Estimated GFR > 60, BUN/Creatinine Ratio 6.7 L, Phosphorus 3.9, Magnesium Pending, Creatine Kinase 58316 H 01/22/17 0630: Anion Gap 7, Estimated GFR > 60, BUN/Creatinine Ratio 5.0 L, Phosphorus 3.7, Magnesium 1.5 L, Creatine Kinase 66166 H 01/22/17 0600: Ref Lab Test Result Pending 01/21/17 1030: ESR Westergren 10 01/21/17 1015: Urine Color YEL, Urine Clarity CLEAR, Urine pH 7.0, Ur Specific [place] 1.010, Urine Protein NEG, Urine Ketones NEG, Urine Nitrite NEG, Urine Bilirubin NEG, Urine Urobilinogen 0.2, Ur Leukocyte Esterase NEG, Ur Microscopic SEDIMENT EXAMINED, Urine RBC 1-3, Ur Epithelial Cells FEW, Urine Hemoglobin SMALL H, Urine Glucose NEG 01/21/17 1015: Urine Opiates Screen < 100.00, Methadone Screen < 40, Barbiturate Screen < 60, Ur Phencyclidine Scrn < 6.00, Amphetamines Screen < 100, U Benzodiazepines Scrn < 85, Urine Cocaine Screen < 50, Urine Cannabis Screen < 5.00, Ur Random Creatinine 10.3, Ur Random Microalbumin < 0.6, Ur Random Sodium 131 H, Ur Random Potassium 7.7, Fraction Sodium Excret 5.5 H, U Cystine/Creat Ratio 01/21/17 0721: Anion Gap 5, Estimated GFR > 60, BUN/Creatinine Ratio 5.0 L, Phosphorus 3.7, Magnesium 1.7, Creatine Kinase > 54934.0 H, C-Reactive Prot, Quant 0.6 01/21/17 0600: ERLIN Titer Pending, Anti-Nuclear Antibody Pending, Ref Lab Test Result Pending Assessment/Plan Assessment: 26 yo female with history of polysubstance abuse and bipolar disorder was admitted on 01/12/17 for AMS secondary to possible cocaine overdose, states new dyspnea and pain that began last night. Physical exam is unremarkable. She is afebrile, hypertensive, pulse ox 90% [place] [address]. My differential includes pulmonary embolism, anxiety secondary to prolonged hospital stay, heart failure, anemia. Plan: 1. Rhabdomyolysis * [place] [address]. Awaiting results of ERLIN and anti-nuclear antibody for other potential causes of increased level of CK. * Continue IV fluids at infusion rate of 300 ml/hr with urinary output of 200 ml /hr 2. Dyspnea * CXR to r/o pulmonary embolism * D-dimer to r/o pulmonary embolism * Consider incentive spirometry and O2 nasal cannula at 2 L * Monitor vitals. Recheck labs. (Hbg and Hct) * Consult psychiatry 3. Polysubstance abuse * psych evaluation
--- NOTE | 2017-01-23 10:31 | RADIOLOGY REPORT ---
EXAMINATION: XR PORTABLE CHEST CLINICAL INFORMATION: Rule out effusions. COMPARISON: Chest x-ray from 01/12/2017. TECHNIQUE: Portable frontal view of the chest was obtained. FINDINGS: There is pulmonary vascular congestion with prominence of the central vasculature and increased interstitial markings. There are small bilateral pleural effusions with patchy opacities in the lung bases, more so on the left side. The cardiomediastinal silhouette is unremarkable. No acute osseous abnormality is seen. IMPRESSION: Imaging findings most suspicious for pulmonary vascular congestion. Low lung volumes somewhat limit assessment. Small pleural effusions with probable compressive atelectasis, more so on the left side. A repeat PA and lateral chest x-ray could be obtained in follow-up for more complete evaluation.
--- NOTE | 2017-01-23 12:44 | NUR ---
1230- PT WITH EDEMA TO FACE, EYES. SKIN TO EXTREMITIES TAUGHT. ABOVE REPORTED TO DR. ROB. IVF RATE DECREASED TO 200 ML/HR
--- NOTE | 2017-01-23 16:21 | NUR ---
1600- PT REPORTED PAIN TO CHEST THIS MORNING TO DR. GUERRERO. D-DIMER 550. PAGED DR. ROB TO CONFIRM HE WAS AWARE OF D DIMER RESULTS. PER DR. ROB, NO NEW ORDERS AT THIS TIME. VSS. PT HAS NOT CONTINUED TO COMPLAIN OF DISCOMFORT TO CHEST. O2 SAT 95% ON RA, RR 18, HR 64, B/P 142/86.
--- NOTE | 2017-01-23 18:27 | NUR ---
1800- PT COMPLAINING OF CHEST PAIN. VSS. O2 SAT 96%. DR. ROB PAGEKaren AND TO ASSESS PT. 1814- CTA ORDERED TO R/O PE.
--- NOTE | 2017-01-23 19:22 | CT SCAN REPORT ---
EXAMINATION: CT ANGIOGRAM OF THE CHEST WITH AND WITHOUT CONTRAST (CT PULMONARY ANGIOGRAM FOR PE) CLINICAL INFORMATION: 26-year-old woman with dyspnea and chest pain. COMPARISON: 01/23/2017 chest radiograph TECHNIQUE: Prior to contrast administration, noncontrast localization images were obtained. Subsequently, multidetector volumetric imaging was performed from the thoracic inlet to below the diaphragms following the administration of 120 mL Optiray 350 intravenous contrast. No contrast reaction reported. Sagittal, coronal, and MIP oblique sagittal reformatted images were obtained on the CT workstation, uploaded to PACS, and reviewed. Total exam dose-length product 369 mGy-cm. FINDINGS: QUALITY OF STUDY/CONTRAST BOLUS: Satisfactory PULMONARY ARTERIES: No central or segmental pulmonary emboli. THORACIC AORTA: No aneurysm or dissection. LUNG: No focal consolidation, nodules or masses. There is bibasilar atelectasis. PLEURA: There are small to moderate bilateral pleural effusions. MEDIASTINUM: Normal heart size. No pericardial effusion. No hilar or mediastinal lymphadenopathy. No evidence of septal bowing or right heart strain. CHEST WALL/AXILLA: No axillary or internal mammary lymphadenopathy. OSSEOUS STRUCTURES: No acute or suspicious osseous abnormality. UPPER ABDOMEN: Unremarkable. IMPRESSION: 1. No evidence of acute or chronic pulmonary emboli. 2. Small to moderate bilateral pleural effusions with bibasilar atelectasis.
[2017-01-24] VITALS (11 sets, daily range): BP systolic 118–148; BP diastolic 60–88
--- NOTE | 2017-01-24 06:37 | PN- Housestaff ---
See Addendum Subjective Follow-up For: Rhabdomyolysis Cocaine overdose Suicidal ideation Subjective: Patient seen and examined this morning. She reports shortness of breath and chest pain resolved. Also face swelling has subsided. No chest pain at rest. Denies any fever, chills, palpitations, dyspnea, swelling, abdominal pain, nausea, vomiting, headache. No events reported overnight. Review of Systems Constitutional: Reports: see HPI. Objective Last 24 Hrs of Vital Signs/I&O Vital Signs Date Time Temp Pulse Resp B/P B/P Pulse O2 O2 Flow FiO2 Mean Ox Delivery Rate 01/24 1000 98.1 71 18 118/76 01/24 0454 98.9 59 20 148/88 94 Room Air 01/24 0000 98.6 91 20 122/60 01/23 2250 98.6 91 20 122/60 96 Room Air 01/23 2200 98.6 91 20 122/60 01/23 1620 98.1 64 18 142/86 95 Room Air 01/23 1406 98.1 90 20 138/80 95 Room Air Intake & Output 01/24 1600 01/24 0800 01/24 0000 Intake Total 1960 340 Output Total 2000 1000 Balance -40 -660 Intake, IV 1600 100 Intake, Oral 360 240 Output, Urine 1999 1000 Physical Exam General Appearance: Alert, Oriented X3, Cooperative, No Acute Distress Other Physical Findings: Skin Temp/Moisture Exam: Warm/Dry Sepsis Skin Exam (color): Normal for Ethnicity HEENT Atraumatic, EOMI, pupils reactive to light Cardiovascular Normal S1, Normal S2, tachycardia Lungs Clear to Auscultation, Normal Air Movement Abdomen Normal Bowel Sounds, Soft, No Tenderness Neurological Sensation Intact, Cranial Nerves 3-12 NL, Reflexes 2+, strength 5/5 in all 4 extremities, No edema Vascular Normal Pulses Assessment/Plan Assessment: 26-year-old female with past medical history of polysubstance abuse, bipolar disorder, who presented to the emergency department with altered mental status, was initially placed in the ICU for cocaine intoxication, acute renal failure secondary to rhabdomyolysis. Currently managed on for rhabdomyolisis with significantly elevated CPK. # Rhabdomyolysis Creatine kinase on admission > 32,000. Goal for discharge is below 10,000. * Trend CPK until it reaches 10,000 - trended down to 13k today * Cont IV hydration - increase NS infusion rate at 300 cc/hr (goal UOP ~ 200 cc/ hr). * Monitor BEP and phosphorus daily * Strict I/Os # NAM - resolved Most likely 2/2 rhabdo. * Monitor BEP daily, trend renal fx * IV hydration as above # Cocaine overdose in the setting of Bipolar d/o & SI Currently remains HDS and alert & oreinted x 3. * Psych following, appreciate resc * Cont melatonin 10mg and trazodone 12.5mg qHS * PRN Ativan for anxiety * Patient to be [facility] to [facility] upon discharge * Patient not to leave AMA without psychiatry clearance. * Cont sitter # Thrombocytopenia - resolved Her platelet also dropped from 266,000 from 01/12 to 65,000 on 01/13. Thrombocytopenia most likely 2/2 rhabdomyolysis/DIC. # Thrush - resolved Pt has a white coated layer which appears to be an oral thrush with a possibility of esophageal candidiasis. *Patient cannot leave AMA, if needed a PEC has to be signed by the attending physician.* #Diet: Regular diet #DVT ppx: Code status: Full code Problem List: 1. Cocaine abuse 2. Rhabdomyolysis Pain Ratin Pain Location: 0 Pain Goal: Remain pain free Pain Plan: Mild Tomorrow's Labs & Rationales: CBC BEP CPK
--- NOTE | 2017-01-24 08:12 | PN- Student ---
Subjective Subjective: Patient reports no events overnight. She states that she no longer has difficulty breathing and denies chest pain. She's feeling fine and only reports a "basic headache." Denies fever, nausea, vomiting, palpitations, dizziness, and weakness. Objective Objective: Physical Exam: General: alert and oriented x3. no acute distress Cardiac: regular rate and rhythm. no murmurs Pulm: clear to auscultation Extremities: no edema, erythema Diagnostics: CT angiogram: 1. No evidence of acute or chronic pulmonary emboli. 2. Small to moderate bilateral pleural effusions with bibasilar atelectasis. Vital Signs Date Time Temp Pulse Resp B/P B/P Pulse O2 O2 Flow FiO2 Mean Ox Delivery Rate 01/24 1000 98.1 71 18 118/76 01/24 0454 98.9 59 20 148/88 94 Room Air 01/24 0000 98.6 91 20 122/60 01/23 2250 98.6 91 20 122/60 96 Room Air 01/23 2200 98.6 91 20 122/60 11 1620 98.1 64 18 142/86 95 Room Air Intake & Output 01/24 1600 01/24 0800 01/24 0000 Intake Total 1960 340 Output Total 2000 1000 Balance -40 -660 Intake, IV 1600 100 Intake, Oral 360 240 Output, Urine 1999 1000 Results Results: Laboratory Tests 01/24/17 0730: Sodium Pending, Potassium Pending, Chloride Pending, Carbon Dioxide Pending, Anion Gap Pending, BUN Pending, Creatinine Pending, BUN/Creatinine Ratio Pending , Phosphorus Pending, Magnesium Pending, Creatine Kinase Pending 01/23/17 1115: D-Dimer High Sensitivty 550 H 01/23/17 0719: Anion Gap 5, Estimated GFR > 60, BUN/Creatinine Ratio 6.7 L, Phosphorus 3.9, Magnesium 1.3 L, Creatine Kinase 87811 H 01/22/17 0630: Anion Gap 7, Estimated GFR > 60, BUN/Creatinine Ratio 5.0 L, Phosphorus 3.7, Magnesium 1.5 L, Creatine Kinase 20787 H 01/22/17 0600: Ref Lab Test Result Pending 01/21/17 1030: ESR Westergren 10 01/21/17 1015: Urine Color YEL, Urine Clarity CLEAR, Urine pH 7.0, Ur Specific [place] 1.010, Urine Protein NEG, Urine Ketones NEG, Urine Nitrite NEG, Urine Bilirubin NEG, Urine Urobilinogen 0.2, Ur Leukocyte Esterase NEG, Ur Microscopic SEDIMENT EXAMINED, Urine RBC 1-3, Ur Epithelial Cells FEW, Urine Hemoglobin SMALL H, Urine Glucose NEG 01/21/17 1015: Urine Opiates Screen < 100.00, Methadone Screen < 40, Barbiturate Screen < 60, Ur Phencyclidine Scrn < 6.00, Amphetamines Screen < 100, U Benzodiazepines Scrn < 85, Urine Cocaine Screen < 50, Urine Cannabis Screen < 5.00, Ur Random Creatinine 10.3, Ur Random Microalbumin < 0.6, Ur Random Sodium 131 H, Ur Random Potassium 7.7, Fraction Sodium Excret 5.5 H, U Cystine/Creat Ratio Assessment/Plan Plan: Assessment and Plan: 26 yo female with history of polysubstance abuse and bipolar disorder was admitted on 01/12/17 for AMS secondary to possible cocaine overdose, states no new symptoms. Physical exam is unremarkable. She is afebrile, normotensive. 1. Rhabdomyolysis * [place] [address]. Awaiting results of ERLIN and anti-nuclear antibody for other potential causes of increased level of CK. * Continue IV fluids at infusion rate of 300 ml/hr with urinary output of 200 ml /hr 2. Dyspnea * Symptoms have resolved. * D-dimer level of 550. CTA didn't reveal pulmonary emboli. Evidence of bilateral pleural effusions with bibasilar atelectasis. Elevated D-dimer in absence of pulmonary embolism can be secondary to liver disease, pneumonia, anxiety, hospitalization, connective tissue disease, cocaine use. * Can consider O2, decreasing IV fluids, and chest physiotherapy if dyspnea continues. 3. Polysubstance abuse * psych evaluation
--- NOTE | 2017-01-24 09:40 | PN- Psychiatry ---
Assessment/Plan Impression: Identifying Info: 26-year-old single female brought in by ambulance on 01/12/2017 for altered mental status, she has a h/o Bipolar d/o. Admitted to the critical care unit with probable overdose on cocaine and psychotropic medications. Consult requested for OD, paranoia, and hallucinations. SUBJECTIVE Pt reports "I'm really worried in general about my court stuff." Continues to be agreeable with plan for psychiatric admission with plan for substance after care post discharge. Expresses some concern about becoming sick if oxycodone for back pain is discontinued and would like to ensure suboxone is restarted at that point. Discussed with patient that back pain may be from opiate withdrawl instead, she agrees it may be and reports experiencing sweats when in back pain as well. Agreeable to discontinuing oxycodone and returning to suboxone. Again expresses wish for ativan to be provided prior to labwork. Brief ROS Gait: Steady Sleep: Adequate Appetite: Adequate OBJECTIVE Mental Status Exam Presentation/Appearance: Cooperative with evaluation. Hospital garb. Calm. Orientation: x4 Sensorium: Awake and alert Eye contact: Fair Affect: Delgado range, somewhat blunted Mood: "Really worried" Depression: Denies Anxiety: Endorses Thought Content: - Mild PI continues - Denies SI/HI, AH/VH. States and also believes they will not kill themselves. - Denies Hopeless/Helpless Thoughts Thought Process: More linear Associations: Appropriate Speech: Normal tone and rate Judgment: Fair Insight: Fair Cognition: Memory: Recent deficits Attention/Concentration: Grossly intact Fund of Knowledge: Did not assess Abstractions:Did not assess MMSE: Did not assess ASSESSMENT Patient presents with altered mental status in the context of probable crack cocaine intoxication as well as reported overdose on psychotropic medications. Altered mental status on admission is resolving but paranoia continues. At present her current paranoia as well as recent unitentional overdose warrant inpatient psychiatric hospitalization post medical clearance. Diagnosis Delirium due to multiple etiologies, resolved Unspecified bipolar disorder Rule out substance induced psychotic disorder Rule out Schizoaffective disorder Rule out unspecified trauma or stressor related disorder A total of 30 minutes was spent with the patient with more than 50% of the time spent in counseling and/or coordination of care. Suggestion: 1. Patient may not leave AMA without psychiatry clearance. PEC written and played on chart for attending signature. 2. Please continue sitter. 3. Please continue Ativan and premedicate pt for lab draws. 4. Please discontinue oxycodone and start patient on previous dose of Suboxone 2mg/0.5mg. 5. We will consider second genration antipsychotic for paranoia and mood stabilization if labs improve. Thank you for including psychiatry in this case we'll continue to follow. Subjective Subjective: as above Objective Last 24 Hrs of Vital Signs/I&O Current Medications Sig/Aydin Start time Last Medication Dose Route Stop Time Status Admin Acetaminophen 500 MG Q6P PRN 01/21 1215 AC 01/24 PO 0445 Docusate Sodium 100 MG BID 01/17 1446 AC 01/20 PO 0809 Lorazepam 1 MG TID 01/24 1000 AC 01/24 PO 0810 Lorazepam 1 MG ONCE ONE 01/23 1830 DC 01/23 IV 01/23 1831 1920 Lorazepam 1 MG ONE ONE 01/23 1045 CAN PO 01/23 1046 Lorazepam 1 MG ONCE ONE 01/23 1045 DC 01/23 IV 01/23 1046 1103 Lorazepam 1 MG TID 01/21 2200 DC 01/23 PO 1528 Magnesium Chloride 64 MG TID 01/23 1159 DC 01/23 PO 01/23 2201 2138 Magnesium Sulfate 1 GM ONCE ONE 01/23 1800 DC 01/23 Dextrose/Water 100 ML IV 01/23 2159 1801 Magnesium Sulfate 1 GM ONCE ONE 01/23 1200 DC 01/23 Dextrose/Water 100 ML IV 01/23 1559 1434 Melatonin 10 MG AT BEDTIME 01/17 2200 AC 01/22 PO 2129 Oxycodone HCl 5 MG Q6P PRN 01/21 0845 AC 01/24 PO 0910 Polyethylene Glycol 17 GM DAILY PRN 01/16 1545 AC 01/16 PO 1709 Potassium Chloride 40 MEQ ONCE ONE 01/23 1015 DC 01/23 PO 01/23 1016 1238 Senna/Docusate Sodium 2 TAB DAILY PRN 01/16 1545 AC 01/16 PO 1708 Sodium Chloride 1,000 ML Q5H 01/23 1300 AC 01/24 IV 0443 Sodium Chloride 1,000 ML Q3H 01/21 1830 DC 01/23 IV 1922 Trazodone HCl 12.5 MG ONCE ONE 01/23 2000 DC 01/23 PO 01/23 2001 213 Trazodone HCl 12.5 MG ONCE PRN 01/21 2100 DC 01/21 PO 2150 Laboratory Tests 01/24/17 0730: Anion Gap 7, Estimated GFR > 60, BUN/Creatinine Ratio 6.7 L, Phosphorus 4.4, Magnesium 2.0, Creatine Kinase 45358 H 01/23/17 1115: D-Dimer High Sensitivty 550 H 01/23/17 0719: Anion Gap 5, Estimated GFR > 60, BUN/Creatinine Ratio 6.7 L, Phosphorus 3.9, Magnesium 1.3 L, Creatine Kinase 52586 H 01/22/17 0630: Anion Gap 7, Estimated GFR > 60, BUN/Creatinine Ratio 5.0 L, Phosphorus 3.7, Magnesium 1.5 L, Creatine Kinase 90001 H 01/22/17 0600: Ref Lab Test Result Pending 01/21/17 1030: ESR Westergren 10 01/21/17 1015: Urine Color YEL, Urine Clarity CLEAR, Urine pH 7.0, Ur Specific [place] 1.010, Urine Protein NEG, Urine Ketones NEG, Urine Nitrite NEG, Urine Bilirubin NEG, Urine Urobilinogen 0.2, Ur Leukocyte Esterase NEG, Ur Microscopic SEDIMENT EXAMINED, Urine RBC 1-3, Ur Epithelial Cells FEW, Urine Hemoglobin SMALL H, Urine Glucose NEG 01/21/17 1015: Urine Opiates Screen < 100.00, Methadone Screen < 40, Barbiturate Screen < 60, Ur Phencyclidine Scrn < 6.00, Amphetamines Screen < 100, U Benzodiazepines Scrn < 85, Urine Cocaine Screen < 50, Urine Cannabis Screen < 5.00, Ur Random Creatinine 10.3, Ur Random Microalbumin < 0.6, Ur Random Sodium 131 H, Ur Random Potassium 7.7, Fraction Sodium Excret 5.5 H, U Cystine/Creat Ratio Vital Signs Date Time Temp Pulse Resp B/P B/P Pulse O2 O2 Flow FiO2 Mean Ox Delivery Rate 01/24 0454 98.9 59 20 148/88 94 Room Air 01/24 0000 98.6 91 20 122/60 01/23 2250 98.6 91 20 122/60 96 Room Air 01/23 2200 98.6 91 20 122/60 01/23 1620 98.1 64 18 142/86 95 Room Air 01/23 1406 98.1 90 20 138/80 95 Room Air Intake & Output 01/24 1600 01/24 0800 01/24 0000 Intake Total 1960 340 Output Total 1999 999 Balance -40 -660 Intake, IV 1600 100 Intake, Oral 360 240 Output, Urine 1999 999
--- NOTE | 2017-01-24 17:47 | Cons- Rheumatology ---
General Information and HPI Consulting Request Date of Consult: 01/24/17 Requested By: HONG AL M.D Reason for Consult: Evaluate for CTD Source of Information: patient, old records Exam Limitations: no limitations History of Present Illness: This 26 YOF was admitted to the hospital and found to have an elevated CPK 2 weeks ago. [place]we [address]. She has been treated for rhabdomyositis [place] [address] [place]. she gives no history of proximal muscle pain or weakness. She has a psych disorder and her urine was positive for cocaine. I am asked to see if this could represent an autoimmune disorder. Allergies/Medications Allergies: Coded Allergies: red dye (Mild, RASH 01/21/17) RED DYE N22 -> RASH Home Med List: Buprenorphine HCl/Naloxone HCl (Suboxone 2 MG-0.5 MG Sl Film) 2 MG-0.5 MG FILM 1 STR SL DAILY ADDICTION (Reported) Hydroxyzine Pamoate 25 MG CAPSULE 1 CAP PO TID PRN ANXIETY (Reported) Lurasidone HCl (Latuda) 20 MG TABLET 1 TAB PO DAILY . (Reported) Lurasidone HCl (Latuda) 80 MG TABLET 1 TAB PO QPM . (Reported) Mirtazapine 15 MG TABLET 1 TAB PO QPM SLEEP (Reported) Trazodone HCl 100 MG TABLET 1 TAB PO QPM SLEEP (Reported) Current Medications: Current Medications Sig/Aydin Start time Last Medication Dose Route Stop Time Status Admin Acetaminophen 500 MG Q6P PRN 01/21 1215 AC 01/24 PO 0445 Buprenorphine/ 1 TAB 0800 01/24 1200 AC 01/24 Naloxone SL 1216 Docusate Sodium 100 MG BID 01/17 1446 AC 01/20 PO 0809 Lorazepam 1 MG TID 01/24 1000 AC 01/24 PO 1622 Lorazepam 1 MG ONCE ONE 01/23 1830 DC 01/23 IV 01/23 183 1920 Lorazepam 1 MG TID 01/21 2200 DC 01/23 PO 1528 Magnesium Chloride 64 MG TID 01/23 1159 DC 01/23 PO 01/23 2201 2138 Magnesium Sulfate 1 GM ONCE ONE 01/23 1800 DC 01/23 Dextrose/Water 100 ML IV 01/23 2159 1801 Melatonin 10 MG AT BEDTIME 01/17 2200 AC 01/22 PO 2129 Oxycodone HCl 5 MG Q6P PRN 01/21 0845 DC 01/24 PO 0910 Polyethylene Glycol 17 GM DAILY PRN 01/16 1545 AC 01/16 PO 1709 Senna/Docusate Sodium 2 TAB DAILY PRN 01/16 1545 AC 01/16 PO 1708 Sodium Chloride 1,000 ML Q5H 01/23 1300 AC 01/24 IV 1402 Trazodone HCl 12.5 MG AT BEDTIME 01/240 AC PO Trazodone HCl 12.5 MG ONCE ONE 01/24 2000 DC 01/23 PO 01/23 Trazodone HCl 12.5 MG ONCE PRN 01/21 2100 DC 01/21 PO 2150 Review of Systems Review of Systems: No Raynauds or photosensitive rash. Past History Travel History Traveled to [place] past 21 day No Medical History Blood Transfusion Hx: No Neurological: NONE EENT: NONE Cardiovascular: NONE Respiratory: NONE Gastrointestinal: NONE Hepatic: NONE Renal: NONE Musculoskeletal: NONE Psychiatric: anxiety, depression, substance abuse, ADHD/ADD Endocrine: diabetes Blood Disorders: NONE Cancer(s): NONE Surgical History Surgical History: non-contributory Psychosocial History Where Do You Live? Home Smoking Status: Former Smoker ETOH Use: UNOBTAINABLE Exam & Diagnostic Data Vital Signs and I&O Vital Signs Date Time Temp Pulse Resp B/P B/P Pulse O2 O2 Flow FiO2 Mean Ox Delivery Rate 01/24 1458 97.7 60 18 120/80 97 01/24 1400 97.7 60 18 120/80 01/24 1000 98.1 71 18 118/76 01/24 0454 98.9 59 20 148/88 94 Room Air 01/24 0000 98.6 91 20 122/60 01/23 2250 98.6 91 20 122/60 96 Room Air 01/23 2200 98.6 91 20 122/60 Intake & Output 01/24 1600 01/24 0800 01/24 0000 Intake Total 2725 1960 340 Output Total 2400 2000 1000 Balance 325 -40 -660 Intake, IV 1800 1600 100 Intake, Oral 925 360 240 Output, Urine 2400 2000 1000 Physical Exam: No swollen or tender joints. no rash of Dermatomyositis. no vasculitis of skin. Assessment/Plan Assessment: Elevated CPK on a toxic basis. There is no suspicion of an autoimmune disease. Note that ERLIN and ESR are normal. Recommendations: No further workup needed. Out patient CPK should be obtained Consult Acknowledgment - Thank you for your consult request.
[2017-01-25 06:16] VITALS: BP 154/90
--- NOTE | 2017-01-25 06:17 | PN- Housestaff ---
See Addendum Subjective Follow-up For: Rhabdomyolysis Cocaine overdose Suicidal ideation Subjective: Patient seen and examined this morning. Resting comfortably in bed with no shortness of breath or chest pain. She is upset because she was told by psych team that the goal CPK is 8000 instead of 10,000. Denies any fever, chills, palpitations, dyspnea, swelling, abdominal pain, nausea, vomiting, headache. No events reported overnight. Review of Systems Constitutional: Reports: see HPI. Objective Last 24 Hrs of Vital Signs/I&O Vital Signs Date Time Temp Pulse Resp B/P B/P Pulse O2 O2 Flow FiO2 Mean Ox Delivery Rate 01/25 0616 98.2 60 16 154/90 98 Room Air 01/24 2259 97.9 65 15 118/60 97 Room Air 01/24 2200 97.8 59 16 130/85 01/24 2000 97.8 59 16 130/85 01/24 1853 97.8 59 16 130/85 97 Room Air 01/24 1800 97.7 60 18 120/80 01/24 1600 97.7 60 18 120/80 12 1458 97.7 60 18 120/80 97 12 1400 97.7 60 18 120/80 12 1000 98.1 71 18 118/76 Intake & Output 01/25 0800 01/25 0000 01/24 1600 Intake Total 2850 2725 Output Total 1750 2400 Balance 1100 325 Intake, IV 2400 1800 Intake, Oral 450 925 Output, Urine 1750 2400 Physical Exam General Appearance: Alert, Oriented X3, Cooperative, No Acute Distress Other Physical Findings: Skin Temp/Moisture Exam: Warm/Dry Sepsis Skin Exam (color): Normal for Ethnicity HEENT Atraumatic, EOMI, pupils reactive to light Cardiovascular Normal S1, Normal S2, tachycardia Lungs Clear to Auscultation, Normal Air Movement Abdomen Normal Bowel Sounds, Soft, No Tenderness Neurological Sensation Intact, Cranial Nerves 3-12 NL, Reflexes 2+, strength 5/5 in all 4 extremities, No edema Vascular Normal Pulses Current Medications: Current Medications Sig/Aydin Start time Last Medication Dose Route Stop Time Status Admin Acetaminophen 500 MG Q6P PRN 01/21 1215 AC 01/24 PO 0445 Buprenorphine/ 1 TAB 0800 01/24 1200 AC 01/24 Naloxone SL 1216 Docusate Sodium 100 MG BID 01/17 1446 AC 01/20 PO 0809 Lorazepam 1 MG TID 01/24 1000 AC 01/25 PO 0629 Melatonin 10 MG AT BEDTIME 01/17 2200 AC 01/24 PO 2055 Oxycodone HCl 5 MG Q6P PRN 01/21 0845 DC 01/24 PO 0910 Polyethylene Glycol 17 GM DAILY PRN 01/16 1545 AC 01/16 PO 1709 Senna/Docusate Sodium 2 TAB DAILY PRN 01/16 1545 AC 01/16 PO 1708 Sodium Chloride 1,000 ML Q5H 01/23 1300 AC 01/25 IV 0630 Trazodone HCl 12.5 MG AT BEDTIME 01/24 2200 AC 01/24 PO 2055 Assessment/Plan Assessment: 26-year-old female with past medical history of polysubstance abuse, bipolar disorder, who presented to the emergency department with altered mental status, was initially placed in the ICU for cocaine intoxication, acute renal failure secondary to rhabdomyolysis. Currently managed on GM for rhabdomyolisis with significantly elevated CPK. # Rhabdomyolysis Creatine kinase on admission > 32,000. Goal for discharge is below 10,000. * Trend CPK until it reaches 8000-10,000 * Cont IV hydration - NS infusion rate at 300 cc/hr (goal UOP ~ 200 cc/hr). * Monitor BEP and phosphorus daily * Strict I/Os # NAM - resolved Most likely 2/2 rhabdo. * Monitor BEP daily, trend renal fx * IV hydration as above # Cocaine overdose in the setting of Bipolar d/o & SI Currently remains HDS and alert & oreinted x 3. * Psych following, appreciate resc * Cont melatonin 10mg and trazodone 12.5mg qHS * PRN Ativan for anxiety * Patient to be tras[facility]ferred to [facility] upon discharge * Patient not to leave AMA without psychiatry clearance. * Cont sitter # Thrombocytopenia - resolved Her platelet also dropped from 266,000 from 01/12 to 65,000 on 01/13. Thrombocytopenia most likely 2/2 rhabdomyolysis/DIC. # Thrush - resolved Pt has a white coated layer which appears to be an oral thrush with a possibility of esophageal candidiasis. *Patient cannot leave AMA, if needed a PEC has to be signed by the attending physician.* #Diet: Regular diet #DVT ppx: Code status: Full code Problem List: 1. Cocaine abuse 2. Rhabdomyolysis 3. Depression Pain Ratin Pain Location: 0 Pain Goal: Remain pain free Pain Plan: Mild path Tomorrow's Labs & Rationales: BEP, CPK - rhabdo
[2017-01-25 07:51] VITALS: BP 124/82
[2017-01-25 08:00] VITALS: BP 124/82
--- NOTE | 2017-01-25 08:09 | PN- Rheumatology ---
Subjective Subjective: Shedenies muscle pains or weakness. There is no rash or fever. Objective Vital Signs and I&Os Vital Signs Date Time Temp Pulse Resp B/P B/P Pulse O2 O2 Flow FiO2 Mean Ox Delivery Rate 01/25 0751 124/82 01/25 0616 98.2 60 16 154/90 98 Room Air 01/24 2259 97.9 65 15 118/60 97 Room Air 01/24 2200 97.8 59 16 130/85 / 2000 97.8 59 16 130/85 /12 1853 97.8 59 16 130/85 97 Room Air 01/24 1800 97.7 60 18 120/80 01/24 1600 97.7 60 18 120/80 01/24 1458 97.7 60 18 120/80 97 01/24 1400 97.7 60 18 120/80 01/24 1000 98.1 71 18 118/76 Intake & Output 01/25 1600 01/25 0800 01/25 0000 01/24 1600 01/24 0800 01/24 0000 Intake Total 2850 2725 1960 340 Output Total 1750 2400 2000 1000 Balance 1100 325 -40 -660 Intake, IV 2400 1800 1600 100 Intake, Oral 450 925 360 240 Output, Urine 1750 2400 2000 1000 Physical Exam: No sugns of vasculitis, rash or swollen jounts. Current Medications: Current Medications Sig/Aydin Start time Last Medication Dose Route Stop Time Status Admin Acetaminophen 500 MG Q6P PRN 01/21 1215 AC 01/24 PO 0445 Buprenorphine/ 1 TAB 0800 01/24 1200 AC 01/25 Naloxone SL 0749 Docusate Sodium 100 MG BID 01/17 1446 AC 01/20 PO 0809 Lorazepam 1 MG TID 01/24 1000 AC 01/25 PO 0629 Melatonin 10 MG AT BEDTIME 01/17 2200 AC 01/24 PO 2055 Oxycodone HCl 5 MG Q6P PRN 01/21 0845 DC 01/24 PO 0910 Polyethylene Glycol 17 GM DAILY PRN 01/16 1545 AC 01/16 PO 170 Senna/Docusate Sodium 2 TAB DAILY PRN / 1545 AC 01/16 PO 170 Sodium Chloride 1,000 ML Q5H 01/23 1300 AC 01/25 IV 0630 Trazodone HCl 12.5 MG AT BEDTIME 01/24 2200 AC 01/24 PO 2055 Assessment/Plan Assessment: CPK elevation but no evidence of a connective tissue disease. Presumably on toxic basis. Plan: Observe as outpatient when discaharged.
[2017-01-25 08:40] LABS: ABSOLUTE BASOPHIL COUNT 0 /CUMM (0.0-0.2); ABSOLUTE EOSINOPHIL COUNT 0.1 /CUMM (0.0-0.7); ABSOLUTE GRANULOCYTE CT 4.2 /CUMM (1.4-6.5); ABSOLUTE MONOCYTE COUNT 0.3 /CUMM (0.10-0.60); MEAN CORPUSCULAR HGB CONC 33.7 G/DL (33.0-37.0); MEAN PLATELET VOLUME 8.2 FL (7.4-10.4); WHITE BLOOD CELL COUNT 6.4 /CUMM (4.8-10.8)
[2017-01-25 09:21] LABS: ABSOLUTE LYMPH COUNT 1.8 /CUMM (1.2-3.4); BASOPHIL % 0.4 % (0.0-2.0); EOSINOPHIL % 1.1 % (0-5); GRANULOCYTE % 65.7 % (42.2-75.2); HEMATOCRIT 35.2 % (37-47); MEAN CORPUSCULAR HGB 30.4 PG (27.0-31.0); MEAN CORPUSCULAR VOLUME 90.1 FL (81.0-99.0); RBC DISTRIBUTION WIDTH 13.6 % (11.5-14.5); RED BLOOD CELL CT 3.91 /CUMM (4.20-5.40)
[2017-01-25 09:37] LABS: PLATELET COUNT 334 /CUMM (130-400)
--- NOTE | 2017-01-25 14:16 | NUR ---
SHIFT NOTE: UNEVENTFUL SHIFT. PATIENT REAMINED STABLE. OFFERED NO COMPLAINTS TODAY. DENIED PAIN.
[2017-01-25 14:39] VITALS: BP 130/88
--- NOTE | 2017-01-25 15:16 | Patient Discharge Instructions ---
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 Bangura, psychiatrist and primary care provider within 1 week of discharge. Acute Coronary Syndrome Inclusion Criteria At DC or during hospital stay patient has or had the following: ACS DIAGNOSIS No Discharge Core Measures Meds if any: Prescribed or Continued at Discharge Meds if any: NOT Prescribed or Continued at Discharge Congestive Heart Failure Inclusion Criteria At DC or during hospital stay patient has or had the following: CHF DIAGNOSIS No Discharge Core Measures Meds if any: Prescribed or Continued at Discharge Meds if any: NOT Prescribed or Continued at Discharge Cerebrovascular accident Inclusion Criteria At DC or during hospital stay patient has or had the following: CVA/TIA Diagnosis No Discharge Core Measures Meds if any: Prescribed or Continued at Discharge Meds if any: NOT Prescribed or Continued at Discharge Venous thromboembolism Inclusion Criteria VTE Diagnosis No VTE Type NONE VTE Confirmed by (Test) NONE Discharge Core Measures - Per Current guidelines, there needs to be overlap - treatment for the first 5 days of Warfarin therapy. - If discharged on Warfarin prior to 5 days of - overlap therapy, the patient will need to be - assessed for post discharge needs including - *Post discharge parental anticoagulation - *Warfarin and/or parental anticoagulation education - *Follow up date to check INR post discharge At least 5 days overlap therapy as Inpatient No Meds if any: Prescribed or Continued at Discharge Note: Overlap Therapy is Warfarin and Anticoagulant Meds if any: NOT Prescribed or Continued at Discharge
--- NOTE | 2017-02-02 19:08 | Discharge Summary ---
Visit Information Visit Dates Admission Date: 01/12/17 Discharge Date: 01/25/17 Hospital Course Course Attending Physician: JASON GUERRERO MD Primary Care Physician: ARELY CR [address] Hospital Course: Ms. Sandhu is 26-year-old female with an extensive psychiatric history including bipolar disorder, anxiety disorder and substance abbuse, who was BIBA altered mental status. Patient was admitted to ICU for close monitoring total of 3 days after which she was transferred to general medicine for further stablization prior to being admitted to the inpatient psychiatric unit. # Altered mental status CLIENT SERVICES ANALYST the patient was found tachycardic, tachypneic, tremulous with pale skin, hyperthermic with pin point pupils. Upon arrival to the ER, she was still incoherent, tremulous and unable to answer questions. EMS administered 1 amp of Narcan in the field with no improvement in her mental status. Consistet with the u tox positive for cocaine, the cause of patient's AMS was attributed to substance abuse. Patient received 4 mg of IV Ativan and 4 mg of IV Versed and 4 L of fluid in the ED with some improvement in clinical conditions. She was also put on a cooling blanket with temperatures improving 100.2. Patient was admitted to ICU where she received aggressive IV hydration. Her mentation returned to a normal state accordingly. # Rhabdomyolysis Secondary to cocaine overdose. Creatine kinase on admission was above 32,000. Patient developed an acute renal failure and her BEP was disturbed. Patient received aggressive IV resuscitation after which her CPK eventually trended down to below 8000. Also her renal function and electrolytes normalized with IV hydraiton and daily repletion. # Elevated troponin with atypical chest discomfort Brood Hatchery Manager was consulted for the elevated troponins on admisison. The patient was kept on telmetery monitoring during the ICU stay. There were no cardiac issues since the admission. No evidence of any arrhythmias. No new symptoms. The patient and her mother denied any prior cardiac history. In addition, the patient consistently denied any cardiovascular symptoms. The patient's echocardiogram showed no significant abnormalities. From a cardiac standpoint, the patient was considered to be stable. # Thrombocytopenia - resolved Most likely 2/2 drug-indcued etiology with rhabdomyolysis/DIC. On admission, her platelet was 266,000. Her platelet count decreased from 266,000 on 12/25/2016 to 65,000 01/13/2017. Peripheral smear was unrevealing. She has rare giant platelets. There was no schistocytes. TTP was considered unlikely with the coagulopathy, improving renal function, improving mental status, and improving platelet counts. DIC was a likely possibility given her clinical presentation. DIC demonstrated high normal fibrinogen at 122. Atypical HUS was in the differential but less likely without symptoms including illness and diarrhea. Drug-induced thrombocytopenia was also a possiblity. Her pysch medicaitons were held. Per hematology, cocaine caused acute toxic effect to platelet counts and vasocontriction which can cause some TMA symptoms. Her rhabdomyolysis also caused DIC with thrombocytopenia. Her platelet improved to a normal range as rhabdomyolysis resolved. #Transaminitis Most likely 2/2 cocaine overdose. Abdomen ultrasound revealed small amount of ascites and mild splenomegaly. GI consultation was obtained and no recommendations were indicated per GI. Her LFT's trended down with the resolution of rhabdomyolysis. # Psychiatric illness and cocaine overdose Patient carries a history of bipolar and anxiety disorder. Patient reported taking sleeping medication (trazodone), Suboxone, mirtazapine at home. She reported using cocaine but not for the past year. However per the EMR, she had been noted to report using it that morning. Psych consultation was obtained. All of her home psych meds were held until she became clinically stable. Patient was kept on her home dose of oxycodone for pain. She also received Ativan 0.5mg PO TID for anxiety as per psych's recommendation. Patient was started back on trazodone 12.5mg PO QHS before being dischraged to the inpatient psychatiric unit. In addition, the patient's oxycodone was discontinued and Suboxone 2mg/ 0.5mg was started. Patient was watched closely by a sitter until she was discharged to [facility]. Allergies: Coded Allergies: red dye (Mild, RASH 01/21/17) RED DYE N22 -> RASH Disposition Summary Disposition Principal Diagnosis: Rhabdomyolysis Additional Diagnosis: Altered mental status due to cocaine overdose Bipolar disorder, possible drug overdose Transaminitis Thrombocytopenia Acute onset of anemia Coagulopathy Hyperthermia--resolved Severe sepsis (white count and bandemia, hyperthermia, tachycardia, lactic acidosis, questionable aspiration)--- resolved Elevated troponins rule out ACS--- trended down Anion gap metabolic acidosis/lactic acidosis Atypical Chest pain Acute kidney injury Psychosis/agitation Discharge Disposition: other general hospital Discharge Instructions General Discharge Information Code Status: Full Code Patient's Diet: Regular Patient's Activity: As tolerated Follow-Up Instructions/Appts: Please follow up with 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 Bangura, psychiatrist and primary care provider within 1 week of discharge. Medications at Discharge Discharge Medications: Stop taking the following medications: Lurasidone HCl (Latuda) 20 MG TABLET ORAL DAILY Qty = 15 Lurasidone HCl (Latuda) 80 MG TABLET ORAL Every night Qty = 15 Mirtazapine (Mirtazapine) 15 MG TABLET ORAL Every night Qty = 30 Continue taking these medications: Buprenorphine HCl/Naloxone HCl (Suboxone 2 MG-0.5 MG Sl Film) 2 MG-0.5 MG FILM 1 Strip SUBLINGUAL DAILY Qty = 30 Comments: Last Taken: 01/25/17 Time: 7:49 AM Copies To: ADRIANA CR DO, MD,DIXIE Kelly Continue taking these medications: Buprenorphine HCl/Naloxone HCl (Suboxone 2 MG-0.5 MG Sl Film) 2 MG-0.5 MG FILM 1 Strip SUBLINGUAL DAILY Qty = 30 Comments: Last Taken: 01/25/17 Time: 7:49 AM
== END 2017-01-25 21:41 | DRG 816 ==
LOC: ERH 16:31 → ERHI 20:23 → 2NA 20:23 → CRI 20:23 → 2NA 20:23 → EDBEDREQSVC 21:00 → ENRESERV 23:07 → CRI 01-13 → 2NA 01-15 19:24
PROVIDERS: Physician Assistant; Radiology Diagnostic Radiology; Student in an Organized Health Care Education/Training Program; ADMIT Internal Medicine
DX: T40.5X1A Poisoning by cocaine, accidental (unintentional), initial encounter (principal); R50.9 Fever, unspecified; E87.2 Acidosis; N17.9 Acute kidney failure, unspecified; G92 Toxic encephalopathy; Z87.891 Personal history of nicotine dependence; D69.6 Thrombocytopenia, unspecified; D68.9 Coagulation defect, unspecified; E87.6 Hypokalemia; D64.9 Anemia, unspecified; M62.82 Rhabdomyolysis; E83.51 Hypocalcemia; B37.81 Candidal esophagitis; F41.9 Anxiety disorder, unspecified
CPT/HCPCS: 2NAP; 82553; 84133; 84300; 86235; CCU; ERO; 36415; 73502-RT; 73562-RT; 74176; 80307; 81001; 81025; 82436; 82570; 83010; 84600; 87040; 87086; 87389; 90714; 93005; 93010; 93306; 96361; 96374; 96375; 96376; 99291; G0480; J0131; J0610; J1644; J2405; J3490; J7060

== ENCOUNTER 2017-01-25 15:29 | Inpatient (IN) | payer OTHER ==
[~2017-01-25] VITALS: Ht 167.6 cm; Wt 69.6 kg
[~2017-01-25 15:29] MED LIST changes: +HYDROXYZINE PAM25 M2 PO; +LATUDA20 M1 PO; +LATUDA80 M1 PO; +MIRTAZAPINE15 M2 PO; +SUBOXONE 2 MG-1 EACH SL; +TRAZODONE HCL100 M1 PO
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
[2017-01-26 01:49] VITALS: BP 131/86
--- NOTE | 2017-01-26 05:43 | NUR ---
SLEPT WELL ALL NIGHT.
[2017-01-26 08:46] VITALS: BP 128/85
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
--- NOTE | 2017-01-26 11:51 | PN- Gen Med ---
Assessment/Plan Problem List: 1. Rhabdomyolysis Plan: 26F PMH polysubstance abuse admitted intially to ICU with cocaine overdose and rhabdomyolysis, now downgraded to general medicine floor, course complicated by oral thrush and now transferred to [facility]. Oral pain and odynophagia have resolved. She does report that when she was a child she would have muscle pains and would require IV fluids during "growth spurts". CPK trending down. Renal function normal. Patient is depressed but otherwise asymptomatic. 1. Rhabdomyolysis 2. Cocaine overdose 3. Candidal esophagitis 4. Polysubstance abuse 5. Elevated LFTs trending down Plan - creatinine normal. - CPK trending down, on PO intake. - Follow psychiatry recommendations medical team sign off. DVT/Prophylaxis: early ambulation low risk Discharge Plan Discharge Disposition: home Stable for Discharge? No (follow pysch) Subjective Follow-up For: PCP afetr d/c in 5-7 days Review of Systems Constitutional: Denies: no symptoms. EENTM: Denies: no symptoms. Cardiovascular: Denies: no symptoms. Respiratory: Denies: no symptoms. Gastrointestinal: Denies: no symptoms. Genitourinary: Denies: no symptoms. Musculoskeletal: Denies: no symptoms. Skin: Denies: no symptoms. Neurological/Psychological: Denies: no symptoms. Objective Last 24 Hrs of Vital Signs/I&O Vital Signs Date Time Temp Pulse Resp B/P B/P Pulse O2 O2 Flow FiO2 Mean Ox Delivery Rate 01/26 0846 98.4 64 128/85 01/26 0149 97.7 55 131/86 Intake & Output 01/26 1600 01/26 0800 01/26 0000 Intake Total Output Total Balance Patient 69.626 kg Weight Physical Exam General Appearance: Alert, Oriented X3, Cooperative, No Acute Distress Skin: No Rashes, No Breakdown Skin Temp/Moisture Exam: Warm/Dry Sepsis Skin Exam (color): Normal for Ethnicity HEENT: Atraumatic, PERRLA Neck: Supple, No JVD Cardiovascular: Regular Rate, Normal S1, Normal S2 Lungs: Clear to Auscultation Abdomen: Normal Bowel Sounds, Soft Neurological: Normal Gait, Normal Speech, Strength at 5/5 X4 Ext Extremities: No Clubbing, No Cyanosis
[2017-01-26 12:20] VITALS: BP 120/72
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
--- NOTE | 2017-01-26 13:24 | NUR ---
PT IS COMPLIANT AND COOPERATIVE WITH UNIT RULES. PT IS OUT IN COMMUNITY INTERACTING WELL WITH STAFF AND PEERS. PT IS ATTENDING ALL GROUPS. PT MOOD IS STABLE WITH A FULL RANGE AFFECT. PT DENIES SI THOUGHTS.
[2017-01-26 15:51] VITALS: BP 145/76
--- NOTE | 2017-01-26 16:16 | SOCIAL WORKER PROG NOTE PSYCH ---
Social Work Progress Note Progress Note Patient was seen individually. She recounted the events which took place that resulted in patient being admitted to the hospital. Patient mood was pleasant, but still serious. She provided her sense of her situation. Patient had been cocializing on the unit, and was coloring. In many ways she seemed to present as even younger than her age. Patient asked that I fax some information to [facility] stating that she was in the hospital; and also signed a release, at her own request, that I could get and share information with her technology administrator. Patient said that she had met with Dulce Maria, the SOLE RUFFER, but that she was always worried whenever medications were changed. She did comment that the unit was stressful, and that may be due to the newness as well as the difficult patients that are on unit at present. We agreed to meet again tomorrow
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
--- NOTE | 2017-01-26 18:35 | NUR ---
PT IS CALM, COOPERATIEV WITH STAFF AND PEERS, AND COMPLIANT WITH UNIT RULES. PT IS OFTEN IN MILIEU, INTERACTING WELL WITH OTHERS. CAN BE SLIGHTLY WITHDRAWN AT TIMES. MOOD IS STABLE, AFFECT IS EUTHYMIC TO FULL RANGE, COMMUNICATION IS ORGANIZED AND APPEARS NORMAL IN ALL RESPECTS, AND APPETITE IS NORMAL. PT DENIES SI AT THIS TIME.
[2017-01-26 19:48] VITALS: BP 124/61
--- NOTE | 2017-01-27 07:15 | NUR ---
PT IN BED EARLY. PT SAD. PT SLEPT.
[2017-01-27 08:04] VITALS: BP 122/68
[2017-01-27 12:13] VITALS: BP 118/58
--- NOTE | 2017-01-27 12:59 | NUR ---
PT IS STABLE WITH FLAT AFFECT, MINIMALLY VISIBLE WITHIN THE UNIT AND DOES NOT ENGAGE MUCH WITH PEERS/STAFF. PT HAS BEEN ATTENDING SOME MORNING GROUPS. VS ARE STABLE AND DENIES ANY SI/HI TO THIS MHW.
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
--- NOTE | 2017-01-27 14:45 | SOCIAL WORKER TX PLAN PSYCH ---
Treatment Plan - Please Document: - Evidence that there is ongoing collaboration between - the patient and the interdisciplinary team, - including the patient's active participation and - responsibility for engaging in the treatment regimen, - and that the treatment plan is individualized and - relevant to the patient's conditions. - Treatment plan should reflect documentation indicating - that all active therapeutic efforts are included. Strengths/Capabilities: Has providers in place Physical Limitations (Interventions): Current medical issues, h/o substance abuse Problem/Goals #1 Problem #1: self-harm behaviors Goal (Short Term): patient has been engaging in reckless behaviors which have caused harm to others as well as herself Patient needs to discuss what has occurred and goals moving forward Goal (Test Administrator): Family meeting is scheduled with mother. Mother supportive. (father also, but due to work, less available) Coping staegies need to be developed Patient is very much in favor of IOP, and, since she is under house arrest sees this as a way of interacting with others Interventions: Group and individual counseling Refer to [facility] Modalities: Group and individual counseling DSM5/PS Stressors/Medical Prob Diagnosis' (DSM 5, Stressors, Medical): F31.9 Unspecified Bipolar and Related Disorder F14.20 Stimulant Use Disorder, Cocaine F11.20 Opioid Use Disorder, Severe, on suboxone Legal no medical Current GAF: 38 Substantiation for Above Diagnosis: Patient denies any current suicidal ideation She is happy about mother coming in for a family meeting tomorrow Patient does want to learn coping skills and attend IOP Treatment Team - Responsibilities of members of the treatment team include: - Medication Management- MD or GEODETIC TECHNICIAN - Medication Administration and Monitoring- Nurse - Group Therapy- Occupational Therapist - 1:1 Therapy,Disch Planning,family involvement-Sand Digger
[2017-01-27 15:52] VITALS: BP 104/65
--- NOTE | 2017-01-27 17:56 | NUR ---
PT IS CALM, COOPERATIVE WITH STAFF AND PEERS, AND COMPLIANT WITH UNIT RULES. OFTEN IN [place]IE[place], INTERACTING WITH OTHERS. CAN BE SLIGHTLY WITHDRAWN AT TIMES. MOOD IS STABLE, AFFECT APPEARS EUTHYMIC TO FULL RANGE, COMMUNICATION IS ORGANZIED AND APPEARS NORMAL IN ALL RESPECTS, AND APPETITE IS NORMAL. PT DENIES SI AT THIS TIME.
[2017-01-27 20:02] VITALS: BP 124/68
--- NOTE | 2017-01-28 06:16 | NUR ---
THIS PATIENT WAS IN BED EARLY. SHE APPEARED TO SLEEP. MOUTH CHECKS WERE DONE. ATIVAN PRN WAS GIVEN BEFORE BLOOD WAS DRAWN THIS AM.
[2017-01-28 07:55] VITALS: BP 106/66
[2017-01-28 12:45] VITALS: BP 117/65
--- NOTE | 2017-01-28 14:27 | NUR ---
PT VISIBLE IN THE MILIEU FOR SOME OF THE DAY. HER GOAL TODAY WAS TO HAVE A POSITIVE FAMILY MEETING. PT HAS BEEN IN SOME GROUPS TODAY BUT OTHERWISE HAS BEEN RESTING IN HER ROOM. PT IS COOPERATIVE WITH STAFF DIRECTION, AND DENIES THOUGHTS OF HURTING HERSELF WHEN ASKED.
--- NOTE | 2017-01-28 15:06 | SOCIAL WORKER PROG NOTE PSYCH ---
Social Work Progress Note Progress Note THERESA BUNDY [id number] 1990 THERESA BUNDY [id number] Pended Authorization # Client Authorization # Type of Request [id number] CONCURRENT Date of Admission/ Start of Services Requested From Submission Date 01/25/2017 01/28/2017 01/28/2017
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
[2017-01-28 16:14] VITALS: BP 116/69
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
[2017-01-28 19:51] VITALS: BP 112/59
--- NOTE | 2017-01-29 04:18 | NUR ---
PT. SLEPT WELL.
[2017-01-29 08:50] VITALS: BP 119/71
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
[2017-01-29 12:15] VITALS: BP 113/59
--- NOTE | 2017-01-29 15:04 | NUR ---
Steve was visible all shift. Compliant with rules and norms of the unit. Attended the am group late, but able to participate with encouragement. Denies SH/SI. Took medications as needed without any issue. Pleasant mood and stable affect.
[2017-01-29 16:08] VITALS: BP 119/69
--- NOTE | 2017-01-29 18:09 | NUR ---
PT IS CALM, COOPERATIVE WITH STAFF AND PEERS, AND COMPLIANT WITH UNIT RULES. OFTEN IN [place], INTERACTING WELL WITH OTHERS. MOOD IS STABLE, AFFECT APPEARS EUTHYMIC TO FULL RANGE, COMMUNICATION IS ORGANIZED AND APPEARS NORMAL IN ALL RESPECTS, AND APPETITE IS NORMAL. PT DENIES SI AT THIS TIME.
[2017-01-29 19:56] VITALS: BP 118/61
--- NOTE | 2017-01-30 06:06 | NUR ---
PATIENT GIVEN PRN NEURONTIN AT 0111 FOR DIFFICULTY SLEEPING, OTHERWISE SLEPT ALL NIGHT.
[2017-01-30 07:49] VITALS: BP 120/68
[2017-01-30 12:11] VITALS: BP 93/52
--- NOTE | 2017-01-30 12:47 | NUR ---
PT IS COMPLIANT AND COOPERATIVE. MOOD IS STABLE WITH A FLAT AND EUTHYMIC AFFECT. PT DENIES SI AT THIS TIME, NO COMPLAINTS OFFERED. PT TENDS TO BE ISOLATIVE IN ROOM, HAS BEEN PRESENT ON THE UNIT MORE OFTEN TODAY. PT INTERACTS WITH PEERS AND STAFF WHEN OOB. PT ATTENDED ONE GROUP TODAY. VITALS ARE STABLE, APPETITE IS GOOD.
--- NOTE | 2017-01-30 13:00 | CP SOUTH PROGRESS NOTE PSYCH ---
Psych (Inpt) Progress Note Progress Note Include the following elements, when applicable: Involvement in the active treatment of the patient with behavioral observations of the patient and the patient's response to the treatment. Review of the ongoing treatment process in the context of the treatment plan. Indication of how multi-disciplinary staff members are carrying out the treatment plan. Plans for future interventions and recommendations for revision of the treatment plan. Liaison with other physicians/providers. Progress Note: Patient seen chart reviewed d/w nursing staff. she has no complaints denies depression reports some anxiety surrounding pending court case but feeling positive today, she has been observed to be crying when alone. denies si/hi or psychosis. dneies cravings or urges to use. med compliant no se reported. CF, ASA casually dressed, guarded no pmr/pma. fair eye contct. soft speech nervous mood flat affect. linear goal directed. denies si/hi or psychosis. i/j limited bp alcohol abuse continue current tx plan
[2017-01-30 16:15] VITALS: BP 115/73
[2017-01-30 19:53] VITALS: BP 119/65
[2017-01-31 07:51] VITALS: BP 114/61
--- NOTE | 2017-01-31 10:41 | CP SOUTH PROGRESS NOTE PSYCH ---
Psych (Inpt) Progress Note Progress Note Include the following elements, when applicable: Involvement in the active treatment of the patient with behavioral observations of the patient and the patient's response to the treatment. Review of the ongoing treatment process in the context of the treatment plan. Indication of how multi-disciplinary staff members are carrying out the treatment plan. Plans for future interventions and recommendations for revision of the treatment plan. Liaison with other physicians/providers. Progress Note: I discussed this patient's progress to date, current mental status, treatment process in the context of the treatment plan, and discharge planning with staff/ team in the daily morning inpatient team meeting. I also met with the patient myself in individual session. Current Medications Sig/Aydin Start time Last Medication Dose Route Stop Time Status Admin Buprenorphine/ 1 TAB 0801/26 0800 DCD 01/31 Naloxone SL 0758 Docusate Sodium 100 MG BID 01/250 DCD 01/26 PO 2125 Gabapentin 100 MG Q4P PRN 01/25 1700 DCD 01/30 PO 202 Lorazepam 0.5 MG Q8P PRN 01/28 1700 DCD 01/31 PO 02/04 1653 1255 Melatonin 10 MG AT BEDTIME 01/25 2200 DCD 01/30 PO 2147 Olanzapine 2.5 MG 2200 01/26 2200 DCD 01/30 PO 2147 Olanzapine 2.5 MG 0800 01/26 1530 DCD 01/31 PO 0758 Olanzapine 2.5 MG Q6-PRN PRN 01/26 1530 DCD PO Polyethylene Glycol 17 GM DAILY NEEDED 01/25 1700 DCD PO Senna/Docusate Sodium 2 TAB DAILY NEEDED 01/25 1700 DCD PO Trazodone HCl 50 MG AT BEDTIME 01/29 2200 DCD 01/30 PO 2147 Laboratory Tests 01/31 01/31 0850 0850 Chemistry AST (14 - 36 U/L) 57 H ALT (9 - 52 U/L) 111 H Creatine Kinase (30 - 135 U/L) 438 H Troponin I (< 0.11 ng/ml) Cancelled < 0.01 Vital Signs Date Time Temp Pulse Resp B/P B/P Pulse O2 O2 Flow FiO2 Mean Ox Delivery Rate 01/31 0751 97.1 69 114/61 01/303 97.8 78 119/65 01/30 1615 69 115/73 A: Chart, progress notes, labs, vital signs and medication list were reviewed. Rpt CK, LFTs, Troponin reviewed. CK and LFTs trending down. Troponin wnl. Vital signs within normal limits. Reviewed patient's tx progress to date with nursing staff. They reported no significant events from over the weekend, showed stable mood and behavior. No reports of SI, HI or AVH. Met with patient this morning on the date of discharge. She described her weekend as "boring". Stated this morning she was anxious while anticipating scheduled lab draw. Reported anxiety passed following lab draw. Informed patient that CK and LFTs are slowly improving and gradually trending down. Also, informed patient that Troponin is within normal limits. Patient was glad about lab results. Reported mood as "fine." Affect mostly blunted, smiling on occasion. Eye contact appropriate. Speech normal in rate, tone and volume. She had no complaints. Denied acute symptoms of anxiety and depression. Reported occasional racing thoughts, none at present. Reported appetite and sleep are "good." Denied passive and active suicidal ideation, plans and intent. She stated and also believed she will not harm herself or others. Gave protective factors of "my mom" and "my dog." Denied homicidal ideation, auditory and visual hallucinations. No evidence of paranoia or daniel delusions. Denied urges/ cravings to use substances. Thought process linear, goal-directed. She reported tolerating medications well and denied untoward medication effects. She reported feeling safe and ready for discharge. P: -Discharge today into the care of patient's mother. -F/u at [facility] for intake at 12:45PM. -F/u at [facility] for walk-in Suboxone management. Patient already an established patient there. Reports having a 1-week Rx for Suboxone at home. -F/u at [facility] on 02/04/17 at 2:30PM with Leona Morrison APRN for outpatient management of rhabdomyolysis & continued monitoring of CK, kidney fxn and LFTs, per Dr. Fierro recommendation. -Patient advised to abstain from all substances, attend weekly NA meetings and obtain a sponsor for support in sobriety. -Patient advised that in the event of an emergency to call 911/211/go to nearest emergency department. Patient verbalized understanding of all instructions. -Discharge prescriptions were e-prescribed to [facility] in [place], [place], today.
[2017-01-31] MEDS ORDERED: MELATONIN5 M7 PO (10:45)
[2017-01-31] MEDS ORDERED: TRAZODONE HCL50 M1 PO (10:45)
[2017-01-31] MEDS ORDERED: OLANZAPINE2.5 M1 PO (10:45)
[2017-01-31] MEDS ORDERED: DOCUSATE SODIU100 M3 PO (10:45)
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
--- NOTE | 2017-01-31 10:57 | NUR ---
PT IS SCHEDULED FOR DISCHARGE TO [facility] [place]. SHE REPORTS AND DEMONSTRATES IMPROVEMENT IN HIS MOOD AND ABILITY TO FUNCTION. SHE DENIES ANY THOUGHTS OF SUICIDE OR SELF HARM AT THIS TIME. SHE IS COMPLIANT WITH HER MED REGIME AND AGREES TO FOLLOW UP WITH IOP AND HAS HER INTAKE TODAY. PT IS GIVEN EDUCATION R/T MANAGING HER MOOD D/O AND ON PREVENTING SUICIDE
== END 2017-01-31 13:13 | DRG 753 ==
LOC: CP SOUTH 15:29
PROVIDERS: ADMIT Psychiatry & Neurology Psychiatry
DX: F31.5 Bipolar disorder, current episode depressed, severe, with psychotic features (principal); F14.90 Cocaine use, unspecified, uncomplicated; F11.20 Opioid dependence, uncomplicated
CPT/HCPCS: 36415